=== PATIENT | female | born 1960 | race Caucasian/White ===

== ENCOUNTER 2017-02-14 01:04 | Inpatient (IN) ==
[2017-02-14] MEDS ORDERED: Acetaminophen 325 MG TABLET PO ONE (02:05)
[2017-02-14 02:18] LABS: Basophils # 0.1 K/mcL (0.0-0.2); Basophils % 0.4 %; Eosinophils # 0.3 K/mcL (0.0-0.6); Eosinophils % 1.7 %; Hematocrit 28.9 % (35.3-44.9); Hemoglobin 9.1 g/dL (11.5-15.4); Immature Granulocytes % 0.5 % (0-4); Lymphocytes # 1.4 K/mcL (0.6-4.6); Lymphocytes % 9.3 %; Mean Corpuscular HGB Conc 31.5 g/dL (31.6-35.5); Mean Corpuscular Hemoglobin 29.4 pg (28.0-33.3); Mean Corpuscular Volume 93.2 fL (83.0-100.0); Mean Platelet Volume 10.2 fL (9.4-12.4); Monocytes # 0.8 K/mcL (0.0-1.3); Monocytes % 5.4 %; Neutrophils # 12.7 K/mcL (1.6-8.9); Platelet Count 329 K/mcL (140-400); Segmented Neutrophils % 82.7 %
[2017-02-14 02:31] LABS: Calcium 8.5 mg/dL (8.6-10.8); Potassium 4.4 mEq/L (3.5-4.5)
[2017-02-14] MEDS ORDERED: Cefepime HCl 2,000 MG in D5% in Water (Mini-Bag+) 100 ML IVPB STA (02:46)
[2017-02-14] MEDS ORDERED: Vancomycin 1,250 MG in D5% in Water 250 ML IVPB ONE (02:46)
[2017-02-14] MEDS ORDERED: 0.9 % Sodium Chloride 500 ML IVC ONE (03:44)
[2017-02-14] MEDS ORDERED: 0.9 % Sodium Chloride 1,000 ML IVC ONE (03:45)
--- NOTE | 2017-02-14 03:48 | Emergency Department Note ---
Disposition Clinical Impression: Cellulitis Qualifiers: Site of cellulitis: extremity Site of cellulitis of extremity: lower extremity Laterality: right Qualified Code(s): L03.115 - Cellulitis of right lower limb Disposition: Admitted As Inpatient Condition: Good General Adult HPI - General Chief complaint: ED Wound/Laceration Stated complaint: ulcer Time Seen by Provider: 02/14/17 01:27 Source: patient Limitations: no limitations Nursing Notes Reviewed: Yes Vital Signs Reviewed: Yes - History of Present Illness HPI Narrative: Patient here for evaluation of left foot ulcer. Patient was recently diagnosed with ulcer and cellulitis to the right first metatarsal that had been discussed with podiatry and the patient been placed on outpatient antibiotics. The patient delayed her treatment of these for several days but has been taking them and is now having more pain and redness and swelling. Patient states she now has fevers and nausea. Pain Scale: 8 - Related Data Previous Rx's Medication Instructions Recorded Cyclobenzaprine [Flexeril] 10 mg PO TID #30 tablet 05/19/15 Ondansetron HCl [Zofran] 4 mg PO Q6HR PRN #10 tablet 06/29/15 Ibuprofen [Motrin] 800 mg PO Q8HR #9 tablet 02/09/16 Orphenadrine [Norflex] 100 mg PO HS #3 tablet.er 02/09/16 Azithromycin 250 mg PO DAILY #6 tablet 10/04/16 Benzonatate [Tessalon] 100 mg PO TID PRN 7 Days 10/04/16 predniSONE [Prednisone] 50 mg PO DAILY 5 Days 10/04/16 Ciprofloxacin [Cipro] 500 mg PO BID #28 tablet 02/07/17 Sulfamethoxazole/Trimeth DS 1 each PO BID #28 tablet 02/07/17 [Bactrim DS] Allergies Allergy/AdvReac Type Severity Reaction Status Date / Time armodafinil [From Nuvigil] Allergy Rash Verified 02/07/17 10:05 cephalexin [From Keflex] Allergy Rash Verified 02/07/17 10:05 Review of Systems: CONSTITUTIONAL: fever, chillsNo weight loss, , weakness or fatigue. HEENT: Eyes: No visual changes. Ears, Nose, Throat: No hearing loss, difficulty talking or unable to swallow. SKIN: Erythema, swelling, ulceration CARDIOVASCULAR: No chest pain, chest pressure or chest discomfort. No palpitations or edema. RESPIRATORY: No shortness of breath, cough or sputum. GASTROINTESTINAL: No anorexia, nausea, vomiting or diarrhea. No abdominal pain or blood. GENITOURINARY: No burning on urination or hematuria. NEUROLOGICAL: No headache, dizziness, syncope, paralysis, ataxia, numbness or tingling in the extremities. No change in bowel or bladder control. MUSCULOSKELETAL: No muscle pain, back pain, joint pain or stiffness. Past Medical History - Past Medical History Medical history: Reports: arthritis, asthma, COPD, diabetes, hyperlipidemia, hypertension, migraine, thyroid disease Surgical history: Reports: thyroidectomy Psychiatric history: Reports: depression SAFETY FIRE BOSS 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 SAFETY FIRE BOSS history - Social History Smoking Status: Current every day smoker Smokeless Tobacco Status: No Alcohol use: Reports: none Drug use: Reports: none Physical Exam General appearance: NAD, conversant Eyes: anicteric sclerae, moist conjunctivae; no lid-lag; PERRL HENT: Atraumatic; oropharynx clear with moist mucous membranes Neck: Normal appearance; Trachea midline Chest: Symmetrical chest rise; No respiratory distress Extremities: peripheral edema and extremity tenderness Skin: Diabetic ulcer to the first metatarsal with surrounding erythema and tenderness to the lower extremity throughout the calf. Psych: Appropriate mood and affect Neuro: Awake and alert - General Limitations: no limitations General appearance: alert, in no apparent distress Course - Reevaluation(s) Reevaluation #1: Patient with worsening white count, ESR, CRP. Failed outpatient therapy. - Consultations Consultation #1: Discussed with Dr. Geronimo. Patient accepted for admission. Vital Signs Temperature 99 F 02/14/17 01:04 Pulse Rate 94 02/14/17 01:04 Respiratory Rate 18 02/14/17 01:04 Blood Pressure 159/71 02/14/17 01:04 O2 Sat by Pulse Oximetry 97 02/14/17 01:04 Temperature 99.5 F 02/14/17 05:41 Pulse Rate 90 02/14/17 05:41 Respiratory Rate 17 02/14/17 05:41 Blood Pressure 99/57 02/14/17 05:41 O2 Sat by Pulse Oximetry 93 02/14/17 05:41 Oxygen Delivery Oxygen Delivery Room Air Medical Decision Making - Lab Data Result diagrams: 02/14/17 02:00 02/14/17 02:00 Lab Results 02/14/17 02/14/17 02/14/17 Range/Units 02:00 02:00 02:00 WBC 15.4 H D (4.3-11.1) K/mcL RBC 3.10 L (3.82-4.97) M/mcL Hgb 9.1 L (11.5-15.4) g/dL Hct 28.9 L (35.3-44.9) % MCV 93.2 (83.0-100.0) fL MCH 29.4 (28.0-33.3) pg MCHC 31.5 L (31.6-35.5) g/dL RDW 15.0 H (11.5-14.5) % Plt Count 329 (140-400) K/mcL MPV 10.2 (9.4-12.4) fL Immature Gran % 0.5 (0-4) % Seg Neutrophils % 82.7 % Lymphocytes % 9.3 % Monocytes % 5.4 % Eosinophils % 1.7 % Basophils % 0.4 % Neutrophils # 12.7 H (1.6-8.9) K/mcL Lymphocytes # 1.4 (0.6-4.6) K/mcL Monocytes # 0.8 (0.0-1.3) K/mcL Eosinophils # 0.3 (0.0-0.6) K/mcL Basophils # 0.1 (0.0-0.2) K/mcL ESR >= 130 H (0-15) mm/hr Sodium 133 L (136-145) mEq/L Potassium 4.4 (3.5-4.5) mEq/L Chloride 101 (98-109) mEq/L Carbon Dioxide 19 (19-29) mEq/L BUN 15 (7-20) mg/dL Creatinine 1.43 H (0.57-1.11) mg/dL Est GFR ( Amer) 46 L (> 60) Est GFR (Non-Af Amer) 38 L (> 60) BUN/Creatinine Ratio 10 (6-26) Glucose 124 H (70-99) mg/dL Calculated Osmolality 278 L (280-300) Lactic Acid (0.5-2.2) mmol/L Calcium 8.5 L (8.6-10.8) mg/dL Iron 14 L (50-170) mcg/dL % Saturation 5 L (15-50) % Transferrin 189 (180-382) mg/dL C-Reactive Protein 92 H (Less than 5) mg/L 02/14/17 Range/Units 02:00 WBC (4.3-11.1) K/mcL RBC (3.82-4.97) M/mcL Hgb (11.5-15.4) g/dL Hct (35.3-44.9) % MCV (83.0-100.0) fL MCH (28.0-33.3) pg MCHC (31.6-35.5) g/dL RDW (11.5-14.5) % Plt Count (140-400) K/mcL MPV (9.4-12.4) fL Immature Gran % (0-4) % Seg Neutrophils % % Lymphocytes % % Monocytes % % Eosinophils % % Basophils % % Neutrophils # (1.6-8.9) K/mcL Lymphocytes # (0.6-4.6) K/mcL Monocytes # (0.0-1.3) K/mcL Eosinophils # (0.0-0.6) K/mcL Basophils # (0.0-0.2) K/mcL ESR (0-15) mm/hr Sodium (136-145) mEq/L Potassium (3.5-4.5) mEq/L Chloride (98-109) mEq/L Carbon Dioxide (19-29) mEq/L BUN (7-20) mg/dL Creatinine (0.57-1.11) mg/dL Est GFR ( Amer) (> 60) Est GFR (Non-Af Amer) (> 60) BUN/Creatinine Ratio (6-26) Glucose (70-99) mg/dL Calculated Osmolality (280-300) Lactic Acid 1.8 (0.5-2.2) mmol/L Calcium (8.6-10.8) mg/dL Iron (50-170) mcg/dL % Saturation (15-50) % Transferrin (180-382) mg/dL C-Reactive Protein (Less than 5) mg/L Critical Care Time Critical Care Time: Yes Total Critical Care Time: 40 Attestation: Critical care performed: Time is exclusive of separately billable procedures. Time includes: direct patient care, patient reassessment, coordination of patient care, interpretation of data (laboratory data, radiology data, and respiratory data), review of patient's medical records, medical consultation and documentation of patient care. Procedures included in critical care time: Procedures excluded from critical care time: Attestation Statement - Attestation Attestation: I, Rome Ravi MD, personally evaluated this patient and discussed their management with the resident physician. I reviewed the resident's note and agree with the documented findings, medical decision making, and plan of care. 56-year-old female presents to the emergency department with a complaint of increased pain and swelling in her right foot. Patient is diabetic and has an ulcer to the medial aspect of the distal right foot and great toe. A has been present for more than a month over the past few days has gotten worse and now she has a second area on the plantar aspect of the ball of the foot. Increased pain and swelling and redness. Fever today. On exam and patient is a well-developed well-nourished female who appears much older than her actual age. She is alert and oriented 3. There is no cyanosis or diaphoresis. Are clear and equal bilaterally. Heart regular and tachycardic. Abdomen is soft and nontender with normal bowel sounds. There is edema and tenderness and erythema of the distal right foot. Labs reviewed. Hospitalist, Dr. Geronimo, was consulted and accepted admission of the patient.
[2017-02-14] MEDS ORDERED: Ondansetron 4 MG/2 ML VIAL IVP PRN (04:09)
[2017-02-14] MEDS ORDERED: Naloxone 0.4 MG/ML INJ IVP PRN (04:09)
[2017-02-14] MEDS ORDERED: Vancomycin 1,000 MG in D5% in Water 250 ML IVPB SCH (05:00)
--- NOTE | 2017-02-14 05:04 | Internal Med History&Physical ---
Date of Encounter: 02/14/17 Time of Encounter: 04:30 Assessment and Plan (1) Diabetic foot ulcer Current visit: Yes Status: Acute Patient has one-month history of right leg redness, pain and swelling. She denies any history of trauma or stepping on any foreign objects. Exam reveals erythema, ulcer on the medial aspect of the first metatarsophalangeal joint. Elevated white count, temperature and ESR. Probe test does not reveal bone. X-ray reveals ulceration, cellulitis and foreign body. Patient will be admitted to inpatient status. I expect the patient to be in the hospital at least 2 midnights. High risk due to risk of sepsis and possible need for surgical intervention. Expected discharge disposition is to home. Patient will be given broad spectrum intravenous antibiotic therapy. She will require podiatry consult for possible removal of the foreign body for adequate source control of her infection. If her symptoms do not improve with conservative management, may need an MRI to evaluate for osteoarthritis. The patient does have vertebral fusion hardware which may preclude the performing of MRI. In this case, she may require a bone scan performed. Qualifiers: Diabetic foot ulcer location: other Diabetes mellitus type: type 2 Laterality: right Non-pressure ulcer stage: limited to breakdown of skin Qualified Code(s): E11.621 - Type 2 diabetes mellitus with foot ulcer; L97.511 - Non-pressure chronic ulcer of other part of right foot limited to breakdown of skin (2) Sepsis Current visit: Yes Status: Acute Sepsis due to diabetic foot ulcer causing cellulitis. Patient has white count greater than 12,000 and fever of 103 degrees Fahrenheit. Lactic acid level is normal. Patient does have evidence of end organ damage with acute kidney injury. Patient will be given intravenous fluids and broad-spectrum antibiotics as mentioned above. Qualifiers: Sepsis type: sepsis due to unspecified organism Qualified Code(s): A41.9 - Sepsis, unspecified organism (3) Cellulitis Current visit: Yes Status: Acute As mentioned above, patient will be placed on broad-spectrum antiemetic therapy. Intravenous fluids. Qualifiers: Site of cellulitis: extremity Site of cellulitis of extremity: lower extremity Laterality: right Qualified Code(s): L03.115 - Cellulitis of right lower limb (4) Lung mass Current visit: Yes Status: Chronic Present on CAT scan in November 2016. Patient given the results. Given the patient's 95 pound weight loss over the past 2 years, concerning for neoplasm. Differential diagnoses also include infectious/inflammatory. Will obtain repeat CAT scan of the chest to evaluate these lesions. Depending on the results of the CT scan, may need pulmonology consult for bronchoscopy and tissue biopsy. (5) Tobacco abuse Current visit: Yes Status: Chronic Patient counseled at length regarding the need for smoking cessation. Patient willing to quit. Patient requesting nicotine patch. The same has been ordered. (6) COPD (chronic obstructive pulmonary disease) Current visit: Yes Status: Chronic Breathing treatments when necessary. Continue home inhalers. Patient seems to have mild exacerbation. We will hold off on steroids due to her acute infection in the right foot. Qualifiers: COPD type: emphysema Emphysema type: panlobular Qualified Code(s): J43.1 - Panlobular emphysema (7) HTN (hypertension) Current visit: Yes Status: Chronic Controlled blood pressure. Continue current home medications. Qualifiers: Hypertension type: essential hypertension Qualified Code(s): I10 - Essential (primary) hypertension (8) Diabetes mellitus Current visit: Yes Status: Chronic Her latest hemoglobin A1c is 5.4. Patient has had a 95 pound weight loss over the past 2 years. Diabetes mellitus is likely resolved. Will obtain before meals at bedtime blood glucose measurements. If they are normal, these can be discontinued. No indication for sliding scale insulin. Patient did suffer from competitions of diabetes and she has polyneuropathy bilateral lower expertise. Qualifiers: Diabetes mellitus type: type 2 Diabetes mellitus complication status: with neurologic complications Diabetes mellitus complication detail: with polyneuropathy Diabetes mellitus fdc insulin use: without fdc use Qualified Code(s): E11.42 - Type 2 diabetes mellitus with diabetic polyneuropathy (9) BARON (acute kidney injury) Current visit: Yes Status: Acute Patient is acute worsening of renal failure compared to 1 week ago. Likely due to medications and dehydration caused by sepsis. Intravenous fluids. If no resolution, will obtain renal ultrasound. Avoid nephrotoxic agents and hypotension. (10) Anemia Current visit: Yes Status: Chronic We will obtain iron panel, B12 and folic acid levels. Qualifiers: Anemia type: unspecified type Qualified Code(s): D64.9 - Anemia, unspecified Internal Medicine - H&P: HPI Chief complaint: Right foot pain and swelling Admitted From: Emergency Dept Plans for Post Hospital Care: Home History of present illness: Ms. Huerta is a 56 year old female who presented to the emergency department due to persistent pain in the right foot, redness and swelling. Patient states that all the symptoms started about one month ago as a blister on the inner aspect of her right foot. Soon, the blister ruptured and the redness spread onto her foot. It was associated with pain of 6/10 intensity that was throbbing in nature without any radiation. Pain worsens with walking and gets better with rest. It has been associated with fever and chills. The patient presented to the emergency department one week ago for the same. She was given intravenous antibiotics and discussion for antibiotics to take by mouth. She was instructed to follow up with the personnel technician. Her appointment with podiatry is scheduled for 4 days from now. As the patient has been taking by mouth antibiotics and not getting better with continued pain and redness in her right foot, she returned to the emergency department. X-ray has been performed in the emergency department which reveals persistent ulceration and a foreign body. She has been given intravenous antibiotics and is being admitted. She reports that her fever at home was as high as 104 degrees Fahrenheit. She also reports nausea but denies any vomiting. She denies abdominal pain, diarrhea or consultation. She denies chest pain, shortness of breath. She reports chronic cough due to her smoking and some sputum production. She reports that she continues to smoke 1 pack per day. She denies feeling lightheaded. She reports that she had a CT scan in November 2016 as she was having symptoms of worsening shortness of breath, cough, sputum and fevers. She states that she has not seen her primary care physician since March 2016. She states that she was not aware of the results of the CAT scan performed in November and that she has not followed up with a brand strategy manager or her primary care physician regarding the results. She does report a 95 pound weight loss over the past 2 years. She states that with the weight loss, her diabetes has resolved and hence, she has been taken off all her diabetic medications. Past Med Surg Social Fam HX - Past Medical History Attestation: Yes The following information was validated with the patient. Source: patient Medical history: arthritis, asthma, COPD, diabetes, hyperlipidemia, hypertension , migraine, thyroid disease, TIA Psychiatric history: depression - Past Surgical History Surgical History: thyroidectomy, other (Vertebral fusion) - Social History Smoking Status: Current every day smoker Packs per day: 1 Smokeless Tobacco Status: No Alcohol use: none Drug use: none Current living situation: Home, With Family Activity Level: Independent ambulation Recent Out of Country Travel Within the Last 8 Weeks: No Exposure or Possible Exposure to Illness During Travel: No - Additional Family History Additional family history: Reviewed; not pertinent Internal Medicine - H&P: Meds Cyclobenzaprine [Flexeril] 10 mg PO TID #30 tablet 05/19/15 [Rx] Ondansetron HCl [Zofran] 4 mg PO Q6HR PRN #10 tablet 06/29/15 [Rx] Ibuprofen [Motrin] 800 mg PO Q8HR #9 tablet 02/09/16 [Rx] Orphenadrine [Norflex] 100 mg PO HS #3 tablet.er 02/09/16 [Rx] Azithromycin 250 mg PO DAILY #6 tablet 10/04/16 [Rx] Benzonatate [Tessalon] 100 mg PO TID PRN 7 Days 10/04/16 [Rx] predniSONE [Prednisone] 50 mg PO DAILY 5 Days 10/04/16 [Rx] Ciprofloxacin [Cipro] 500 mg PO BID #28 tablet 02/07/17 [Rx] Sulfamethoxazole/Trimeth DS [Bactrim DS] 1 each PO BID #28 tablet 02/07/17 [Rx] Allergies armodafinil [From Nuvigil] Allergy (Verified 02/07/17 10:05) Rash cephalexin [From Keflex] Allergy (Verified 02/07/17 10:05) Rash All Systems PM: A 10-system review of systems was performed and is negative for pertinent findings except as documented above in the HPI. Review of systems: 10 systems have been reviewed and are negative except as mentioned in the history of present illness - Constitutional Vitals: Temp Pulse Resp BP Pulse Ox 0 F L 82 0 0/0 98 02/14/17 04:53 02/14/17 04:43 02/14/17 04:53 02/14/17 04:53 02/14/17 04:43 Exam: Gen.: Sitting in bed. Mild to moderate distress. Eyes: Pupils equal, round and reactive to light. Extraocular muscles intact. ENT: Dry mucous membranes. No oropharyngeal erythema or discharge. Chest: Diffuse bilateral wheezing present. Not using accessory muscles of respiration. CVS: First and second heart sounds present. No murmurs, rubs or gallops. Tachycardia present. Abdomen: Soft, nontender, nondistended. Bowel sounds present. No hepatosplenomegaly. Skin: No decubitus ulcers appreciated. Erythema on the right foot with ulceration on the medial aspect of the first metatarsal and on the dorsal aspect of the first metatarsal. TRAVELING FREIGHT AGENT: Cranial nerves II-12 grossly intact. Power 5/5 all over. Sensory loss over bilateral lower extremities up to the knees in a glove and stocking pattern. Psychiatric: Alert, awake and oriented to time, place and person. Lymphatic system: No lymphadenopathy appreciated Internal Med - H&P Results - Labs CBC & Chem 7: 02/14/17 02:00 02/14/17 02:00 - Diagnostic Studies Other Images Status: image reviewed by me (Extremities the right foot-ulceration on the medial aspect of the first metatarsophalangeal joint. No involvement of the bone can be seen. 0.5 cm metallic foreign body in the soft tissues.) CT scan - chest Additional comments: Performed in November 2016-reveals 3.9X3.4 centimeter cavitary mass in the right upper lobe with more satellite nodules. These are concerning for infectious/ inflammatory disease versus neoplastic process. Repeat follow-up CAT scan of the chest has been recommended.
[2017-02-14 06:17] LABS: Folate 9.4 ng/mL (7.0-31.4)
[2017-02-14] MEDS: Acetaminophen 325 MG TABLET PO PRN (06:26)
[2017-02-14] MEDS: 0.9 % Sodium Chloride 1,000 ML IVC SCH ×2 (06:42→21:46)
[2017-02-14] MEDS: *HR* Heparin 5,000 UNIT/ML VIAL SQ SCH ×3 (08:37→23:11)
[2017-02-14] MEDS: Nicotine 14 MG PATCH.TD24 TD SCH (08:37)
[2017-02-14] MEDS: Piperacillin/Tazobactam 3.375 GM in D5% in Water (Mini-Bag+) 100 ML IVPB SCH ×3 (08:38→23:11)
--- NOTE | 2017-02-14 12:18 | Internal Med Progress Note ---
Date of Encounter: 02/14/17 Time of Encounter: 09:00 - Assessment and plan (1) Diabetic foot ulcer Current Visit: Yes Status: Acute Assessment and plan: Patient has diabetes with Foot infection. She has diabetic neuropathy. - Educated the patient to check her foot regularly. - Keep vanco and Zosyn treatment. - Podiatry consult saw patient. - Wound Care. Patient is at high risk because she is on vancomycin, need close monitoring Qualifiers: Diabetic foot ulcer location: other Diabetes mellitus type: type 2 Laterality: right Non-pressure ulcer stage: limited to breakdown of skin Qualified Code(s): E11.621 - Type 2 diabetes mellitus with foot ulcer; L97.511 - Non-pressure chronic ulcer of other part of right foot limited to breakdown of skin (2) Pneumonia Current Visit: Yes Status: Acute Assessment and plan: Patient has a previous CT shows nodular with cavity. Repeated CT shows resolved previous cavitated nodular, however shows bilateral inflammation/ infiltration, consider pneumonia. - Patient is on Vanco and Zosyn right now. - She has wheezing, place her on bronchodilator. - Oxygen therapy. - Check quantiferon to r/o TB - Repeat imaging after treatment. Qualifiers: Pneumonia type: due to unspecified organism Laterality: bilateral Lung location: upper lobe of lung Qualified Code(s): J18.9 - Pneumonia, unspecified organism (3) Tobacco abuse Current Visit: Yes Status: Chronic Assessment and plan: Smoking cessation education. Nicotine patch. (4) COPD (chronic obstructive pulmonary disease) Current Visit: Yes Status: Chronic Assessment and plan: Patient had wheezing. Placed her on bronchodilator treatment. Possibly her baseline, no signs of exacerbation. Qualifiers: COPD type: emphysema Emphysema type: panlobular Qualified Code(s): J43.1 - Panlobular emphysema (5) HTN (hypertension) Current Visit: Yes Status: Chronic Assessment and plan: Continue home medication Qualifiers: Hypertension type: essential hypertension Qualified Code(s): I10 - Essential (primary) hypertension (6) Diabetes mellitus Current Visit: Yes Status: Chronic Assessment and plan: On diet control at home. Will continue diabetic diet and closely follow glucose level. 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 Etiology is undetermined. Patient is a tobacco smoker, need to rule out malignancy. - CT chest done, no significant mass identified. - Suggest granulomatous lymph node appearance, combined with previously Rt lung cavity, need to r/o TB. Check sputum AFB smear and Quantiferon test. - Check AFP, CEA, CA-125, and CA 19-9 - Time Spent With Patient Greater than 35 minutes - Subjective Interval history: Patient is a 56-year-old female admitted for diabetic foot ulcer. Her past medical history is significant for diabetes, hypertension, thyroid disease, COPD , TIA, migraines, asthma. Patient was seen and examined. Complained of bilateral leg pain. Patient has a diabetic neuropathy and on gabapentin and Percocet at home. We will place back on her home medication. She has no fever. Mild shortness of breath. Occasionally dry cough. Vital signs stable. We will continue antibiotic treatment. - Constitutional Vitals: Temp Pulse Resp BP Pulse Ox 98.7 F 85 18 104/61 92 02/14/17 07:09 02/14/17 07:09 02/14/17 07:09 02/14/17 07:09 02/14/17 07:09 General appearance: Present: A&O X 3, no acute distress, answers questions appropriately - Head Head exam: Present: atraumatic, normocephalic - Eye Eye exam: Present: PERRL, conjuntiva pink, sclera anicteric Pupils: Present: PERRL - Neck Neck exam general surgery: Present: supple, trachea midline. Absent: lymphadenopathy - Respiratory Respiratory exam: Present: CTAB, wheezes (Scattered wheezes bilaterally). Absent: accessory muscle use, rales, rhonchi - Cardiovascular Cardiovascular exam: Present: RRR, +S1, +S2. Absent: diastolic murmur, gallop, rubs, systolic murmur - GI/Abdominal GI/Abdominal exam: Present: normal bowel sounds, soft, no peritoneal signs. Absent: distended, tenderness - Extremities Exam Extremities exam: Present: warm, radial pulses palpable and symetrical. Absent : calf tenderness, cyanotic, pedal edema Additional comments: Rt foot ulcer about 2X2 cm - Neurological Exam Neurological exam: Present: CN II-XII intact, oriented X3, no focal deficits. Absent: pronater drift, facial droop, speech deficit - Skin Skin exam: Present: dry, intact Internal Medicine: Result - Labs CBC & Chem 7: 02/14/17 02:00 02/14/17 02:00 - Impressions Impressions Chest CT 02/14/17 05:00 IMPRESSION: 1. New central predominant peribronchovascular groundglass opacities in both lungs, most severe in the left upper lobe. Considerations include pneumonia or edema. 2. The previously seen nodular consolidative opacity with cavitation in the right upper lobe has almost completely resolved, and previously seen areas of nodular consolidative opacity in the right upper lobe are no longer present. The findings are consistent with a resolving infectious or inflammatory process. 3. Minimal bronchial wall thickening could be related to pulmonary vascular congestion or bronchitis. 4. Incidental findings as above. D/ / Kentrell Fierro MD / Kentrell Fierro MD Interpreting Provider: Kentrell Fierro MD Consult Discharge Plan - Plan Referrals: Washington Ni DO [Primary Care Provider] -
[2017-02-14] MEDS ORDERED: Ipratropium/Albuterol Neb 3 ML IH PRN (12:26)
[2017-02-14] MEDS: *HR* OxyCODONE/APAP 10/325 TABLET PO PRN ×2 (13:03→21:42)
[2017-02-14] MEDS ORDERED: Td (TENIVAC) Vaccine 0.5 ML VIAL IM ONE (13:29)
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
[2017-02-14] MEDS: Vancomycin 1,250 MG in D5% in Water 250 ML IVPB SCH (15:25)
[2017-02-14] MEDS: Gabapentin 400 MG CAPSULE PO SCH ×2 (15:26→21:42)
[2017-02-15] MEDS: Vancomycin 1,250 MG in D5% in Water 250 ML IVPB SCH (02:05)
[2017-02-15] MEDS: Acetaminophen 325 MG TABLET PO PRN ×2 (02:10→08:02)
[2017-02-15] MEDS: *HR* OxyCODONE/APAP 10/325 TABLET PO PRN ×3 (05:01→21:28)
[2017-02-15 07:46] LABS: Basophils % 0.5 %; Eosinophils # 0.5 K/mcL (0.0-0.6); Eosinophils % 5.3 %; Hematocrit 23.8 % (35.3-44.9); Hemoglobin 7.6 g/dL (11.5-15.4); Immature Granulocytes % 0.2 % (0-4); Lymphocytes % 11.8 %; Mean Corpuscular HGB Conc 31.9 g/dL (31.6-35.5); Mean Corpuscular Hemoglobin 29.8 pg (28.0-33.3); Mean Corpuscular Volume 93.3 fL (83.0-100.0); Monocytes # 0.4 K/mcL (0.0-1.3); Monocytes % 4.3 %; Neutrophils # 6.6 K/mcL (1.6-8.9); Platelet Count 232 K/mcL (140-400); Red Blood Count 2.55 M/mcL (3.82-4.97); Red Cell Distribution Width 14.8 % (11.5-14.5); Segmented Neutrophils % 77.9 %
[2017-02-15] MEDS: Gabapentin 400 MG CAPSULE PO SCH ×3 (07:46→21:30)
[2017-02-15] MEDS: *HR* Heparin 5,000 UNIT/ML VIAL SQ SCH ×2 (07:47→16:09)
[2017-02-15] MEDS: Piperacillin/Tazobactam 3.375 GM in D5% in Water (Mini-Bag+) 100 ML IVPB SCH ×2 (07:47→15:16)
[2017-02-15] MEDS: Nicotine 14 MG PATCH.TD24 TD SCH (07:48)
[2017-02-15 07:58] LABS: Albumin 2.4 g/dL (3.5-5.0); Albumin/Globulin Ratio 0.5 (1.1-2.2); Bilirubin,Total 0.4 mg/dL (0.2-1.2); Calcium 8.1 mg/dL (8.6-10.8); Globulin 4.4 g/dL (2.4-3.5); Potassium 3.8 mEq/L (3.5-4.5); Total Protein 6.8 g/dL (6.0-8.3)
[2017-02-15] MEDS: Silver Sulfadiazine 50 GM TUBE TP SCH (07:58)
[2017-02-15 08:18] LABS: Thyroid Stimulating Hormone 1.119 mcIU/mL (0.350-4.840)
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
[2017-02-15 10:25] LABS: Carcinoembryonic Antigen 5.7 ng/mL (0-5.0)
--- NOTE | 2017-02-15 13:43 | Internal Med Progress Note ---
Date of Encounter: 02/15/17 Time of Encounter: 10:00 - Assessment and plan (1) Diabetic foot ulcer Current Visit: Yes Status: Inactive Assessment and plan: Patient has diabetes with Foot infection. She has diabetic neuropathy. - Educated the patient to check her foot regularly. - Keep vanco and Zosyn treatment. - Podiatry consult saw patient. - Wound Care. Patient is at high risk because she is on vancomycin, need close monitoring Qualifiers: Diabetic foot ulcer location: other Diabetes mellitus type: type 2 Laterality: right Non-pressure ulcer stage: with fat layer exposed Qualified Code(s): E11.621 - Type 2 diabetes mellitus with foot ulcer; L97.512 - Non-pressure chronic ulcer of other part of right foot with fat layer exposed (2) Pneumonia Current Visit: Yes Status: Acute Assessment and plan: Patient has a previous CT shows nodular with cavity. Repeated CT shows resolved previous cavitated nodular, however shows bilateral inflammation/ infiltration, consider pneumonia. - Patient is on Vanco and Zosyn right now. - She has wheezing, place her on bronchodilator. - Oxygen therapy. - Check quantiferon to r/o TB - Repeat imaging after treatment. Qualifiers: Pneumonia type: due to unspecified organism Laterality: bilateral Lung location: upper lobe of lung Qualified Code(s): J18.9 - Pneumonia, unspecified organism (3) Tobacco abuse Current Visit: Yes Status: Chronic Assessment and plan: Smoking cessation education. Nicotine patch. (4) COPD (chronic obstructive pulmonary disease) Current Visit: Yes Status: Chronic Assessment and plan: Patient had wheezing. Placed her on bronchodilator treatment. Possibly her baseline, no signs of exacerbation. Qualifiers: COPD type: emphysema Emphysema type: panlobular Qualified Code(s): J43.1 - Panlobular emphysema (5) HTN (hypertension) Current Visit: Yes Status: Chronic Assessment and plan: Continue home medication Qualifiers: Hypertension type: essential hypertension Qualified Code(s): I10 - Essential (primary) hypertension (6) Diabetes mellitus Current Visit: Yes Status: Chronic Assessment and plan: On diet control at home. Will continue diabetic diet and closely follow glucose level. 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 Etiology is undetermined. Patient is a tobacco smoker, need to rule out malignancy. - CT chest done, no significant mass identified. - Suggest granulomatous lymph node appearance, combined with previously Rt lung cavity, need to r/o TB. Check sputum AFB smear and Quantiferon test. - Borderline elevated CEA, CA-125. Pending AFP, and CA 19-9 - Low hemoglobin notified. Will consult GI. Patient has iron deficiency, suggested possibly chronic blood loss. - Time Spent With Patient Greater than 35 minutes - Subjective Interval history: Patient is a 56-year-old female admitted for diabetic foot ulcer. Her past medical history is significant for diabetes, hypertension, thyroid disease, COPD , TIA, migraines, asthma. Patient was seen and examined. Complained of bilateral leg pain. Patient complain right calf pain, we will order Doppler to rule out DVT. Patient still have dry cough with exertional shortness of breath. Hemoglobin dropped to 7.6. No signs of active bleeding identified. Vitals are stable. Will check stool guaiac test. Will consult GI. Place patient on clear liquid diet for possible scopes. - Constitutional Vitals: Temp Pulse Resp BP Pulse Ox 97.6 F 98 16 149/67 95 02/15/17 11:47 02/15/17 11:47 02/15/17 11:47 02/15/17 11:47 02/15/17 11:47 General appearance: Present: A&O X 3, no acute distress, answers questions appropriately - Head Head exam: Present: atraumatic, normocephalic - Eye Eye exam: Present: PERRL, conjuntiva pink, sclera anicteric Pupils: Present: PERRL - Neck Neck exam general surgery: Present: supple, trachea midline. Absent: lymphadenopathy - Respiratory Respiratory exam: Present: CTAB, wheezes (Scattered wheezing on left side). Absent: accessory muscle use, rales, rhonchi - Cardiovascular Cardiovascular exam: Present: RRR, +S1, +S2. Absent: diastolic murmur, gallop, rubs, systolic murmur - GI/Abdominal GI/Abdominal exam: Present: normal bowel sounds, soft, no peritoneal signs. Absent: distended, tenderness - Extremities Exam Extremities exam: Present: warm, radial pulses palpable and symetrical. Absent : calf tenderness, cyanotic, pedal edema - Neurological Exam Neurological exam: Present: CN II-XII intact, oriented X3, no focal deficits. Absent: pronater drift, facial droop, speech deficit - Skin Skin exam: Present: dry, intact Internal Medicine: Result - Labs CBC & Chem 7: 02/15/17 07:33 02/15/17 07:33 Labs: Short CBC 02/15/17 Range/Units 07:33 WBC 8.5 (4.3-11.1) K/mcL Hgb 7.6 L D (11.5-15.4) g/dL Hct 23.8 L (35.3-44.9) % Plt Count 232 (140-400) K/mcL Neutrophils # 6.6 (1.6-8.9) K/mcL BMP 02/15/17 07:33 Sodium 137 Potassium 3.8 Chloride 106 Carbon Dioxide 21 BUN 14 Creatinine 1.17 H Glucose 126 H Calcium 8.1 L Liver Function 02/15/17 Range/Units 07:33 Total Bilirubin 0.4 (0.2-1.2) mg/dL AST 26 (5-34) Units/L ALT 6 (0-55) Units/L Alkaline Phosphatase 88 (38-126) Units/L Albumin 2.4 L (3.5-5.0) g/dL - Impressions Impressions Foot X-Ray 02/15/17 09:02 IMPRESSION: 1. Unchanged thin metallic foreign body in the dorsal soft tissues of the right forefoot in the 2nd interspace at level of the right 2nd and 3rd metatarsophalangeal joints. Of note, the foreign body appears to be within and/or just subjacent to the skin on the recent CT (refer to series 7 images 41-43). 2. Unchanged ulceration in the medial right forefoot near the right 1st metatarsophalangeal joint with no findings of underlying osteomyelitis or necrotizing fasciitis. D/ / Kentrell Fierro MD / Kentrell Fierro MD Interpreting Provider: Kentrell Fierro MD Consult Discharge Plan - Plan Referrals: Washington Ni DO [Primary Care Provider] -
[2017-02-15] MEDS: *HR* FentaNYL PATCH 50 MCG PATCH TD SCH (14:58)
[2017-02-15] MEDS: 0.9 % Sodium Chloride 1,000 ML IVC SCH (15:17)
[2017-02-15] MEDS: ALPRAZolam 0.5 MG TABLET PO PRN (15:25)
[2017-02-15] MEDS: Vancomycin 1,750 MG in D5% in Water 500 ML IVPB SCH (21:29)
[2017-02-16] MEDS: *HR* Heparin 5,000 UNIT/ML VIAL SQ SCH ×3 (00:37→16:05)
[2017-02-16] MEDS: Piperacillin/Tazobactam 3.375 GM in D5% in Water (Mini-Bag+) 100 ML IVPB SCH ×4 (00:37→23:33)
[2017-02-16 03:31] LABS: Basophils % 0.5 %; Eosinophils # 0.4 K/mcL (0.0-0.6); Eosinophils % 7.2 %; Hematocrit 23.2 % (35.3-44.9); Hemoglobin 7.1 g/dL (11.5-15.4); Immature Granulocytes % 0.5 % (0-4); Lymphocytes # 0.9 K/mcL (0.6-4.6); Lymphocytes % 15.8 %; Mean Corpuscular HGB Conc 30.6 g/dL (31.6-35.5); Mean Corpuscular Hemoglobin 28.5 pg (28.0-33.3); Mean Corpuscular Volume 93.2 fL (83.0-100.0); Mean Platelet Volume 9.8 fL (9.4-12.4); Monocytes # 0.3 K/mcL (0.0-1.3); Monocytes % 5.7 %; Neutrophils # 4.2 K/mcL (1.6-8.9); Platelet Count 224 K/mcL (140-400); Red Blood Count 2.49 M/mcL (3.82-4.97); Red Cell Distribution Width 14.7 % (11.5-14.5); Segmented Neutrophils % 70.3 %
[2017-02-16 03:46] LABS: BUN/Creatinine Ratio 13 (6-26); Blood Urea Nitrogen 11 mg/dL (7-20); Calcium 8.1 mg/dL (8.6-10.8); Carbon Dioxide 21 mEq/L (19-29); Chloride 106 mEq/L (98-109); Glucose 105 mg/dL (70-99); Osmolality,Calculated 280 (280-300); Potassium 3.2 mEq/L (3.5-4.5); Sodium 135 mEq/L (136-145); eGFR For African Americans > 60 (> 60); eGFR For Non-African Americans > 60 (> 60)
[2017-02-16] MEDS: 0.9 % Sodium Chloride 1,000 ML IVC SCH ×3 (05:24→20:00)
--- NOTE | 2017-02-16 07:10 | Venous Imaging Report ---
LE Venous Duplex Patient Name:Geraldine Huerta Order Number:[id number] Procedure Date:02/15/2017 Date:1960Age:56 yrs Gender:Female Location:[facility] Room #: 3A13 Border Guard:Azra Sherman MD:Gavino Reid MD public relations sales marketing:Washington Ni DO Reading MD:Santos Alfred MD Study Quality:Adequate Primary Indications:Swelling Secondary Indications: Pain Impressions: Normal right lower extremity deep and superficial venous exam. Normal contralateral common femoral vein. Recommendations: After imaging the patient returned to their room. Test completed on 02/15/2017 at 2:42:21 pm. Findings Prior Study: No prior study available for comparison. Lower Extremity Venous Duplex Side Vein Compress Spontaneous Flow Augment Diameter (cm) Depth (cm) Right Distal Iliac Normal Yes Phasic Yes Right Common Femoral Normal Yes Phasic Yes Right Superficial Femoral Normal Yes Phasic Yes Right Popliteal Normal Yes Phasic Yes Right Posterior Tibial Normal Yes Phasic Yes Right Peroneal Normal Yes Phasic Yes Right Great Saphenous Normal Yes Phasic Yes Right Lesser Saphenous Normal Yes Phasic Yes Left Common Femoral Normal Yes Phasic Yes Updated by Santos Alfred MD on 02/16/2017 7:06:49 AM electronically signed on 02/16/2017 7:07:12 AM with status of Final
[2017-02-16] MEDS ORDERED: 0.9 % Sodium Chloride 250 ML ONE (09:20)
[2017-02-16] MEDS: Gabapentin 400 MG CAPSULE PO SCH ×3 (09:31→21:20)
[2017-02-16] MEDS: Nicotine 14 MG PATCH.TD24 TD SCH (09:33)
[2017-02-16] MEDS: Silver Sulfadiazine 50 GM TUBE TP SCH (09:34)
[2017-02-16] MEDS: *HR* OxyCODONE/APAP 10/325 TABLET PO PRN ×2 (10:55→18:35)
--- NOTE | 2017-02-16 11:50 | Gastroenterology Consult Note ---
<VelaKentrell Ha - Last Filed: 02/16/17 11:48> Date of Encounter: 02/16/17 Time of Encounter: 10:55 - Assessment and plan (1) Anemia Current Visit: Yes Status: Chronic Assessment and plan: Hgb on admission 9.1 and 7.1 this AM. Iron 14 with ferritin 95. Plan for EGD and colonoscopy tomorrow. Clear liquid diet today, no red or purple. NPO at midnight. If unable tolerate NuLytely please use MiraLAX prep. If not clear by 6 AM, give 2 tap water enemas. Qualifiers: Anemia type: unspecified type Qualified Code(s): D64.9 - Anemia, unspecified (2) Unintentional weight loss Current Visit: Yes Status: Acute Assessment and plan: Pt states she lost 95 lbs 4 years ago. On 01/22/15 she weighed 164 lbs, 02/14/2016 162 lbs, 04/13/16 165 lbs, 06/02/16 164 lbs, 08/19/16 160 lbs, 10/21/16 155 lbs, 11/18 152 lbs, 02/09/17 153 lbs. Borderline elevated CEA at 5.7 and CA 125 at 38. AFP and CA 19-9 pending. (3) Pneumonia Current Visit: Yes Status: Acute Assessment and plan: Cavitary lesion noted on CT. Quantiferon and AFB smear pending. Qualifiers: Pneumonia type: due to unspecified organism Laterality: bilateral Lung location: upper lobe of lung Qualified Code(s): J18.9 - Pneumonia, unspecified organism - Time Spent With Patient Total time spent is greater than 50% in coordination of care (as documented) at patient's floor/unit and/or counseling patient: GI History of Present Illness - Data of Consult Patient: new to practice Consult date: 02/16/17 Requesting Physician: Jeanette Mancia MD - Consult Narrative Reason for consult: Anemia, weight loss History of present illness: Ms. Huerta is a 56 year old female with PMHx of arthritis, asthma, COPD, DM, HLD , HTN, TIA who presented to the ED for evaluation of left foot ulcer. Patient was recently diagnosed with ulcer and cellulitis to the right first metatarsal that had been discussed with podiatry and the patient was started on outpatient antibiotics. She reports that her fever at home was as high as 104. She also reports nausea but denies any vomiting. She denies chest pain, SOB, abdominal pain, diarrhea, constipation, melena, or hematochezia. She does report a 95 pound weight loss 4 years ago. We have been consulted for unintentional weight loss and anemia. Hgb on admission 9.1 and today Hgb 7.1. Iron was low at 14. Borderline elevated CEA at 5.7 and CA 125 at 38. AFP and CA 19-9 pending. Procedures: Colonoscopy 08/09/2012 Dr. Carrion: Normal EGD 11/09/2011 Dr. Carrion: Normal NSAIDs: Motrin Anticoagulation: None Past Med Surg Social Fam HX - Past Medical History Medical history: arthritis, asthma, COPD, diabetes, hyperlipidemia, hypertension , migraine, thyroid disease Psychiatric history: depression - Past Surgical History Surgical History: thyroidectomy - Social History Smoking Status: Current every day smoker Packs per day: 1 Smokeless Tobacco Status: No Alcohol use: none Drug use: none - Family History Father Living Status: Age at : 72 Hx Family Endocrine Disorder: Yes (diabetes) - Gastrointestinal Gastrointestinal: Present: as per HPI - Constitutional Constitutional: as per HPI - EENT Eyes: as per HPI Ears: Present: as per HPI Nose, mouth and throat: Present: as per HPI - Cardiovascular Cardiovascular ROS: Present: as per HPI - Respiratory Respiratory IM: Present: as per HPI - Genitourinary Genitourinary: Absent: change in color, Urinary frequency - Neurological ROS Neurological GI: Present: as per HPI - Hematologic/Lymphatic Hematologic/Lymphatic pediatric: Present: as per HPI - Musculoskeletal Musculoskeletal ROS GI: Present: as per HPI - Integumentary Integumentary GI: Present: as per HPI - Psychiatric ROS Psychiatric GI: Present: as per HPI - Endocrine Endocrine IM: Present: as per HPI - Constitutional Vitals: Temp Pulse Resp BP Pulse Ox 98.1 F 84 18 152/77 94 02/16/17 11:01 02/16/17 11:01 02/16/17 11:01 02/16/17 11:01 02/16/17 08:00 General appearance: Present: cooperative, A&O X 3, no acute distress, answers questions appropriately - Head Head exam: Present: atraumatic, normocephalic - Eye Eye exam: Present: normal appearance, sclera anicteric - ENT ENT exam: Present: mucous membranes dry - Neck Neck exam general surgery: Present: normal inspection, trachea midline - Respiratory Respiratory exam: Present: CTAB. Absent: rales, rhonchi - Cardiovascular Cardiovascular exam: Present: RRR, +S1, +S2 - GI/Abdominal GI/Abdominal exam: Present: soft, no peritoneal signs. Absent: distended, firm , guarding, tenderness - Rectal Rectal exam: Present: deferred - Extremities Exam Extremities exam: Present: warm - Neurological Exam Neurological exam: Present: no focal deficits - Psychiatric Psychiatric exam: Present: normal affect, normal mood - Skin Skin exam: Present: dry, intact, normal color, warm Results - Labs CBC & Chem 7: 02/16/17 03:20 02/16/17 03:20 Labs: Last Result ESR >= 130 mm/hr (0-15) H 02/14/17 02:00 Calcium 8.1 mg/dL (8.6-10.8) L 02/16/17 03:20 Iron 14 mcg/dL (50-170) L 02/14/17 02:00 % Saturation 5 % (15-50) L 02/14/17 02:00 Transferrin 189 mg/dL (180-382) 02/14/17 02:00 Ferritin 95 ng/ml (5-204) 02/14/17 02:00 C-Reactive Protein 92 mg/L (Less than 5) H 02/14/17 02:00 Vitamin B12 671 pg/mL (213-816) 02/14/17 03:00 Folate 9.4 ng/mL (7.0-31.4) 02/14/17 03:00 Entire Visit Hgb 7.1 g/dL (11.5-15.4) L 02/16/17 03:20 Hct 23.2 % (35.3-44.9) L 02/16/17 03:20 Ferritin 95 ng/ml (5-204) 02/14/17 02:00 Total Bilirubin 0.4 mg/dL (0.2-1.2) 02/15/17 07:33 AST 26 Units/L (5-34) 02/15/17 07:33 ALT 6 Units/L (0-55) 02/15/17 07:33 Carcinoembryonic Ag 5.7 ng/mL (0-5.0) H 02/15/17 07:33 CA 125 Ag Serial Mntr 38 U/mL (0-35) H 02/15/17 07:33 Folate 9.4 ng/mL (7.0-31.4) 02/14/17 03:00 Consult Discharge Plan - Plan Referrals: Washington Ni DO [Primary Care Provider] - <Aurelia Jones - Last Filed: 02/16/17 17:29> Date of Encounter: 02/16/17 Time of Encounter: 15:00 - Time Spent With Patient Total time spent is greater than 50% in coordination of care (as documented) at patient's floor/unit and/or counseling patient: GI History of Present Illness - Data of Consult Requesting Physician: Jeanette Mancia MD - Consult Narrative History of present illness: Ms. Huerta is a 56 year old female - Constitutional Vitals: Temp Pulse Resp BP Pulse Ox 98.9 F 78 16 118/71 94 02/16/17 14:20 02/16/17 14:20 02/16/17 14:20 02/16/17 14:20 02/16/17 08:00 Results - Labs CBC & Chem 7: 02/16/17 03:20 02/16/17 03:20 Labs: Last Result ESR >= 130 mm/hr (0-15) H 02/14/17 02:00 Calcium 8.1 mg/dL (8.6-10.8) L 02/16/17 03:20 Iron 14 mcg/dL (50-170) L 02/14/17 02:00 % Saturation 5 % (15-50) L 02/14/17 02:00 Transferrin 189 mg/dL (180-382) 02/14/17 02:00 Ferritin 95 ng/ml (5-204) 02/14/17 02:00 C-Reactive Protein 92 mg/L (Less than 5) H 02/14/17 02:00 Vitamin B12 671 pg/mL (213-816) 02/14/17 03:00 Folate 9.4 ng/mL (7.0-31.4) 02/14/17 03:00 Entire Visit Hgb 7.1 g/dL (11.5-15.4) L 02/16/17 03:20 Hct 23.2 % (35.3-44.9) L 02/16/17 03:20 Ferritin 95 ng/ml (5-204) 02/14/17 02:00 Total Bilirubin 0.4 mg/dL (0.2-1.2) 02/15/17 07:33 AST 26 Units/L (5-34) 02/15/17 07:33 ALT 6 Units/L (0-55) 02/15/17 07:33 Carcinoembryonic Ag 5.7 ng/mL (0-5.0) H 02/15/17 07:33 CA 125 Ag Serial Mntr 38 U/mL (0-35) H 02/15/17 07:33 Folate 9.4 ng/mL (7.0-31.4) 02/14/17 03:00 - Attending Attestation I examined this patient and my medical decision-making was reviewed with the COMMODITY MERCHANT/PA/Advanced Practice Nurse/Resident Physician. I agree with the documented findings, disposition and treatment plan as described except to the extent set forth below.
--- NOTE | 2017-02-16 14:26 | Internal Med Progress Note ---
Date of Encounter: 02/16/17 Time of Encounter: 10:00 - Assessment and plan (1) Diabetic foot ulcer Current Visit: Yes Status: Inactive Assessment and plan: Patient has diabetes with Foot infection. She has diabetic neuropathy. - Educated the patient to check her foot regularly. - Keep vanco and Zosyn treatment. Wound culture shows MRSA, sensitive to vanco. - WBC trend down to normal. - Podiatry consult saw patient. - Wound Care. Patient is at high risk because she is on vancomycin, need close monitoring Qualifiers: Diabetic foot ulcer location: other Diabetes mellitus type: type 2 Laterality: right Non-pressure ulcer stage: with fat layer exposed Qualified Code(s): E11.621 - Type 2 diabetes mellitus with foot ulcer; L97.512 - Non-pressure chronic ulcer of other part of right foot with fat layer exposed (2) Pneumonia Current Visit: Yes Status: Acute Assessment and plan: Patient has a previous CT shows nodular with cavity. Repeated CT shows resolved previous cavitated nodular, however shows bilateral inflammation/ infiltration, consider pneumonia. - Patient is on Vanco and Zosyn right now. - She has wheezing, place her on bronchodilator. - Oxygen therapy. - Check quantiferon and AFB smear to r/o TB - Repeat imaging after treatment. Qualifiers: Pneumonia type: due to unspecified organism Laterality: bilateral Lung location: upper lobe of lung Qualified Code(s): J18.9 - Pneumonia, unspecified organism (3) Tobacco abuse Current Visit: Yes Status: Chronic Assessment and plan: Smoking cessation education. Nicotine patch. (4) COPD (chronic obstructive pulmonary disease) Current Visit: Yes Status: Chronic Assessment and plan: Patient had wheezing. Placed her on bronchodilator treatment. Possibly her baseline, no signs of exacerbation. Qualifiers: COPD type: emphysema Emphysema type: panlobular Qualified Code(s): J43.1 - Panlobular emphysema (5) HTN (hypertension) Current Visit: Yes Status: Chronic Assessment and plan: Continue home medication Qualifiers: Hypertension type: essential hypertension Qualified Code(s): I10 - Essential (primary) hypertension (6) Diabetes mellitus Current Visit: Yes Status: Chronic Assessment and plan: On diet control at home. Will continue diabetic diet and closely follow glucose level. Qualifiers: Diabetes mellitus type: type 2 Diabetes mellitus complication status: with neurologic complications Diabetes mellitus complication detail: with polyneuropathy Diabetes mellitus snf insulin use: without care consultant use Qualified Code(s): E11.42 - Type 2 diabetes mellitus with diabetic polyneuropathy (7) Unintentional weight loss Current Visit: Yes Status: Acute Assessment and plan: Pt c/o 95lb BM loss over last several months. However, GI consult checked her old chart she was only about 10 LB loss since last year. Pt has low HgB, Etiology is undetermined. Plan for EGD and colonoscopy. - CT chest done, no significant mass identified. - Suggest granulomatous lymph node appearance, combined with previously Rt lung cavity, need to r/o TB. Check sputum AFB smear and Quantiferon test. - Borderline elevated CEA, CA-125. Pending AFP, and CA 19-9 - Low hemoglobin notified. Patient has iron deficiency, suggested possibly chronic blood loss. GI saw pt, plan for Scopes. - Time Spent With Patient Greater than 35 minutes - Subjective Interval history: Patient is a 56-year-old female admitted for diabetic foot ulcer. Her past medical history is significant for diabetes, hypertension, thyroid disease, COPD , TIA, migraines, asthma. Patient was seen and examined. Still dry cough and c/o b/l pain/tingling. Doppler shows negative to DVT. Wound culture shows sensitive to vanco. Will continue vanco and zosyn for both foot infection and HCAP. Hemoglobin 7.1, will transfuse pt for 1 unit of PRBC. GI consult appreciated, plan for scopes tomorrow. - Constitutional Vitals: Temp Pulse Resp BP Pulse Ox 98.1 F 84 18 152/77 94 02/16/17 11:01 02/16/17 11:01 02/16/17 11:02/16/17 11:02/16/17 08:00 General appearance: Present: A&O X 3, no acute distress, answers questions appropriately - Head Head exam: Present: atraumatic, normocephalic - Eye Eye exam: Present: PERRL, conjuntiva pink, sclera anicteric Pupils: Present: PERRL - Neck Neck exam general surgery: Present: supple, trachea midline. Absent: lymphadenopathy - Respiratory Respiratory exam: Present: CTAB. Absent: accessory muscle use, rales, rhonchi, wheezes - Cardiovascular Cardiovascular exam: Present: RRR, +S1, +S2. Absent: diastolic murmur, gallop, rubs, systolic murmur - GI/Abdominal GI/Abdominal exam: Present: normal bowel sounds, soft, no peritoneal signs. Absent: distended, tenderness - Extremities Exam Extremities exam: Present: warm, radial pulses palpable and symetrical. Absent : calf tenderness, cyanotic, pedal edema Additional comments: Right foot wound well dressed - Neurological Exam Neurological exam: Present: CN II-XII intact, oriented X3, no focal deficits. Absent: pronater drift, facial droop, speech deficit - Skin Skin exam: Present: dry, intact Internal Medicine: Result - Labs CBC & Chem 7: 02/16/17 03:20 02/16/17 03:20 Labs: Short CBC 02/16/17 Range/Units 03:20 WBC 5.9 (4.3-11.1) K/mcL Hgb 7.1 L (11.5-15.4) g/dL Hct 23.2 L (35.3-44.9) % Plt Count 224 (140-400) K/mcL Neutrophils # 4.2 (1.6-8.9) K/mcL BMP 02/16/17 03:20 Sodium 135 L Potassium 3.2 L Chloride 106 Carbon Dioxide 21 BUN 11 Creatinine 0.86 Glucose 105 H Calcium 8.1 L Consult Discharge Plan - Plan Referrals: Washington Ni DO [Primary Care Provider] -
[2017-02-16] MEDS ORDERED: SODIUM CHLORIDE/NAHCO3/KCL/PEG 4,000 ML SOLN.RECON PO ONE (17:00)
[2017-02-16] MEDS: Vancomycin 1,250 MG in D5% in Water 250 ML IVPB SCH (19:31)
[2017-02-16] MEDS: Vancomycin 1,750 MG in D5% in Water 500 ML IVPB SCH (21:20)
[2017-02-17] MEDS: *HR* OxyCODONE/APAP 10/325 TABLET PO PRN ×5 (02:33→22:24)
[2017-02-17 06:02] LABS: Basophils % 0.6 %; Eosinophils # 0.4 K/mcL (0.0-0.6); Hematocrit 23.6 % (35.3-44.9); Hemoglobin 7.3 g/dL (11.5-15.4); Immature Granulocytes % 0.4 % (0-4); Lymphocytes # 0.7 K/mcL (0.6-4.6); Lymphocytes % 13.3 %; Mean Corpuscular HGB Conc 30.9 g/dL (31.6-35.5); Mean Corpuscular Volume 93.7 fL (83.0-100.0); Mean Platelet Volume 9.7 fL (9.4-12.4); Monocytes # 0.3 K/mcL (0.0-1.3); Neutrophils # 3.9 K/mcL (1.6-8.9); Platelet Count 222 K/mcL (140-400); Red Blood Count 2.52 M/mcL (3.82-4.97); Red Cell Distribution Width 14.6 % (11.5-14.5); Segmented Neutrophils % 72.7 %
[2017-02-17 06:11] LABS: BUN/Creatinine Ratio 9 (6-26); Blood Urea Nitrogen 7 mg/dL (7-20); Calcium 7.9 mg/dL (8.6-10.8); Carbon Dioxide 19 mEq/L (19-29); Chloride 110 mEq/L (98-109); Glucose 92 mg/dL (70-99); Osmolality,Calculated 282 (280-300); Potassium 3.4 mEq/L (3.5-4.5); Sodium 137 mEq/L (136-145); eGFR For African Americans > 60 (> 60); eGFR For Non-African Americans > 60 (> 60)
[2017-02-17] MEDS ORDERED: 0.9 % Sodium Chloride 250 ML ONE (08:22)
[2017-02-17] MEDS: Gabapentin 400 MG CAPSULE PO SCH ×3 (08:27→21:28)
[2017-02-17] MEDS: Nicotine 14 MG PATCH.TD24 TD SCH (08:28)
[2017-02-17] MEDS: Piperacillin/Tazobactam 3.375 GM in D5% in Water (Mini-Bag+) 100 ML IVPB SCH (08:28)
[2017-02-17] MEDS: 0.9 % Sodium Chloride 1,000 ML IVC SCH (08:30)
[2017-02-17] MEDS ORDERED: *HR* Propofol 200 MG/20 ML VIAL IVP ONE (10:36)
[2017-02-17] MEDS ORDERED: Ipratropium/Albuterol Neb 3 ML IH PRN (11:54)
[2017-02-17] MEDS: Silver Sulfadiazine 50 GM TUBE TP SCH (12:00)
--- NOTE | 2017-02-17 13:11 | Anesthesia Evaluation PreOp ---
Date of Encounter: 02/17/17 Time of Encounter: 13:09 - Past History Planned Operation: EGD/Colonoscopy Cardiac History: HTN, Hyperlipidemia Pulmonary History: Smoker, Pack/yr (1ppd x 30+yrs), COPD, Other (pneumonia with cavitary lesion lung mass with 95lb weight loss over 2 yrs) GOLD CUTTER History: TIA, Other (diabetic neuropathy) Other Medical History: Diabetes Type II, Thyroid (hypo) Anesthesia History: No Prior Anesthetic Complications, Past Anesthesia (thyroid back fusion) Alcohol Use: none Drug use: none Medications and Allergies Ibuprofen [Motrin] 800 mg PO Q8HR #9 tablet 02/09/16 [Rx] Orphenadrine [Norflex] 100 mg PO HS #3 tablet.er 02/09/16 [Rx] Ciprofloxacin [Cipro] 500 mg PO BID #28 tablet 02/07/17 [Rx] ALPRAZolam [Xanax 0.5 MG Tablet] 0.5 mg PO DAILY PRN 02/14/17 [History] Amitriptyline [Elavil] 10 mg PO DAILY 02/14/17 [History] Gabapentin [Neurontin] 800 mg PO TID 02/14/17 [History] Hyoscyamine Sulfate [Hyoscyamine Sulfate ER] 0.375 mg PO BID 02/14/17 [History] Levothyroxine Sodium [Levoxyl] 200 mcg PO DAILY 02/14/17 [History] Nadolol [Nadolol] 20 mg PO DAILY 02/14/17 [History] Omeprazole [PriLOSEC] 40 mg PO DAILY 02/14/17 [History] OxyCODONE/APAP 10/325 [Percocet 10/325 MG] 1 tab PO Q4-6H PRN 02/14/17 [History] Sulfamethoxazole/Trimeth DS [Bactrim DS] 1 tab PO BID 02/14/17 [History] fentaNYL [Fentanyl] 50 mcg TP Q72H 02/14/17 [History] Allergies armodafinil [From Nuvigil] Allergy (Verified 02/07/17 10:05) Rash cephalexin [From Keflex] Allergy (Verified 02/07/17 10:05) Rash - Meds/Allergy Pre-op Review Medications Reviewed: Yes Allergies Reviewed: Yes Beta Blockers on Current Med List: Yes If Beta Blockers taken, Date/Time (Last Dose taken): 826 today Anesthesia Results - Labs 02/17/17 05:26 02/17/17 05:26 - Imaging Chest x-ray: report reviewed Anesthesia Exam Selected Entries 02/17/17 08:40 02/17/17 11:50 Temperature 98.0 F Pulse Rate 67 Respiratory Rate 18 Blood Pressure 145/60 Blood Pressure Mean 88 Oxygen Delivery Method Nasal Cannula Height: 1.7m Weight: 71kg NPO (# of Hours): 8 - HEENT Pupil (Motor): EOMI - GOLD CUTTER LOC: Oriented GOLD CUTTER Motor: Normal RUE, Normal LUE, Normal RLE, Normal LLE, Normal Face GOLD CUTTER Sensory: Normal: RUE, LUE, RLE, LLE, Face - Cardiac Rhythm: Regular Murmur: None - Pulmonary Breath Sounds: bilateral Rhonchi (wheezes)
[2017-02-17] MEDS: Ipratropium/Albuterol Neb 3 ML IH SCH ×4 (14:09→22:17)
--- NOTE | 2017-02-17 14:22 | Podiatry Progress Note ---
Date of Encounter: 02/17/17 Time of Encounter: 12:00 - Assessment and Plan (1) Foot ulcer Current Visit: Yes Status: Acute Continue with wound care orders and silvadene cream daily. Continue with antibiotics and recommend patient be discharges with oral antibiotics. Post op shoe to right foot with protective weight bearing. Will need to f/u in wound care with Dr. Knight with in one week of discharge from hospital. Qualifiers: Laterality: right Non-pressure ulcer stage: with fat layer exposed Qualified Code(s): L97.512 - Non-pressure chronic ulcer of other part of right foot with fat layer exposed (2) Foreign body (FB) in soft tissue Current Visit: Yes Status: Acute s/p bedside debridment by Dr. Allen on 02/14/17. Foreign body still present on repeat xray. No surgical intervention at this time. Continue with wound care and antibiotics as ordered. WBC: 5.3 Wound cultures isolated MRSA. F/u with Dr. Knight in wound care with in 1 week of discharge from hospital. Will continue to follow patient closely. Subjective Principal diagnosis: diabetic right foot ulceration secondary to burn, foreign body right foot Interval history: Patient is sitting up in bed with dressing dry and intact to right foot. Patient is s/p bedside debridement of foreign body right foot plantar aspect by Dr. Allen on 02/14/17. Silvadene cream is being applied daily to ulceration medial aspect of 1st metatarsal head. No c/o fever or chills. Patient is in contact isolation to r/o TB. Wound cultures from right foot isolated MRSA. Objective - Vital Signs Vital Signs: Vital Signs Temp Pulse Resp BP Pulse Ox 02/17/17 11:50 98.0 F 67 18 145/60 02/17/17 08:40 98.0 F 81 18 158/78 97 02/17/17 05:41 97.9 F 75 14 122/67 98 02/17/17 00:45 98.6 F 87 16 145/73 96 02/16/17 20:11 97.6 F 72 16 173/93 99 02/16/17 14:20 98.9 F 78 16 118/71 Intake and Output 02/16/17 02/17/17 02/17/17 23:59 07:59 15:59 Intake Total 555 / 555 1200 / 1200 530 / 530 Output Total 800 / 800 0 / 0 Balance -245 / -245 1200 / 1200 530 / 530 Intake: IV Fluids 555 / 555 1200 / 1200 235 / 235 0.9 % Sodium Chloride 1, 455 / 455 600 / 600 235 / 235 000 ML @ 80 mls/hr IVC . [id number] [facility] Rx#: [id number] Zosyn 3.375 GM In 100 / 100 100 / 100 Dextrose 5% (Minibag+) 100 ML 100 ML @ 25 mls/hr IVPB Q8HR [facility] Rx#: [id number] Vancocin 1,750 MG In 500 / 500 Dextrose 5% 500 ML @ 333. 34 mls/hr IVPB Q24H [facility] Rx#:[id number] Oral 0 / 0 0 / 0 0 / 0 Blood Product 295 / 295 Rbcs Leuko Poor As-1 295 / 295 Unit [id number] Output: Urine 0 / 0 Urine/Stool Mix 800 / 800 Other: Meal NPO Stool Size Moderate Large Stool Consistency liquid liquid Stool Color Brown Brown Yellow # Bowel Movement Diapers 1 Weight 70.9 kg Blood Glucose* 102 96 96 Patient Weight 02/17/17 23:59 Weight 70.9 kg - Exam Exam: General appearance: alert, awake, oriented X 3, calm and pleasant, no acute distress. . Vascular: Right foot: Pedal pulses + 1/4 DP/PT. No evidence of cyanosis, pallor or rubor. Edema graded at 1+/4. Skin Temperature warm to warm from toes to tibia. Homans Sign is neg. Capillary refill time is immediate to digits.. Musculoskeletal: Muscle strength 5/5 and equal bilaterally.. Integument: Dried scab to the medial aspect of the 1st metatarsal head distal to ucleration. Full thickness ulceration to the medial aspect of the 1st metatarsal head right foot measuring 0.8 cm in length x 0.5 cm in width x 0.2 cm in depth surrounding wound edges are connected. Joint capsule exposed, light periwound erythema, no streaking, no ascending cellulitis, no lymphangitis, no fluctuance, no tunneling, no sinus tracts, no purulent drainage. Rupttured bullous lesion to the planar aspect of the right foot, no periwound erythema, no pus, odor, no active drainage, no odor. . - Lab Result Diagrams: 02/17/17 05:26 02/17/17 05:26 Labs: Abnormal lab results RBC 2.52 M/mcL (3.82-4.97) L 02/17/17 05:26 Hgb 7.3 g/dL (11.5-15.4) L 02/17/17 05:26 Hct 23.6 % (35.3-44.9) L 02/17/17 05:26 MCHC 30.9 g/dL (31.6-35.5) L 02/17/17 05:26 RDW 14.6 % (11.5-14.5) H 02/17/17 05:26 ESR >= 130 mm/hr (0-15) H 02/14/17 02:00 Potassium 3.4 mEq/L (3.5-4.5) L 02/17/17 05:26 Chloride 110 mEq/L (98-109) H 02/17/17 05:26 POC Glucose 96 (58-89) H 02/17/17 12:21 Calcium 7.9 mg/dL (8.6-10.8) L 02/17/17 05:26 Iron 14 mcg/dL (50-170) L 02/14/17 02:00 % Saturation 5 % (15-50) L 02/14/17 02:00 C-Reactive Protein 92 mg/L (Less than 5) H 02/14/17 02:00 Albumin 2.4 g/dL (3.5-5.0) L 02/15/17 07:33 Globulin 4.4 g/dL (2.4-3.5) H 02/15/17 07:33 Albumin/Globulin Ratio 0.5 (1.1-2.2) L 02/15/17 07:33 Carcinoembryonic Ag 5.7 ng/mL (0-5.0) H 02/15/17 07:33 CA 125 Ag Serial Mntr 38 U/mL (0-35) H 02/15/17 07:33 Vancomycin Trough 22.8 mcg/mL (10-20) H* 02/15/17 15:02 Microbiology, Last 48 Hours 02/16/17 08:00 Acid Fast Stain - Final Sputum 02/14/17 13:15 Anaerobic Culture - Preliminary Right Foot At this time, no anaerobic growth is present. The culture will be finalized after 5 days of incubation. 02/14/17 13:15 Wound Culture - Final Right Foot Methicillin Resistant S.aureus - VTE Documentation of Mechanical Device: Intermittent pneumatic compression device Consult Discharge Plan - Plan Referrals: Washington Ni DO [Primary Care Provider] -
--- NOTE | 2017-02-17 15:21 | Internal Med Progress Note ---
Date of Encounter: 02/17/17 Time of Encounter: 10:00 - Assessment and plan (1) Diabetic foot ulcer Current Visit: Yes Status: Inactive Assessment and plan: Patient has diabetes with Foot infection. She has diabetic neuropathy. - Educated the patient to check her foot regularly. - Keep vanco treatment. Wound culture shows MRSA, sensitive to vanco. - WBC trend down to normal. - Podiatry consult saw patient. - Wound Care. Patient is at high risk because she is on vancomycin, need close monitoring Qualifiers: Diabetic foot ulcer location: other Diabetes mellitus type: type 2 Laterality: right Non-pressure ulcer stage: with fat layer exposed Qualified Code(s): E11.621 - Type 2 diabetes mellitus with foot ulcer; L97.512 - Non-pressure chronic ulcer of other part of right foot with fat layer exposed (2) Pneumonia Current Visit: Yes Status: Acute Assessment and plan: Patient has a previous CT shows nodular with cavity. Repeated CT shows resolved previous cavitated nodular, however shows bilateral inflammation/ infiltration, consider pneumonia. - Patient is on Vanco and levaquin right now. - No recent hospitalization or SNF stay. - She has wheezing, place her on bronchodilator. - Oxygen therapy. - Check quantiferon and AFB smear to r/o TB - Repeat imaging after treatment. Qualifiers: Pneumonia type: due to unspecified organism Laterality: bilateral Lung location: upper lobe of lung Qualified Code(s): J18.9 - Pneumonia, unspecified organism (3) Tobacco abuse Current Visit: Yes Status: Chronic Assessment and plan: Smoking cessation education. Nicotine patch. (4) COPD (chronic obstructive pulmonary disease) Current Visit: Yes Status: Chronic Assessment and plan: Patient had wheezing. Placed her on bronchodilator treatment. Possibly her baseline, no signs of exacerbation. Qualifiers: COPD type: emphysema Emphysema type: panlobular Qualified Code(s): J43.1 - Panlobular emphysema (5) HTN (hypertension) Current Visit: Yes Status: Chronic Assessment and plan: Continue home medication Qualifiers: Hypertension type: essential hypertension Qualified Code(s): I10 - Essential (primary) hypertension (6) Diabetes mellitus Current Visit: Yes Status: Chronic Assessment and plan: On diet control at home. Will continue diabetic diet and closely follow glucose level. Qualifiers: Diabetes mellitus type: type 2 Diabetes mellitus complication status: with neurologic complications Diabetes mellitus complication detail: with polyneuropathy Diabetes mellitus prison insulin use: without prison use Qualified Code(s): E11.42 - Type 2 diabetes mellitus with diabetic polyneuropathy (7) Unintentional weight loss Current Visit: Yes Status: Acute Assessment and plan: Pt c/o 95lb BM loss over last several months. However, GI consult checked her old chart she was only about 10 LB loss since last year. Pt has low HgB, Etiology is undetermined. Plan for EGD and colonoscopy. - CT chest done, no significant mass identified. - Suggest granulomatous lymph node appearance, combined with previously Rt lung cavity, need to r/o TB. Check sputum AFB smear and Quantiferon test. - Borderline elevated CEA, CA-125. Pending AFP, and CA 19-9 - Low hemoglobin notified. Patient has iron deficiency, suggested possibly chronic blood loss. GI saw pt, plan for Scopes. Iron pill added. (8) Foreign body (FB) in soft tissue Current Visit: Yes Status: Acute Assessment and plan: Podiatry tried bedside exploratory surgery but cannot find foreign body. Podiatry on case, no further intervention planed. - Time Spent With Patient Greater than 35 minutes - Subjective Interval history: Patient is a 56-year-old female admitted for diabetic foot ulcer. Her past medical history is significant for diabetes, hypertension, thyroid disease, COPD , TIA, migraines, asthma. Patient was seen and examined. Still dry cough and c/o b/l leg pain/tingling. Wound culture shows MRSA sensitive to vanco. Will continue vanco. Ask pt again, she has no recent hospitalization or SNF stay. Will D/C zosyn and change to levaquin for pneumonia. Hemoglobin still low, will give another unit of PRBC. GI will do EGD and colonoscope today. - Constitutional Vitals: Temp Pulse Resp BP Pulse Ox 98.0 F 67 18 145/60 97 02/17/17 11:50 02/17/17 11:50 02/17/17 11:50 02/17/17 11:50 02/17/17 08:40 General appearance: Present: A&O X 3, no acute distress, answers questions appropriately - Head Head exam: Present: atraumatic, normocephalic - Eye Eye exam: Present: PERRL, conjuntiva pink, sclera anicteric Pupils: Present: PERRL - Neck Neck exam general surgery: Present: supple, trachea midline. Absent: lymphadenopathy - Respiratory Respiratory exam: Present: CTAB, wheezes (Scattered wheezes on the right side). Absent: accessory muscle use, rales, rhonchi - Cardiovascular Cardiovascular exam: Present: RRR, +S1, +S2. Absent: diastolic murmur, gallop, rubs, systolic murmur - GI/Abdominal GI/Abdominal exam: Present: normal bowel sounds, soft, no peritoneal signs. Absent: distended, tenderness - Extremities Exam Extremities exam: Present: warm, radial pulses palpable and symetrical. Absent : calf tenderness, cyanotic, pedal edema Additional comments: Right foot ulcer, well dressed. - Neurological Exam Neurological exam: Present: CN II-XII intact, oriented X3, no focal deficits. Absent: pronater drift, facial droop, speech deficit - Skin Skin exam: Present: dry, intact Internal Medicine: Result - Labs CBC & Chem 7: 02/17/17 05:26 02/17/17 05:26 Labs: Short CBC 02/17/17 Range/Units 05:26 WBC 5.3 (4.3-11.1) K/mcL Hgb 7.3 L (11.5-15.4) g/dL Hct 23.6 L (35.3-44.9) % Plt Count 222 (140-400) K/mcL Neutrophils # 3.9 (1.6-8.9) K/mcL BMP 02/17/17 05:26 Sodium 137 Potassium 3.4 L Chloride 110 H Carbon Dioxide 19 BUN 7 Creatinine 0.77 Glucose 92 Calcium 7.9 L - VTE Documentation of Mechanical Device: Intermittent pneumatic compression device Consult Discharge Plan - Plan Referrals: Washington Ni DO [Primary Care Provider] -
--- NOTE | 2017-02-17 15:35 | Anesthesia Evaluation Post Op ---
Date of Encounter: 02/17/17 Time of Encounter: 15:35 - Vital Signs Vital Signs: Vital Signs/O2 Sat, Most Current Temp Pulse Resp BP Pulse Ox 98.0 F 67 18 145/60 97 02/17/17 11:50 02/17/17 11:50 02/17/17 11:50 02/17/17 11:50 02/17/17 08:40 135/66, 74, 16, 98% @ 1535 - Lungs Lungs: Wheezes - Airway Airway: Non-obstructed - Cardiovascular Baseline Rhythm - Mental Status Mental Status: Alert & Oriented, Answers Appropriately - Pain Pain Scale: 0 Pain Scale used: Numeric (1 - 10) - Nausea Vomiting Nausea Vomiting: Not Present - Hydration Hydration: NPO, Has not voided - Discharge PostOp Status: Transfer Patient to floor
[2017-02-17] MEDS: Levofloxacin 750 MG/150 ML 750 MG/150 ML BAG IVPB SCH (15:57)
[2017-02-17] MEDS: Vancomycin 1,750 MG in D5% in Water 500 ML IVPB SCH (21:20)
[2017-02-18] MEDS: *HR* OxyCODONE/APAP 10/325 TABLET PO PRN ×4 (03:20→18:55)
[2017-02-18] MEDS: Ipratropium/Albuterol Neb 3 ML IH SCH ×4 (03:59→21:59)
[2017-02-18 05:37] LABS: Basophils % 0.7 %; Eosinophils # 0.4 K/mcL (0.0-0.6); Eosinophils % 8.5 %; Hematocrit 26.5 % (35.3-44.9); Hemoglobin 8.3 g/dL (11.5-15.4); Immature Granulocytes % 0.4 % (0-4); Lymphocytes # 0.9 K/mcL (0.6-4.6); Lymphocytes % 20.6 %; Mean Corpuscular HGB Conc 31.3 g/dL (31.6-35.5); Mean Corpuscular Volume 92.7 fL (83.0-100.0); Mean Platelet Volume 9.5 fL (9.4-12.4); Monocytes # 0.4 K/mcL (0.0-1.3); Monocytes % 8.3 %; Neutrophils # 2.7 K/mcL (1.6-8.9); Platelet Count 217 K/mcL (140-400); Red Blood Count 2.86 M/mcL (3.82-4.97); Red Cell Distribution Width 14.6 % (11.5-14.5); Segmented Neutrophils % 61.5 %
[2017-02-18 05:51] LABS: BUN/Creatinine Ratio 7 (6-26); Blood Urea Nitrogen 6 mg/dL (7-20); Calcium 8.1 mg/dL (8.6-10.8); Carbon Dioxide 22 mEq/L (19-29); Chloride 109 mEq/L (98-109); Glucose 72 mg/dL (70-99); Osmolality,Calculated 282 (280-300); Potassium 3.8 mEq/L (3.5-4.5); Sodium 138 mEq/L (136-145); eGFR For African Americans > 60 (> 60); eGFR For Non-African Americans > 60 (> 60)
[2017-02-18] MEDS ORDERED: Aminoglycoside Consult 1 EACH MC ONE (07:12)
[2017-02-18] MEDS ORDERED: Vancomycin 1,000 MG in D5% in Water 250 ML IVPB ONE (08:00)
[2017-02-18] MEDS: Gabapentin 400 MG CAPSULE PO SCH ×3 (08:47→20:54)
[2017-02-18] MEDS: ALPRAZolam 0.5 MG TABLET PO PRN (08:48)
[2017-02-18] MEDS: Nicotine 14 MG PATCH.TD24 TD SCH (08:49)
[2017-02-18] MEDS: Levofloxacin 750 MG/150 ML 750 MG/150 ML BAG IVPB SCH (08:50)
[2017-02-18] MEDS: *HR* FentaNYL PATCH 50 MCG PATCH TD SCH (12:30)
--- NOTE | 2017-02-18 13:24 | Internal Med Progress Note ---
Date of Encounter: 02/18/17 Time of Encounter: 13:21 - Assessment and plan (1) COPD (chronic obstructive pulmonary disease) Current Visit: Yes Status: Chronic Assessment and plan: no wheezing at present. will conitnue the bronchodilator treatment. no signs of exacerbation. Qualifiers: COPD type: emphysema Emphysema type: panlobular Qualified Code(s): J43.1 - Panlobular emphysema (2) HTN (hypertension) Current Visit: Yes Status: Chronic Assessment and plan: Continue home medication Qualifiers: Hypertension type: essential hypertension Qualified Code(s): I10 - Essential (primary) hypertension (3) Diabetes mellitus Current Visit: Yes Status: Chronic Assessment and plan: On diet control at home. Will continue diabetic diet and closely follow glucose level. Qualifiers: Diabetes mellitus type: type 2 Diabetes mellitus complication status: with neurologic complications Diabetes mellitus complication detail: with polyneuropathy Diabetes mellitus halfway insulin use: without buttermaker use Qualified Code(s): E11.42 - Type 2 diabetes mellitus with diabetic polyneuropathy (4) Pneumonia Current Visit: Yes Status: Acute Assessment and plan: Patient has a previous CT shows nodular with cavity. Repeated CT shows resolved previous cavitated nodular opacity, however shows bilateral inflammation more on the left upper lobe,infiltration, consider pneumonia. she does mention some weight loss follow quantiferon and AFB smear to r/o TB given recurrent upper lobe involvement. may be infectious or inflammatory. has mild cough, otherwise not in any respiratory distress, no leucocytosis or fever. will continue levoflox for now and will complete course of 7 days, repeat imaging as OP and will f/u with pulmonary as OP. Qualifiers: Pneumonia type: due to unspecified organism Laterality: bilateral Lung location: upper lobe of lung Qualified Code(s): J18.9 - Pneumonia, unspecified organism (5) Foreign body (FB) in soft tissue Current Visit: Yes Status: Acute Assessment and plan: Podiatry tried bedside exploratory surgery but cannot find foreign body. Podiatry plans to f/u as OP. - Subjective Interval history: Patient is a 56-year-old female admitted for diabetic foot ulcer. Her past medical history is significant for diabetes, hypertension, thyroid disease, COPD , TIA, migraines, asthma. Patient was seen and examined. Has dry cough. Wound culture shows MRSA sensitive to vanco/bactrim. will conitue levaquin for pneumonia. EGD and colonoscopy negative for any acute bleed. - Constitutional Vitals: Temp Pulse Resp BP Pulse Ox 97.8 F 69 18 135/72 96 02/18/17 12:15 02/18/17 12:15 02/18/17 12:15 02/18/17 12:15 02/18/17 12:15 General appearance: Present: A&O X 3, no acute distress, answers questions appropriately Exam: - Head Head exam: Present: atraumatic, normocephalic - Eye Eye exam: Present: PERRL, conjuntiva pink, sclera anicteric Pupils: Present: PERRL - Neck Neck exam general surgery: Present: supple, trachea midline. Absent: lymphadenopathy - Respiratory Respiratory exam: Present: CTAB, wheezes (Scattered wheezes on the right side). Absent: accessory muscle use, rales, rhonchi - Cardiovascular Cardiovascular exam: Present: RRR, +S1, +S2. Absent: diastolic murmur, gallop, rubs, systolic murmur - GI/Abdominal GI/Abdominal exam: Present: normal bowel sounds, soft, no peritoneal signs. Absent: distended, tenderness - Extremities Exam Extremities exam: Present: warm, radial pulses palpable and symetrical. Absent : calf tenderness, cyanotic, pedal edema Additional comments: Right foot ulcer, well dressed. - Neurological Exam Neurological exam: Present: CN II-XII intact, oriented X3, no focal deficits. Absent: pronater drift, facial droop, speech deficit - Skin Skin exam: Present: dry, intact Internal Medicine: Result - Labs CBC & Chem 7: 02/18/17 05:01 02/18/17 05:01 Labs: Short CBC 02/18/17 Range/Units 05:01 WBC 4.5 (4.3-11.1) K/mcL Hgb 8.3 L (11.5-15.4) g/dL Hct 26.5 L (35.3-44.9) % Plt Count 217 (140-400) K/mcL Neutrophils # 2.7 (1.6-8.9) K/mcL BMP 02/18/17 05:01 Sodium 138 Potassium 3.8 Chloride 109 Carbon Dioxide 22 BUN 6 L Creatinine 0.84 Glucose 72 Calcium 8.1 L - VTE Documentation of Mechanical Device: Intermittent pneumatic compression device Consult Discharge Plan - Plan Referrals: Gabriela Garza MD [Partnered Physician] - 03/08/17 11:15 am
[2017-02-18] MEDS: Silver Sulfadiazine 50 GM TUBE TP SCH (14:32)
[2017-02-18] MEDS: Sulfamethoxazole/Trimeth DS 1 EACH TABLET PO SCH (20:54)
[2017-02-19] MEDS: *HR* OxyCODONE/APAP 10/325 TABLET PO PRN (04:14)
[2017-02-19] MEDS: Ipratropium/Albuterol Neb 3 ML IH SCH ×2 (05:00→11:05)
[2017-02-19 08:32] LABS: Basophils % 0.8 %; Eosinophils # 0.5 K/mcL (0.0-0.6); Eosinophils % 11.2 %; Hematocrit 27.8 % (35.3-44.9); Hemoglobin 8.8 g/dL (11.5-15.4); Immature Granulocytes % 0.6 % (0-4); Lymphocytes # 0.8 K/mcL (0.6-4.6); Lymphocytes % 15.9 %; Mean Corpuscular HGB Conc 31.7 g/dL (31.6-35.5); Mean Corpuscular Volume 91.7 fL (83.0-100.0); Mean Platelet Volume 9.4 fL (9.4-12.4); Monocytes # 0.4 K/mcL (0.0-1.3); Monocytes % 7.9 %; Neutrophils # 3.1 K/mcL (1.6-8.9); Platelet Count 223 K/mcL (140-400); Red Blood Count 3.03 M/mcL (3.82-4.97); Red Cell Distribution Width 14.7 % (11.5-14.5); Segmented Neutrophils % 63.6 %
[2017-02-19 08:44] LABS: BUN/Creatinine Ratio 6 (6-26); Blood Urea Nitrogen 7 mg/dL (7-20); Calcium 8.3 mg/dL (8.6-10.8); Carbon Dioxide 21 mEq/L (19-29); Chloride 110 mEq/L (98-109); Glucose 92 mg/dL (70-99); Osmolality,Calculated 286 (280-300); Potassium 3.4 mEq/L (3.5-4.5); Sodium 139 mEq/L (136-145); eGFR For African Americans > 60 (> 60); eGFR For Non-African Americans 51 (> 60)
[2017-02-19 08:45] LABS: QuantiFERON NIL 0.02 IU/mL; QuantiFERON-TB Gold In-Tube NEGATIVE (Negative)
[2017-02-19] MEDS ORDERED: levoFLOXacin 750 MG TABLET PO SCH (09:00)
[2017-02-19] MEDS: Nicotine 14 MG PATCH.TD24 TD SCH (10:24)
[2017-02-19] MEDS: Gabapentin 400 MG CAPSULE PO SCH (10:26)
[2017-02-19] MEDS: Sulfamethoxazole/Trimeth DS 1 EACH TABLET PO SCH (10:26)
[2017-02-19] MEDS: Silver Sulfadiazine 50 GM TUBE TP SCH (10:27)
[2017-02-19] MEDS ORDERED: Albuterol 2.5 MG/3 ML NEBULIZER IH PRN (11:34)
--- NOTE | 2017-02-19 13:58 | Discharge Summary ---
Date of Encounter: 02/19/17 Time of Encounter: 13:54 - Discharge Diagnosis (1) COPD (chronic obstructive pulmonary disease) Priority: Secondary Status: Chronic Qualifiers: COPD type: emphysema Emphysema type: panlobular Qualified Code(s): J43.1 - Panlobular emphysema (2) HTN (hypertension) Priority: Secondary Status: Chronic Qualifiers: Hypertension type: essential hypertension Qualified Code(s): I10 - Essential (primary) hypertension (3) Diabetes mellitus Priority: Secondary Status: Chronic Qualifiers: Diabetes mellitus type: type 2 Diabetes mellitus complication status: with neurologic complications Diabetes mellitus complication detail: with polyneuropathy Diabetes mellitus long term care social worker insulin use: without long term care social worker use Qualified Code(s): E11.42 - Type 2 diabetes mellitus with diabetic polyneuropathy (4) Pneumonia Priority: Primary Status: Acute Qualifiers: Pneumonia type: due to unspecified organism Laterality: bilateral Lung location: upper lobe of lung Qualified Code(s): J18.9 - Pneumonia, unspecified organism (5) Foreign body (FB) in soft tissue Priority: Primary Status: Acute - Discharge Medications Prescriptions: OxyCODONE/APAP 10/325 [Percocet 10/325 MG] 1 each PO Q4HR PRN #30 tablet PRN Reason: SEVERE PAIN levoFLOXacin [Levofloxacin] 750 mg PO DAILY 1 Days Silver Sulfadiazine [Silvadene] 1 appl TP DAILY #2 tube Sulfamethoxazole/Trimeth DS [Bactrim Ds] 2 each PO BID 5 Days Home Medications: Ibuprofen [Motrin] 800 mg PO Q8HR #9 tablet 02/09/16 [Rx] Orphenadrine [Norflex] 100 mg PO HS #3 tablet.er 02/09/16 [Rx] ALPRAZolam [Xanax 0.5 MG Tablet] 0.5 mg PO DAILY PRN 02/14/17 [History] Amitriptyline [Elavil] 10 mg PO DAILY 02/14/17 [History] Gabapentin [Neurontin] 800 mg PO TID 02/14/17 [History] Hyoscyamine Sulfate [Hyoscyamine Sulfate ER] 0.375 mg PO BID 02/14/17 [History] Levothyroxine Sodium [Levoxyl] 200 mcg PO DAILY 02/14/17 [History] Nadolol 20 mg PO DAILY 02/14/17 [History] Omeprazole [PriLOSEC] 40 mg PO DAILY 02/14/17 [History] OxyCODONE/APAP 10/325 [Percocet 10/325 MG] 1 tab PO Q4-6H PRN 02/14/17 [History] Sulfamethoxazole/Trimeth DS [Bactrim Ds] 1 tab PO BID 02/14/17 [History] fentaNYL [Fentanyl] 50 mcg TP Q72H 02/14/17 [History] OxyCODONE/APAP 10/325 [Percocet 10/325 MG] 1 each PO Q4HR PRN #30 tablet [Rx] Silver Sulfadiazine [Silvadene] 1 appl TP DAILY #2 tube 02/19/17 [Rx] Sulfamethoxazole/Trimeth DS [Bactrim Ds] 2 each PO BID 5 Days 02/19/17 [Rx] levoFLOXacin [Levofloxacin] 750 mg PO DAILY 1 Days 02/19/17 [Rx] Allergies/Adverse Reactions: Allergies armodafinil [From Nuvigil] Allergy (Verified 02/07/17 10:05) Rash cephalexin [From Keflex] Allergy (Verified 02/07/17 10:05) Rash Date of admission: 02/14/17 04:33 Primary care physician: Cade Oleary Consults: 02/14/17 06:13 Consult to Logging Operations Inspector [CONS] Routine Reason for SW Consult: Pt has significant financial concerns 02/14/17 09:59 Consult to Podiatry [CONS] Routine Consulting Provider: [facility] Reason for Consult: Foot ulcer, foreign body? Call Completed: Yes 02/15/17 12:40 Consult to Gastroenterology [CONS] Routine Consulting Provider: [facility] [place] Reason for Consult: BW loss, anemia. Call Completed: No Discharging clinician: Jodi Jerome Anticipated date of discharge: 02/19/17 - Patient Status Disposition: Home, Self-Care Condition: Good Functional capacity at discharge: independent ambulation Overall status at discharge: patient is progressing back to baseline - Discharge Instructions Instructions: Sulfamethoxazole/Trimethoprim (By mouth), Oxycodone/ Acetaminophen (By mouth), Levofloxacin (By mouth), Diabetic Foot Ulcers (DC) Follow Up With: Kenneth Knight [Other] - 02/24/17 9:15 am (Wound Care Center ) Gabriela Garza MD [Partnered Physician] - 03/08/17 11:15 am Washington Ni DO [Primary Care Provider] - 02/23/17 6:45 pm - Diet and Activity Activity: resume usual activities as tolerated Diet: advance to your usual diet Interval History: Ms. Huerta is a 56 year old female who presented to the emergency department due to persistent pain in the right foot, redness and swelling. X-ray in the emergency department reveals persistent ulceration and a foreign body. podiatry was consulted, wound cuture grew MRSA and was initially treated with vancomycin. wound care followed the patient while inhouse, post op shoe to right foot with protective weight bearing. Will need to f/u in wound care with Dr. Knight with in one week of discharge from hospital. will dc patiet with oral bactrim. she was noted to have drop in h/h, underwent EGD and colonoscopy that showed no bleeding, she received 2 units of Blood transfusion and her h/h remained stable after that. She also reports chronic cough due to her smoking and some sputum production. She reports that she continues to smoke 1 pack per day. She reports that she had a CT scan in November 2016 as she was having symptoms of worsening shortness of breath, cough, sputum and fevers. She states that she has not seen her primary care physician since March 2016. She states that she was not aware of the results of the CAT scan performed in November and that she has not followed up with a compliance administrator or her primary care physician regarding the results. She does report some weight loss over the past 2 years. Patient has a previous CT shows nodular with cavity. Repeated CT shows resolved previous cavitated nodular opacity , however shows predominant peribronchial bronchovascular groundglass opacities in both lungs most severe in the left upper lobe. Given recurrent pneumonia, concurrent weight loss, anemia and upper lobe involvement, sputum AFB was checked which was negative 3. Patient was continued treatment with IV antibiotics for pneumonia, no fever or worsening cough or chest pain or shortness of breath. Patient is saturating well on room air, being discharged today in stable condition. Patient will follow-up with Dr. Brown as outpatient with repeat scan for confirmation of resolution of the pneumonia. Hospital course: Ms. Huerta is a 56 year old female Time spent discussing smoking cessation with patient: more than 10 minutes - Time Spent with Patient Total time spent providing and/or coordinating discharge services: Greater than 30 minutes - Constitutional Vitals: Temp Pulse Resp BP Pulse Ox 98.3 F 75 18 165/81 96 02/19/17 12:10 02/19/17 12:10 02/19/17 12:10 02/19/17 12:10 02/19/17 12:10 General appearance: Present: A&O X 3, no acute distress, answers questions appropriately Exam: Head Head exam: Present: atraumatic, normocephalic - Eye Eye exam: Present: PERRL, conjuntiva pink, sclera anicteric Pupils: Present: PERRL - Neck Neck exam general surgery: Present: supple, trachea midline. Absent: lymphadenopathy - Respiratory Respiratory exam: Present: CTAB. Absent: accessory muscle use, rales, rhonchi - Cardiovascular Cardiovascular exam: Present: RRR, +S1, +S2. Absent: diastolic murmur, gallop, rubs, systolic murmur - GI/Abdominal GI/Abdominal exam: Present: normal bowel sounds, soft, no peritoneal signs. Absent: distended, tenderness - Extremities Exam Extremities exam: Present: warm, radial pulses palpable and symetrical. Absent : calf tenderness, cyanotic, pedal edema Additional comments: Right foot ulcer, well dressed. - Neurological Exam Neurological exam: Present: CN II-XII intact, oriented X3, no focal deficits. Absent: pronater drift, facial droop, speech deficit - Skin Skin exam: Present: dry, intact - VTE Documentation of Mechanical Device: Intermittent pneumatic compression device
[2017-02-19 14:50] VITALS: BP 186/78
== END 2017-02-19 15:40 | disposition home or self-care (01) | DRG 871 ==
LOC: EMEROO 01:04 → 3ANU 04:33
PROVIDERS: ADMIT Internal Medicine; ATTEND Internal Medicine

== ENCOUNTER 2018-03-25 13:46 | Inpatient (IN) ==
--- NOTE | 2018-03-25 14:04 | Emergency Department Note ---
Disposition Clinical Impression: Suicide attempt by multiple drug overdose Qualifiers: Encounter type: initial encounter Qualified Code(s): T50.902A - Poisoning by unspecified drugs, medicaments and biological substances, intentional self-harm , initial encounter Disposition: Admitted As Inpatient Condition: Critical General Adult HPI - General Chief complaint: ED Overdose Stated complaint: Overdose Time Seen by Provider: 03/25/18 13:51 Source: EMS Limitations: altered mental status - History of Present Illness Pain Scale: 0 - Related Data Home Medications Medication Instructions Recorded Confirmed ALPRAZolam [Xanax 0.5 MG Tablet] 0.5 mg PO DAILY PRN 02/14/17 03/25/18 Amitriptyline [Elavil] 10 mg PO DAILY 02/14/17 03/25/18 Gabapentin [Neurontin] 800 mg PO TID 02/14/17 03/25/18 Hyoscyamine Sulfate [Hyoscyamine 0.375 mg PO BID 02/14/17 03/25/18 Sulfate ER] Nadolol 20 mg PO DAILY 02/14/17 03/25/18 Omeprazole [PriLOSEC] 40 mg PO DAILY 02/14/17 03/25/18 OxyCODONE/APAP 10/325 [Percocet 1 tab PO Q4-6H PRN 02/14/17 03/25/18 10/325 MG] fentaNYL [Fentanyl] 50 mcg TP Q72H 02/14/17 03/25/18 Isomethept/Dichlphn/Acetaminop 1 cap PO Q4H PRN 03/25/18 03/25/18 [Wndpmllojv-Mxdfnwxmne-Ncpenkox] Levothyroxine Sodium [Levoxyl] 150 mcg PO DAILY 03/25/18 03/25/18 Lisinopril-HCTZ 10-12.5 [Prinzide 1 tab PO DAILY 03/25/18 03/25/18 10-12.5] Allergies Allergy/AdvReac Type Severity Reaction Status Date / Time armodafinil [From Nuvigil] Allergy Rash Verified 06/11/17 19:40 cephalexin [From Keflex] Allergy Rash Verified 06/11/17 19:40 Past Medical History - Past Medical History Medical history: Reports: arthritis, asthma, COPD, diabetes, hyperlipidemia, hypertension, migraine, thyroid disease, other Surgical history: Reports: orthopedic, other, thyroidectomy Psychiatric history: Reports: depression CLINIC ASSISTANT 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 CLINIC ASSISTANT history - Social History Smoking Status: Former smoker Smokeless Tobacco Status: No Alcohol use: Reports: none Drug use: Reports: none Physical Exam - General Limitations: altered mental status General appearance: obtunded Course Vital Signs Temperature 97.5 F L 03/25/18 13:47 Pulse Rate 80 03/25/18 13:47 Respiratory Rate 14 03/25/18 13:47 Blood Pressure 131/65 03/25/18 13:47 O2 Sat by Pulse Oximetry 100 03/25/18 13:47 Temperature 97.9 F 03/25/18 18:53 Pulse Rate 75 03/25/18 19:00 Respiratory Rate 15 03/25/18 19:00 Blood Pressure 116/72 03/25/18 19:00 O2 Sat by Pulse Oximetry 100 03/25/18 19:00 Oxygen Delivery Oxygen Delivery Room Air Medical Decision Making - Lab Data Result diagrams: 03/25/18 14:10 03/25/18 14:10 Lab Results 03/25/18 03/25/18 03/25/18 Range/Units 13:55 14:10 14:10 WBC 6.2 (4.3-11.1) K/mcL RBC 2.87 L (3.82-4.97) M/mcL Hgb 8.9 L (11.5-15.4) g/dL Hct 28.9 L (35.3-44.9) % MCV 100.7 H (83.0-100.0) fL MCH 31.0 (28.0-33.3) pg MCHC 30.8 L (31.6-35.5) g/dL RDW 16.3 H (11.5-14.5) % Plt Count 301 (140-400) K/mcL MPV 9.9 (9.4-12.4) fL Immature Gran % 0.3 (0-4) % Seg Neutrophils % 54.6 % Lymphocytes % 29.3 % Monocytes % 5.8 % Eosinophils % 9.2 % Basophils % 0.8 % Neutrophils # 3.4 (1.6-8.9) K/mcL Lymphocytes # 1.8 (0.6-4.6) K/mcL Monocytes # 0.4 (0.0-1.3) K/mcL Eosinophils # 0.6 (0.0-0.6) K/mcL Basophils # 0.1 (0.0-0.2) K/mcL Sodium 137 (136-145) mEq/L Potassium 4.4 (3.5-5.1) mEq/L Chloride 109 H (98-107) mEq/L Carbon Dioxide 21 L (23-29) mEq/L BUN 23 H (6-20) mg/dL Creatinine 1.64 H (0.60-1.20) mg/dL Est GFR ( Amer) 39 L (> 60) Est GFR (Non-Af Amer) 32 L (> 60) BUN/Creatinine Ratio 14 (6-26) Glucose 87 (70-105) mg/dL POC Glucose 123 H (70-99) mg/dL Calculated Osmolality 287 (280-300) Lactic Acid (0.5-2.2) mmol/L Calcium 8.0 L (8.6-10.3) mg/dL Total Bilirubin 0.3 (0.3-1.0) mg/dL Direct Bilirubin 0.1 (0.0-0.2) mg/dL Indirect Bilirubin 0.2 (0.0-1.2) mg/dL AST 21 (13-39) Units/L ALT 12 (7-52) Units/L Alkaline Phosphatase 128 H (34-104) Units/L Creatine Kinase 137 (30-223) Units/L Serum Total Protein 6.7 (6.4-8.9) g/dL Albumin 3.2 L (3.5-5.7) g/dL Globulin 3.5 (2.4-3.5) g/dL Albumin/Globulin Ratio 0.9 L (1.1-2.2) Urine Color (Yellow) Urine Clarity (Clear) Urine pH (5.0-8.0) pH Units Ur Specific [place] (1.010-1.025) Urine Protein (Neg-Trace) mg/dL Urine Glucose (UA) (Normal) mg/dL Urine Ketones (Negative) mg/dL Urine Blood (Negative) Urine Nitrite (Negative) Urine Bilirubin (Negative) Urine Urobilinogen (Normal) mg/dL Ur Leukocyte Esterase (Negative) Salicylates < 2.5 L (15.0-30.0) mg/dL Urine Opiates Screen (Salppf=193) ng/mL Acetaminophen 36 H (10-20) mcg/mL Ur Barbiturates Screen (Waelru=106) ng/mL Ur Phencyclidine Scrn (Cutoff=25) ng/mL Ur Amphetamines Screen (Mfahtz=8198) ng/mL U Benzodiazepines Scrn (Smyhbn=750) ng/mL Urine Cocaine Screen (Cutoff= 300) ng/mL U Marijuana (THC) Screen (Cutoff = 50) ng/mL Ur Drug Screen Interp Ethyl Alcohol < 10 (Less than 10) mg/dL 03/25/18 03/25/18 03/25/18 Range/Units 14:10 14:27 14:27 WBC (4.3-11.1) K/mcL RBC (3.82-4.97) M/mcL Hgb (11.5-15.4) g/dL Hct (35.3-44.9) % MCV (83.0-100.0) fL MCH (28.0-33.3) pg MCHC (31.6-35.5) g/dL RDW (11.5-14.5) % Plt Count (140-400) K/mcL MPV (9.4-12.4) fL Immature Gran % (0-4) % Seg Neutrophils % % Lymphocytes % % Monocytes % % Eosinophils % % Basophils % % Neutrophils # (1.6-8.9) K/mcL Lymphocytes # (0.6-4.6) K/mcL Monocytes # (0.0-1.3) K/mcL Eosinophils # (0.0-0.6) K/mcL Basophils # (0.0-0.2) K/mcL Sodium (136-145) mEq/L Potassium (3.5-5.1) mEq/L Chloride (98-107) mEq/L Carbon Dioxide (23-29) mEq/L BUN (6-20) mg/dL Creatinine (0.60-1.20) mg/dL Est GFR ( Amer) (> 60) Est GFR (Non-Af Amer) (> 60) BUN/Creatinine Ratio (6-26) Glucose (70-105) mg/dL POC Glucose (70-99) mg/dL Calculated Osmolality (280-300) Lactic Acid 1.6 (0.5-2.2) mmol/L Calcium (8.6-10.3) mg/dL Total Bilirubin (0.3-1.0) mg/dL Direct Bilirubin (0.0-0.2) mg/dL Indirect Bilirubin (0.0-1.2) mg/dL AST (13-39) Units/L ALT (7-52) Units/L Alkaline Phosphatase (34-104) Units/L Creatine Kinase (30-223) Units/L Serum Total Protein (6.4-8.9) g/dL Albumin (3.5-5.7) g/dL Globulin (2.4-3.5) g/dL Albumin/Globulin Ratio (1.1-2.2) Urine Color Yellow (Yellow) Urine Clarity Clear (Clear) Urine pH 5.0 (5.0-8.0) pH Units Ur Specific [place] 1.028 H (1.010-1.025) Urine Protein Negative (Neg-Trace) mg/dL Urine Glucose (UA) Normal (Normal) mg/dL Urine Ketones Negative (Negative) mg/dL Urine Blood Negative (Negative) Urine Nitrite Negative (Negative) Urine Bilirubin Small H (Negative) Urine Urobilinogen Normal (Normal) mg/dL Ur Leukocyte Esterase Negative (Negative) Salicylates (15.0-30.0) mg/dL Urine Opiates Screen Positive H (Rdazky=291) ng/mL Acetaminophen (10-20) mcg/mL Ur Barbiturates Screen Negative (Dsryxr=825) ng/mL Ur Phencyclidine Scrn Negative (Cutoff=25) ng/mL Ur Amphetamines Screen Negative (Junbuw=4749) ng/mL U Benzodiazepines Scrn Positive H (Ynpibn=341) ng/mL Urine Cocaine Screen Negative (Cutoff= 300) ng/mL U Marijuana (THC) Screen Negative (Cutoff = 50) ng/mL Ur Drug Screen Interp See Below Ethyl Alcohol (Less than 10) mg/dL Attestation Statement - Attestation Attestation: I examined this patient and my medical decision-making was reviewed with the TECHNICIAN TERMINAL AND REPEATER/PA/Advanced Practice Nurse/Resident Physician. I agree with the documented findings, disposition and treatment plan as described except to the extent set forth below. I did see the patient immediately upon arrival and also spoke with the paramedics and the story is that there was an injection of 20 Xanax as well as Neurontin and the patient is minimally responsive with sternal rub or with verbal stimuli. She did receive Narcan. We did remove 2 fentanyl patches. The patient did have a EKG showing normal sinus rhythm with a rate of 80 without acute ischemic change and the patient did have this ingestion as what sounds like a suicide attempt. Additional labs and studies are pending. Does not need intubation at this time. Right nasal trumpet in place her oxygen saturation per paramedics 95% on room air 1404 I did go back and check on the patient. She is squirming around on the bed, still does not answer questions verbally. Her color is pink. We will continue to observe and awaiting lab results. No intubation for now. [id number]
--- NOTE | 2018-03-25 14:09 | Emergency Department Note ---
Overdose - Lab Data Result diagrams: 03/25/18 14:10 03/25/18 14:10 Lab Results 03/25/18 03/25/18 03/25/18 Range/Units 13:55 14:10 14:10 WBC 6.2 (4.3-11.1) K/mcL RBC 2.87 L (3.82-4.97) M/mcL Hgb 8.9 L (11.5-15.4) g/dL Hct 28.9 L (35.3-44.9) % MCV 100.7 H (83.0-100.0) fL MCH 31.0 (28.0-33.3) pg MCHC 30.8 L (31.6-35.5) g/dL RDW 16.3 H (11.5-14.5) % Plt Count 301 (140-400) K/mcL MPV 9.9 (9.4-12.4) fL Immature Gran % 0.3 (0-4) % Seg Neutrophils % 54.6 % Lymphocytes % 29.3 % Monocytes % 5.8 % Eosinophils % 9.2 % Basophils % 0.8 % Neutrophils # 3.4 (1.6-8.9) K/mcL Lymphocytes # 1.8 (0.6-4.6) K/mcL Monocytes # 0.4 (0.0-1.3) K/mcL Eosinophils # 0.6 (0.0-0.6) K/mcL Basophils # 0.1 (0.0-0.2) K/mcL Sodium 137 (136-145) mEq/L Potassium 4.4 (3.5-5.1) mEq/L Chloride 109 H (98-107) mEq/L Carbon Dioxide 21 L (23-29) mEq/L BUN 23 H (6-20) mg/dL Creatinine 1.64 H (0.60-1.20) mg/dL Est GFR ( Amer) 39 L (> 60) Est GFR (Non-Af Amer) 32 L (> 60) BUN/Creatinine Ratio 14 (6-26) Glucose 87 (70-105) mg/dL POC Glucose 123 H (70-99) mg/dL Calculated Osmolality 287 (280-300) Lactic Acid (0.5-2.2) mmol/L Calcium 8.0 L (8.6-10.3) mg/dL Total Bilirubin 0.3 (0.3-1.0) mg/dL Direct Bilirubin 0.1 (0.0-0.2) mg/dL Indirect Bilirubin 0.2 (0.0-1.2) mg/dL AST 21 (13-39) Units/L ALT 12 (7-52) Units/L Alkaline Phosphatase 128 H (34-104) Units/L Creatine Kinase 137 (30-223) Units/L Serum Total Protein 6.7 (6.4-8.9) g/dL Albumin 3.2 L (3.5-5.7) g/dL Globulin 3.5 (2.4-3.5) g/dL Albumin/Globulin Ratio 0.9 L (1.1-2.2) Urine Color (Yellow) Urine Clarity (Clear) Urine pH (5.0-8.0) pH Units Ur Specific [place] (1.010-1.025) Urine Protein (Neg-Trace) mg/dL Urine Glucose (UA) (Normal) mg/dL Urine Ketones (Negative) mg/dL Urine Blood (Negative) Urine Nitrite (Negative) Urine Bilirubin (Negative) Urine Urobilinogen (Normal) mg/dL Ur Leukocyte Esterase (Negative) Salicylates < 2.5 L (15.0-30.0) mg/dL Urine Opiates Screen (Jklkqf=605) ng/mL Acetaminophen 36 H (10-20) mcg/mL Ur Barbiturates Screen (Dxgxse=944) ng/mL Ur Phencyclidine Scrn (Cutoff=25) ng/mL Ur Amphetamines Screen (Dodygo=3167) ng/mL U Benzodiazepines Scrn (Khfdqb=320) ng/mL Urine Cocaine Screen (Cutoff= 300) ng/mL U Marijuana (THC) Screen (Cutoff = 50) ng/mL Ur Drug Screen Interp Ethyl Alcohol < 10 (Less than 10) mg/dL 03/25/18 03/25/18 03/25/18 Range/Units 14:10 14:27 14:27 WBC (4.3-11.1) K/mcL RBC (3.82-4.97) M/mcL Hgb (11.5-15.4) g/dL Hct (35.3-44.9) % MCV (83.0-100.0) fL MCH (28.0-33.3) pg MCHC (31.6-35.5) g/dL RDW (11.5-14.5) % Plt Count (140-400) K/mcL MPV (9.4-12.4) fL Immature Gran % (0-4) % Seg Neutrophils % % Lymphocytes % % Monocytes % % Eosinophils % % Basophils % % Neutrophils # (1.6-8.9) K/mcL Lymphocytes # (0.6-4.6) K/mcL Monocytes # (0.0-1.3) K/mcL Eosinophils # (0.0-0.6) K/mcL Basophils # (0.0-0.2) K/mcL Sodium (136-145) mEq/L Potassium (3.5-5.1) mEq/L Chloride (98-107) mEq/L Carbon Dioxide (23-29) mEq/L BUN (6-20) mg/dL Creatinine (0.60-1.20) mg/dL Est GFR ( Amer) (> 60) Est GFR (Non-Af Amer) (> 60) BUN/Creatinine Ratio (6-26) Glucose (70-105) mg/dL POC Glucose (70-99) mg/dL Calculated Osmolality (280-300) Lactic Acid 1.6 (0.5-2.2) mmol/L Calcium (8.6-10.3) mg/dL Total Bilirubin (0.3-1.0) mg/dL Direct Bilirubin (0.0-0.2) mg/dL Indirect Bilirubin (0.0-1.2) mg/dL AST (13-39) Units/L ALT (7-52) Units/L Alkaline Phosphatase (34-104) Units/L Creatine Kinase (30-223) Units/L Serum Total Protein (6.4-8.9) g/dL Albumin (3.5-5.7) g/dL Globulin (2.4-3.5) g/dL Albumin/Globulin Ratio (1.1-2.2) Urine Color Yellow (Yellow) Urine Clarity Clear (Clear) Urine pH 5.0 (5.0-8.0) pH Units Ur Specific [place] 1.028 H (1.010-1.025) Urine Protein Negative (Neg-Trace) mg/dL Urine Glucose (UA) Normal (Normal) mg/dL Urine Ketones Negative (Negative) mg/dL Urine Blood Negative (Negative) Urine Nitrite Negative (Negative) Urine Bilirubin Small H (Negative) Urine Urobilinogen Normal (Normal) mg/dL Ur Leukocyte Esterase Negative (Negative) Salicylates (15.0-30.0) mg/dL Urine Opiates Screen Positive H ([place]vyak=339) ng/mL Acetaminophen (10-20) mcg/mL Ur Barbiturates Screen Negative (Ramroa=632) ng/mL Ur Phencyclidine Scrn Negative (Cutoff=25) ng/mL Ur Amphetamines Screen Negative ([place]jway=2458) ng/mL U Benzodiazepines Scrn Positive H (Zzycox=887) ng/mL Urine Cocaine Screen Negative (Cutoff= 300) ng/mL U Marijuana (THC) Screen Negative (Cutoff = 50) ng/mL Ur Drug Screen Interp See Below Ethyl Alcohol (Less than 10) mg/dL Overdose HPI - General Chief Complaint: ED Overdose Stated Complaint: Overdose Time Seen by Provider: 03/25/18 13:51 Source: EMS Limitations: altered mental status Nursing Notes Reviewed: Yes Vital Signs Reviewed: Yes - History of Present Illness HPI Narrative: 49-year-old female presents from home via EMS after reported overdose. Suicide note was found at her side. She was found sitting upright in a chair and nonresponsive. Breathing 6 times a minute at scene, pulse ox 92% which improved to 96-98% on nonrebreather. Bedside, patient had a bottle of Xanax which was filled yesterday-30 pill when full, quantity 7 remained in the bottle. Patient also had a bottle of gabapentin 800 mg that was filled 1 month ago. Family nor EMS could find the bottle of gabapentin was filled yesterday. Time of ingestion: Unknown exact time. Approximate just prior to arrival. Ingestion substances: Xanax, unknown milligram per tablet, 20-23 tablets. Gabapentin, and milligram per tablet, unknown quantity tablets. Review of systems unobtainable secondary to patient's clinical status. - Related Data Home Medications Medication Instructions Recorded Confirmed ALPRAZolam [Xanax 0.5 MG Tablet] 0.5 mg PO DAILY PRN 02/14/17 03/25/18 Amitriptyline [Elavil] 10 mg PO DAILY 02/14/17 03/25/18 Gabapentin [Neurontin] 800 mg PO TID 02/14/17 03/25/18 Hyoscyamine Sulfate [Hyoscyamine 0.375 mg PO BID 02/14/17 03/25/18 Sulfate ER] Nadolol 20 mg PO DAILY 02/14/17 03/25/18 Omeprazole [PriLOSEC] 40 mg PO DAILY 02/14/17 03/25/18 OxyCODONE/APAP 10/325 [Percocet 1 tab PO Q4-6H PRN 02/14/17 03/25/18 10/325 MG] fentaNYL [Fentanyl] 50 mcg TP Q72H 02/14/17 03/25/18 Isomethept/Dichlphn/Acetaminop 1 cap PO Q4H PRN 03/25/18 03/25/18 [Gkmjixwzyk-Ikgfkodvxy-Kiijnocc] Levothyroxine Sodium [Levoxyl] 150 mcg PO DAILY 03/25/18 03/25/18 Lisinopril-HCTZ 10-12.5 [Prinzide 1 tab PO DAILY 03/25/18 03/25/18 10-12.5] Allergies Allergy/AdvReac Type Severity Reaction Status Date / Time armodafinil [From Nuvigil] Allergy Rash Verified 06/11/17 19:40 cephalexin [From Keflex] Allergy Rash Verified 06/11/17 19:40 All systems ED: reviewed and negative except as stated. Review of Systems: As Per HPI Past Medical History - Past Medical History Medical history: Reports: arthritis, asthma, COPD, diabetes, hyperlipidemia, hypertension, migraine, thyroid disease, other Surgical history: Reports: orthopedic, other, thyroidectomy Psychiatric history: Reports: depression MEN'S DESIGNER 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 MEN'S DESIGNER history - Social History Smoking Status: Former smoker Smokeless Tobacco Status: No Alcohol use: Reports: none Drug use: Reports: none Physical Exam Vital Signs Reviewed General: Patient is not alert. Head: atraumatic, normocephalic Eye: normal appearance, pupils 5 mm, equally reactive to light and strict in down to 4 mm. no scleral icterus, no conjunctival injection ENT: mucous membranes moist, normal external ear exam Neck: normal inspection, trachea midline, full ROM Chest: normal inspection, symmetric chest rise Respiratory: Poor respiratory effort. Right lower lobe shows faint crackles on exam otherwise breath sounds have no wheeze, or rhonchi. Breath sounds are equal bilaterally. Cardiovascular: Regular rate and rhythm. No clicks, rubs, gallops, or murmors. Normal heart sounds. Abdomen: Bowel sounds present normoactive x-4 quadrants. Abdomen is soft, nondistended, and nontender. Skin: warm, dry, intact. Neuro: GCS 7 (E1, V1, M5). Patient is protecting her airway. Psych: Patient's affect is appropriate for situation. - General Limitations: altered mental status General appearance: obtunded Course Course Narrative: Patient with a known suicidal overdose. Unknown time of ingestion as it was unwitnessed. Unknown quantity of ingestions of Xanax or gabapentin. Reportedly, EMS attempted intubation in route. On arrival, patient is protecting her airway with a GCS of 7 as noted in physical exam. We will draw laboratory workup and image head and chest of the patient. We will continue to evaluate and monitor. Patient stopping here for approximately 2 hours. She is slowly beginning to wake up. She is moving spontaneously however, her eyes remain closed, she is not verbally responsive, her movements are purposeless, she does localize to pain. GCS is unchanged 7. I discussed the patient with the admitting hospitalist. They are concerned about the deterioration of the patient. I discussed the patient with the admitting house superintendent, Dr. Hernandez, who agrees to accept the patient to the ICU for continued evaluation and management. He does request ABG, CPK, and I called poison control to assess for interaction between gabapentin and benzo. He also requests beginning NAC protocol. I discussed the patient with poison control, Mable the pharmacist. The danger of gabapentin with benzo is added drowsiness. We discussed the patient' s acetaminophen; recommends repeat at the 4 hour duyen. Minimum observation of 8 hours. EKG dated 03/25/10 at 13:52 interpreted as sinus rhythm with rate of 80. HI 178, curious 88, QTc 429. Left axis. Nonspecific ST-T changes. Compared to previous EKG dated 06/12/2017 showing no acute ischemic changes. Vital Signs Temperature 97.5 F L 03/25/18 13:47 Pulse Rate 80 03/25/18 13:47 Respiratory Rate 14 03/25/18 13:47 Blood Pressure 131/65 03/25/18 13:47 O2 Sat by Pulse Oximetry 100 03/25/18 13:47 Temperature 97.9 F 03/25/18 18:53 Pulse Rate 80 03/25/18 17:48 Respiratory Rate 12 03/25/18 17:48 Blood Pressure 133/73 03/25/18 17:48 O2 Sat by Pulse Oximetry 98 03/25/18 17:48 Oxygen Delivery Oxygen Delivery Room Air Disposition Clinical Impression: Suicide attempt by multiple drug overdose Qualifiers: Encounter type: initial encounter Qualified Code(s): T50.902A - Poisoning by unspecified drugs, medicaments and biological substances, intentional self-harm , initial encounter Disposition: Admitted As Inpatient Condition: Critical Time of Disposition: 19:25
[2018-03-25 14:37] LABS: Basophils # 0.1 K/mcL (0.0-0.2); Basophils % 0.8 %; Eosinophils # 0.6 K/mcL (0.0-0.6); Eosinophils % 9.2 %; Hematocrit 28.9 % (35.3-44.9); Hemoglobin 8.9 g/dL (11.5-15.4); Immature Granulocytes % 0.3 % (0-4); Lymphocytes # 1.8 K/mcL (0.6-4.6); Lymphocytes % 29.3 %; Mean Corpuscular HGB Conc 30.8 g/dL (31.6-35.5); Mean Corpuscular Volume 100.7 fL (83.0-100.0); Mean Platelet Volume 9.9 fL (9.4-12.4); Monocytes # 0.4 K/mcL (0.0-1.3); Monocytes % 5.8 %; Neutrophils # 3.4 K/mcL (1.6-8.9); Platelet Count 301 K/mcL (140-400); Red Blood Count 2.87 M/mcL (3.82-4.97); Red Cell Distribution Width 16.3 % (11.5-14.5); Segmented Neutrophils % 54.6 %
[2018-03-25 14:38] LABS: Bilirubin,Urine Small (Negative); Blood,Urine Negative (Negative); Clarity,Urine Clear (Clear); Color,Urine Yellow (Yellow); Glucose,Urine (UA) Normal (Normal); Ketones,Urine Negative (Negative); Leukocyte Esterase,Urine Negative (Negative); Nitrite,Urine Negative (Negative); Protein,Urine Negative (Neg-Trace); Specific Gravity,Urine 1.028 (1.010-1.025); Urobilinogen,Urine Normal (Normal)
[2018-03-25] MEDS ORDERED: Permethrin Cream Rinse 60 ML LIQUID TP ONE ×2 (14:40→17:55)
[2018-03-25 14:54] LABS: Acetaminophen 36 mcg/mL (10-20); Alanine Aminotransferase 12 Units/L (7-52); Albumin 3.2 g/dL (3.5-5.7); Albumin/Globulin Ratio 0.9 (1.1-2.2); Alkaline Phosphatase 128 Units/L (34-104); Aspartate Amino Transferase 21 Units/L (13-39); BUN/Creatinine Ratio 14 (6-26); Bilirubin,Direct 0.1 mg/dL (0.0-0.2); Bilirubin,Indirect 0.2 mg/dL (0.0-1.2); Bilirubin,Total 0.3 mg/dL (0.3-1.0); Blood Urea Nitrogen 23 mg/dL (6-20); Carbon Dioxide 21 mEq/L (23-29); Chloride 109 mEq/L (98-107); Ethanol < 10 mg/dL (Less than 10); Globulin 3.5 g/dL (2.4-3.5); Glucose 87 mg/dL (70-105); Osmolality,Calculated 287 (280-300); Potassium 4.4 mEq/L (3.5-5.1); Salicylate < 2.5 mg/dL (15.0-30.0); Sodium 137 mEq/L (136-145); Total Protein 6.7 g/dL (6.4-8.9); eGFR For African Americans 39 (> 60); eGFR For Non-African Americans 32 (> 60)
[2018-03-25 14:56] LABS: Amphetamine Screen,Urine Negative ng/mL (Cutoff=1000); Barbiturate Screen,Urine Negative ng/mL (Cutoff=200); Benzodiazepines Screen,Urine Positive ng/mL (Cutoff=200); Cannabinoid Screen,Urine Negative ng/mL (Cutoff = 50); Cocaine Screen,Urine Negative ng/mL (Cutoff= 300); Opiate Screen,Urine Positive ng/mL (Cutoff=300); Phencyclidine Screen,Urine Negative ng/mL (Cutoff=25)
[2018-03-25] MEDS ORDERED: 0.9 % Sodium Chloride 1,000 ML IVC ONE (15:59)
[2018-03-25] MEDS ORDERED: ACETYLCYSTEINE IVC ONE (16:01)
[2018-03-25] MEDS ORDERED: WATER IVC ONE (16:01)
[2018-03-25] MEDS ORDERED: D5 IVC ONE (16:01)
[2018-03-25] MEDS ORDERED: Naloxone 0.4 MG/ML INJ IVP PRN (16:03)
[2018-03-25 16:18] LABS: Creatine Kinase 137 Units/L (30-223)
--- NOTE | 2018-03-25 16:22 | Pulmonology History & Physical ---
<Kam Pavon W - Last Filed: 03/25/18 18:03> Date of Encounter: 03/25/18 History of Present Illness HPI: Ms. Huerta is a 57 year old female Medications and Allergies ALPRAZolam [Xanax 0.5 MG Tablet] 0.5 mg PO DAILY PRN 02/14/17 [History] Amitriptyline [Elavil] 10 mg PO DAILY 02/14/17 [History] Gabapentin [Neurontin] 800 mg PO TID 02/14/17 [History] Hyoscyamine Sulfate [Hyoscyamine Sulfate ER] 0.375 mg PO BID 02/14/17 [History] Nadolol 20 mg PO DAILY 02/14/17 [History] Omeprazole [PriLOSEC] 40 mg PO DAILY 02/14/17 [History] OxyCODONE/APAP 10/325 [Percocet 10/325 MG] 1 tab PO Q4-6H PRN 02/14/17 [History] fentaNYL [Fentanyl] 50 mcg TP Q72H 02/14/17 [History] Isomethept/Dichlphn/Acetaminop [Ltleiezbwp-Uvoaddxzmh-Qvshuvps] 1 cap PO Q4H PRN 03/25/18 [History] Levothyroxine Sodium [Levoxyl] 150 mcg PO DAILY 03/25/18 [History] Lisinopril-HCTZ 10-12.5 [Prinzide 10-12.5] 1 tab PO DAILY 03/25/18 [History] 3 Allergy/AdvReac Type Severity Reaction Status Date / Time armodafinil [From Nuvigil] Allergy Rash Verified 06/11/17 19:40 cephalexin [From Keflex] Allergy Rash Verified 06/11/17 19:40 All Systems: The remainder of the systems were reviewed and are negative Physical Examination Vital Signs: Vital Signs, Last 4 Hours Temp Pulse Resp BP Pulse Ox 03/25/18 17:48 97.8 F 75 12 133/73 98 03/25/18 16:26 83 14 123/85 98 Results - Laboratory Findings CBC and BMP: 03/25/18 14:10 03/25/18 14:10 ABG ABG pH 7.36 pH Units (7.32-7.45) 03/25/18 16:20 ABG pCO2 38 mmHg (35-45) 03/25/18 16:20 ABG pO2 62 mmHg (85-104) L 03/25/18 16:20 ABG O2 Saturation 90 % (95-98) L 03/25/18 16:20 Abnormal lab findings: Abnormal lab results RBC 2.87 M/mcL (3.82-4.97) L 03/25/18 14:10 Hgb 8.9 g/dL (11.5-15.4) L 03/25/18 14:10 Hct 28.9 % (35.3-44.9) L 03/25/18 14:10 MCV 100.7 fL (83.0-100.0) H 03/25/18 14:10 MCHC 30.8 g/dL (31.6-35.5) L 03/25/18 14:10 RDW 16.3 % (11.5-14.5) H 03/25/18 14:10 ABG pO2 62 mmHg (85-104) L 03/25/18 16:20 ABG O2 Saturation 90 % (95-98) L 03/25/18 16:20 ABG Base Excess -4 mEq/L (-2 to 3) L 03/25/18 16:20 Chloride 109 mEq/L (98-107) H 03/25/18 14:10 Carbon Dioxide 21 mEq/L (23-29) L 03/25/18 14:10 BUN 23 mg/dL (6-20) H 03/25/18 14:10 Creatinine 1.64 mg/dL (0.60-1.20) H 03/25/18 14:10 Est GFR ( Amer) 39 (> 60) L 03/25/18 14:10 Est GFR (Non-Af Amer) 32 (> 60) L 03/25/18 14:10 POC Glucose 103 mg/dL (70-99) H 03/25/18 17:44 Calcium 8.0 mg/dL (8.6-10.3) L 03/25/18 14:10 Alkaline Phosphatase 128 Units/L (34-104) H 03/25/18 14:10 Albumin 3.2 g/dL (3.5-5.7) L 03/25/18 14:10 Albumin/Globulin Ratio 0.9 (1.1-2.2) L 03/25/18 14:10 Ur Specific [place] 1.028 (1.010-1.025) H 03/25/18 14:27 Urine Bilirubin Small (Negative) H 03/25/18 14:27 Salicylates < 2.5 mg/dL (15.0-30.0) L 03/25/18 14:10 Urine Opiates Screen Positive ng/mL (Zzijhv=440) H 03/25/18 14:27 Acetaminophen 36 mcg/mL (10-20) H 03/25/18 14:10 U Benzodiazepines Scrn Positive ng/mL (Ksxrdf=816) H 03/25/18 14:27 - Attending Attestation I examined this patient and my medical decision-making was reviewed with the Resident Physician. I agree with the documented findings, disposition and treatment plan as described except to the extent set forth below. We independently had [id number] contact with the patient Patient seen and examined at bedside Labs, radiology, chart personally reviewed. Management was reviewed during multidisciplinary critical care rounds. 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 Poison control notified. Appears that the patient was taking benzodiazepine and gabapentin. Although polypharmacy is suspected in addition to the bottles collected beside the patient. She remains encephalopathic but able to intermittently follow commands and appears to be protecting her airway head CT without acute process. Patient will be under 24-hour monitoring under suicide precautions. Psychiatry consultation when the patient is more awake Pulm: Acceptable oxygenation reassuring blood gas patient protecting her airway but high risk for further decline possibly needing endotracheal intubation Cards: Blood pressure stable. QTc intervals and ECG are within normal limits. Troponin pending evidence of ischemia on ECG GI: Acetaminophen level is high I will to the timing of this is unclear we will start acetylcysteine protocol and monitor level. Given and clear timing of ingestion activated charcoal was not administered and patient could not take by mouth. Nutrition: Nothing by mouth for now Renal: Mild BARON SECONDARY TO HYPOVOLEMIA SHE HAS BEEN GIVEN CRYSTALLOID INFUSION UOP Monitored, Cont to Trend sCr and monitor Electrolytes. ID: No active issue high risk for aspiration but no clear evidence of infection no need to start an empiric antimicrobials. She does have evidence of lice infestation and has been administered Permethrin Heme/Onc: DVT prophylaxis given Endo: Glucose Monitored Integ/MSK: Skin Care per routine ICU Nursing Protocol to prevent ulcers. Lines: All lines examined without evidence of infection : Dispo: ICU for close monitoring CODE: Full <Rafael Bowles - Last Filed: 03/25/18 18:37> Date of Encounter: 03/25/18 Time of Encounter: 16:09 Assessment and Plan (1) Overdose Current visit: Yes Status: Acute Patient is noted to have taken gabapentin as well as benzodiazepines. It is unknown if she took anything else. She also had 2 fentanyl patches on her when they found her. Patient did receive 1 dose of Narcan. This did not change anything with her. She did have a nasal trumpet placed per paramedics and that kept her oxygen saturations at 95%. During her entire emergency department stay she did stay above 95%. Patient was able to protect her airway they did not need to intubate the patient done in the emergency department. They did speak with poison control who stated Is also shown that patient had acetaminophen, opioids, benzodiazepines based on urine drug screen. NAC protocol was started in the emergency department. Patient's Tylenol level was 36. Social history negative. Patient had a normal urinalysis. Patient was mildly anemic at 8.9 looking at past this is a chronic anemia for her. CT head was ordered but not done due to patient's mental status. Patient does have an elevated creatinine at 1.64. This is a little elevated compared to her normal. This probably and acute kidney injury was likely secondary to taking the medications. We will continue to monitor. Patient did receive 1 L IV fluids in the emergency department. ABG was done the emergency department which did not show an any signs of acidosis. ABG read as 7.36/38/62/22/23/90. If patients mental status venous a decrease in urine about patient protecting her airway consider intubation and placement on ventilator. Continue to watch the patient in the ICU to allow the effects of other medications to wear off. After the medications wear off we will get a psych evaluation as this was suicidal attempt and patient may need inpatient treatment for the suicide. Qualifiers: Encounter type: initial encounter Injury intent: intentional self-harm Qualified Code(s): T50.902A - Poisoning by unspecified drugs, medicaments and biological substances, intentional self-harm, initial encounter (2) Benzodiazepine overdose Current visit: Yes Status: Acute Patient was known to take at least 2 23 pills of an unknown dosage of Xanax. This was based off it and pill bottle next to bed and had 7 pills in it that was a 30 day supply filled yesterday. Patient will not need flumazenil as she is improving. Next line we will continue to monitor and wait for benzodiazepines to wear off the patient's mental status to normalize. This can cause drowsiness as well as patient protect airway continue to monitor. Qualifiers: Encounter type: initial encounter Injury intent: intentional self-harm Qualified Code(s): T42.4X2A - Poisoning by benzodiazepines, intentional self- harm, initial encounter (3) Gabapentin overdose Current visit: Yes Status: Acute Patient took an unknown amount of gabapentin this is 80 mg dosing but the prescription was filled approximately 30 days ago and the bottle was empty. EMS was unable to find a new the prescribed bottle anywhere in the house. There is unknown how much gabapentin that patient. For gabapentin overdose the effects will cause drowsiness we will continue to monitor. Be sure patient protects her airway. There is no antidote for gabapentin overdose. Qualifiers: Encounter type: initial encounter Injury intent: intentional self-harm Qualified Code(s): T42.6X2A - Poisoning by other antiepileptic and sedative- hypnotic drugs, intentional self-harm, initial encounter (4) Suicide attempt by drug ingestion Current visit: Yes Status: Acute This was a suicide attempt as patient does suicide note next toHer bed when patient was found. We will get psych evaluation once patient becomes more responsive and alert. Qualifiers: Encounter type: initial encounter Qualified Code(s): T50.902A - Poisoning by unspecified drugs, medicaments and biological substances, intentional self- harm, initial encounter (5) Head lice Current visit: Yes Status: Acute Patient does have visible head lice on her. They did treat her with permethrin cream rinse. This occurred in the emergency department. Keep patient in contact precautions and keep her covered continue with permethrin cream (6) COPD (chronic obstructive pulmonary disease) Current visit: No Status: Chronic Patient does have history of COPD DuoNeb's when necessary for wheezing. When patient is more alert patient may need BiPAP ordered when necessary. Qualifiers: COPD type: emphysema Emphysema type: panlobular Qualified Code(s): J43.1 - Panlobular emphysema (7) HTN (hypertension) Current visit: No Status: Chronic Patient does have history of hypertension. We will hold off on giving patient's hypertensive medications at this time she has been normotensive and due to patient's mental status do not want to make patient come to hypotensive. Most recent blood pressure is 123/85 Qualifiers: Hypertension type: essential hypertension Qualified Code(s): I10 - Essential (primary) hypertension (8) Diabetes mellitus Current visit: No Status: Chronic Patient does of history of diabetes mellitus. Unknown whether she takes insulin. We will order low-dose sliding scale. Most recent glucose is 123 Qualifiers: Diabetes mellitus type: type 2 Diabetes mellitus usp insulin use: without personal lines insurance agent use Diabetes mellitus complication status: with neurologic complications Diabetes mellitus complication detail: with polyneuropathy Qualified Code(s): E11.42 - Type 2 diabetes mellitus with diabetic polyneuropathy (9) BARON (acute kidney injury) Current visit: No Status: Acute Mild AK I most likely due to patient overdosing. Patient did get 1 L IV fluids in him or to department we will continue to monitor creatinine (10) DVT prophylaxis Current visit: Yes Status: Acute Heparin subcutaneous History of Present Illness Chief complaint: Overdose HPI: Ms. Huerta is a 57 year old female with past medical history of arthritis, asthma, COPD, diabetes, hyperlipidemia, hypertension, migraine, thyroid disease presented to the ER via EMS for reported overdose. There was a suicide note found at bedside. She is found sitting upright in a chair and nonresponsive. When EMS arrived pulse ox was 92% but improved to 9690% while getting of nonrebreather. Respirations were proximally 6/m at seen. Next the bed they did find a bottle of Xanax of unknown dosage that was filled yesterday with approximately 30 pills where there was 7 remaining in the bottle when they showed up. So discussed that she took 22-23 pills. Patient also had gabapentin 800 mg those filled one month ago next to her bed as well this was empty. Patient also was said to have 2 fentanyl patches on. Is unknown when the patient did ingest the medication. During transport EMS was worried patient could not protect her airway so he did have one attempted intubation but was failed suicide to come emergency department after being evaluated by the ER physician they felt that patient was improving they are not can intubate the patient that time. Patient was having a GCS of 7 at that time this has since improved to GCS of 9. Patient does have known head lice. They did treat her with permethrin cream. Patient has improved since being in the emergency department but is still very confused and not oriented. Patient is alert. Patient is able to protect her own airway she does have a nasopharyngeal airway placed right now. Emergency department did contact poison control. Past Med Surg Social Fam HX - Past Medical History Medical history: arthritis, asthma, COPD, diabetes, hyperlipidemia, hypertension , migraine, thyroid disease, other Additional medical history: neuropathy. hypothyroidism Psychiatric history: depression - Past Surgical History Surgical History: orthopedic, other, thyroidectomy Additional surgical history: spinal fusion. thyroidectomy. CT release b/l - Social History Smoking Status: Former smoker Smokeless Tobacco Status: No Alcohol use: none Drug use: none - Family History Father Living Status: Hx Family Endocrine Disorder: Yes (diabetes) ROS unobtainable: due to mental status All Systems: The remainder of the systems were reviewed and are negative Physical Examination General appearance: no acute distress, alert, lethargic Eyes: nonicteric ENT: oropharynx moist Neck: supple Effort: normal Inspection: normal Auscultation: bilateral: wheezes Cardiovascular: regular rate and rhythm Gastrointestinal: normoactive bowel sounds, soft, non-tender, non-distended Integumentary: normal Extremities: no cyanosis, no edema, no clubbing, pulses normal Musculoskeletal: no deformities, ROM normal non-focal exam, pupils equal and round, motor strength normal and symmetric Results - Laboratory Findings CBC and BMP: 03/25/18 14:10 03/25/18 14:10 Abnormal lab findings: Abnormal lab results RBC 2.87 M/mcL (3.82-4.97) L 03/25/18 14:10 Hgb 8.9 g/dL (11.5-15.4) L 03/25/18 14:10 Hct 28.9 % (35.3-44.9) L 03/25/18 14:10 MCV 100.7 fL (83.0-100.0) H 03/25/18 14:10 MCHC 30.8 g/dL (31.6-35.5) L 03/25/18 14:10 RDW 16.3 % (11.5-14.5) H 03/25/18 14:10 Chloride 109 mEq/L (98-107) H 03/25/18 14:10 Carbon Dioxide 21 mEq/L (23-29) L 03/25/18 14:10 BUN 23 mg/dL (6-20) H 03/25/18 14:10 Creatinine 1.64 mg/dL (0.60-1.20) H 03/25/18 14:10 Est GFR ( Amer) 39 (> 60) L 03/25/18 14:10 Est GFR (Non-Af Amer) 32 (> 60) L 03/25/18 14:10 POC Glucose 123 mg/dL (70-99) H 03/25/18 13:55 Calcium 8.0 mg/dL (8.6-10.3) L 03/25/18 14:10 Alkaline Phosphatase 128 Units/L (34-104) H 03/25/18 14:10 Albumin 3.2 g/dL (3.5-5.7) L 03/25/18 14:10 Albumin/Globulin Ratio 0.9 (1.1-2.2) L 03/25/18 14:10 Ur Specific [place] 1.028 (1.010-1.025) H 03/25/18 14:27 Urine Bilirubin Small (Negative) H 03/25/18 14:27 Salicylates < 2.5 mg/dL (15.0-30.0) L 03/25/18 14:10 Urine Opiates Screen Positive ng/mL (Vhnmsy=693) H 03/25/18 14:27 Acetaminophen 36 mcg/mL (10-20) H 03/25/18 14:10 U Benzodiazepines Scrn Positive ng/mL (Qwaoho=835) H 03/25/18 14:27 - Diagnostic Findings Chest x-ray: report reviewed, image reviewed
[2018-03-25 16:23] LABS: ABG Base Excess -4 mEq/L (-2 to 3); ABG HCO3 22 mEq/L (21-27); ABG Oxygen Saturation 90 % (95-98); ABG PCO2 38 mmHg (35-45); ABG PH 7.36 pH Units (7.32-7.45); ABG PO2 62 mmHg (85-104); ABG TCO2 23 mEq/L (20-26)
[2018-03-25] MEDS ORDERED: D5% in Water 1,000 ML IVC PRN (17:59)
[2018-03-25] MEDS ORDERED: Dextrose Gel 15 GM/37.5 ML TUBE PO PRN ×2 (17:59)
[2018-03-25] MEDS ORDERED: *HR* Dextrose 50 % in Water (Syg) 50 ML SYRINGE IVP PRN (17:59)
[2018-03-25] MEDS: Ipratropium/Albuterol Neb 3 ML IH SCH (20:22)
[2018-03-25] MEDS ORDERED: Acetylcysteine 3,200 MG in D5% in Water 500 ML IVC ONE (20:50)
[2018-03-25] MEDS ORDERED: Insulin LISPRO 300 UNITS/3 ML VIAL SQ SCH (21:00)
[2018-03-25 22:24] LABS: Calcium 7.7 mg/dL (8.6-10.3); Potassium 3.8 mEq/L (3.5-5.1)
[2018-03-26] MEDS: Ipratropium/Albuterol Neb 3 ML IH SCH ×3 (00:45→07:40)
[2018-03-26] MEDS ORDERED: D5 IVC ONE (01:00)
[2018-03-26] MEDS ORDERED: ACETYLCYSTEINE IVC ONE (01:00)
[2018-03-26] MEDS ORDERED: WATER IVC ONE (01:00)
--- NOTE | 2018-03-26 06:39 | Pulmonology Progress Note ---
<Rafael Bowles - Last Filed: 03/26/18 09:46> Date of Encounter: 03/26/18 Time of Encounter: 06:39 Assessment and Plan (1) Overdose Current Visit: Yes Status: Acute Patient is noted to have taken gabapentin as well as benzodiazepines. It is unknown if she took anything else. She also had 2 fentanyl patches on her when they found her. Patient did receive 1 dose of Narcan. This did not change anything with her. She did have a nasal trumpet placed per paramedics and that kept her oxygen saturations at 95%. During her entire emergency department stay she did stay above 95%. Patient was able to protect her airway they did not need to intubate the patient done in the emergency department. They did speak with poison control who stated Is also shown that patient had acetaminophen, opioids, benzodiazepines based on urine drug screen. NAC protocol was started in the emergency department. Patient's Tylenol level was 36. Social history negative. Patient had a normal urinalysis. Patient was mildly anemic at 8.9 looking at past this is a chronic anemia for her. CT head came back with no acute changes there stable foci of possible remote infarct. There is no signs of any had bleeding Patient does have an elevated creatinine at 1.64. This is a little elevated compared to her normal. This probably and acute kidney injury was likely secondary to taking the medications. We will continue to monitor. Patient did receive 1 L IV fluids in the emergency department. Creatinine has normalized today to where it is 0.97. ABG was done the emergency department which did not show an any signs of acidosis. ABG read as 7.36/38/62///. Patient's Tylenol level has also decreased to 11. We will continue with a 24- hour NAC protocol until it is completed. Patient is now stable enough and more alert and oriented that we can transfer her out of the ICU and onto a floor bed. I have placed a psych consultation and for them to see patient due to her suicidal ideations. Qualifiers: Encounter type: initial encounter Injury intent: intentional self-harm Qualified Code(s): T50.902A - Poisoning by unspecified drugs, medicaments and biological substances, intentional self-harm, initial encounter (2) Benzodiazepine overdose Current Visit: Yes Status: Acute Patient was known to take at least 23 pills of an unknown dosage of Xanax. This was based off it and pill bottle next to bed and had 7 pills in it that was a 30 day supply filled yesterday. Patient will not need flumazenil as she is improving. we will continue to monitor and wait for benzodiazepines to wear off the patient 's mental status to normalize. Patient's mental status is normalizing now she was she is not back to baseline This can cause drowsiness as well as patient protect airway continue to monitor. Qualifiers: Encounter type: initial encounter Injury intent: intentional self-harm Qualified Code(s): T42.4X2A - Poisoning by benzodiazepines, intentional self- harm, initial encounter (3) Gabapentin overdose Current Visit: Yes Status: Acute Patient took an unknown amount of gabapentin this is 80 mg dosing but the prescription was filled approximately 30 days ago and the bottle was empty. EMS was unable to find a new the prescribed bottle anywhere in the house. There is unknown how much gabapentin that patient. For gabapentin overdose the effects will cause drowsiness we will continue to monitor. Be sure patient protects her airway. There is no antidote for gabapentin overdose. Qualifiers: Encounter type: initial encounter Injury intent: intentional self-harm Qualified Code(s): T42.6X2A - Poisoning by other antiepileptic and sedative- hypnotic drugs, intentional self-harm, initial encounter (4) Suicide attempt by drug ingestion Current Visit: Yes Status: Acute This was a suicide attempt as patient does suicide note next toHer bed when patient was found. We will get psych evaluation once patient becomes more responsive and alert. I have called [facility] and notified them of the patient. They asked the nursing staff notify them when patient is more oriented and cancer questions about the suicide attempt. This was relayed to the hospitalist team Qualifiers: Encounter type: initial encounter Qualified Code(s): T50.902A - Poisoning by unspecified drugs, medicaments and biological substances, intentional self- harm, initial encounter (5) Head lice Current Visit: Yes Status: Acute Patient does have visible head lice on her. They did treat her with permethrin cream rinse. This occurred in the emergency department. Keep patient in contact precautions and keep her covered continue with permethrin cream (6) COPD (chronic obstructive pulmonary disease) Current Visit: No Status: Chronic Patient does have history of COPD DuoNeb's when necessary for wheezing. When patient is more alert patient may need BiPAP ordered when necessary. Qualifiers: COPD type: emphysema Emphysema type: panlobular Qualified Code(s): J43.1 - Panlobular emphysema (7) HTN (hypertension) Current Visit: No Status: Chronic Patient does have history of hypertension. We will hold off on giving patient's hypertensive medications at this time she has been normotensive and due to patient's mental status do not want to make patient come to hypotensive. Most recent blood pressure is 123/85. Patient did feel episodes of being hypertensive she has hydralazine ordered when necessary. Qualifiers: Hypertension type: essential hypertension Qualified Code(s): I10 - Essential (primary) hypertension (8) Diabetes mellitus Current Visit: No Status: Chronic Patient does of history of diabetes mellitus. Unknown whether she takes insulin. We will order low-dose sliding scale. 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 Patient did get 1 L IV fluids in him or to department we will continue to monitor creatinine. Creatinine has normalized to 0.97. Again this most likely is secondary to patient's overdose (10) DVT prophylaxis Current Visit: Yes Status: Acute Heparin subcutaneous Subjective Principal diagnosis: Overdose Interval history: There were no acute overnight events. Patient's chart, imaging, labs were reviewed. Patient is still drowsy but she is much more alert and oriented today. Patient has been observed in the ICU overnight and did well. Patient be transferred out of the ICU to telemetry for Objective PUL Vital signs: Last Vital Signs Temp 97.9 F 03/25/18 18:53 Pulse 84 03/26/18 06:00 Resp 19 03/26/18 06:00 BP 183/98 03/26/18 06:00 Pulse Ox 100 03/26/18 06:00 General appearance: no acute distress, alert Eyes: nonicteric ENT: oropharynx moist Neck: supple Effort: normal Cardiovascular: regular rate and rhythm Gastrointestinal: normoactive bowel sounds, soft, non-tender, non-distended Integumentary: normal Extremities: no cyanosis, no edema, no clubbing Musculoskeletal: no deformities, ROM normal non-focal exam, pupils equal and round, motor strength normal and symmetric Results - Laboratory Findings CBC and BMP: 03/26/18 06:28 03/26/18 06:28 ABG ABG pH 7.36 pH Units (7.32-7.45) 03/25/18 16:20 ABG pCO2 38 mmHg (35-45) 03/25/18 16:20 ABG pO2 62 mmHg (85-104) L 03/25/18 16:20 ABG O2 Saturation 90 % (95-98) L 03/25/18 16:20 Abnormal lab findings: Abnormal lab results RBC 2.87 M/mcL (3.82-4.97) L 03/25/18 14:10 Hgb 8.9 g/dL (11.5-15.4) L 03/25/18 14:10 Hct 28.9 % (35.3-44.9) L 03/25/18 14:10 MCV 100.7 fL (83.0-100.0) H 03/25/18 14:10 MCHC 30.8 g/dL (31.6-35.5) L 03/25/18 14:10 RDW 16.3 % (11.5-14.5) H 03/25/18 14:10 ABG pO2 62 mmHg (85-104) L 03/25/18 16:20 ABG O2 Saturation 90 % (95-98) L 03/25/18 16:20 ABG Base Excess -4 mEq/L (-2 to 3) L 03/25/18 16:20 Chloride 110 mEq/L (98-107) H 03/25/18 21:34 Carbon Dioxide 21 mEq/L (23-29) L 03/25/18 21:34 Creatinine 1.31 mg/dL (0.60-1.20) H 03/25/18 21:34 Est GFR ( Amer) 51 (> 60) L 03/25/18 21:34 Est GFR (Non-Af Amer) 42 (> 60) L 03/25/18 21:34 POC Glucose 103 mg/dL (70-99) H 03/25/18 17:44 Calcium 7.7 mg/dL (8.6-10.3) L 03/25/18 21:34 Alkaline Phosphatase 128 Units/L (34-104) H 03/25/18 14:10 Albumin 3.2 g/dL (3.5-5.7) L 03/25/18 14:10 Albumin/Globulin Ratio 0.9 (1.1-2.2) L 03/25/18 14:10 Ur Specific [place] 1.028 (1.010-1.025) H 03/25/18 14:27 Urine Bilirubin Small (Negative) H 03/25/18 14:27 Salicylates < 2.5 mg/dL (15.0-30.0) L 03/25/18 14:10 Urine Opiates Screen Positive ng/mL (Gfoywt=461) H 03/25/18 14:27 U Benzodiazepines Scrn Positive ng/mL (Zilntg=042) H 03/25/18 14:27 - Clinical Findings Intake & Output: Intake & Output 03/25/18 03/25/18 03/26/18 15:59 23:59 07:59 Intake Total 1297.5 / 1297.5 516 / 516 Output Total 2850 / 2850 750 / 750 Balance -1552.5 / -1552.5 -234 / -234 Consult Discharge Plan - Plan Referrals: Washington Ni DO [Primary Care Provider] - <Kam Pavon - Last Filed: 03/26/18 09:56> Date of Encounter: 03/26/18 Objective PUL Vital signs: Last Vital Signs Temp 97.6 F 03/26/18 08:12 Pulse 80 03/26/18 08:07 Resp 28 03/26/18 08:07 BP 155/68 03/26/18 08:07 Pulse Ox 100 03/26/18 08:07 Results - Laboratory Findings CBC and BMP: 03/26/18 06:28 03/26/18 06:28 ABG ABG pH 7.36 pH Units (7.32-7.45) 03/25/18 16:20 ABG pCO2 38 mmHg (35-45) 03/25/18 16:20 ABG pO2 62 mmHg (85-104) L 03/25/18 16:20 ABG O2 Saturation 90 % (95-98) L 03/25/18 16:20 Abnormal lab findings: Abnormal lab results RBC 3.79 M/mcL (3.82-4.97) L 03/26/18 06:28 RDW 16.1 % (11.5-14.5) H 03/26/18 06:28 Eosinophils # 0.7 K/mcL (0.0-0.6) H 03/26/18 06:28 ABG pO2 62 mmHg (85-104) L 03/25/18 16:20 ABG O2 Saturation 90 % (95-98) L 03/25/18 16:20 ABG Base Excess -4 mEq/L (-2 to 3) L 03/25/18 16:20 Chloride 110 mEq/L (98-107) H 03/26/18 06:28 Carbon Dioxide 21 mEq/L (23-29) L 03/26/18 06:28 Est GFR (Non-Af Amer) 59 (> 60) L 03/26/18 06:28 POC Glucose 103 mg/dL (70-99) H 03/25/18 17:44 Calcium 8.5 mg/dL (8.6-10.3) L 03/26/18 06:28 Alkaline Phosphatase 128 Units/L (34-104) H 03/25/18 14:10 Albumin 3.2 g/dL (3.5-5.7) L 03/25/18 14:10 Albumin/Globulin Ratio 0.9 (1.1-2.2) L 03/25/18 14:10 Ur Specific [place] 1.028 (1.010-1.025) H 03/25/18 14:27 Urine Bilirubin Small (Negative) H 03/25/18 14:27 Salicylates < 2.5 mg/dL (15.0-30.0) L 03/25/18 14:10 Urine Opiates Screen Positive ng/mL (Dsnazx=764) H 03/25/18 14:27 U Benzodiazepines Scrn Positive ng/mL (Btydtv=535) H 03/25/18 14:27 - Clinical Findings Intake & Output: Intake & Output 03/25/18 03/26/18 03/26/18 23:59 07:59 15:59 Intake Total 1297.5 / 1297.5 516 / 516 Output Total 2850 / 2850 1275 / 1275 400 / 400 Balance -1552.5 / -1552.5 -759 / -759 -400 / -400 - Attending Attestation I examined this patient and my medical decision-making was reviewed with the Resident Physician. I agree with the documented findings, disposition and treatment plan as described except to the extent set forth below. We independently had [id number] contact with the patient Patient seen and examined at bedside Labs, radiology, chart personally reviewed. Management was reviewed during multidisciplinary critical care rounds. 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 She had an intentional overdose with suicide attempt psychiatric tree has been consulted continue sitter and suicide precautions. Pulm: Acceptable oxygenation on room air Cards: Blood pressure monitored and she slightly hypertensive which we will start antihypertensive medication GI: Acetaminophen level has normalized and N-acetylcysteine 24 hour protocol given. No evidence of liver failure Nutrition: Nothing by mouth for now once more awake and do bedside speech and swallow evaluation Renal: Acute kidney injury has resolved UOP Monitored, Cont to Trend sCr and monitor Electrolytes. ID: No active issues Heme/Onc: DVT prophylaxis given Endo: Glucose Monitored Integ/MSK: Skin Care per routine ICU Nursing Protocol to prevent ulcers. Dispo: Stable for transfer to [facility] telemetry for ongoing care CODE: Full
[2018-03-26 06:40] LABS: Basophils # 0.1 K/mcL (0.0-0.2); Basophils % 0.8 %; Eosinophils # 0.7 K/mcL (0.0-0.6); Eosinophils % 11.2 %; Hematocrit 36.8 % (35.3-44.9); Immature Granulocytes % 0.3 % (0-4); Lymphocytes # 1.4 K/mcL (0.6-4.6); Lymphocytes % 22.5 %; Mean Corpuscular HGB Conc 31.8 g/dL (31.6-35.5); Mean Corpuscular Hemoglobin 30.9 pg (28.0-33.3); Mean Corpuscular Volume 97.1 fL (83.0-100.0); Mean Platelet Volume 9.5 fL (9.4-12.4); Monocytes # 0.4 K/mcL (0.0-1.3); Monocytes % 6.8 %; Neutrophils # 3.7 K/mcL (1.6-8.9); Platelet Count 302 K/mcL (140-400); Red Blood Count 3.79 M/mcL (3.82-4.97); Red Cell Distribution Width 16.1 % (11.5-14.5); Segmented Neutrophils % 58.4 %
[2018-03-26 06:41] LABS: Hemoglobin 11.7 g/dL (11.5-15.4)
[2018-03-26 07:01] LABS: BUN/Creatinine Ratio 15 (6-26); Blood Urea Nitrogen 15 mg/dL (6-20); Calcium 8.5 mg/dL (8.6-10.3); Carbon Dioxide 21 mEq/L (23-29); Chloride 110 mEq/L (98-107); Glucose 83 mg/dL (70-105); Osmolality,Calculated 288 (280-300); Potassium 3.7 mEq/L (3.5-5.1); Sodium 139 mEq/L (136-145); eGFR For African Americans > 60 (> 60); eGFR For Non-African Americans 59 (> 60)
[2018-03-26] MEDS ORDERED: *HR* Dextrose 50 % in Water (Syg) 50 ML SYRINGE IVP PRN (10:34)
[2018-03-26] MEDS ORDERED: Naloxone 0.4 MG/ML INJ IVP PRN (10:34)
[2018-03-26] MEDS ORDERED: Dextrose Gel 15 GM/37.5 ML TUBE PO PRN ×2 (10:34)
[2018-03-26] MEDS ORDERED: D5% in Water 1,000 ML IVC PRN (10:34)
[2018-03-26] MEDS ORDERED: OXYCODONE Oral CONC 10 MG/0.5 ML ORAL.SYG SL PRN (11:01)
[2018-03-26] MEDS ORDERED: Ipratropium/Albuterol Neb 3 ML IH PRN (11:04)
[2018-03-26] MEDS: *HR* OxyCODONE Immed Rel 5 MG TABLET PO PRN ×2 (11:16→15:21)
[2018-03-26] MEDS ORDERED: Ipratropium/Albuterol Neb 3 ML IH SCH (12:00)
[2018-03-26 15:08] LABS: Acetaminophen < 10 mcg/mL (10-20); Alanine Aminotransferase 16 Units/L (7-52); Albumin 3.5 g/dL (3.5-5.7); Alkaline Phosphatase 139 Units/L (34-104); Aspartate Amino Transferase 31 Units/L (13-39); Bilirubin,Direct 0.1 mg/dL (0.0-0.2); Bilirubin,Indirect 0.3 mg/dL (0.0-1.2); Bilirubin,Total 0.4 mg/dL (0.3-1.0); Globulin 3.5 g/dL (2.4-3.5)
[2018-03-26] MEDS: Insulin LISPRO 300 UNITS/3 ML VIAL SQ SCH (21:06)
[2018-03-26] MEDS ORDERED: *HR* LORazepam 2 MG/ML VIAL IVP ONE (21:44)
[2018-03-26] MEDS: Ondansetron 4 MG/2 ML VIAL IVP PRN (22:20)
[2018-03-26] MEDS: Nicotine 21 MG PATCH.TD24 TD SCH (22:20)
[2018-03-27] MEDS ORDERED: Haloperidol Lactate 5 MG/ML VIAL IVP ONE (00:08)
--- NOTE | 2018-03-27 00:14 | Event Note ---
Date of Encounter: 03/27/18 Time of Encounter: 23:50 Alerted by pts. nurse Rodney RN that pt. was anxious and agitated. Pt. admitted w/ overdose and suspected suicide attempt. According to ED notes, pt. overdose consisted of Xanax and Gabapentin. Pt. states she is uncomfortable and continues to go back and forth to the bathroom to urinate, but unsuccessfully. Bladder scans ordered PRN. Scan showed 617 in bladder. I told pt. I was ordering a Samuel catheter for urinary retention for which she agreed she needed. 1 mg IVP Haldol ordered for anxiety and agitation ONCE. Falls precautions and up with assist only ordered as well. Pts. nurse instructed to monitor pt. and VS closely overnight. Pt. discussed w/Dr. Jaimes who agrees w/ Haldol administration.
[2018-03-27 07:33] LABS: Basophils % 0.6 %; Eosinophils # 0.2 K/mcL (0.0-0.6); Eosinophils % 4.2 %; Hematocrit 30.9 % (35.3-44.9); Hemoglobin 10.2 g/dL (11.5-15.4); Immature Granulocytes % 0.4 % (0-4); Lymphocytes # 1.1 K/mcL (0.6-4.6); Lymphocytes % 20.1 %; Mean Corpuscular Hemoglobin 30.7 pg (28.0-33.3); Mean Corpuscular Volume 93.1 fL (83.0-100.0); Mean Platelet Volume 9.5 fL (9.4-12.4); Monocytes # 0.3 K/mcL (0.0-1.3); Monocytes % 5.6 %; Neutrophils # 3.6 K/mcL (1.6-8.9); Platelet Count 319 K/mcL (140-400); Red Blood Count 3.32 M/mcL (3.82-4.97); Red Cell Distribution Width 15.8 % (11.5-14.5); Segmented Neutrophils % 69.1 %
[2018-03-27 07:52] LABS: BUN/Creatinine Ratio 12 (6-26); Blood Urea Nitrogen 9 mg/dL (6-20); Calcium 9.3 mg/dL (8.6-10.3); Carbon Dioxide 25 mEq/L (23-29); Chloride 107 mEq/L (98-107); Glucose 158 mg/dL (70-105); Osmolality,Calculated 286 (280-300); Potassium 3.8 mEq/L (3.5-5.1); Sodium 137 mEq/L (136-145); eGFR For African Americans > 60 (> 60); eGFR For Non-African Americans > 60 (> 60)
[2018-03-27] MEDS: Nicotine 21 MG PATCH.TD24 TD SCH (10:08)
[2018-03-27] MEDS: Ondansetron 4 MG/2 ML VIAL IVP PRN ×2 (10:08→17:46)
[2018-03-27] MEDS ORDERED: *HR* Dextrose 50 % in Water (Syg) 50 ML SYRINGE IVP PRN (10:37)
[2018-03-27] MEDS ORDERED: Dextrose Gel 15 GM/37.5 ML TUBE PO PRN ×2 (10:37)
[2018-03-27] MEDS ORDERED: D5% in Water 1,000 ML IVC PRN (10:37)
[2018-03-27] MEDS ORDERED: Prochlorperazine 10 MG/2 ML VIAL IM PRN (12:16)
[2018-03-27] MEDS ORDERED: *HR* Morphine 2 MG/ML SYRINGE IVP ONE (12:17)
[2018-03-27] MEDS: Insulin LISPRO 300 UNITS/3 ML VIAL SQ SCH ×3 (12:31→21:10)
--- NOTE | 2018-03-27 13:50 | Consult Note ---
Date of Encounter: 03/27/18 Time of Encounter: 13:44 Assessment & Recommendation (1) Major depress dis, severe Current visit: Yes Status: Acute Assessment & Recommendation: Requires inpatient psych admission once medically stable. Client is now downplaying and denying her attempt. Do not think she is safe to return home. Would not change meds at this time but she can be assessed for changes in her medication regimen once she is transferred to an inpatient psych unit. History of Present Illness Requesting Physician: Isamar Cruz Reason for consult: overdose History of present illness: Ms. Huerta is a 57 year old female who was admitted following an overdose attempt. Suicide note reportedly found at side. Today she is greatly minimizing the attempt. Claims she only took Neurontin and she overtook it due to pain from neuropathy. However, she had opiates and benzos in her system. Had recently filled her Xanax bottle and it was empty. Attempt seems legitimate. Client denies a past history of attempts or mental health admissions. Denies prior treatment for mental health except for taking an antidepressant from her PCP. Thought her antidepressant was an acid reflux medication, Prilosec. Looking at her meds her only antidepressant is Elavil. Tricyclics can be very dangerous in overdose so will need to monitor for the potential that she overtook it as well. Client lives with her brother and he is the one who found her unresponsive. Today client is reporting she just wants to go home and is downplaying everything. CC: Isamar Cruz Past Med Surg Social Fam HX - Past Medical History Medical history: arthritis, asthma, COPD, diabetes, hyperlipidemia, hypertension , migraine, thyroid disease, other - Past Psychiatric History Psychiatric history: Reports: depression Family psychiatric history: Unknown Family History of Suicide: Unknown - Past Surgical History Surgical History: orthopedic, other, thyroidectomy - Social History Smoking Status: Former smoker Smokeless Tobacco Status: No Alcohol use: none Drug use: none - Family History Father Living Status: Hx Family Endocrine Disorder: Yes (diabetes) Medications & Allergies ALPRAZolam [Xanax 0.5 MG Tablet] 0.5 mg PO DAILY PRN 02/14/17 [History] Amitriptyline [Elavil] 10 mg PO DAILY 02/14/17 [History] Gabapentin [Neurontin] 800 mg PO TID 02/14/17 [History] Hyoscyamine Sulfate [Hyoscyamine Sulfate ER] 0.375 mg PO BID 02/14/17 [History] Nadolol 20 mg PO DAILY 02/14/17 [History] Omeprazole [PriLOSEC] 40 mg PO DAILY 02/14/17 [History] OxyCODONE/APAP 10/325 [Percocet 10/325 MG] 1 tab PO Q4-6H PRN 02/14/17 [History] fentaNYL [Fentanyl] 50 mcg TP Q72H 02/14/17 [History] Isomethept/Dichlphn/Acetaminop [Sarlfyulub-Bnpqorwtue-Poopnpzk] 1 cap PO Q4H PRN 03/25/18 [History] Levothyroxine Sodium [Levoxyl] 150 mcg PO DAILY 03/25/18 [History] Lisinopril-HCTZ 10-12.5 [Prinzide 10-12.5] 1 tab PO DAILY 03/25/18 [History] 3 Allergy/AdvReac Type Severity Reaction Status Date / Time armodafinil [From Nuvigil] Allergy Rash Verified 06/11/17 19:40 cephalexin [From Keflex] Allergy Rash Verified 06/11/17 19:40 Review of Systems Constitutional: Reports: weakness Eyes: Denies: eye pain, vision change Ears, Nose, Throat: Denies: ear pain, throat pain, dental pain, hearing loss, congestion Cardiovascular: Denies: chest pain, palpitations, dyspnea on exertion Respiratory: Denies: cough, dyspnea, wheezes Gastrointestinal: Reports: nausea Genitourinary female: Reports: other Musculoskeletal: Reports: myalgia Integumentary: Denies: rash, lesions, pruritus Neurological: Reports: weakness, numbness Endocrine: Denies: fatigue, heat or cold intolerance Hematologic/Lymphatic: Denies: easy bruising, lymphadenopathy Allergic/Immunologic: Denies: urticaria, itchy eyes Psychiatry Exam - Constitutional Vitals: Temp Pulse Resp BP Pulse Ox 98.8 F 102 17 165/90 99 03/27/18 11:26 03/27/18 11:26 03/27/18 11:26 03/27/18 13:17 03/27/18 11:26 General appearance: unkempt - Musculoskeletal Gait: unsteady Station: stooped Strength & Tone: normal for patient - Psychiatric Patient Orientation: Yes Person, Yes Time, Yes Place Level of alertness: Alert Behavior: calm Psychomotor activity: Slowed Eye Contact: Maintains Eye Contact Mood Description: Depressed Affect description: congruent with mood Speech Volume: Normal Speech pattern: normal rate, normal rhythm, normal tone, fluent, spontaneous Language & Vocabulary: consistent with education Thought Process: Linear Thought Content: No Suicidal ideation, No Homicidal ideation, No Overt delusions Perceptual Disturbances: No Auditory hallucinations, No Visual hallucinations Attention Span Ability: Capable of Focused Attention Memory Description: Recent Impaired Patient Reliability: Not Reliable Historian Fund of knowledge: Yes abstraction ability, Yes aware of current events Intelligence Estimate: Average Judgment: Poor Insight: Minimal Results - Drug Levels and Toxicology Drug Levels and Toxicology: Drug Levels and Toxicity 03/26/18 14:15 Acetaminophen < 10 L - Labs Labs: Laboratory Last Values WBC 5.2 K/mcL (4.3-11.1) 03/27/18 07:06 RBC 3.32 M/mcL (3.82-4.97) L 03/27/18 07:06 Hgb 10.2 g/dL (11.5-15.4) L D 03/27/18 07:06 Hct 30.9 % (35.3-44.9) L 03/27/18 07:06 MCV 93.1 fL (83.0-100.0) 03/27/18 07:06 MCH 30.7 pg (28.0-33.3) 03/27/18 07:06 MCHC 33.0 g/dL (31.6-35.5) 03/27/18 07:06 RDW 15.8 % (11.5-14.5) H 03/27/18 07:06 Plt Count 319 K/mcL (140-400) 03/27/18 07:06 MPV 9.5 fL (9.4-12.4) 03/27/18 07:06 Immature Gran % 0.4 % (0-4) 03/27/18 07:06 Seg Neutrophils % 69.1 % 03/27/18 07:06 Lymphocytes % 20.1 % 03/27/18 07:06 Monocytes % 5.6 % 03/27/18 07:06 Eosinophils % 4.2 % 03/27/18 07:06 Basophils % 0.6 % 03/27/18 07:06 Neutrophils # 3.6 K/mcL (1.6-8.9) 03/27/18 07:06 Lymphocytes # 1.1 K/mcL (0.6-4.6) 03/27/18 07:06 Monocytes # 0.3 K/mcL (0.0-1.3) 03/27/18 07:06 Eosinophils # 0.2 K/mcL (0.0-0.6) 03/27/18 07:06 Basophils # 0.0 K/mcL (0.0-0.2) 03/27/18 07:06 ABG pH 7.36 pH Units (7.32-7.45) 03/25/18 16:20 ABG pCO2 38 mmHg (35-45) 03/25/18 16:20 ABG pO2 62 mmHg (85-104) L 03/25/18 16:20 ABG HCO3 22 mEq/L (21-27) 03/25/18 16:20 ABG Total CO2 23 mEq/L (20-26) 03/25/18 16:20 ABG O2 Saturation 90 % (95-98) L 03/25/18 16:20 ABG Base Excess -4 mEq/L (-2 to 3) L 03/25/18 16:20 Sodium 137 mEq/L (136-145) 03/27/18 07:06 Potassium 3.8 mEq/L (3.5-5.1) 03/27/18 07:06 Chloride 107 mEq/L (98-107) 03/27/18 07:06 Carbon Dioxide 25 mEq/L (23-29) 03/27/18 07:06 BUN 9 mg/dL (6-20) 03/27/18 07:06 Creatinine 0.76 mg/dL (0.60-1.20) 03/27/18 07:06 Est GFR ( Amer) > 60 (> 60) 03/27/18 07:06 Est GFR (Non-Af Amer) > 60 (> 60) 03/27/18 07:06 BUN/Creatinine Ratio 12 (6-26) 03/27/18 07:06 Glucose 158 mg/dL (70-105) H 03/27/18 07:06 POC Glucose 153 mg/dL (70-99) H 03/26/18 21:00 Calculated Osmolality 286 (280-300) 03/27/18 07:06 Lactic Acid 1.6 mmol/L (0.5-2.2) 03/25/18 14:10 Calcium 9.3 mg/dL (8.6-10.3) 03/27/18 07:06 Total Bilirubin 0.4 mg/dL (0.3-1.0) 03/26/18 14:15 Direct Bilirubin 0.1 mg/dL (0.0-0.2) 03/26/18 14:15 Indirect Bilirubin 0.3 mg/dL (0.0-1.2) 03/26/18 14:15 AST 31 Units/L (13-39) 03/26/18 14:15 ALT 16 Units/L (7-52) 03/26/18 14:15 Alkaline Phosphatase 139 Units/L (34-104) H 03/26/18 14:15 Creatine Kinase 137 Units/L (30-223) 03/25/18 14:10 Troponin I < 0.03 ng/mL (< 0.04) 03/26/18 06:28 Serum Total Protein 7.0 g/dL (6.4-8.9) 03/26/18 14:15 Albumin 3.5 g/dL (3.5-5.7) 03/26/18 14:15 Globulin 3.5 g/dL (2.4-3.5) 03/26/18 14:15 Albumin/Globulin Ratio 1.0 (1.1-2.2) L 03/26/18 14:15 Urine Color Yellow (Yellow) 03/25/18 14:27 Urine Clarity Clear (Clear) 03/25/18 14:27 Urine pH 5.0 pH Units (5.0-8.0) 03/25/18 14:27 Ur Specific [place] 1.028 (1.010-1.025) H 03/25/18 14:27 Urine Protein Negative mg/dL (Neg-Trace) 03/25/18 14:27 Urine Glucose (UA) Normal mg/dL (Normal) 03/25/18 14:27 Urine Ketones Negative mg/dL (Negative) 03/25/18 14:27 Urine Blood Negative (Negative) 03/25/18 14:27 Urine Nitrite Negative (Negative) 03/25/18 14:27 Urine Bilirubin Small (Negative) H 03/25/18 14:27 Urine Urobilinogen Normal mg/dL (Normal) 03/25/18 14:27 Ur Leukocyte Esterase Negative (Negative) 03/25/18 14:27 Salicylates < 2.5 mg/dL (15.0-30.0) L 03/25/18 14:10 Urine Opiates Screen Positive ng/mL (Cvseso=545) H 03/25/18 14:27 Acetaminophen < 10 mcg/mL (10-20) L 03/26/18 14:15 Ur Barbiturates Screen Negative ng/mL (Gzwniu=677) 03/25/18 14:27 Ur Phencyclidine Scrn Negative ng/mL (Cutoff=25) 03/25/18 14:27 Ur Amphetamines Screen Negative ng/mL (Twncfk=9634) 03/25/18 14:27 U Benzodiazepines Scrn Positive ng/mL (Qzuiqg=387) H 03/25/18 14:27 Urine Cocaine Screen Negative ng/mL (Cutoff= 300) 03/25/18 14:27 U Marijuana (THC) Screen Negative ng/mL (Cutoff = 50) 03/25/18 14:27 Ur Drug Screen Interp See Below 03/25/18 14:27 Ethyl Alcohol < 10 mg/dL (Less than 10) 03/25/18 14:10 Consult Discharge Plan - Plan Referrals: Washington Ni DO [Primary Care Provider] -
[2018-03-27] MEDS ORDERED: Gabapentin 400 MG CAPSULE PO SCH (15:00)
--- NOTE | 2018-03-27 15:02 | Internal Med Progress Note ---
Date of Encounter: 03/27/18 Time of Encounter: 15:00 - Assessment and plan (1) Drug overdose Current Visit: Yes Status: Acute Assessment and plan: Patient is noted to have taken gabapentin as well as benzodiazepines. It is unknown if she took anything else. She also had 2 fentanyl patches on her when they found her. Patient did receive 1 dose of Narcan. This did not change anything with her. She did have a nasal trumpet placed per paramedics and that kept her oxygen saturations at 95%. During her entire emergency department stay she did stay above 95%. Patient was able to protect her airway they did not need to intubate the patient done in the emergency department. Poison control was called. ABG was done the emergency department which did not show an any signs of acidosis. ABG read as 7.36/38/62///. Qualifiers: Qualified Code(s): T50.901A - Poisoning by unspecified drugs, medicaments and biological substances, accidental (unintentional), initial encounter (2) COPD (chronic obstructive pulmonary disease) Current Visit: No Status: Chronic Assessment and plan: Resume home regimen. Currently not in exacerbation. Qualifiers: COPD type: emphysema Emphysema type: panlobular Qualified Code(s): J43.1 - Panlobular emphysema (3) HTN (hypertension) Current Visit: No Status: Chronic Assessment and plan: Resuming pt' home nadolol, lisinopirl and HCTZ. Qualifiers: Hypertension type: essential hypertension Qualified Code(s): I10 - Essential (primary) hypertension (4) Diabetes mellitus Current Visit: No Status: Chronic Assessment and plan: Patient does of history of diabetes mellitus. On low dose SSI. Qualifiers: Diabetes mellitus type: type 2 Diabetes mellitus terminal clerk insulin use: without fdc use Diabetes mellitus complication status: with neurologic complications Diabetes mellitus complication detail: with polyneuropathy Qualified Code(s): E11.42 - Type 2 diabetes mellitus with diabetic polyneuropathy (5) BARON (acute kidney injury) Current Visit: No Status: Resolved Assessment and plan: Mild AK I most likely due to patient overdosing. Patient did get 1 L IV fluids in him or to department we will continue to monitor creatinine. Creatinine has normalized to 0.97. Again this most likely is secondary to patient's overdose (6) Benzodiazepine overdose Current Visit: Yes Status: Acute Assessment and plan: Patient was known to take at least 23 pills of an unknown dosage of Xanax. This was based off it and pill bottle next to bed and had 7 pills in it that was a 30 day supply filled yesterday. Patient will not need flumazenil as she is improving. we will continue to monitor and wait for benzodiazepines to wear off the patient 's mental status to normalize. Patient's mental status is normalizing now she was she is not back to baseline This can cause drowsiness as well as patient protect airway continue to monitor. Qualifiers: Encounter type: initial encounter Injury intent: intentional self-harm Qualified Code(s): T42.4X2A - Poisoning by benzodiazepines, intentional self- harm, initial encounter (7) Gabapentin overdose Current Visit: Yes Status: Acute Assessment and plan: Patient took an unknown amount of gabapentin this is 800 mg TID dosing but the prescription was filled approximately 30 days ago and the bottle was empty. EMS was unable to find a new the prescribed bottle anywhere in the house. It is unknown how much gabapentin the patient took. Qualifiers: Encounter type: initial encounter Injury intent: intentional self-harm Qualified Code(s): T42.6X2A - Poisoning by other antiepileptic and sedative- hypnotic drugs, intentional self-harm, initial encounter (8) Head lice Current Visit: Yes Status: Acute Assessment and plan: Patient does have visible head lice on her. They did treat her with permethrin cream rinse. This occurred in the emergency department. Keep patient in contact precautions and keep her covered continue with permethrin cream (9) Suicide attempt by drug ingestion Current Visit: Yes Status: Acute Assessment and plan: Pt seen by psych and recommending in patient psych upon discharge. Qualifiers: Encounter type: initial encounter Qualified Code(s): T50.902A - Poisoning by unspecified drugs, medicaments and biological substances, intentional self- harm, initial encounter - Time Spent With Patient Total time spent is greater than 50% in coordination of care (as documented) at patient's floor/unit and/or counseling patient: less than 15 minutes - Subjective Interval history: Pt states she has pain B/L from neuropathy. She states neuropathy pain was unbearable, hence why she attempted suicide. She denies fever/chills/N/V, constipation or diarrhea. She denies CP or SOB. She does appear restless and stands up from time to time which she states helps her control neuropathy pain. - Constitutional Vitals: Temp Pulse Resp BP Pulse Ox 98.8 F 102 17 165/90 99 03/27/18 11:26 03/27/18 11:26 03/27/18 11:26 03/27/18 13:17 03/27/18 11:26 General appearance: Present: A&O X 3, no acute distress - Head Head exam: Present: atraumatic, normocephalic - Eye Eye exam: Present: PERRL, conjuntiva pink, sclera anicteric Pupils: Present: PERRL - Neck Neck exam general surgery: Present: supple, trachea midline. Absent: lymphadenopathy - Respiratory Respiratory exam: Present: CTAB. Absent: accessory muscle use, rales, rhonchi, wheezes - Cardiovascular Cardiovascular exam: Present: RRR, +S1, +S2. Absent: diastolic murmur, gallop, rubs, systolic murmur - GI/Abdominal GI/Abdominal exam: Present: normal bowel sounds, soft, no peritoneal signs. Absent: distended, tenderness - Extremities Exam Extremities exam: Present: warm, radial pulses palpable and symmetrical. Absent : calf tenderness, cyanotic, pedal edema - Neurological Exam Neurological exam: Present: CN II-XII intact, oriented X3, no focal deficits. Absent: pronater drift, facial droop, speech deficit - Skin Skin exam: Present: dry, intact Internal Medicine: Result - Labs CBC & Chem 7: 03/27/18 07:06 03/27/18 07:06 Labs: Short CBC 03/27/18 Range/Units 07:06 WBC 5.2 (4.3-11.1) K/mcL Hgb 10.2 L D (11.5-15.4) g/dL Hct 30.9 L (35.3-44.9) % Plt Count 319 (140-400) K/mcL Neutrophils # 3.6 (1.6-8.9) K/mcL BMP 03/27/18 07:06 Sodium 137 Potassium 3.8 Chloride 107 Carbon Dioxide 25 BUN 9 Creatinine 0.76 Glucose 158 H Calcium 9.3 Liver Function 03/26/18 Range/Units 14:15 Total Bilirubin 0.4 (0.3-1.0) mg/dL Direct Bilirubin 0.1 (0.0-0.2) mg/dL AST 31 (13-39) Units/L ALT 16 (7-52) Units/L Alkaline Phosphatase 139 H (34-104) Units/L Albumin 3.5 (3.5-5.7) g/dL - ABG Interpretation ABG results: ABG ABG pH 7.36 pH Units (7.32-7.45) 03/25/18 16:20 ABG pCO2 38 mmHg (35-45) 03/25/18 16:20 ABG pO2 62 mmHg (85-104) L 03/25/18 16:20 ABG O2 Saturation 90 % (95-98) L 03/25/18 16:20 Consult Discharge Plan - Plan Referrals: Washington Ni DO [Primary Care Provider] -
[2018-03-27] MEDS: Gabapentin 400 MG CAPSULE PO SCH ×2 (15:05→21:09)
[2018-03-27] MEDS: Hyoscyamine SL 0.125 MG TAB.SUBL SL SCH (21:10)
[2018-03-28 05:47] LABS: Basophils % 0.9 %; Eosinophils # 0.3 K/mcL (0.0-0.6); Eosinophils % 7.3 %; Hemoglobin 9.3 g/dL (11.5-15.4); Immature Granulocytes % 0.5 % (0-4); Lymphocytes # 1.4 K/mcL (0.6-4.6); Lymphocytes % 31.9 %; Mean Corpuscular HGB Conc 32.1 g/dL (31.6-35.5); Mean Corpuscular Hemoglobin 30.2 pg (28.0-33.3); Mean Corpuscular Volume 94.2 fL (83.0-100.0); Mean Platelet Volume 9.2 fL (9.4-12.4); Monocytes # 0.3 K/mcL (0.0-1.3); Monocytes % 7.6 %; Neutrophils # 2.3 K/mcL (1.6-8.9); Platelet Count 287 K/mcL (140-400); Red Blood Count 3.08 M/mcL (3.82-4.97); Red Cell Distribution Width 16.2 % (11.5-14.5); Segmented Neutrophils % 51.8 %
[2018-03-28 06:05] LABS: Calcium 8.8 mg/dL (8.6-10.3); Potassium 3.7 mEq/L (3.5-5.1)
[2018-03-28] MEDS: *HR* Enoxaparin 40 MG/0.4 ML SYRINGE SQ SCH (06:17)
[2018-03-28] MEDS: Insulin LISPRO 300 UNITS/3 ML VIAL SQ SCH ×4 (07:30→20:12)
[2018-03-28] MEDS: Nicotine 21 MG PATCH.TD24 TD SCH (10:54)
[2018-03-28] MEDS: Gabapentin 400 MG CAPSULE PO SCH ×3 (10:54→20:10)
[2018-03-28] MEDS: Hyoscyamine SL 0.125 MG TAB.SUBL SL SCH ×2 (10:55→20:10)
--- NOTE | 2018-03-28 13:03 | Electrocardiograph Report ---
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
--- NOTE | 2018-03-28 15:37 | Electrocardiograph Report ---
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
[2018-03-28] MEDS: 0.9 % Sodium Chloride 1,000 ML IVC SCH (17:22)
--- NOTE | 2018-03-28 18:33 | Consult Note ---
Date of Encounter: 03/28/18 Time of Encounter: 15:00 Assessment & Recommendation (1) Benzodiazepine overdose Current visit: Yes Status: Acute Qualifiers: Encounter type: subsequent encounter Injury intent: intentional self-harm Qualified Code(s): T42.4X2D - Poisoning by benzodiazepines, intentional self- harm, subsequent encounter (2) Major depress dis, severe Current visit: Yes Status: Acute History of Present Illness Patient: known to practice within the last 3 years Requesting Physician: Isamar Cruz Reason for consult: f/u of overdose History of present illness: Ms. Huerta is a 57 year old female Chief complaint: I really have to go downstairs to 1 A History of present illness. The patient has been seen and treated for an overdose. As noted previously this was potentially lethal overdose. The patient has had some time discussing reflect upon this. She recognizes that this was not a good thing to do. The patient was interviewed with some family members present. She agreed to go voluntarily to 1 AA however she remains on a pink slip for her safety. The patient agrees to stay on the unit until medically cleared. The patient denies attempts or thoughts to herself on the unit. She denies attempts or thoughts of self-harm. Nonetheless the patient recognizes that she is under an involuntary hold in that hospitalization will be necessary. She has been cooperating with the Center CC: Isamar Cruz Past Med Surg Social Fam HX - Past Medical History Medical history: arthritis, asthma, COPD, diabetes, hyperlipidemia, hypertension , migraine, thyroid disease, other - Past Psychiatric History Psychiatric history: Reports: panic disorder Family psychiatric history: Unknown Family History of Suicide: Unknown - Past Surgical History Surgical History: orthopedic, other, thyroidectomy - Social History Smoking Status: Former smoker Smokeless Tobacco Status: No Alcohol use: none Drug use: none Activity Level: Bed bound Recent Out of Country Travel Within the Last 8 Weeks: No Exposure or Possible Exposure to Illness During Travel: No - Family History Father Living Status: Hx Family Endocrine Disorder: Yes (diabetes) Medications & Allergies ALPRAZolam [Xanax 0.5 MG Tablet] 0.5 mg PO DAILY PRN 02/14/17 [History] Amitriptyline [Elavil] 10 mg PO DAILY 02/14/17 [History] Gabapentin [Neurontin] 800 mg PO TID 02/14/17 [History] Hyoscyamine Sulfate [Hyoscyamine Sulfate ER] 0.375 mg PO BID 02/14/17 [History] Nadolol 20 mg PO DAILY 02/14/17 [History] Omeprazole [PriLOSEC] 40 mg PO DAILY 02/14/17 [History] OxyCODONE/APAP 10/325 [Percocet 10/325 MG] 1 tab PO Q4-6H PRN 02/14/17 [History] fentaNYL [Fentanyl] 50 mcg TP Q72H 02/14/17 [History] Isomethept/Dichlphn/Acetaminop [Iobxsxvmyh-Mkrcmqxajf-Qeutvbcg] 1 cap PO Q4H PRN 03/25/18 [History] Levothyroxine Sodium [Levoxyl] 150 mcg PO DAILY 03/25/18 [History] Lisinopril-HCTZ 10-12.5 [Prinzide 10-12.5] 1 tab PO DAILY 03/25/18 [History] 3 Allergy/AdvReac Type Severity Reaction Status Date / Time armodafinil [From Nuvigil] Allergy Rash Verified 06/11/17 19:40 cephalexin [From Keflex] Allergy Rash Verified 06/11/17 19:40 Review of Systems Psychiatric: Reports: depression, suicidal ideation Psychiatry Exam - Constitutional Vitals: Temp Pulse Resp BP Pulse Ox 98.3 F 75 17 119/71 100 03/28/18 15:35 03/28/18 15:35 03/28/18 04:04 03/28/18 15:35 03/28/18 15:35 General appearance: age & developmentally appropriate, well-groomed, disheveled - Musculoskeletal Gait: slow Station: stooped Strength & Tone: normal for patient - Psychiatric Patient Orientation: Yes Person, Yes Time, Yes Place Level of alertness: Alert Behavior: cooperative Psychomotor activity: Normal Eye Contact: Maintains Eye Contact Mood Description: Depressed Affect description: congruent with mood Speech Volume: Normal Speech pattern: normal rate Language & Vocabulary: consistent with education Thought Process: Logical, Linear Thought Content: Yes Suicidal ideation Attention Span Ability: Unable to Sustain Attention Memory Description: Immediate Intact, Recent Intact Patient Reliability: Questionable Historian Fund of knowledge: Yes average Intelligence Estimate: Average Judgment: Limited Insight: Minimal Results - Labs Labs: Laboratory Last Values WBC 4.4 K/mcL (4.3-11.1) 03/28/18 05:27 RBC 3.08 M/mcL (3.82-4.97) L 03/28/18 05:27 Hgb 9.3 g/dL (11.5-15.4) L 03/28/18 05:27 Hct 29.0 % (35.3-44.9) L 03/28/18 05:27 MCV 94.2 fL (83.0-100.0) 03/28/18 05:27 MCH 30.2 pg (28.0-33.3) 03/28/18 05:27 MCHC 32.1 g/dL (31.6-35.5) 03/28/18 05:27 RDW 16.2 % (11.5-14.5) H 03/28/18 05:27 Plt Count 287 K/mcL (140-400) 03/28/18 05:27 MPV 9.2 fL (9.4-12.4) L 03/28/18 05:27 Immature Gran % 0.5 % (0-4) 03/28/18 05:27 Seg Neutrophils % 51.8 % 03/28/18 05:27 Lymphocytes % 31.9 % 03/28/18 05:27 Monocytes % 7.6 % 03/28/18 05:27 Eosinophils % 7.3 % 03/28/18 05:27 Basophils % 0.9 % 03/28/18 05:27 Neutrophils # 2.3 K/mcL (1.6-8.9) 03/28/18 05:27 Lymphocytes # 1.4 K/mcL (0.6-4.6) 03/28/18 05:27 Monocytes # 0.3 K/mcL (0.0-1.3) 03/28/18 05:27 Eosinophils # 0.3 K/mcL (0.0-0.6) 03/28/18 05:27 Basophils # 0.0 K/mcL (0.0-0.2) 03/28/18 05:27 ABG pH 7.36 pH Units (7.32-7.45) 03/25/18 16:20 ABG pCO2 38 mmHg (35-45) 03/25/18 16:20 ABG pO2 62 mmHg (85-104) L 03/25/18 16:20 ABG HCO3 22 mEq/L (21-27) 03/25/18 16:20 ABG Total CO2 23 mEq/L (20-26) 03/25/18 16:20 ABG O2 Saturation 90 % (95-98) L 03/25/18 16:20 ABG Base Excess -4 mEq/L (-2 to 3) L 03/25/18 16:20 Sodium 141 mEq/L (136-145) 03/28/18 05:27 Potassium 3.7 mEq/L (3.5-5.1) 03/28/18 05:27 Chloride 108 mEq/L (98-107) H 03/28/18 05:27 Carbon Dioxide 25 mEq/L (23-29) 03/28/18 05:27 BUN 14 mg/dL (6-20) 03/28/18 05:27 Creatinine 1.13 mg/dL (0.60-1.20) 03/28/18 05:27 Est GFR ( Amer) 60 (> 60) 03/28/18 05:27 Est GFR (Non-Af Amer) 49 (> 60) L 03/28/18 05:27 BUN/Creatinine Ratio 12 (6-26) 03/28/18 05:27 Glucose 106 mg/dL (70-105) H 03/28/18 05:27 POC Glucose 128 mg/dL (70-99) H 03/28/18 11:45 Calculated Osmolality 293 (280-300) 03/28/18 05:27 Lactic Acid 1.6 mmol/L (0.5-2.2) 03/25/18 14:10 Calcium 8.8 mg/dL (8.6-10.3) 03/28/18 05:27 Total Bilirubin 0.4 mg/dL (0.3-1.0) 03/26/18 14:15 Direct Bilirubin 0.1 mg/dL (0.0-0.2) 03/26/18 14:15 Indirect Bilirubin 0.3 mg/dL (0.0-1.2) 03/26/18 14:15 AST 31 Units/L (13-39) 03/26/18 14:15 ALT 16 Units/L (7-52) 03/26/18 14:15 Alkaline Phosphatase 139 Units/L (34-104) H 03/26/18 14:15 Creatine Kinase 137 Units/L (30-223) 03/25/18 14:10 Troponin I < 0.03 ng/mL (< 0.04) 03/26/18 06:28 Serum Total Protein 7.0 g/dL (6.4-8.9) 03/26/18 14:15 Albumin 3.5 g/dL (3.5-5.7) 03/26/18 14:15 Globulin 3.5 g/dL (2.4-3.5) 03/26/18 14:15 Albumin/Globulin Ratio 1.0 (1.1-2.2) L 03/26/18 14:15 Urine Color Yellow (Yellow) 03/25/18 14:27 Urine Clarity Clear (Clear) 03/25/18 14:27 Urine pH 5.0 pH Units (5.0-8.0) 03/25/18 14:27 Ur Specific [place] 1.028 (1.010-1.025) H 03/25/18 14:27 Urine Protein Negative mg/dL (Neg-Trace) 03/25/18 14:27 Urine Glucose (UA) Normal mg/dL (Normal) 03/25/18 14:27 Urine Ketones Negative mg/dL (Negative) 03/25/18 14:27 Urine Blood Negative (Negative) 03/25/18 14:27 Urine Nitrite Negative (Negative) 03/25/18 14:27 Urine Bilirubin Small (Negative) H 03/25/18 14:27 Urine Urobilinogen Normal mg/dL (Normal) 03/25/18 14:27 Ur Leukocyte Esterase Negative (Negative) 03/25/18 14:27 Salicylates < 2.5 mg/dL (15.0-30.0) L 03/25/18 14:10 Urine Opiates Screen Positive ng/mL (Eebufa=359) H 03/25/18 14:27 Acetaminophen < 10 mcg/mL (10-20) L 03/26/18 14:15 Ur Barbiturates Screen Negative ng/mL (Revceh=316) 03/25/18 14:27 Ur Phencyclidine Scrn Negative ng/mL (Cutoff=25) 03/25/18 14:27 Ur Amphetamines Screen Negative ng/mL (Godqop=3187) 03/25/18 14:27 U Benzodiazepines Scrn Positive ng/mL (Pvjliy=229) H 03/25/18 14:27 Urine Cocaine Screen Negative ng/mL (Cutoff= 300) 03/25/18 14:27 U Marijuana (THC) Screen Negative ng/mL (Cutoff = 50) 03/25/18 14:27 Ur Drug Screen Interp See Below 03/25/18 14:27 Ethyl Alcohol < 10 mg/dL (Less than 10) 03/25/18 14:10 Consult Discharge Plan - Plan Referrals: Washington Ni DO [Primary Care Provider] -
--- NOTE | 2018-03-28 19:13 | Internal Med Progress Note ---
Date of Encounter: 03/28/18 Time of Encounter: 19:11 - Assessment and plan (1) Drug overdose Current Visit: Yes Status: Acute Assessment and plan: Patient is noted to have taken gabapentin as well as benzodiazepines. It is unknown if she took anything else. She also had 2 fentanyl patches on her when they found her. Patient did receive 1 dose of Narcan. This did not change anything with her. She did have a nasal trumpet placed per paramedics and that kept her oxygen saturations at 95%. During her entire emergency department stay she did stay above 95%. Patient was able to protect her airway they did not need to intubate the patient done in the emergency department. Poison control was called. ABG was done the emergency department which did not show an any signs of acidosis. ABG read as 7.36/38/62///. Pt is back at her baseline mentation. Qualifiers: Qualified Code(s): T50.901A - Poisoning by unspecified drugs, medicaments and biological substances, accidental (unintentional), initial encounter (2) COPD (chronic obstructive pulmonary disease) Current Visit: No Status: Chronic Assessment and plan: Resume home regimen. Currently not in exacerbation. Qualifiers: COPD type: emphysema Emphysema type: panlobular Qualified Code(s): J43.1 - Panlobular emphysema (3) HTN (hypertension) Current Visit: No Status: Chronic Assessment and plan: Resumed pt' home nadolol, lisinopirl and HCTZ. Qualifiers: Hypertension type: essential hypertension Qualified Code(s): I10 - Essential (primary) hypertension (4) Diabetes mellitus Current Visit: No Status: Chronic Assessment and plan: Patient does of history of diabetes mellitus. On low dose SSI. Qualifiers: Diabetes mellitus type: type 2 Diabetes mellitus shelter insulin use: without shelter use Diabetes mellitus complication status: with neurologic complications Diabetes mellitus complication detail: with polyneuropathy Qualified Code(s): E11.42 - Type 2 diabetes mellitus with diabetic polyneuropathy (5) Benzodiazepine overdose Current Visit: Yes Status: Acute Assessment and plan: Patient was known to take at least 23 pills of an unknown dosage of Xanax. This was based off it and pill bottle next to bed and had 7 pills in it that was a 30 day supply filled yesterday. Patient will not need flumazenil as she is improving. we will continue to monitor and wait for benzodiazepines to wear off the patient 's mental status to normalize. Patient's mental status is normalizing now she was she is not back to baseline This can cause drowsiness as well as patient protect airway continue to monitor. Qualifiers: Encounter type: subsequent encounter Injury intent: intentional self-harm Qualified Code(s): T42.4X2D - Poisoning by benzodiazepines, intentional self- harm, subsequent encounter (6) Gabapentin overdose Current Visit: Yes Status: Acute Assessment and plan: Patient took an unknown amount of gabapentin this is 800 mg TID dosing but the prescription was filled approximately 30 days ago and the bottle was empty. EMS was unable to find a new the prescribed bottle anywhere in the house. It is unknown how much gabapentin the patient took. Pt back at baseline mental status. Gabapentin dose resume due to uncontrolled neuropathic pain. Qualifiers: Encounter type: initial encounter Injury intent: intentional self-harm Qualified Code(s): T42.6X2A - Poisoning by other antiepileptic and sedative- hypnotic drugs, intentional self-harm, initial encounter (7) Head lice Current Visit: Yes Status: Acute Assessment and plan: Patient does have visible head lice on her. They did treat her with permethrin cream rinse. This occurred in the emergency department. Keep patient in contact precautions and keep her covered continue with permethrin cream. (8) Suicide attempt by drug ingestion Current Visit: Yes Status: Acute Assessment and plan: Pt seen by psych and recommending in patient psych upon discharge. Bed assigned Qualifiers: Encounter type: initial encounter Qualified Code(s): T50.902A - Poisoning by unspecified drugs, medicaments and biological substances, intentional self- harm, initial encounter (9) BARON (acute kidney injury) Current Visit: No Status: Resolved Assessment and plan: Pt has bed assigned, however, due to abnormal looking urine will check UA, give IVF and repeat BMP in am. Cr up from 0.76 03/27 to 1.13 03/28. - Time Spent With Patient Total time spent is greater than 50% in coordination of care (as documented) at patient's floor/unit and/or counseling patient: - Subjective Interval history: Pt states she has pain B/L from neuropathy but better today, 03/28/2018. She states neuropathy pain was unbearable, hence why she attempted suicide. She denies fever/chills/N/V, constipation or diarrhea. She denies CP or SOB. Urine in [place] dark today but denies dysuria, frequency or urgency. - Constitutional Vitals: Temp Pulse Resp BP Pulse Ox 98.4 F 73 19 131/66 100 03/28/18 19:07 03/28/18 19:07 03/28/18 19:07 03/28/18 19:07 03/28/18 19:07 General appearance: Present: A&O X 3, no acute distress - Head Head exam: Present: atraumatic, normocephalic - Eye Eye exam: Present: PERRL, conjuntiva pink, sclera anicteric Pupils: Present: PERRL - Neck Neck exam general surgery: Present: supple, trachea midline. Absent: lymphadenopathy - Respiratory Respiratory exam: Present: CTAB. Absent: accessory muscle use, rales, rhonchi, wheezes - Cardiovascular Cardiovascular exam: Present: RRR, +S1, +S2. Absent: diastolic murmur, gallop, rubs, systolic murmur - GI/Abdominal GI/Abdominal exam: Present: normal bowel sounds, soft, no peritoneal signs. Absent: distended, tenderness - Extremities Exam Extremities exam: Present: warm, radial pulses palpable and symmetrical. Absent : calf tenderness, cyanotic, pedal edema - Neurological Exam Neurological exam: Present: CN II-XII intact, oriented X3, no focal deficits. Absent: pronater drift, facial droop, speech deficit - Skin Skin exam: Present: dry, intact Internal Medicine: Result - Labs CBC & Chem 7: 03/28/18 05:27 03/28/18 05:27 Labs: Short CBC 03/28/18 Range/Units 05:27 WBC 4.4 (4.3-11.1) K/mcL Hgb 9.3 L (11.5-15.4) g/dL Hct 29.0 L (35.3-44.9) % Plt Count 287 (140-400) K/mcL Neutrophils # 2.3 (1.6-8.9) K/mcL BMP 03/28/18 05:27 Sodium 141 Potassium 3.7 Chloride 108 H Carbon Dioxide 25 BUN 14 Creatinine 1.13 Glucose 106 H Calcium 8.8 - ABG Interpretation ABG results: ABG ABG pH 7.36 pH Units (7.32-7.45) 03/25/18 16:20 ABG pCO2 38 mmHg (35-45) 03/25/18 16:20 ABG pO2 62 mmHg (85-104) L 03/25/18 16:20 ABG O2 Saturation 90 % (95-98) L 03/25/18 16:20 Consult Discharge Plan - Plan Referrals: Washington Ni DO [Primary Care Provider] -
[2018-03-28 21:41] LABS: Bilirubin,Urine Moderate (Negative); Blood,Urine Large (Negative); Clarity,Urine Turbid (Clear); Color,Urine Red (Yellow); Glucose,Urine (UA) Normal (Normal); Ketones,Urine Trace mg/dL (Negative); Leukocyte Esterase,Urine Moderate (Negative); Nitrite,Urine Negative (Negative); PH,Urine 5.5 pH Units (5.0-8.0); Protein,Urine >=300 mg/dL (Neg-Trace); Specific Gravity,Urine 1.025 (1.010-1.025); Urobilinogen,Urine Normal (Normal)
[2018-03-28 21:43] LABS: Bacteria,Urine None Seen per hpf (None-Few); RBC,Urine TNTC per hpf (0-3); Squamous Epithelial Cell,Urine Many per lpf (None-Few); WBC,Urine TNTC per hpf (0-3)
[2018-03-29] MEDS ORDERED: Acetaminophen 325 MG TABLET PO PRN (00:25)
[2018-03-29 05:19] LABS: Basophils % 0.6 %; Eosinophils # 0.3 K/mcL (0.0-0.6); Eosinophils % 6.4 %; Hematocrit 26.8 % (35.3-44.9); Hemoglobin 8.7 g/dL (11.5-15.4); Immature Granulocytes % 0.2 % (0-4); Lymphocytes # 1.7 K/mcL (0.6-4.6); Lymphocytes % 32.5 %; Mean Corpuscular HGB Conc 32.5 g/dL (31.6-35.5); Mean Corpuscular Hemoglobin 30.7 pg (28.0-33.3); Mean Corpuscular Volume 94.7 fL (83.0-100.0); Mean Platelet Volume 9.3 fL (9.4-12.4); Monocytes # 0.4 K/mcL (0.0-1.3); Monocytes % 6.8 %; Neutrophils # 2.9 K/mcL (1.6-8.9); Platelet Count 244 K/mcL (140-400); Red Blood Count 2.83 M/mcL (3.82-4.97); Red Cell Distribution Width 15.6 % (11.5-14.5); Segmented Neutrophils % 53.5 %
[2018-03-29 05:42] LABS: BUN/Creatinine Ratio 18 (6-26); Blood Urea Nitrogen 20 mg/dL (6-20); Calcium 8.2 mg/dL (8.6-10.3); Carbon Dioxide 22 mEq/L (23-29); Chloride 109 mEq/L (98-107); Glucose 112 mg/dL (70-105); Osmolality,Calculated 291 (280-300); Potassium 3.5 mEq/L (3.5-5.1); Sodium 139 mEq/L (136-145); eGFR For African Americans > 60 (> 60); eGFR For Non-African Americans 50 (> 60)
[2018-03-29] MEDS: 0.9 % Sodium Chloride 1,000 ML IVC SCH (06:30)
[2018-03-29] MEDS: *HR* Enoxaparin 40 MG/0.4 ML SYRINGE SQ SCH (06:31)
[2018-03-29] MEDS: Insulin LISPRO 300 UNITS/3 ML VIAL SQ SCH (07:48)
[2018-03-29] MEDS: Nicotine 21 MG PATCH.TD24 TD SCH (09:20)
[2018-03-29] MEDS: Hyoscyamine SL 0.125 MG TAB.SUBL SL SCH (09:21)
[2018-03-29] MEDS: Gabapentin 400 MG CAPSULE PO SCH (09:21)
--- NOTE | 2018-03-29 10:28 | Discharge Summary ---
- NOTES TO OUTPATIENT PROVIDER Notes to Outpatient Provider: Patient hospitalized for drug overdose. Evaluated by psychiatric. Will be admitted to inpatient psychiatric unit for further management. Date of Encounter: 03/29/18 Time of Encounter: 10:23 - Discharge Diagnosis (1) Drug overdose Priority: Primary Status: Acute Qualifiers: Encounter type: initial encounter Injury intent: intentional self-harm Qualified Code(s): T50.902A - Poisoning by unspecified drugs, medicaments and biological substances, intentional self-harm, initial encounter (2) BARON (acute kidney injury) Priority: Secondary Status: Resolved (3) Anemia Priority: Secondary Status: Chronic Qualifiers: Anemia type: unspecified type Qualified Code(s): D64.9 - Anemia, unspecified (4) Benzodiazepine overdose Priority: Secondary Status: Acute Qualifiers: Encounter type: subsequent encounter Injury intent: intentional self-harm Qualified Code(s): T42.4X2D - Poisoning by benzodiazepines, intentional self- harm, subsequent encounter (5) Gabapentin overdose Priority: Secondary Status: Acute Qualifiers: Encounter type: initial encounter Injury intent: intentional self-harm Qualified Code(s): T42.6X2A - Poisoning by other antiepileptic and sedative- hypnotic drugs, intentional self-harm, initial encounter (6) Head lice Priority: Secondary Status: Acute (7) Suicide attempt by drug ingestion Priority: Secondary Status: Acute Qualifiers: Encounter type: initial encounter Qualified Code(s): T50.902A - Poisoning by unspecified drugs, medicaments and biological substances, intentional self- harm, initial encounter Hospital course: Ms. Huerta is a 57 year old female patient who was hospitalized here with drug overdose after she apparently took multiple pills of benzodiazepines, the gabapentin with suicidal intention. She was monitored in the ICU initially and then transferred to the floor. She was evaluated by psychiatry and recommended hospitalization to the inpatient psychiatric unit once medically clear. Patient does have chronic anemia and also developed mild acute kidney injury which has now resolved. She is stable to be discharged from a medical standpoint. She will be transferred to psychiatric unit for further management. Discharge discussed with: patient, nurse - Time Spent with Patient Total time spent providing and/or coordinating discharge services: Less than 30 minutes (25 min) - Discharge Medications Prescriptions: OxyCODONE Immed Rel [Roxicodone 5 MG] 5 mg PO Q4HR PRN 4 Days #10 tablet PRN Reason: Pain Home Medications: Amitriptyline [Elavil] 10 mg PO DAILY 02/14/17 [History] Gabapentin [Neurontin] 800 mg PO TID 02/14/17 [History] Hyoscyamine Sulfate [Hyoscyamine Sulfate ER] 0.375 mg PO BID 02/14/17 [History] Nadolol 20 mg PO DAILY 02/14/17 [History] Omeprazole [PriLOSEC] 40 mg PO DAILY 02/14/17 [History] Isomethept/Dichlphn/Acetaminop [Tzwypdquut-Bmomuozsrf-Pfobzbrv] 1 cap PO Q4H PRN 03/25/18 [History] Levothyroxine Sodium [Levoxyl] 150 mcg PO DAILY 03/25/18 [History] Lisinopril-HCTZ 10-12.5 [Prinzide 10-12.5] 1 tab PO DAILY 03/25/18 [History] OxyCODONE Immed Rel [Roxicodone 5 MG] 5 mg PO Q4HR PRN 4 Days #10 tablet [Rx] Allergies/Adverse Reactions: 3 Allergy/AdvReac Type Severity Reaction Status Date / Time armodafinil [From Nuvigil] Allergy Rash Verified 06/11/17 19:40 cephalexin [From Keflex] Allergy Rash Verified 06/11/17 19:40 Date of admission: 03/25/18 15:53 Primary care physician: Cade Oleary Consults: 03/26/18 06:19 Consult to Raw Products Director [CONS] Routine Reason for SW Consult: Cousin is POA, needs to find paperwork Worry about lice infestation at home d/t severity of head lice Concerns about care given at home 03/26/18 08:19 Consult to Psychiatry [CONS] Routine Consulting Provider: Psychiatry Inessa Reason consult: Other Other reason and/or additional details: Suicide attempt Time Notified: 08:20 Call Completed: Yes Discharging clinician: Fozia Meza Anticipated date of discharge: 03/29/18 - Constitutional Vitals: Temp Pulse Resp BP Pulse Ox 98.5 F 71 16 139/65 100 03/29/18 07:38 03/29/18 07:38 03/29/18 07:38 03/29/18 07:38 03/29/18 07:38 General appearance: Present: A&O X 3, no acute distress - Neck Neck exam general surgery: Present: supple, trachea midline. Absent: lymphadenopathy - Respiratory Respiratory exam: Present: CTAB. Absent: accessory muscle use, rales, rhonchi, wheezes - Cardiovascular Cardiovascular exam: Present: RRR, +S1, +S2. Absent: diastolic murmur, gallop, rubs, systolic murmur - GI/Abdominal GI/Abdominal exam: Present: normal bowel sounds, soft, no peritoneal signs. Absent: distended, tenderness - Extremities Exam Extremities exam: Present: warm, radial pulses palpable and symmetrical. Absent : calf tenderness, cyanotic, pedal edema - Patient Status Disposition: Transfer Psychiatric Hosp Condition: Good Functional capacity at discharge: independent ambulation Overall status at discharge: patient is progressing back to baseline - Discharge Instructions Follow Up With: Washington Ni DO [Primary Care Provider] - (in 1- 2 weeks) - Diet and Activity Diet: diabetic diet, low fat, low cholesterol, low salt diet
[2018-03-29 11:44] VITALS: BP 151/75
== END 2018-03-29 11:56 | DRG 917 ==
LOC: EMEROO 13:46 → ICNU 15:53 → SUATTDRO 15:53 → ICNU 17:14 → 2ANU 03-26 19:11
PROVIDERS: ADMIT Internal Medicine Hospice and Palliative Medicine; ATTEND Internal Medicine

== ENCOUNTER 2018-03-29 11:42 | Inpatient (IN) ==
[2018-03-29] MEDS ORDERED: *HR* LORazepam 2 MG/ML VIAL IM PRN (11:56)
[2018-03-29] MEDS ORDERED: Haloperidol Lactate 5 MG/ML VIAL IM PRN (11:56)
[2018-03-29] MEDS ORDERED: MOM Conc 10 ML UD.LIQ PO PRN (11:56)
[2018-03-29] MEDS ORDERED: Ibuprofen 400 MG TABLET PO PRN (11:56)
[2018-03-29] MEDS ORDERED: hydrOXYzine pamoate 25 MG CAPSULE PO PRN (11:56)
[2018-03-29] MEDS ORDERED: *HR* LORazepam 1 MG TABLET PO PRN (11:56)
[2018-03-29] MEDS ORDERED: Mag Hydrox/Al Hydrox/Simeth 30 ML UDC PO PRN (11:56)
[2018-03-29] MEDS ORDERED: ISOMETHEPT PO PRN (12:18)
[2018-03-29] MEDS ORDERED: ACETAMINOP PO PRN (12:18)
[2018-03-29] MEDS ORDERED: DICHLPHN PO PRN (12:18)
--- NOTE | 2018-03-29 14:46 | Psychiatry History & Physical ---
Date of Encounter: 03/29/18 Time of Encounter: 14:30 History of Present Illness Patient Stated Chief Complaint: I didn't thinks I was going to take OD Medicare Admission Attestation: For traditional Medicare patients the provided hospital inpatient services are reasonable and necessary and in the case of services not specified as inpatient -only under 42 CFR 419.22 (n), that they are appropriately provided as inpatient services in accordance 42 CFR 412.3. For Critical Access Hospital the patient may reasonably be expected to be discharged or transferred to a hospital within 96 hours after admission to the Critical Access Hospital. Admitted From: Intrahospital Transfer Plans for Post Hospital Care: Home History of Present Illness: Ms. Huerta is a 57 year old female Past Med Surg Social Fam HX - Past Medical History Source: patient Medical history: arthritis, asthma, COPD, diabetes, hyperlipidemia, hypertension , migraine, thyroid disease, other - Past Psychiatric History Psychiatric history: Reports: depression Family psychiatric history: Yes Family History of Suicide: Completed - Past Surgical History Surgical History: orthopedic, other, thyroidectomy - Social History Smoking Status: Current every day smoker Smokeless Tobacco Status: No Alcohol use: none Drug use: none Occupational status: disabled Current living situation: Home - Independent, With Family Activity Level: Independent ambulation Recent Out of Country Travel Within the Last 8 Weeks: Yes Exposure or Possible Exposure to Illness During Travel: Yes - Family History Father Living Status: Hx Family Endocrine Disorder: Yes (diabetes) Medications & Allergies Amitriptyline [Elavil] 10 mg PO DAILY 02/14/17 [History] Gabapentin [Neurontin] 800 mg PO TID 02/14/17 [History] Hyoscyamine Sulfate [Hyoscyamine Sulfate ER] 0.375 mg PO BID 02/14/17 [History] Nadolol 20 mg PO DAILY 02/14/17 [History] Omeprazole [PriLOSEC] 40 mg PO DAILY 02/14/17 [History] Isomethept/Dichlphn/Acetaminop [Ocxlalwymf-Einkkbjrzp-Vcldtcjp] 1 cap PO Q4H PRN 03/25/18 [History] Levothyroxine Sodium [Levoxyl] 150 mcg PO DAILY 03/25/18 [History] Lisinopril-HCTZ 10-12.5 [Prinzide 10-12.5] 1 tab PO DAILY 03/25/18 [History] OxyCODONE Immed Rel [Roxicodone 5 MG] 5 mg PO Q4HR PRN 4 Days #10 tablet [Rx] 3 Allergy/AdvReac Type Severity Reaction Status Date / Time armodafinil [From Nuvigil] Allergy Rash Verified 06/11/17 19:40 cephalexin [From Keflex] Allergy Rash Verified 06/11/17 19:40 Review of Systems Constitutional: Denies: fever, chills, weakness, weight change Eyes: Reports: vision change Cardiovascular: Reports: dyspnea on exertion Respiratory: Reports: dyspnea, wheezes Gastrointestinal: Denies: abdominal pain, nausea, vomiting, diarrhea, constipation Psychiatric: Reports: depression, suicidal ideation Exam - HEENT Head exam IM: Present: atraumatic, normal inspection, normocephalic Eye exam IM: Present: EOMI ENT exam IM: Present: mucous membranes dry - Neurological Neurological exam: Present: CN II-XII intact - Skin Skin exam IM: Present: warm - Constitutional General appearance: unkempt - Musculoskeletal Gait: slow Station: stooped Strength & Tone: normal for patient - Psychiatric Patient Orientation: Yes Person, Yes Time, Yes Place Level of alertness: Alert Behavior: calm, cooperative Psychomotor activity: Normal Eye Contact: Maintains Eye Contact Mood Description: Depressed Affect description: tearful Speech Volume: Normal Speech pattern: normal rate Language & Vocabulary: consistent with education Thought Process: Intact Thought Content: Yes Suicidal ideation Perceptual Disturbances: No Auditory hallucinations, No Visual hallucinations Attention Span Ability: Capable of Focused Attention Memory Description: Grossly Intact Patient Reliability: Reliable Historian Fund of knowledge: Yes abstraction ability, Yes average, Yes aware of current events Intelligence Estimate: Average Judgment: Fair Insight: Partial Assessment and Plan (1) Suicide attempt by multiple drug overdose Current visit: No Status: Acute Plan: Admit inpatient for safety and stabilization, Close observation, Suicide Precautions per unit protocol, Encourage participation in unit milieu, Group Therapy Risks, benefits, side effects, alternatives discussed w/pt: Yes Patient agreeable to treatment: Yes Plans for Post Hospital Care: Home Estimated Length of Stay (Days): 3 Qualifiers: Encounter type: subsequent encounter Qualified Code(s): T50.902D - Poisoning by unspecified drugs, medicaments and biological substances, intentional self-harm, subsequent encounter (2) Major depress dis, severe Current visit: No Status: Acute Plan: Admit inpatient for safety and stabilization, Close observation, Suicide Precautions per unit protocol, Group Therapy, Monitor sleep, Monitor appetite, Secure weapons Risks, benefits, side effects, alternatives discussed w/pt: Yes Patient agreeable to treatment: Yes Plans for Post Hospital Care: Home
[2018-03-29] MEDS: Gabapentin 400 MG CAPSULE PO SCH ×2 (15:30→20:49)
[2018-03-29] MEDS: HYOSCYAMINE SULFATE 0.375 MG PO SCH (20:51)
[2018-03-29] MEDS: traZODone 50 MG TABLET PO PRN (23:44)
[2018-03-30] MEDS: FLUoxetine 20 MG CAPSULE PO SCH (08:22)
[2018-03-30] MEDS: Gabapentin 400 MG CAPSULE PO SCH ×3 (08:23→21:33)
[2018-03-30] MEDS: HYOSCYAMINE SULFATE 0.375 MG PO SCH ×2 (08:23→21:33)
[2018-03-30] MEDS: Nicotine 21 MG PATCH.TD24 TD SCH (09:10)
--- NOTE | 2018-03-30 14:27 | Psychiatry Progress Note ---
Date of Encounter: 03/30/18 Time of Encounter: 14:15 Subjective Interval history: ID the patient is 57-year-old white female. Chief complaint I have to take care of problem. History of present illness. The patient was treated with Prozac and Elavil for many years. She reports over that period time she did not have side effects including dry mouth and blurry vision constipation and dizziness. The patient also had falls and Elavil was helpful for sleep initially but the patient remained on for a long time along with Prozac. The patient is back on gabapentin 800 mg 3 times a day and this helps with her neuropathy. 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 The patient had to go out on disability at age 43 has been living on disability check. However she feels that she is contributed to the health and well-being of an extended family she notes that her nephew is on SSDI but does not go out and seek additional work or food stamps and that she has had to put food on the table. The patient has limited resources from her pension. She has spoken to her cousin about this cousin has been named as the executor state the event the patient's untimely and also beneficiary of a life insurance policy. The patient tells me that her cousin had strong words with her about the current financial situation patient seems to be determined to make some changes she has limited funds and multiple bills. The patient was raised in a methodist and later the family moved into the methodist but did not attend rastafari services. Nonetheless she feels that suicide is a mortal sin The patient did not sleep well last night and this may be due to being off Elavil which she has been on for years. Patient is willing to try hydroxyzine to help with sleep. Trazodone was not helpful for her. The patient and I discussed her follow-up plans after discharge. She noted no suicidal ideation at this time but some depression and anxiety of her current situation. Nonetheless she does not espouse a philosophy that supports suicide Review of Systems Psychiatric: Reports: depression, suicidal ideation Results - Vital Signs Vital Signs: Temp Pulse Resp BP 98.2 F 84 16 120/74 03/30/18 09:00 03/30/18 09:00 03/30/18 09:00 03/30/18 09:00 Assessment and Plan (1) Suicide attempt by multiple drug overdose Current visit: No Status: Acute Plan: Continue hospitalization, Close observation, Group Therapy, Monitor sleep , Secure weapons, Family/Supportive other meeting Risks, benefits, side effects, alternatives discussed w/pt: Yes Patient agreeable to treatment: Yes Qualifiers: Encounter type: subsequent encounter Qualified Code(s): T50.902D - Poisoning by unspecified drugs, medicaments and biological substances, intentional self-harm, subsequent encounter (2) Major depress dis, severe Current visit: No Status: Acute Plan: Continue hospitalization, Close observation, Suicide Precautions per unit protocol, Encourage participation in unit milieu, Monitor sleep, Monitor appetite, Family/Supportive other meeting Risks, benefits, side effects, alternatives discussed w/pt: Yes Patient agreeable to treatment: Yes Consult Discharge Plan - Plan Referrals: [facility] [Outside] - 04/05/18 1:30 pm (The above appointment is with Toney Le for mental health counseling. Please bring photo ID and insurance card.) [facility] [Outside] - 04/14/18 11:00 am (The above appointment is with Dr. Desai,a psychiatric provider. Please bring insurance card and photo ID.) Psychiatry Exam - Constitutional Vitals: Temp Pulse Resp BP 98.2 F 84 16 120/74 03/30/18 09:00 03/30/18 09:00 03/30/18 09:00 03/30/18 09:00 General appearance: age & developmentally appropriate, well-groomed, well- nourished - Musculoskeletal Gait: slow Station: relaxed, slouched Strength & Tone: mild weakness - Psychiatric Patient Orientation: Yes Person, Yes Time, Yes Place Level of alertness: Alert Behavior: calm, cooperative Psychomotor activity: Normal Eye Contact: Maintains Eye Contact Mood Description: Depressed Affect description: congruent with mood, full range Speech Volume: Normal Speech pattern: normal rate, normal rhythm, normal tone, fluent, spontaneous Language & Vocabulary: consistent with education Thought Process: Linear, Goal Oriented Thought Content: No Suicidal ideation, No Homicidal ideation, No Overt delusions Perceptual Disturbances: No Auditory hallucinations, No Visual hallucinations Attention Span Ability: Capable of Sustained Attention Memory Description: Grossly Intact Patient Reliability: Reliable Historian Fund of knowledge: Yes abstraction ability, Yes aware of current events Intelligence Estimate: Average Judgment: Fair Insight: Partial
[2018-03-30] MEDS: hydrOXYzine pamoate 25 MG CAPSULE PO SCH (21:33)
[2018-03-30] MEDS: traZODone 50 MG TABLET PO PRN (21:33)
[2018-03-31] MEDS: *HR* OxyCODONE Immed Rel 5 MG TABLET PO PRN ×3 (01:17→20:32)
[2018-03-31] MEDS: Gabapentin 400 MG CAPSULE PO SCH ×3 (09:12→20:32)
[2018-03-31] MEDS: FLUoxetine 20 MG CAPSULE PO SCH (09:12)
[2018-03-31] MEDS: Nicotine 21 MG PATCH.TD24 TD SCH (09:12)
[2018-03-31] MEDS: HYOSCYAMINE SULFATE 0.375 MG PO SCH ×2 (09:15→20:33)
--- NOTE | 2018-03-31 11:43 | Psychiatry Progress Note ---
Date of Encounter: 03/31/18 Time of Encounter: 11:30 Subjective Interval history: ID: The patient is a 57-year-old white female. Chief complaint I did not sleep last night, one my legs are aching pace history of present illness the patient would like to go home tomorrow but she hardly slept at all last night I had changed Vistaril for Elavil in the past the patient had been on Xanax at bedtime. She is agreeable to a trial of Ambien 5 mg daily at bedtime. The patient may have either withdrawal insomnia or a chronic insomnia that was being treated both with Xanax and Elavil. Nonetheless the patient reports that her legs aching often keeps her up at night at home. She has never taken Ambien before but we talked side effects. She would like me to write a letter to Dr. Washington Burrell [place] was treated her for many years Review of Systems Psychiatric: Reports: depression, abnormal sleep pattern Results - Vital Signs Vital Signs: Temp Pulse Resp BP 98.1 F 87 16 164/86 03/31/18 09:00 03/31/18 09:00 03/31/18 09:00 03/31/18 09:00 Assessment and Plan (1) Suicide attempt by multiple drug overdose Current visit: No Status: Acute Plan: Continue hospitalization, Close observation, Secure weapons Risks, benefits, side effects, alternatives discussed w/pt: Yes Patient agreeable to treatment: Yes Qualifiers: Encounter type: subsequent encounter Qualified Code(s): T50.902D - Poisoning by unspecified drugs, medicaments and biological substances, intentional self-harm, subsequent encounter (2) Major depress dis, severe Current visit: No Status: Acute Plan: Continue hospitalization, Encourage participation in unit milieu, Monitor sleep, Secure weapons Risks, benefits, side effects, alternatives discussed w/ pt: Yes Patient agreeable to treatment: Yes Consult Discharge Plan - Plan Referrals: [facility] [Outside] - 04/05/18 1:30 pm (The above appointment is with Toney Le for mental health counseling. Please bring photo ID and insurance card.) [facility] [Outside] - 04/14/18 11:00 am (The above appointment is with Dr. Desai,a psychiatric provider. Please bring insurance card and photo ID.) Psychiatry Exam - Constitutional Vitals: Temp Pulse Resp BP 98.1 F 87 16 164/86 03/31/18 09:00 03/31/18 09:00 03/31/18 09:00 03/31/18 09:00 General appearance: age & developmentally appropriate, well-groomed, well- nourished, thin - Musculoskeletal Gait: normal Station: stooped Strength & Tone: normal for patient - Psychiatric Patient Orientation: Yes Person, Yes Time, Yes Place Level of alertness: Alert Behavior: calm, cooperative Psychomotor activity: Normal Eye Contact: Maintains Eye Contact Affect description: congruent with mood, full range Speech Volume: Normal Speech pattern: normal rate, normal rhythm, normal tone, fluent, spontaneous Language & Vocabulary: consistent with education Thought Process: Linear, Goal Oriented Thought Content: No Suicidal ideation, No Homicidal ideation, No Overt delusions Perceptual Disturbances: No Auditory hallucinations, No Visual hallucinations Attention Span Ability: Capable of Focused Attention Memory Description: Grossly Intact Patient Reliability: Reliable Historian Fund of knowledge: Yes abstraction ability, Yes aware of current events Intelligence Estimate: Average Judgment: Fair Insight: Partial
[2018-03-31] MEDS: hydrOXYzine pamoate 25 MG CAPSULE PO SCH (20:32)
[2018-03-31] MEDS: traZODone 50 MG TABLET PO PRN (23:28)
[2018-04-01] MEDS: *HR* OxyCODONE Immed Rel 5 MG TABLET PO PRN (02:18)
[2018-04-01 08:09] VITALS: BP 132/74
[2018-04-01] MEDS: Nicotine 21 MG PATCH.TD24 TD SCH (09:23)
[2018-04-01] MEDS: Gabapentin 400 MG CAPSULE PO SCH (09:24)
[2018-04-01] MEDS: HYOSCYAMINE SULFATE 0.375 MG PO SCH (09:25)
[2018-04-01] MEDS: FLUoxetine 20 MG CAPSULE PO SCH (09:25)
--- NOTE | 2018-04-01 10:38 | Discharge Summary ---
Date of Encounter: 04/01/18 Time of Encounter: 10:30 Diagnosis - Discharge Diagnosis (1) Suicide attempt by multiple drug overdose Priority: Secondary Status: Acute Qualifiers: Encounter type: subsequent encounter Qualified Code(s): T50.902D - Poisoning by unspecified drugs, medicaments and biological substances, intentional self-harm, subsequent encounter (2) Major depress dis, severe Priority: Primary Status: Acute (3) Insomnia disorder Status: Acute Qualifiers: Insomnia type: due to other mental disorder Qualified Code(s): F51.05 - Insomnia due to other mental disorder; F99 - Mental disorder, not otherwise specified Medications - Discharge Medications Prescriptions: FLUoxetine HCl [Prozac] 20 mg PO DAILY 14 Days #14 capsule Gabapentin [Neurontin] 800 mg PO TID 60 Days #14 tablet Gabapentin [Neurontin] 800 mg PO HS 60 Days #14 capsule hydrOXYzine pamoate [HydrOXYzine Pamoate] 25 mg PO HS 14 Days #14 capsule Zolpidem [Ambien] 5 mg PO HS 14 Days #14 tablet Hyoscyamine Sulfate [Hyoscyamine Sulfate ER] 0.375 mg PO BID 02/14/17 [History] Nadolol 20 mg PO DAILY 02/14/17 [History] Omeprazole [PriLOSEC] 40 mg PO DAILY 02/14/17 [History] Isomethept/Dichlphn/Acetaminop [Vgowkxllhg-Yvvjngxllm-Oqljeqzy] 1 cap PO Q4H PRN 03/25/18 [History] Levothyroxine Sodium [Levoxyl] 150 mcg PO DAILY 03/25/18 [History] Lisinopril-HCTZ 10-12.5 [Prinzide 10-12.5] 1 tab PO DAILY 03/25/18 [History] OxyCODONE Immed Rel [Roxicodone 5 MG] 5 mg PO Q4HR PRN 4 Days #10 tablet [Rx] FLUoxetine HCl [Prozac] 20 mg PO DAILY 14 Days #14 capsule 04/01/18 [Rx] Gabapentin [Neurontin] 800 mg PO HS 60 Days #14 capsule 04/01/18 [Rx] Gabapentin [Neurontin] 800 mg PO TID 60 Days #14 tablet 04/01/18 [Rx] Zolpidem [Ambien] 5 mg PO HS 14 Days #14 tablet 04/01/18 [Rx] hydrOXYzine pamoate [HydrOXYzine Pamoate] 25 mg PO HS 14 Days #14 capsule [Rx] 3 Allergy/AdvReac Type Severity Reaction Status Date / Time armodafinil [From Nuvigil] Allergy Rash Verified 06/11/17 19:40 cephalexin [From Keflex] Allergy Rash Verified 06/11/17 19:40 Provider Date of admission: 03/29/18 11:42 Primary care physician: PCP NONE Discharging clinician: Harpal Wodoy Psychiatry Exam - Constitutional Vitals: Temp Pulse Resp BP 98.5 F 81 18 132/74 04/01/18 08:08 04/01/18 08:08 04/01/18 08:08 04/01/18 08:08 General appearance: age & developmentally appropriate, well-groomed, well- nourished - Musculoskeletal Gait: slow Station: stooped, slouched Strength & Tone: mild weakness - Psychiatric Patient Orientation: Yes Person, Yes Time, Yes Place Level of alertness: Alert Behavior: calm, cooperative Psychomotor activity: Normal Eye Contact: Maintains Eye Contact Mood Description: Anxious Affect description: congruent with mood, full range Speech Volume: Normal Speech pattern: normal rate, normal rhythm, normal tone, fluent, spontaneous Language & Vocabulary: consistent with education Thought Process: Linear, Goal Oriented Thought Content: No Suicidal ideation, No Homicidal ideation, No Overt delusions Perceptual Disturbances: No Auditory hallucinations, No Visual hallucinations Attention Span Ability: Capable of Focused Attention Memory Description: Grossly Intact Patient Reliability: Reliable Historian Fund of knowledge: Yes abstraction ability, Yes aware of current events Intelligence Estimate: Average Judgment: Fair Insight: Partial Hospital Course Hospital course: Ms. Huerta is a 57 year old female The patient was admitted after a overdose attempt. History of present illness. The patient was in her usual state of health and mood. She became despondent about her situation bills. She had been hanging for a variety of people in her home in spite of limited disability benefits. When she found that she did not have enough money she became despondent and took an overdose. The patient was seen on the consultation service and it still took several days for her to medically improve and stabilize after ingesting gabapentin and benzodiazepine Xanax. The patient may have also ingested other prescribed medicines including the antidepressant Elavil. Nonetheless patient improved significantly admitted on 1A. She is been treated for depression Prozac for many years. Prozac was restarted at 20 mg per day she tolerated this. She had also been treated with Elavil and Xanax at bedtime. This may be addressing a insomnia or chronic insomnia related to pre-existing depression or other medical conditions. I diagnosis of F47.00 was added for this insomnia. Efforts to treat the insomnia with trazodone and Vistaril and others were unsuccessful. The patient agreed to a trial of Ambien 5 mg daily at bedtime. The state pharmacy report was checked and the patient is on several opiate pain medicines. However the patient has chronic pain and it was felt that the risk of Xanax and the risk of Elavil with the drug interaction with Prozac was such that Ambien would be a reasonable choice. Patient increased her sleep and slept a few hours on the night before discharge. The patient engaged in therapy talked about problem solving strategies did not seem to improve in mood. Patient had some support in the community and was scheduled for follow-up with local mental health. A letter was sent to the patient's primary care physician Dr. Washington Burrell. - Time Spent with Patient Total time spent providing and/or coordinating discharge services: Less than 30 minutes Assessment and Plan - Patient/Caregiver Discharge Instructions Activity: resume usual activities as tolerated Diet: regular diet - Follow up Plan Follow up with: [facility] [Outside] - 04/05/18 1:30 pm (The above appointment is with Toney Le for mental health counseling. Please bring photo ID and insurance card.) [facility] [Outside] - 04/14/18 11:00 am (The above appointment is with Dr. Desai,a psychiatric provider. Please bring insurance card and photo ID.) Functional capacity at discharge: independent ambulation Overall status at discharge: Stable Disposition: Home, Self-Care Quality - Multiple Antipsychotics Patient discharged on 2 or more antipsychotic medications: No Procedures - Procedures Procedures: Medication Management, Crisis Stabilization, Supportive Therapy, Group Therapy, Psychoeducational Therapy
== END 2018-04-01 14:00 | disposition home or self-care (01) | DRG 885 ==
LOC: 1ANU 11:42
PROVIDERS: ADMIT Psychiatry & Neurology Forensic Psychiatry; ATTEND Psychiatry & Neurology Forensic Psychiatry

== ENCOUNTER 2018-04-06 00:26 | Observation (INO) ==
[2018-04-06] MEDS ORDERED: Ipratropium/Albuterol Neb 3 ML IH ONE (00:50)
[2018-04-06] MEDS ORDERED: MethylPREDNISolone 40 MG/ML VIAL ONE (01:05)
[2018-04-06] MEDS ORDERED: methylPREDNISolone 125 MG/2 ML VIAL ONE (01:06)
[2018-04-06] MEDS: methylPREDNISolone 125 MG/2 ML VIAL IVP ONE ×2 (01:08→01:10)
[2018-04-06 01:10] LABS: Basophils # 0.1 K/mcL (0.0-0.2); Basophils % 0.6 %; Eosinophils # 0.5 K/mcL (0.0-0.6); Eosinophils % 5.9 %; Hematocrit 26.2 % (35.3-44.9); Hemoglobin 8.5 g/dL (11.5-15.4); Immature Granulocytes % 0.3 % (0-4); Lymphocytes # 1.3 K/mcL (0.6-4.6); Lymphocytes % 14.4 %; Mean Corpuscular HGB Conc 32.4 g/dL (31.6-35.5); Mean Corpuscular Hemoglobin 31.3 pg (28.0-33.3); Mean Corpuscular Volume 96.3 fL (83.0-100.0); Mean Platelet Volume 9.9 fL (9.4-12.4); Monocytes # 0.6 K/mcL (0.0-1.3); Monocytes % 6.4 %; Neutrophils # 6.4 K/mcL (1.6-8.9); Platelet Count 323 K/mcL (140-400); Red Blood Count 2.72 M/mcL (3.82-4.97); Segmented Neutrophils % 72.4 %
[2018-04-06 01:30] LABS: BUN/Creatinine Ratio 21 (6-26); Blood Urea Nitrogen 22 mg/dL (6-20); Calcium 8.5 mg/dL (8.6-10.3); Carbon Dioxide 23 mEq/L (23-29); Chloride 100 mEq/L (98-107); Glucose 137 mg/dL (70-105); Osmolality,Calculated 279 (280-300); Potassium 4.4 mEq/L (3.5-5.1); Sodium 132 mEq/L (136-145); Troponin I < 0.03 ng/mL (< 0.04); eGFR For African Americans > 60 (> 60); eGFR For Non-African Americans 54 (> 60)
--- NOTE | 2018-04-06 01:34 | Emergency Department Note ---
Disposition Clinical Impression: Acute exacerbation of chronic obstructive airways disease Community acquired pneumonia Qualifiers: Laterality: unspecified laterality Qualified Code(s): J18.9 - Pneumonia, unspecified organism Disposition: Admitted As Inpatient Condition: Fair Referrals: NONE,PCP [Primary Care Provider] - Forms: ED Satisfaction Letter Time of Disposition: 03:08 SOB HPI - General Chief Complaint: ED Shortness of Breath/Dyspnea Stated Complaint: NARESH Time Seen by Provider: 04/06/18 00:34 Source: EMS Limitations: age Nursing Notes Reviewed: Yes Vital Signs Reviewed: Yes - History of Present Illness 57-year-old female presents from home via EMS for evaluation of dyspnea. Onset last night. Progressively worsened throughout the day. She now has dyspnea with light exertion. Patient was recently discharged from this facility after mental health evaluation. Since then, she is had a change in cough which is now productive with yellow sputum. She does have a history of COPD and continues to smoke 1.5 packs per day. She does have albuterol inhaler at home however, no nebulizer in no home oxygen. Additionally, patient notes some chest tightness with her dyspnea. PMH: COPD, diabetes, hypertension, hyperlipidemia ROS: Positive: As above Negative: Fever, palpitations, nausea, vomiting, diaphoresis, abdominal pain, changes in bowel or bladder habits, lightheadedness - Related Data Home Medications Medication Instructions Recorded Confirmed Hyoscyamine Sulfate [Hyoscyamine 0.375 mg PO BID 02/14/17 03/25/18 Sulfate ER] Nadolol 20 mg PO DAILY 02/14/17 03/25/18 Omeprazole [PriLOSEC] 40 mg PO DAILY 02/14/17 03/25/18 Isomethept/Dichlphn/Acetaminop 1 cap PO Q4H PRN 03/25/18 03/25/18 [Bjhfpiyubl-Xnranrahgj-Gcokpttq] Levothyroxine Sodium [Levoxyl] 150 mcg PO DAILY 03/25/18 03/25/18 Lisinopril-HCTZ 10-12.5 [Prinzide 1 tab PO DAILY 03/25/18 03/25/18 10-12.5] Previous Rx's Medication Instructions Recorded OxyCODONE Immed Rel [Roxicodone 5 5 mg PO Q4HR PRN 4 Days #10 tablet 03/29/18 MG] FLUoxetine HCl [Prozac] 20 mg PO DAILY 14 Days #14 capsule 04/01/18 Gabapentin [Neurontin] 800 mg PO HS 60 Days #14 capsule 04/01/18 Gabapentin [Neurontin] 800 mg PO TID 60 Days #14 tablet 04/01/18 Zolpidem [Ambien] 5 mg PO HS 14 Days #14 tablet 04/01/18 hydrOXYzine pamoate [HydrOXYzine 25 mg PO HS 14 Days #14 capsule 04/01/18 Pamoate] Allergies Allergy/AdvReac Type Severity Reaction Status Date / Time armodafinil [From Nuvigil] Allergy Rash Verified 06/11/17 19:40 cephalexin [From Keflex] Allergy Rash Verified 06/11/17 19:40 All systems ED: reviewed and negative except as stated. Review of Systems: As Per HPI Past Medical History - Past Medical History Medical history: Reports: arthritis, asthma, COPD, diabetes, hyperlipidemia, hypertension, migraine, thyroid disease, other Surgical history: Reports: orthopedic, other, thyroidectomy Psychiatric history: Reports: depression PREFITTER DOORS 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 PREFITTER DOORS history - Social History Smoking Status: Current every day smoker Smokeless Tobacco Status: No Alcohol use: Reports: none Drug use: Reports: none Physical Exam Vital Signs Reviewed General: Patient is alert, oriented, and in mild respiratory distress-3 were conversational dyspnea on room air. Patient appears older than stated age. Head: atraumatic, normocephalic Eye: normal appearance, no scleral icterus, no conjunctival injection ENT: mucous membranes moist, normal external ear exam Neck: normal inspection, trachea midline, full ROM Chest: normal inspection, symmetric chest rise Respiratory: Poor respiratory effort. Prolonged expiratory phase. Bilateral breath sounds have diffuse coarse wheeze with bibasilar crackles. Cardiovascular: Regular rate and rhythm. No clicks, rubs, gallops, or murmors. Normal heart sounds. Abdomen: Bowel sounds present normoactive. Abdomen is soft, nondistended, and nontender. No guarding or rebound. Musculoskeletal: Spontaneously moving all extremities. Skin: warm, dry, intact. Neuro: Alert and oriented x4. Sensation light touch intact. Psych: Patient's affect is appropriate for situation. - General Limitations: age General appearance: alert, anxious Course Course Narrative: Patient has no home O2 however is requiring 3L NC to sustain pulse Ox in the mid 90's after nebulizer treatments. CXR concerning for bibasilar pneumonia. Patient given solumedrol 125 and azithromycin. I discussed my concern with her for her acute exacerbation of COPD as well as her pneumonia and the need for her to have supplemental oxygen to maintain her oxygen saturation. She agrees for admission. I discussed the patient with the admitting hospitalist, Dr. Mancia, who agrees to accept the patient for continued evaluation management EKG dated 04/06/18 at 00:59 interpreted as sinus rhythm with a rate of 87. NE 174, QRS 84, QTC 407. Left axis. Nonspecific ST-T changes. Polymorphic P waves consistent with pulmonary disease. Q waves present in lead 3. Compared to previous EKG dated 03/25/2018 showing no acute ischemic changes or comparison. Vital Signs Temperature 97.9 F 04/06/18 00:31 Pulse Rate 86 04/06/18 00:31 Respiratory Rate 24 04/06/18 00:31 Blood Pressure 113/66 04/06/18 00:31 O2 Sat by Pulse Oximetry 97 04/06/18 00:31 Temperature 97.9 F 04/06/18 00:31 Pulse Rate 99 04/06/18 01:51 Respiratory Rate 22 04/06/18 01:51 Blood Pressure 127/68 04/06/18 01:51 O2 Sat by Pulse Oximetry 95 04/06/18 01:51 Oxygen Delivery Oxygen Delivery Nasal Cannula Shortness of Breath/Dyspnea - Lab Data Result diagrams: 04/06/18 00:57 04/06/18 00:57 Lab Results 04/06/18 04/06/18 Range/Units 00:57 00:57 WBC 8.8 (4.3-11.1) K/mcL RBC 2.72 L (3.82-4.97) M/mcL Hgb 8.5 L (11.5-15.4) g/dL Hct 26.2 L (35.3-44.9) % MCV 96.3 (83.0-100.0) fL MCH 31.3 (28.0-33.3) pg MCHC 32.4 (31.6-35.5) g/dL RDW 15.0 H (11.5-14.5) % Plt Count 323 (140-400) K/mcL MPV 9.9 (9.4-12.4) fL Immature Gran % 0.3 (0-4) % Seg Neutrophils % 72.4 % Lymphocytes % 14.4 % Monocytes % 6.4 % Eosinophils % 5.9 % Basophils % 0.6 % Neutrophils # 6.4 (1.6-8.9) K/mcL Lymphocytes # 1.3 (0.6-4.6) K/mcL Monocytes # 0.6 (0.0-1.3) K/mcL Eosinophils # 0.5 (0.0-0.6) K/mcL Basophils # 0.1 (0.0-0.2) K/mcL Sodium 132 L (136-145) mEq/L Potassium 4.4 (3.5-5.1) mEq/L Chloride 100 (98-107) mEq/L Carbon Dioxide 23 (23-29) mEq/L BUN 22 H (6-20) mg/dL Creatinine 1.05 (0.60-1.20) mg/dL Est GFR ( Amer) > 60 (> 60) Est GFR (Non-Af Amer) 54 L (> 60) BUN/Creatinine Ratio 21 (6-26) Glucose 137 H (70-105) mg/dL Calculated Osmolality 279 L (280-300) Calcium 8.5 L (8.6-10.3) mg/dL Troponin I < 0.03 (< 0.04) ng/mL
[2018-04-06] MEDS ORDERED: Gabapentin 400 MG CAPSULE PO STA (02:07)
[2018-04-06] MEDS ORDERED: Azithromycin 500 MG in D5% in Water 250 ML IVPB ONE (02:10)
--- NOTE | 2018-04-06 03:17 | Emergency Department Note ---
Disposition Clinical Impression: Acute exacerbation of chronic obstructive airways disease Community acquired pneumonia Qualifiers: Laterality: unspecified laterality Qualified Code(s): J18.9 - Pneumonia, unspecified organism Disposition: Admitted As Inpatient Condition: Fair Referrals: NONE,PCP [Primary Care Provider] - Forms: ED Satisfaction Letter General Adult HPI - General Chief complaint: ED Shortness of Breath/Dyspnea Stated complaint: NARESH Time Seen by Provider: 04/06/18 00:34 Source: EMS Limitations: age Nursing Notes Reviewed: Yes Vital Signs Reviewed: Yes - History of Present Illness Pain Scale: 0 - Related Data Home Medications Medication Instructions Recorded Confirmed Hyoscyamine Sulfate [Hyoscyamine 0.375 mg PO BID 02/14/17 03/25/18 Sulfate ER] Nadolol 20 mg PO DAILY 02/14/17 03/25/18 Omeprazole [PriLOSEC] 40 mg PO DAILY 02/14/17 03/25/18 Isomethept/Dichlphn/Acetaminop 1 cap PO Q4H PRN 03/25/18 03/25/18 [Dhppqdggqf-Vpshegdawy-Wjviwcaq] Levothyroxine Sodium [Levoxyl] 150 mcg PO DAILY 03/25/18 03/25/18 Lisinopril-HCTZ 10-12.5 [Prinzide 1 tab PO DAILY 03/25/18 03/25/18 10-12.5] Previous Rx's Medication Instructions Recorded OxyCODONE Immed Rel [Roxicodone 5 5 mg PO Q4HR PRN 4 Days #10 tablet 03/29/18 MG] FLUoxetine HCl [Prozac] 20 mg PO DAILY 14 Days #14 capsule 04/01/18 Gabapentin [Neurontin] 800 mg PO HS 60 Days #14 capsule 04/01/18 Gabapentin [Neurontin] 800 mg PO TID 60 Days #14 tablet 04/01/18 Zolpidem [Ambien] 5 mg PO HS 14 Days #14 tablet 04/01/18 hydrOXYzine pamoate [HydrOXYzine 25 mg PO HS 14 Days #14 capsule 04/01/18 Pamoate] Allergies Allergy/AdvReac Type Severity Reaction Status Date / Time armodafinil [From Nuvigil] Allergy Rash Verified 06/11/17 19:40 cephalexin [From Keflex] Allergy Rash Verified 06/11/17 19:40 Past Medical History - Past Medical History Medical history: Reports: arthritis, asthma, COPD, diabetes, hyperlipidemia, hypertension, migraine, thyroid disease, other Surgical history: Reports: orthopedic, other, thyroidectomy Psychiatric history: Reports: depression GROCERY DEPARTMENT MANAGER 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 GROCERY DEPARTMENT 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 history - Social History Smoking Status: Current every day smoker Smokeless Tobacco Status: No Alcohol use: Reports: none Drug use: Reports: none Physical Exam - General Limitations: age General appearance: alert, anxious Course Vital Signs Temperature 97.9 F 04/06/18 00:31 Pulse Rate 86 04/06/18 00:31 Respiratory Rate 24 04/06/18 00:31 Blood Pressure 113/66 04/06/18 00:31 O2 Sat by Pulse Oximetry 97 04/06/18 00:31 Temperature 97.9 F 04/06/18 00:31 Pulse Rate 99 04/06/18 01:51 Respiratory Rate 22 04/06/18 01:51 Blood Pressure 127/68 04/06/18 01:51 O2 Sat by Pulse Oximetry 95 04/06/18 01:51 Oxygen Delivery Oxygen Delivery Nasal Cannula Medical Decision Making - Lab Data Result diagrams: 04/06/18 00:57 04/06/18 00:57 Lab Results 04/06/18 04/06/18 Range/Units 00:57 00:57 WBC 8.8 (4.3-11.1) K/mcL RBC 2.72 L (3.82-4.97) M/mcL Hgb 8.5 L (11.5-15.4) g/dL Hct 26.2 L (35.3-44.9) % MCV 96.3 (83.0-100.0) fL MCH 31.3 (28.0-33.3) pg MCHC 32.4 (31.6-35.5) g/dL RDW 15.0 H (11.5-14.5) % Plt Count 323 (140-400) K/mcL MPV 9.9 (9.4-12.4) fL Immature Gran % 0.3 (0-4) % Seg Neutrophils % 72.4 % Lymphocytes % 14.4 % Monocytes % 6.4 % Eosinophils % 5.9 % Basophils % 0.6 % Neutrophils # 6.4 (1.6-8.9) K/mcL Lymphocytes # 1.3 (0.6-4.6) K/mcL Monocytes # 0.6 (0.0-1.3) K/mcL Eosinophils # 0.5 (0.0-0.6) K/mcL Basophils # 0.1 (0.0-0.2) K/mcL Sodium 132 L (136-145) mEq/L Potassium 4.4 (3.5-5.1) mEq/L Chloride 100 (98-107) mEq/L Carbon Dioxide 23 (23-29) mEq/L BUN 22 H (6-20) mg/dL Creatinine 1.05 (0.60-1.20) mg/dL Est GFR ( Amer) > 60 (> 60) Est GFR (Non-Af Amer) 54 L (> 60) BUN/Creatinine Ratio 21 (6-26) Glucose 137 H (70-105) mg/dL Calculated Osmolality 279 L (280-300) Calcium 8.5 L (8.6-10.3) mg/dL Troponin I < 0.03 (< 0.04) ng/mL Critical Care Time Critical Care Time: No Attestation Statement - Attestation Attestation: I, Rome Ravi MD, personally evaluated this patient and discussed their management with the resident physician. I reviewed the resident's note and agree with the documented findings, medical decision making, and plan of care. 57-year-old female presents to the emergency department by ambulance with a complaint of increasing shortness of breath for 1 day prior to arrival. There has been increased cough with yellow sputum. Patient also has felt like she had a subjective low-grade fever. No chest pain. She does have a history of COPD but does not use home oxygen or nebulizers. She continues to smoke about 1.5 packs per day. On examination patient is a well-developed well-nourished female in no acute distress. She is alert and oriented 3. There is no cyanosis or diaphoresis. Breath sounds are decreased bilaterally with coarse bilateral crackles and scattered bilateral expiratory wheezes. Heart regular rate and rhythm. Abdomen soft and nontender with normal bowel sounds. No pedal edema. Labs reviewed. EKG shows a sinus rhythm with ventricular rate of 87. No acute ST segment elevation or depression. No arrhythmia or ectopy. Chest x-ray showed stable extensive chronic pulmonary opacities with new patchy bibasilar opacities which may represent bronchopneumonia. The hospitalist, Dr. aMncia, was consulted and accepted admission of the patient.
[2018-04-06] MEDS ORDERED: Permethrin Cream Rinse 60 ML LIQUID TP ONE (04:48)
[2018-04-06] MEDS ORDERED: Nicotine 14 MG PATCH.TD24 TD PRN (11:04)
[2018-04-06] MEDS ORDERED: Ondansetron 4 MG/2 ML VIAL IVP PRN (11:11)
--- NOTE | 2018-04-06 11:52 | Internal Med History&Physical ---
Date of Encounter: 04/06/18 Time of Encounter: 11:43 Internal Medicine - H&P: HPI History of present illness: Ms. Huerta is a 57 year old female with history of COPD, DM, HTN presents for SOB. She is current smoker, and has history of HTN, DM. Patient has also sharp chest pain that increases with inspiration. She denies fevers/chills, n/v , diaphoresis, palpitations. Chest x-ray in ED shows likely pneumonia and she was given azithromycin and Solu Medrol. She did not meet sepsis criteria. She is now requiring supplemental O2 which she does not require at home. Past Med Surg Social Fam HX - Past Medical History Medical history: arthritis, asthma, COPD, diabetes, hyperlipidemia, hypertension , migraine, thyroid disease, other Additional medical history: neuropathy. hypothyroidism Psychiatric history: depression - Past Surgical History Surgical History: orthopedic, other, thyroidectomy Additional surgical history: spinal fusion. thyroidectomy. CT release b/l - Social History Smoking Status: Current every day smoker Packs per day: 1 Smokeless Tobacco Status: No Alcohol use: none Drug use: none - Family History Father Living Status: Hx Family Endocrine Disorder: Yes (diabetes) Internal Medicine - H&P: Meds Hyoscyamine Sulfate [Hyoscyamine Sulfate ER] 0.375 mg PO BID 02/14/17 [History] Nadolol 20 mg PO DAILY 02/14/17 [History] Omeprazole [PriLOSEC] 40 mg PO DAILY 02/14/17 [History] Isomethept/Dichlphn/Acetaminop [Krmiwkjxdb-Bryiakxsfj-Hmduznpf] 1 cap PO Q4H PRN 03/25/18 [History] Levothyroxine Sodium [Levoxyl] 150 mcg PO DAILY 03/25/18 [History] Lisinopril-HCTZ 10-12.5 [Prinzide 10-12.5] 1 tab PO DAILY 03/25/18 [History] Gabapentin [Neurontin] 800 mg PO TID 60 Days #14 tablet 04/01/18 [Rx] Zolpidem [Ambien] 5 mg PO HS 14 Days #14 tablet 04/01/18 [Rx] hydrOXYzine pamoate [HydrOXYzine Pamoate] 25 mg PO HS 14 Days #14 capsule [Rx] ALPRAZolam [Xanax 0.5 MG Tablet] 0.5 mg PO DAILY PRN 04/06/18 [History] Amitriptyline [Elavil] 10 mg PO HS 04/06/18 [History] FLUoxetine HCl [Fluoxetine HCl] 40 mg PO BID 04/06/18 [History] OxyCODONE/APAP 10/325 [Percocet 10/325 MG] 1 tab PO Q6H PRN 04/06/18 [History] fentaNYL [Fentanyl] 1 patch TD Q72H 04/06/18 [History] 3 Allergy/AdvReac Type Severity Reaction Status Date / Time armodafinil [From Nuvigil] Allergy Rash Verified 04/06/18 11:04 cephalexin [From Keflex] Allergy Rash Verified 04/06/18 11:04 All Systems PM: A 10-system review of systems was performed and is negative for pertinent findings except as documented above in the HPI. - Constitutional Constitutional: no fever(s) - EENT Eyes: no change in vision, no discharge, no pain, no photophobia - Cardiovascular Cardiovascular ROS IM: chest pain (sharp, increases with inspiration), no diaphoresis, no dyspnea, no lightheadedness, no palpitations, no syncope - Respiratory Respiratory: cough, dyspnea, wheezing, pain on inspiration, excessive phlegm production, pain with cough, no hemoptysis - Gastrointestinal Gastrointestinal: no abdominal pain, no diarrhea, no hematemesis, no hematochezia, no melena, no nausea, no vomiting - Musculoskeletal Musculoskeletal ROS IM: no numbness, no tingling - Integumentary Integumentary IM: no rash, no unusual bruising - Neurological Neurological ROS: no confusion, no convulsions, no focal weakness, no numbness, no tingling, no tremor(s) - Constitutional Vitals: Temp Pulse Resp BP Pulse Ox 97.9 F 69 18 112/41 100 04/06/18 07:00 04/06/18 07:00 04/06/18 07:00 04/06/18 07:00 04/06/18 09:43 - Head Head exam: Present: atraumatic, normocephalic - Eye Eye exam: Present: PERRL, conjuntiva pink, sclera anicteric Pupils: Present: PERRL - Neck Neck exam general surgery: Present: supple, trachea midline. Absent: lymphadenopathy - Respiratory Respiratory exam: Present: decreased breath sounds, prolonged expiratory phase, wheezes. Absent: accessory muscle use, rales, rhonchi - Cardiovascular Cardiovascular exam: Present: RRR, +S1, +S2. Absent: diastolic murmur, gallop, rubs, systolic murmur - GI/Abdominal GI/Abdominal exam: Present: normal bowel sounds, soft, no peritoneal signs. Absent: distended, tenderness - Extremities Exam Extremities exam: Present: warm, radial pulses palpable and symmetrical. Absent : calf tenderness, cyanotic, pedal edema - Neurological Exam Neurological exam: Present: CN II-XII intact, oriented X3, no focal deficits. Absent: pronater drift, facial droop, speech deficit - Skin Skin exam: Present: dry, intact Internal Med - H&P Results - Labs CBC & Chem 7: 04/06/18 00:57 04/06/18 00:57 - Assessment and plan (1) Acute exacerbation of chronic obstructive airways disease Current Visit: Yes Status: Acute Assessment and plan: Secondary to community acquired pneumonia. Currently requiring O2 which she does not need at home. - Duo Nebs scheduled and prn. - Solu medrol 60 mg Q8H - Procalcitonin, urine antigens - Doxycycline - Wean O2 as tolerated. (2) Community acquired pneumonia Current Visit: Yes Status: Acute Qualifiers: Laterality: unspecified laterality Qualified Code(s): J18.9 - Pneumonia, unspecified organism (3) Head lice Current Visit: No Status: Acute Assessment and plan: She was treated with Nix in the ED. (4) Major depress dis, severe Current Visit: No Status: Acute Assessment and plan: Resume home medications. (5) Anemia Current Visit: No Status: Chronic Assessment and plan: Chronic, at baseline. Qualifiers: Anemia type: unspecified type Qualified Code(s): D64.9 - Anemia, unspecified (6) Diabetes mellitus Current Visit: No Status: Chronic Assessment and plan: ISS, diabetic diet. Qualifiers: Diabetes mellitus type: type 2 Diabetes mellitus skilled nursing insulin use: without skilled nursing use Diabetes mellitus complication status: with neurologic complications Diabetes mellitus complication detail: with polyneuropathy Qualified Code(s): E11.42 - Type 2 diabetes mellitus with diabetic polyneuropathy (7) HTN (hypertension) Current Visit: No Status: Chronic Assessment and plan: Resume home medications. Qualifiers: Hypertension type: essential hypertension Qualified Code(s): I10 - Essential (primary) hypertension (8) Tobacco abuse Current Visit: No Status: Chronic Assessment and plan: Nicotine patch prn (9) DVT prophylaxis Current Visit: No Status: Acute Assessment and plan: Heparin SQ - Time Spent With Patient Total time spent is greater than 50% in coordination of care (as documented) at patient's floor/unit and/or counseling patient:
[2018-04-06] MEDS ORDERED: Ipratropium/Albuterol Neb 3 ML IH PRN (12:01)
[2018-04-06] MEDS ORDERED: ALPRAZolam 0.5 MG TABLET PO PRN (12:13)
[2018-04-06] MEDS ORDERED: ACETAMINOP PO PRN (12:13)
[2018-04-06] MEDS ORDERED: DICHLPHN PO PRN (12:13)
[2018-04-06] MEDS ORDERED: ISOMETHEPT PO PRN (12:13)
[2018-04-06] MEDS: Gabapentin 400 MG CAPSULE PO SCH ×2 (13:37→21:14)
[2018-04-06] MEDS: methylPREDNISolone 125 MG/2 ML VIAL IVP SCH ×2 (13:38→16:12)
[2018-04-06] MEDS: Insulin LISPRO 300 UNITS/3 ML VIAL SQ SCH ×3 (13:38→23:08)
[2018-04-06] MEDS: Ipratropium/Albuterol Neb 3 ML IH SCH ×2 (15:58→22:30)
[2018-04-06] MEDS: *HR* Heparin 5,000 UNIT/ML VIAL SQ SCH (16:13)
--- NOTE | 2018-04-06 16:32 | Electrocardiograph Report ---
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
[2018-04-06] MEDS: Hyoscyamine SL 0.125 MG TAB.SUBL PO SCH (21:14)
[2018-04-06] MEDS: hydrOXYzine pamoate 25 MG CAPSULE PO SCH (21:14)
[2018-04-06] MEDS: Doxycycline 100 MG CAPSULE PO SCH (21:14)
[2018-04-06] MEDS: FLUoxetine 20 MG CAPSULE PO SCH (21:14)
[2018-04-06] MEDS: Budesonide/Formoterol 160/4.5 MDI IH SCH (22:30)
[2018-04-07] MEDS: methylPREDNISolone 125 MG/2 ML VIAL IVP SCH ×5 (00:23→23:53)
[2018-04-07] MEDS: Ipratropium/Albuterol Neb 3 ML IH SCH ×4 (04:15→21:58)
[2018-04-07 04:45] LABS: Hematocrit 26.1 % (35.3-44.9); Hemoglobin 8.2 g/dL (11.5-15.4); Immature Granulocytes % 0.6 % (0-4); Lymphocytes # 0.6 K/mcL (0.6-4.6); Lymphocytes % 7.9 %; Mean Corpuscular HGB Conc 31.4 g/dL (31.6-35.5); Mean Corpuscular Hemoglobin 29.7 pg (28.0-33.3); Mean Corpuscular Volume 94.6 fL (83.0-100.0); Mean Platelet Volume 10.2 fL (9.4-12.4); Monocytes # 0.2 K/mcL (0.0-1.3); Monocytes % 2.1 %; Neutrophils # 7.3 K/mcL (1.6-8.9); Platelet Count 392 K/mcL (140-400); Red Blood Count 2.76 M/mcL (3.82-4.97); Red Cell Distribution Width 14.8 % (11.5-14.5); Segmented Neutrophils % 89.4 %
[2018-04-07 05:06] LABS: BUN/Creatinine Ratio 31 (6-26); Blood Urea Nitrogen 33 mg/dL (6-20); Calcium 8.9 mg/dL (8.6-10.3); Carbon Dioxide 23 mEq/L (23-29); Chloride 101 mEq/L (98-107); Glucose 249 mg/dL (70-105); Osmolality,Calculated 290 (280-300); Sodium 132 mEq/L (136-145); eGFR For African Americans > 60 (> 60); eGFR For Non-African Americans 52 (> 60)
[2018-04-07] MEDS: *HR* OxyCODONE/APAP 10/325 TABLET PO PRN ×3 (05:28→23:55)
[2018-04-07] MEDS: *HR* Heparin 5,000 UNIT/ML VIAL SQ SCH ×2 (05:30→17:48)
[2018-04-07] MEDS: Insulin LISPRO 300 UNITS/3 ML VIAL SQ SCH ×5 (10:21→21:48)
[2018-04-07] MEDS: Hyoscyamine SL 0.125 MG TAB.SUBL PO SCH ×2 (10:25→22:16)
[2018-04-07] MEDS: Doxycycline 100 MG CAPSULE PO SCH (10:25)
[2018-04-07] MEDS: Budesonide/Formoterol 160/4.5 MDI IH SCH ×2 (10:52→21:58)
[2018-04-07] MEDS: Gabapentin 400 MG CAPSULE PO SCH ×3 (12:21→22:16)
[2018-04-07] MEDS: FLUoxetine 20 MG CAPSULE PO SCH ×2 (13:25→22:16)
[2018-04-07] MEDS: Levofloxacin 750 MG/150 ML 750 MG/150 ML BAG IVPB SCH (14:07)
--- NOTE | 2018-04-07 14:26 | Internal Med Progress Note ---
Date of Encounter: 04/07/18 Time of Encounter: 14:24 - Assessment and plan (1) Tobacco abuse Current Visit: No Status: Chronic Assessment and plan: Nicotine patch prn (2) HTN (hypertension) Current Visit: No Status: Chronic Assessment and plan: Resume home medications. BP currently controlled. Qualifiers: Hypertension type: essential hypertension Qualified Code(s): I10 - Essential (primary) hypertension (3) Diabetes mellitus Current Visit: No Status: Chronic Assessment and plan: ISS, diabetic diet. 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 Qualifiers: Anemia type: unspecified type Qualified Code(s): D64.9 - Anemia, unspecified (5) Head lice Current Visit: No Status: Acute Assessment and plan: She was treated with Nix in the ED. (6) DVT prophylaxis Current Visit: No Status: Acute Assessment and plan: Heparin SQ (7) Major depress dis, severe Current Visit: No Status: Acute (8) Acute exacerbation of chronic obstructive airways disease Current Visit: Yes Status: Acute Assessment and plan: Secondary to community acquired pneumonia. Currently requiring O2 which she does not need at home. - Duo Nebs scheduled and prn. - Solu medrol 60 mg Q8H - Procalcitonin, urine antigens pending. - Change antibiotics to Levaquin. - Wean O2 as tolerated. (9) Community acquired pneumonia Current Visit: Yes Status: Acute Assessment and plan: Pending Legionella, pneumococcal, sputum culture. Antibiotics changed from doxycycline to Levaquin. Qualifiers: Laterality: unspecified laterality Qualified Code(s): J18.9 - Pneumonia, unspecified organism - Time Spent With Patient Total time spent is greater than 50% in coordination of care (as documented) at patient's floor/unit and/or counseling patient: Greater than 35 minutes - Subjective Interval history: pt reported improved sob and cough. She has no fever, chills, or night sweats. She denies chest pain, palpitation, or hemoptysis. - Constitutional Vitals: Temp Pulse Resp BP Pulse Ox 98.1 F 69 16 107/55 99 04/07/18 07:49 04/07/18 12:26 04/07/18 10:52 04/07/18 07:49 04/07/18 12:26 General appearance: Present: A&O X 3 Exam: PHYSICAL EXAMINATION: GENERAL APPEARANCE: The patient is alert, oriented and in no acute distress. HEENT: Head is normocephalic. The sinuses are nontender. Pupils are equal and reactive. The nares are patent. Oropharynx clear without lesions. NECK: Supple without lymphadenopathy. HEART: Regular rate and rhythm. LUNGS: No crackles or wheezes are heard. ABDOMEN: Soft, nontender, nondistended with good bowel sounds heard. Inguinal area is normal. EXTREMITIES: Without cyanosis, clubbing or edema. NEUROLOGICAL: Gross nonfocal. SKIN: Warm and dry without any rash. Internal Medicine: Result - Labs CBC & Chem 7: 04/07/18 03:47 04/07/18 03:47 Labs: Short CBC 04/07/18 Range/Units 03:47 WBC 8.1 (4.3-11.1) K/mcL Hgb 8.2 L (11.5-15.4) g/dL Hct 26.1 L (35.3-44.9) % Plt Count 392 (140-400) K/mcL Neutrophils # 7.3 (1.6-8.9) K/mcL BMP 04/07/18 03:47 Sodium 132 L Potassium 5.0 Chloride 101 Carbon Dioxide 23 BUN 33 H Creatinine 1.08 Glucose 249 H Calcium 8.9 Consult Discharge Plan - Plan Referrals: NONE,PCP [Primary Care Provider] -
[2018-04-07] MEDS: hydrOXYzine pamoate 25 MG CAPSULE PO SCH (22:16)
[2018-04-08 09:28] LABS: % Iron Saturation 18 % (15-50); BUN/Creatinine Ratio 41 (6-26); Blood Urea Nitrogen 45 mg/dL (6-20); Calcium 8.8 mg/dL (8.6-10.3); Carbon Dioxide 21 mEq/L (23-29); Chloride 98 mEq/L (98-107); Glucose 387 mg/dL (70-105); Iron 48 mcg/dL (50-170); Osmolality,Calculated 296 (280-300); Sodium 129 mEq/L (136-145); Transferrin 188 mg/dL (203-362); eGFR For African Americans > 60 (> 60); eGFR For Non-African Americans 52 (> 60)
[2018-04-08 10:08] LABS: Hematocrit 25.5 % (35.3-44.9); Hemoglobin 8.2 g/dL (11.5-15.4); Immature Granulocytes % 0.4 % (0-4); Immature Platelets 2.6 % (1.1-6.1); Immature Reticulocyte % 29.9 % (11.0-38.0); Lymphocytes # 0.6 K/mcL (0.6-4.6); Lymphocytes % 7.7 %; Mean Corpuscular HGB Conc 32.2 g/dL (31.6-35.5); Mean Corpuscular Hemoglobin 30.4 pg (28.0-33.3); Mean Corpuscular Volume 94.4 fL (83.0-100.0); Mean Platelet Volume 10.4 fL (9.4-12.4); Monocytes # 0.2 K/mcL (0.0-1.3); Monocytes % 1.9 %; Neutrophils # 7.2 K/mcL (1.6-8.9); Platelet Count 404 K/mcL (140-400); Red Cell Distribution Width 14.6 % (11.5-14.5); Retculocyte # 0.04 M/mcL (0.05-0.10); Reticulocyte % 1.4 % (1.6-2.8)
[2018-04-08] MEDS: methylPREDNISolone 125 MG/2 ML VIAL IVP SCH ×2 (10:30→12:22)
[2018-04-08] MEDS: Hyoscyamine SL 0.125 MG TAB.SUBL PO SCH ×2 (10:30→21:46)
[2018-04-08] MEDS: Gabapentin 400 MG CAPSULE PO SCH ×3 (10:30→21:46)
[2018-04-08] MEDS: FLUoxetine 20 MG CAPSULE PO SCH ×2 (10:30→21:46)
[2018-04-08] MEDS: Insulin LISPRO 300 UNITS/3 ML VIAL SQ SCH ×7 (10:30→21:40)
[2018-04-08] MEDS: *HR* OxyCODONE/APAP 10/325 TABLET PO PRN ×3 (10:30→23:40)
[2018-04-08] MEDS: *HR* Heparin 5,000 UNIT/ML VIAL SQ SCH ×2 (12:22→17:27)
[2018-04-08 14:08] LABS: Folate 3.8 ng/mL (3.0-16.0)
[2018-04-08] MEDS: Ipratropium/Albuterol Neb 3 ML IH SCH ×4 (14:34→23:08)
[2018-04-08] MEDS: Budesonide/Formoterol 160/4.5 MDI IH SCH ×2 (14:36→23:08)
[2018-04-08] MEDS: Levofloxacin 750 MG/150 ML 750 MG/150 ML BAG IVPB SCH (15:40)
--- NOTE | 2018-04-08 16:09 | Internal Med Progress Note ---
Date of Encounter: 04/08/18 Time of Encounter: 16:07 - Assessment and plan (1) Tobacco abuse Current Visit: No Status: Chronic Assessment and plan: Nicotine patch prn (2) HTN (hypertension) Current Visit: No Status: Chronic Assessment and plan: Resume home medications. BP currently controlled. Qualifiers: Hypertension type: essential hypertension Qualified Code(s): I10 - Essential (primary) hypertension (3) Diabetes mellitus Current Visit: No Status: Chronic Assessment and plan: ISS, diabetic diet. 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 will consult Hem/Onc. Qualifiers: Anemia type: unspecified type Qualified Code(s): D64.9 - Anemia, unspecified (5) Head lice Current Visit: No Status: Acute Assessment and plan: She was treated with Nix in the ED. (6) DVT prophylaxis Current Visit: No Status: Acute Assessment and plan: Heparin SQ (7) Major depress dis, severe Current Visit: No Status: Acute (8) Acute exacerbation of chronic obstructive airways disease Current Visit: Yes Status: Acute Assessment and plan: Secondary to community acquired pneumonia. off O2 today. IV steroid changed to oral. plan to dc tomorrow. (9) Community acquired pneumonia Current Visit: Yes Status: Acute Assessment and plan: Pending Legionella, pneumococcal, sputum culture. plan to change abx from IV to oral tomorrow and dc home. Qualifiers: Laterality: unspecified laterality Qualified Code(s): J18.9 - Pneumonia, unspecified organism - Time Spent With Patient Total time spent is greater than 50% in coordination of care (as documented) at patient's floor/unit and/or counseling patient: - Subjective Interval history: pt reported improved sob and cough. She has no fever, chills, or night sweats. She denies chest pain, palpitation, or hemoptysis. - Constitutional Vitals: Temp Pulse Resp BP Pulse Ox 98.1 F 69 17 118/53 96 07/20/18 15:16 04/08/18 15:16 04/08/18 15:16 04/08/18 15:16 04/08/18 15:16 General appearance: Present: A&O X 3 Exam: PHYSICAL EXAMINATION: GENERAL APPEARANCE: The patient is alert, oriented and in no acute distress. HEENT: Head is normocephalic. The sinuses are nontender. Pupils are equal and reactive. The nares are patent. Oropharynx clear without lesions. NECK: Supple without lymphadenopathy. HEART: Regular rate and rhythm. LUNGS: No crackles or wheezes are heard. ABDOMEN: Soft, nontender, nondistended with good bowel sounds heard. Inguinal area is normal. EXTREMITIES: Without cyanosis, clubbing or edema. NEUROLOGICAL: Gross nonfocal. SKIN: Warm and dry without any rash. Internal Medicine: Result - Labs CBC & Chem 7: 04/08/18 05:22 04/08/18 05:22 Labs: Short CBC 04/08/18 Range/Units 05:22 WBC 8.0 (4.3-11.1) K/mcL Hgb 8.2 L (11.5-15.4) g/dL Hct 25.5 L (35.3-44.9) % Plt Count 404 H (140-400) K/mcL Neutrophils # 7.2 (1.6-8.9) K/mcL BMP 04/08/18 05:22 Sodium 129 L Potassium 5.0 Chloride 98 Carbon Dioxide 21 L BUN 45 H Creatinine 1.09 Glucose 387 H Calcium 8.8 - VTE Documentation of Mechanical Device: Graduated compression elastic hosiery Consult Discharge Plan - Plan Referrals: NONE,PCP [Non-Partnered Physician] -
[2018-04-08] MEDS: hydrOXYzine pamoate 25 MG CAPSULE PO SCH (21:46)
[2018-04-09] MEDS: Ipratropium/Albuterol Neb 3 ML IH SCH ×2 (05:48→10:51)
[2018-04-09] MEDS: *HR* Heparin 5,000 UNIT/ML VIAL SQ SCH (06:05)
[2018-04-09] MEDS: *HR* OxyCODONE/APAP 10/325 TABLET PO PRN (06:09)
[2018-04-09 06:50] LABS: Eosinophils % 0.1 %; Hematocrit 24.6 % (35.3-44.9); Immature Granulocytes % 0.7 % (0-4); Lymphocytes # 2.3 K/mcL (0.6-4.6); Lymphocytes % 23.5 %; Mean Corpuscular HGB Conc 32.5 g/dL (31.6-35.5); Mean Corpuscular Hemoglobin 30.3 pg (28.0-33.3); Mean Corpuscular Volume 93.2 fL (83.0-100.0); Monocytes # 0.7 K/mcL (0.0-1.3); Monocytes % 6.8 %; Neutrophils # 6.8 K/mcL (1.6-8.9); Platelet Count 362 K/mcL (140-400); Red Blood Count 2.64 M/mcL (3.82-4.97); Red Cell Distribution Width 14.6 % (11.5-14.5); Segmented Neutrophils % 68.9 %
[2018-04-09 07:10] LABS: Calcium 8.8 mg/dL (8.6-10.3); Potassium 4.5 mEq/L (3.5-5.1)
[2018-04-09] MEDS: Insulin LISPRO 300 UNITS/3 ML VIAL SQ SCH ×4 (08:23→12:03)
[2018-04-09] MEDS: Gabapentin 400 MG CAPSULE PO SCH ×2 (08:48→14:21)
[2018-04-09] MEDS: FLUoxetine 20 MG CAPSULE PO SCH (08:48)
[2018-04-09] MEDS ORDERED: predniSONE 20 MG TABLET PO SCH (09:00)
[2018-04-09] MEDS: Hyoscyamine SL 0.125 MG TAB.SUBL PO SCH (09:50)
[2018-04-09] MEDS: Budesonide/Formoterol 160/4.5 MDI IH SCH (10:51)
[2018-04-09 11:35] VITALS: BP 105/61
[2018-04-09] MEDS: Levofloxacin 750 MG/150 ML 750 MG/150 ML BAG IVPB SCH (12:03)
--- NOTE | 2018-04-09 12:56 | Discharge Summary ---
- NOTES TO OUTPATIENT PROVIDER Notes to Outpatient Provider: f/u with PCP within 1 weeks. Orders not resulted at time of discharge: Pending orders 04/06/18 12:41 Mycoplasma pneumoniae IgG IgM Routine Date of Encounter: 04/09/18 Time of Encounter: 12:53 - Discharge Diagnosis (1) Acute exacerbation of chronic obstructive airways disease Priority: Primary Status: Acute Assessment and Plan: Secondary to community acquired pneumonia. off O2 today. IV steroid changed to oral. (2) Community acquired pneumonia Priority: Primary Status: Acute Assessment and Plan: Cough and shortness of breath much improved, afebrile, WBC normal, IV antibiotics changed to oral. Qualifiers: Laterality: unspecified laterality Qualified Code(s): J18.9 - Pneumonia, unspecified organism (3) Tobacco abuse Priority: Secondary Status: Chronic Assessment and Plan: Smoking cessation discussed with the patient. (4) HTN (hypertension) Priority: Secondary Status: Chronic Assessment and Plan: BP currently controlled. Qualifiers: Hypertension type: essential hypertension Qualified Code(s): I10 - Essential (primary) hypertension (5) Diabetes mellitus Priority: Secondary Status: Chronic Assessment and Plan: Blood sugar was elevated while in the hospital, likely caused by IV steroids. Qualifiers: Diabetes mellitus type: type 2 Diabetes mellitus correction insulin use: without correction use Diabetes mellitus complication status: with neurologic complications Diabetes mellitus complication detail: with polyneuropathy Qualified Code(s): E11.42 - Type 2 diabetes mellitus with diabetic polyneuropathy (6) Anemia Priority: Secondary Status: Chronic Assessment and Plan: Chronic, multifactorial, anemia workup showed decreased reticulocyte count, suggestive for bone marrow insufficiency, iron panel suggests anemia caused by chronic disease, normal vitamin 12/folate, Follow-up with Hem/Onc. Qualifiers: Anemia type: unspecified type Qualified Code(s): D64.9 - Anemia, unspecified (7) Head lice Priority: Primary Status: Acute Assessment and Plan: She was treated with Nix in the ED. Hospital course: Ms. Huerta is a 57 year old female with history of COPD, DM, HTN presents for SOB. She is current smoker, and has history of HTN, DM. Patient has also sharp chest pain that increases with inspiration. She denies fevers/chills, n/v , diaphoresis, palpitations. Chest x-ray in ED shows likely pneumonia and she was given azithromycin and Solu Medrol. She is now requiring supplemental O2 which she does not require at home. He was admitted as inpatient. IV antibiotics with Levaquin was started. Bronchodilator with DuoNeb was started. Patient home medication Symbicort was continued. Patient's symptoms have improved with the treatment. IV steroid and antibiotics were changed to oral. She has been off oxygen for 2 days. She ambulate without shortness of breath or cough. She will be discharged home today. Her creatinine and BUN were both slightly elevated on the discharge today, which most likely was caused by IV steroids. Patient was instructed to drink plenty of water. She was instructed to continue oral antibiotics and steroid as prescribed. She was instructed to follow up with primary care doctor within 1 week for repeat BMP. Discharge discussed with: patient Time spent discussing smoking cessation with patient: more than 10 minutes - Time Spent with Patient Total time spent providing and/or coordinating discharge services: Greater than 30 minutes - Discharge Medications Prescriptions: Ipratropium/Albuterol Neb [Duoneb] 3 ml IH [id number] PRN #20 inhsol PRN Reason: Dyspnea levoFLOXacin [Levaquin] 750 mg PO DAILY #10 tablet predniSONE [PredniSONE] 10 mg PO DAILY #26 tablet Home Medications: Hyoscyamine Sulfate [Hyoscyamine Sulfate ER] 0.375 mg PO BID 02/14/17 [History] Nadolol 20 mg PO DAILY 02/14/17 [History] Omeprazole [PriLOSEC] 40 mg PO DAILY 02/14/17 [History] Isomethept/Dichlphn/Acetaminop [Nydlkkzrcg-Lbapxgywmr-Kxcqhsyp] 1 cap PO Q4H PRN 03/25/18 [History] Levothyroxine Sodium [Levoxyl] 150 mcg PO DAILY 03/25/18 [History] Lisinopril-HCTZ 10-12.5 [Prinzide 10-12.5] 1 tab PO DAILY 03/25/18 [History] Gabapentin [Neurontin] 800 mg PO TID 60 Days #14 tablet 04/01/18 [Rx] Zolpidem [Ambien] 5 mg PO HS 14 Days #14 tablet 04/01/18 [Rx] hydrOXYzine pamoate [HydrOXYzine Pamoate] 25 mg PO HS 14 Days #14 capsule [Rx] ALPRAZolam [Xanax 0.5 MG Tablet] 0.5 mg PO DAILY PRN 04/06/18 [History] Amitriptyline [Elavil] 10 mg PO HS 04/06/18 [History] FLUoxetine HCl [Fluoxetine HCl] 40 mg PO BID 04/06/18 [History] OxyCODONE/APAP 10/325 [Percocet 10/325 MG] 1 tab PO Q6H PRN 04/06/18 [History] fentaNYL [Fentanyl] 1 patch TD Q72H 04/06/18 [History] Budesonide/Formoterol 160/4.5 [Symbicort 160/4.5] 2 puff IH BIDR inhaler [Rx] Ipratropium/Albuterol Neb [Duoneb] 3 ml IH [id number] PRN #20 inhsol 04/09/18 [Rx] levoFLOXacin [Levaquin] 750 mg PO DAILY #10 tablet 04/09/18 [Rx] predniSONE [PredniSONE] 10 mg PO DAILY #26 tablet 04/09/18 [Rx] Allergies/Adverse Reactions: 3 Allergy/AdvReac Type Severity Reaction Status Date / Time armodafinil [From Nuvigil] Allergy Rash Verified 04/06/18 11:04 cephalexin [From Keflex] Allergy Rash Verified 04/06/18 11:04 Date of admission: 04/06/18 03:29 Primary care physician: [place] Ni DO Consults: 04/06/18 11:04 Consult to Nurse Navigator [CONS] Routine Comment: Anticipated date of discharge: 04/09/18 - Constitutional Vitals: Temp Pulse Resp BP Pulse Ox 98.9 F 65 16 105/61 97 04/09/18 11:34 04/09/18 11:34 04/09/18 11:34 04/09/18 11:34 04/09/18 11:34 General appearance: Present: A&O X 3 Exam: PHYSICAL EXAMINATION: GENERAL APPEARANCE: The patient is alert, oriented and in no acute distress. HEENT: Head is normocephalic. The sinuses are nontender. Pupils are equal and reactive. The nares are patent. Oropharynx clear without lesions. NECK: Supple without lymphadenopathy. HEART: Regular rate and rhythm. LUNGS: No crackles or wheezes are heard. ABDOMEN: Soft, nontender, nondistended with good bowel sounds heard. Inguinal area is normal. EXTREMITIES: Without cyanosis, clubbing or edema. NEUROLOGICAL: Gross nonfocal. SKIN: Warm and dry without any rash. - Patient Status Disposition: Home, Self-Care Condition: Fair Functional capacity at discharge: independent ambulation Overall status at discharge: patient is back to baseline - Discharge Instructions Follow Up With: NONE,PCP [Non-Partnered Physician] - - Diet and Activity Activity: increase activity as tolerated Diet: diabetic diet - VTE Documentation of Mechanical Device: Graduated compression elastic hosiery
[2018-04-09] MEDS ORDERED: Acetaminophen 325 MG TABLET PO ONE (14:17)
[2018-04-10 08:29] LABS: Mycoplasma pneumoniae IgG 1.22 U/L (<=0.09)
[2018-04-11] MEDS ORDERED: levoFLOXacin 750 MG TABLET PO SCH (09:00)
== END 2018-04-09 15:28 | disposition home or self-care (01) ==
LOC: EMEROO 00:26 → 2SOUTHHOLD 00:26 → SUATTDRO 03:29 → 2SOUTHHOLD 03:44 → 3BNU 04-08 11:38 → UNDODISOB 04-09 14:33
PROVIDERS: ADMIT Internal Medicine; ATTEND Internal Medicine

== ENCOUNTER 2019-01-23 11:36 | Inpatient (IN) ==
[2019-01-23] MEDS ORDERED: Ipratropium/Albuterol Neb 3 ML IH ONE (12:16)
[2019-01-23] MEDS ORDERED: methylPREDNISolone 125 MG/2 ML VIAL IVP ONE (12:17)
[2019-01-23 12:36] LABS: Basophils # 0.1 K/mcL (0.0-0.2); Basophils % 0.9 %; Eosinophils # 0.6 K/mcL (0.0-0.6); Eosinophils % 5.6 %; Hematocrit 31.2 % (35.3-44.9); Hemoglobin 9.5 g/dL (11.5-15.4); Immature Granulocytes % 0.5 % (0-4); Lymphocytes # 1.2 K/mcL (0.6-4.6); Lymphocytes % 11.8 %; Mean Corpuscular HGB Conc 30.4 g/dL (31.6-35.5); Mean Corpuscular Hemoglobin 28.3 pg (28.0-33.3); Mean Corpuscular Volume 92.9 fL (83.0-100.0); Mean Platelet Volume 9.6 fL (9.4-12.4); Monocytes # 0.5 K/mcL (0.0-1.3); Monocytes % 4.9 %; Neutrophils # 7.8 K/mcL (1.6-8.9); Platelet Count 441 K/mcL (140-400); Red Blood Count 3.36 M/mcL (3.82-4.97); Red Cell Distribution Width 14.8 % (11.5-14.5); Segmented Neutrophils % 76.3 %
[2019-01-23 12:55] LABS: BUN/Creatinine Ratio 24 (6-26); Blood Urea Nitrogen 21 mg/dL (6-20); Calcium 8.7 mg/dL (8.6-10.3); Carbon Dioxide 25 mEq/L (23-29); Chloride 101 mEq/L (98-107); Glucose 128 mg/dL (70-105); Osmolality,Calculated 287 (280-300); Potassium 4.2 mEq/L (3.5-5.1); Sodium 136 mEq/L (136-145); Troponin I < 0.03 ng/mL (< 0.04); eGFR For Non-African Americans > 60 (> 60)
[2019-01-23 13:12] LABS: Bilirubin,Urine Negative (Negative); Blood,Urine Negative (Negative); Clarity,Urine Clear (Clear); Color,Urine Yellow (Yellow); Glucose,Urine (UA) Normal (Normal); Ketones,Urine Negative (Negative); Leukocyte Esterase,Urine Negative (Negative); Nitrite,Urine Negative (Negative); Protein,Urine Trace mg/dL (Neg-Trace); Specific Gravity,Urine 1.013 (1.010-1.025); Urobilinogen,Urine Normal (Normal)
[2019-01-23] MEDS ORDERED: *HR* OxyCODONE/APAP 10/325 TABLET PO ONE (13:50)
--- NOTE | 2019-01-23 14:20 | Emergency Department Note ---
Disposition Clinical Impression: COPD exacerbation Disposition: Admitted As Inpatient Condition: Good Referrals: Washington Ni DO [Primary Care Provider] - Forms: ED Satisfaction Letter Time of Disposition: 14:37 SOB HPI - General Chief Complaint: ED Shortness of Breath/Dyspnea Stated Complaint: NARESH Time Seen by Provider: 01/23/19 11:39 Source: patient, EMS Limitations: no limitations - History of Present Illness Patient is a 58-year-old female presents to emergency department with chief complaint of shortness of breath. Patient states that last several days she has been having a productive cough and also has noticed that she has been wheezing more. The patient states she uses inhalers and states that she has been having increasing shortness of breath. Patient reports that she is not having worsening chest pain with this. Patient reports that she has history of COPD and that this is typical for her normal exacerbation. The patient is not on home oxygen - Related Data Home Medications Medication Instructions Recorded Confirmed Hyoscyamine Sulfate [Hyoscyamine 0.375 mg PO BID 02/14/17 04/06/18 Sulfate ER] Nadolol 20 mg PO DAILY 02/14/17 04/06/18 Omeprazole [PriLOSEC] 40 mg PO DAILY 02/14/17 04/06/18 Isomethept/Dichlphn/Acetaminop 1 cap PO Q4H PRN 03/25/18 04/06/18 [Pgayrjtjnu-Eziyntsppn-Oxthcppn] Levothyroxine Sodium [Levoxyl] 150 mcg PO DAILY 03/25/18 04/06/18 Lisinopril-HCTZ 10-12.5 [Prinzide 1 tab PO DAILY 03/25/18 04/06/18 10-12.5] ALPRAZolam [Xanax 0.5 MG Tablet] 0.5 mg PO DAILY PRN 04/06/18 04/06/18 Amitriptyline [Elavil] 10 mg PO HS 04/06/18 04/06/18 FLUoxetine HCl [Fluoxetine HCl] 40 mg PO BID 04/06/18 04/06/18 OxyCODONE/APAP 10/325 [Percocet 1 tab PO Q6H PRN 04/06/18 04/06/18 10/325 MG] fentaNYL [Fentanyl] 1 patch TD Q72H 04/06/18 04/06/18 Previous Rx's Medication Instructions Recorded Gabapentin [Neurontin] 800 mg PO TID 60 Days #14 tablet 04/01/18 Zolpidem [Ambien] 5 mg PO HS 14 Days #14 tablet 04/01/18 hydrOXYzine pamoate [HydrOXYzine 25 mg PO HS 14 Days #14 capsule 04/01/18 Pamoate] Budesonide/Formoterol 160/4.5 2 puff IH BIDR inhaler 04/09/18 [Symbicort 160/4.5] Ipratropium/Albuterol Neb [Duoneb] 3 ml IH [id number] PRN #20 inhsol 04/09/18 levoFLOXacin [Levaquin] 750 mg PO DAILY #10 tablet 04/09/18 predniSONE [PredniSONE] 10 mg PO DAILY #26 tablet 04/09/18 Doxycycline 100 mg PO BID #14 capsule 09/10/18 Allergies Allergy/AdvReac Type Severity Reaction Status Date / Time armodafinil [From Nuvigil] Allergy Rash Verified 04/06/18 11:04 cephalexin [From Keflex] Allergy Rash Verified 04/06/18 11:04 All systems ED: reviewed and negative except as stated. Past Medical History - Past Medical History Attestation: Yes The following information was validated with the patient. Medical history: Reports: arthritis, asthma, COPD, diabetes, hyperlipidemia, hypertension, migraine, thyroid disease, other Surgical history: Reports: orthopedic, other, thyroidectomy Psychiatric history: Reports: depression FISHER PURSE SEINE 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 FISHER PURSE SEINE history - Social History Smoking Status: Current every day smoker Smokeless Tobacco Status: No Alcohol use: Reports: none Drug use: Reports: none Physical Exam General: Conversant and pleasant interactive and nontoxic. Head: Normocephalic/atraumatic Eyes:PERRLA, EOMI, no conjunctivitis Nares: Without d/c. Ears: No erythema or d/c noted. 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 Cardovascular: regular rate and rhythm without murmur, brisk capillary refill, no peripheral edema. Lungs: Scattered wheezes present bilaterally increased respiratory rate Abd: Soft nontender, Non Distended, no guarding, no rebound. : Defered Extremities: moves all extremities equally Neuro: AOx3, no obvious gross neuro deficit Psych: Normal Affect Derm: No rash noted - General Limitations: no limitations General appearance: alert Course Course Narrative: Patient is feeling better after this IV steroids and nebulizer treatments. Patient still having a respiratory rate in the low 20s at this time. The patient reports this feels similar whenever she has had to be admitted in the past for COPD exacerbations Vital Signs Temperature 97.9 F 01/23/19 11:39 Pulse Rate 71 01/23/19 11:39 Respiratory Rate 24 01/23/19 11:39 Blood Pressure 158/77 01/23/19 11:39 O2 Sat by Pulse Oximetry 99 01/23/19 11:39 Temperature 97.9 F 01/23/19 11:39 Pulse Rate 80 01/23/19 14:15 Respiratory Rate 18 01/23/19 14:15 Blood Pressure 145/74 01/23/19 14:15 O2 Sat by Pulse Oximetry 100 01/23/19 14:15 Oxygen Delivery Oxygen Delivery Nasal Cannula Shortness of Breath/Dyspnea - MDM Narrative Medical decision making narrative: Case has been discussed with the hospitalist who will accept the patient to the hospitalist service - Lab Data Result diagrams: 01/23/19 11:45 01/23/19 11:45 Lab Results 01/23/19 01/23/19 01/23/19 Range/Units 11:45 11:45 11:45 WBC 10.2 (4.3-11.1) K/mcL RBC 3.36 L (3.82-4.97) M/mcL Hgb 9.5 L (11.5-15.4) g/dL Hct 31.2 L (35.3-44.9) % MCV 92.9 (83.0-100.0) fL MCH 28.3 (28.0-33.3) pg MCHC 30.4 L (31.6-35.5) g/dL RDW 14.8 H (11.5-14.5) % Plt Count 441 H (140-400) K/mcL MPV 9.6 (9.4-12.4) fL Immature Gran % 0.5 (0-4) % Seg Neutrophils % 76.3 % Lymphocytes % 11.8 % Monocytes % 4.9 % Eosinophils % 5.6 % Basophils % 0.9 % Neutrophils # 7.8 (1.6-8.9) K/mcL Lymphocytes # 1.2 (0.6-4.6) K/mcL Monocytes # 0.5 (0.0-1.3) K/mcL Eosinophils # 0.6 (0.0-0.6) K/mcL Basophils # 0.1 (0.0-0.2) K/mcL Sodium 136 (136-145) mEq/L Potassium 4.2 (3.5-5.1) mEq/L Chloride 101 (98-107) mEq/L Carbon Dioxide 25 (23-29) mEq/L BUN 21 H (6-20) mg/dL Creatinine 0.88 (0.60-1.20) mg/dL Est GFR ( Amer) > 60 (> 60) Est GFR (Non-Af Amer) > 60 (> 60) BUN/Creatinine Ratio 24 (6-26) Glucose 128 H (70-105) mg/dL Calculated Osmolality 287 (280-300) Lactic Acid 0.8 (0.5-2.2) mmol/L Calcium 8.7 (8.6-10.3) mg/dL Troponin I < 0.03 (< 0.04) ng/mL B-Natriuretic Peptide (Less than 100) pg/mL Urine Color (Yellow) Urine Clarity (Clear) Urine pH (5.0-8.0) pH Units Ur Specific [place] (1.010-1.025) Urine Protein (Neg-Trace) mg/dL Urine Glucose (UA) (Normal) mg/dL Urine Ketones (Negative) mg/dL Urine Blood (Negative) Urine Nitrite (Negative) Urine Bilirubin (Negative) Urine Urobilinogen (Normal) mg/dL Ur Leukocyte Esterase (Negative) Ur Culture Indicated? (NO) 01/23/19 01/23/19 Range/Units 11:45 12:58 WBC (4.3-11.1) K/mcL RBC (3.82-4.97) M/mcL Hgb (11.5-15.4) g/dL Hct (35.3-44.9) % MCV (83.0-100.0) fL MCH (28.0-33.3) pg MCHC (31.6-35.5) g/dL RDW (11.5-14.5) % Plt Count (140-400) K/mcL MPV (9.4-12.4) fL Immature Gran % (0-4) % Seg Neutrophils % % Lymphocytes % % Monocytes % % Eosinophils % % Basophils % % Neutrophils # (1.6-8.9) K/mcL Lymphocytes # (0.6-4.6) K/mcL Monocytes # (0.0-1.3) K/mcL Eosinophils # (0.0-0.6) K/mcL Basophils # (0.0-0.2) K/mcL Sodium (136-145) mEq/L Potassium (3.5-5.1) mEq/L Chloride (98-107) mEq/L Carbon Dioxide (23-29) mEq/L BUN (6-20) mg/dL Creatinine (0.60-1.20) mg/dL Est GFR ( Amer) (> 60) Est GFR (Non-Af Amer) (> 60) BUN/Creatinine Ratio (6-26) Glucose (70-105) mg/dL Calculated Osmolality (280-300) Lactic Acid (0.5-2.2) mmol/L Calcium (8.6-10.3) mg/dL Troponin I (< 0.04) ng/mL B-Natriuretic Peptide 128 H (Less than 100) pg/mL Urine Color Yellow (Yellow) Urine Clarity Clear (Clear) Urine pH 6.0 (5.0-8.0) pH Units Ur Specific [place] 1.013 (1.010-1.025) Urine Protein Trace (Neg-Trace) mg/dL Urine Glucose (UA) Normal (Normal) mg/dL Urine Ketones Negative (Negative) mg/dL Urine Blood Negative (Negative) Urine Nitrite Negative (Negative) Urine Bilirubin Negative (Negative) Urine Urobilinogen Normal (Normal) mg/dL Ur Leukocyte Esterase Negative (Negative) Ur Culture Indicated? NO (NO)
[2019-01-23] MEDS ORDERED: MOM Conc 10 ML UD.LIQ PO PRN (15:21)
[2019-01-23] MEDS ORDERED: *HR* Promethazine 25 MG/ML VIAL IVP PRN (15:21)
[2019-01-23] MEDS ORDERED: Ondansetron 4 MG/2 ML VIAL IVP PRN (15:21)
[2019-01-23] MEDS ORDERED: Naloxone 0.4 MG/ML INJ IVP PRN (15:21)
[2019-01-23] MEDS ORDERED: Mag Hydrox/Al Hydrox/Simeth 30 ML UDC PO PRN (15:21)
[2019-01-23] MEDS ORDERED: Ipratropium/Albuterol Neb 3 ML IH PRN (15:24)
--- NOTE | 2019-01-23 15:29 | Internal Med History&Physical ---
Date of Encounter: 01/23/19 Time of Encounter: 15:27 Internal Medicine - H&P: HPI Admitted From: Home Plans for Post Hospital Care: Home History of present illness: Ms. Huerta is a 58 year old female presents to emergency department with chief complaint of shortness of breath. Patient states that last several days she has been having a productive cough and also has noticed that she has been wheezing more. The patient states she uses inhalers and states that she has been having increasing shortness of breath. Patient reports that she is not having worsening chest pain with this. Patient reports that she has history of COPD and that this is typical for her normal exacerbation. The patient is not on home oxygen. While in the ED, patient is alert and oriented 3, she has mild respiratory distress, labs revealed mild anemia, mildly elevated BNP. Chest x-ray was unremarkable. Patient is admitted for further evaluation and management. CODE STATUS discussed with patient, she wishes to full code. Past Med Surg Social Fam HX - Past Medical History Medical history: arthritis, asthma, COPD, diabetes, hyperlipidemia, hypertension, migraine, thyroid disease, other Additional medical history: emphysema Psychiatric history: depression - Past Surgical History Surgical History: orthopedic, other, thyroidectomy Additional surgical history: spinal fusion. thyroidectomy. CT release b/l - Social History Smoking Status: Current every day smoker Smokeless Tobacco Status: No Alcohol use: none Drug use: none - Family History Father Living Status: Hx Family Endocrine Disorder: Yes (diabetes) Internal Medicine - H&P: Meds Hyoscyamine Sulfate [Hyoscyamine Sulfate ER] 0.375 mg PO BID 02/14/17 [History] Nadolol 20 mg PO DAILY 02/14/17 [History] Omeprazole [PriLOSEC] 40 mg PO DAILY 02/14/17 [History] Isomethept/Dichlphn/Acetaminop [Vmirmlnobi-Zkatgiyscq-Wozfeqlb] 1 cap PO Q4H PRN 03/25/18 [History] Levothyroxine Sodium [Levoxyl] 150 mcg PO DAILY 03/25/18 [History] Lisinopril-HCTZ 10-12.5 [Prinzide 10-12.5] 1 tab PO DAILY 03/25/18 [History] Gabapentin [Neurontin] 800 mg PO TID 60 Days #14 tablet 04/01/18 [Rx] Zolpidem [Ambien] 5 mg PO HS 14 Days #14 tablet 04/01/18 [Rx] hydrOXYzine pamoate [HydrOXYzine Pamoate] 25 mg PO HS 14 Days #14 capsule 04/01/18 [Rx] ALPRAZolam [Xanax 0.5 MG Tablet] 0.5 mg PO DAILY PRN 04/06/18 [History] Amitriptyline [Elavil] 10 mg PO HS 04/06/18 [History] FLUoxetine HCl [Fluoxetine HCl] 40 mg PO BID 04/06/18 [History] OxyCODONE/APAP 10/325 [Percocet 10/325 MG] 1 tab PO Q6H PRN 04/06/18 [History] fentaNYL [Fentanyl] 1 patch TD Q72H 04/06/18 [History] Budesonide/Formoterol 160/4.5 [Symbicort 160/4.5] 2 puff IH BIDR inhaler 04/09/18 [Rx] Ipratropium/Albuterol Neb [Duoneb] 3 ml IH [id number] PRN #20 inhsol 04/09/18 [Rx] levoFLOXacin [Levaquin] 750 mg PO DAILY #10 tablet 04/09/18 [Rx] predniSONE [PredniSONE] 10 mg PO DAILY #26 tablet 04/09/18 [Rx] Doxycycline 100 mg PO BID #14 capsule 09/10/18 [Rx] Allergy/AdvReac Type Severity Reaction Status Date / Time armodafinil [From Nuvigil] Allergy Rash Verified 04/06/18 11:04 cephalexin [From Keflex] Allergy Rash Verified 04/06/18 11:04 All Systems PM: A 10-system review of systems was performed and is negative for pertinent findings except as documented above in the HPI. Review of systems: REVIEW OF SYSTEMS: CONSTITUTIONAL: No weight loss, fever, chills, weakness or fatigue. HEENT: Eyes: No visual loss, blurred vision, double vision or yellow sclerae. Ears, Nose, Throat: No hearing loss, sneezing, congestion, runny nose or sore throat. SKIN: No rash or itching. CARDIOVASCULAR: No chest pain, chest pressure or chest discomfort. No palpitations or edema. RESPIRATORY: see HPI. GASTROINTESTINAL: No anorexia, nausea, vomiting or diarrhea. No abdominal pain or blood. GENITOURINARY: No dysuria, urgency, or frequency. NEUROLOGICAL: No headache, dizziness, syncope, paralysis, ataxia, numbness or tingling in the extremities. No change in bowel or bladder control. MUSCULOSKELETAL: No muscle, back pain, joint pain or stiffness. HEMATOLOGIC: No anemia, bleeding or bruising. LYMPHATICS: No enlarged nodes. No history of splenectomy. PSYCHIATRIC: No history of depression or anxiety. ENDOCRINOLOGIC: No reports of sweating, cold or heat intolerance. No polyuria or polydipsia. - Constitutional Vitals: Temp Pulse Resp BP Pulse Ox 97.9 F 88 18 145/76 96 01/23/19 11:39 01/23/19 15:13 01/23/19 15:13 01/23/19 15:13 01/23/19 15:13 General appearance: Present: A&O X 3 Exam: PHYSICAL EXAMINATION: GENERAL APPEARANCE: The patient is alert, oriented and in no acute distress. HEENT: Head is normocephalic. The sinuses are nontender. Pupils are equal and reactive. The nares are patent. Oropharynx clear without lesions. NECK: Supple without lymphadenopathy. HEART: Regular rate and rhythm. LUNGS: scattered bilateral crackles/ wheezes are heard. ABDOMEN: Soft, nontender, nondistended with good bowel sounds heard. Inguinal area is normal. EXTREMITIES: Without cyanosis, clubbing or edema. NEUROLOGICAL: Gross nonfocal. SKIN: Warm and dry without any rash. Internal Med - H&P Results - Labs CBC & Chem 7: 01/23/19 11:45 01/23/19 11:45 Labs: Short CBC 01/23/19 Range/Units 11:45 WBC 10.2 (4.3-11.1) K/mcL Hgb 9.5 L (11.5-15.4) g/dL Hct 31.2 L (35.3-44.9) % Plt Count 441 H (140-400) K/mcL Neutrophils # 7.8 (1.6-8.9) K/mcL BMP 01/23/19 11:45 Sodium 136 Potassium 4.2 Chloride 101 Carbon Dioxide 25 BUN 21 H Creatinine 0.88 Glucose 128 H Calcium 8.7 Cardiac Enzymes 01/23/19 Range/Units 11:45 Troponin I < 0.03 (< 0.04) ng/mL Urine 01/23/19 Range/Units 12:58 Urine Color Yellow (Yellow) Urine Clarity Clear (Clear) Urine pH 6.0 (5.0-8.0) pH Units Ur Specific [place] 1.013 (1.010-1.025) Urine Protein Trace (Neg-Trace) mg/dL Urine Glucose (UA) Normal (Normal) mg/dL - Impressions ITS Impressions Chest X-Ray 01/23/19 12:18 IMPRESSION: No acute process. Stable exam. D/ / Gian Diaz MD / Gian Diaz MD Interpreting Provider: Gian Diaz MD - Assessment and Plan (1) Acute exacerbation of chronic obstructive airways disease Current Visit: Yes Status: Acute Assessment and plan: 58-year-old female with history of COPD presented with one-week history of increased work of breathing and cough. She tried her home inhaler with un- optimal relief of symptoms. Chest x-ray no acute pulmonary abnormalities. Unclear the trigger of exacerbation, Clinically, there is no signs/symptoms of bacterial infection. Patient received bronchodilator and IV steroid at the ED, we will continue the treatment. Oxygen as needed. (2) HTN (hypertension) Current Visit: No Status: Chronic Assessment and plan: BP controlled currently, continue home medication. Qualifiers: Hypertension type: essential hypertension Qualified Code(s): I10 - Essen tial (primary) hypertension (3) Anemia Current Visit: No Status: Chronic Assessment and plan: Chronic anemia, stable H/H. Qualifiers: Anemia type: unspecified type Qualified Code(s): D64.9 - Anemia, unspecified (4) Peripheral neuropathic pain Current Visit: No Status: Chronic Assessment and plan: Continue home pain medicine. (5) Major depress dis, severe Current Visit: No Status: Chronic Assessment and plan: Mood stable, denies suicidal ideation, continue home medication. (6) Insomnia disorder Current Visit: No Status: Chronic Assessment and plan: Continue home medication. Qualifiers: Insomnia type: due to other mental disorder Qualified Code(s): F51.05 - Insomnia due to other mental disorder; F99 - Mental disorder, not otherwise specified (7) DVT prophylaxis Current Visit: Yes Status: Acute Assessment and plan: Heparin subcutaneous. - Time Spent With Patient Total time spent is greater than 50% in coordination of care (as documented) at patient's floor/unit and/or counseling patient: Greater than 35 minutes
[2019-01-23] MEDS: methylPREDNISolone 125 MG/2 ML VIAL IVP SCH (15:57)
[2019-01-23] MEDS: Ipratropium/Albuterol Neb 3 ML IH SCH ×3 (16:14→23:56)
[2019-01-23] MEDS: *HR* OxyCODONE/APAP 10/325 TABLET PO PRN (19:59)
[2019-01-23] MEDS: Nicotine 7 MG PATCH.TD24 TD SCH (19:59)
[2019-01-23] MEDS: Gabapentin 400 MG CAPSULE PO SCH (21:58)
[2019-01-23] MEDS: FLUoxetine 20 MG CAPSULE PO SCH (21:58)
[2019-01-24] MEDS: methylPREDNISolone 125 MG/2 ML VIAL IVP SCH ×4 (00:38→23:55)
[2019-01-24] MEDS: Ipratropium/Albuterol Neb 3 ML IH SCH ×6 (04:30→23:49)
[2019-01-24 06:21] LABS: Hematocrit 28.4 % (35.3-44.9); Immature Granulocytes % 0.7 % (0-4); Lymphocytes # 0.9 K/mcL (0.6-4.6); Lymphocytes % 10.8 %; Mean Corpuscular HGB Conc 31.7 g/dL (31.6-35.5); Mean Corpuscular Volume 88.5 fL (83.0-100.0); Mean Platelet Volume 9.5 fL (9.4-12.4); Monocytes # 0.1 K/mcL (0.0-1.3); Monocytes % 1.7 %; Platelet Count 408 K/mcL (140-400); Red Blood Count 3.21 M/mcL (3.82-4.97); Red Cell Distribution Width 14.5 % (11.5-14.5); Segmented Neutrophils % 86.8 %
[2019-01-24 06:42] LABS: Alanine Aminotransferase 9 Units/L (7-52); Albumin 3.4 g/dL (3.5-5.7); Alkaline Phosphatase 111 Units/L (34-104); Aspartate Amino Transferase 11 Units/L (13-39); BUN/Creatinine Ratio 33 (6-26); Bilirubin,Total 0.3 mg/dL (0.3-1.0); Blood Urea Nitrogen 26 mg/dL (6-20); Calcium 8.5 mg/dL (8.6-10.3); Carbon Dioxide 24 mEq/L (23-29); Chloride 98 mEq/L (98-107); Globulin 3.4 g/dL (2.4-3.5); Glucose 212 mg/dL (70-105); Osmolality,Calculated 287 (280-300); Potassium 4.2 mEq/L (3.5-5.1); Sodium 133 mEq/L (136-145); Total Protein 6.8 g/dL (6.4-8.9); eGFR For Non-African Americans > 60 (> 60)
[2019-01-24] MEDS: Gabapentin 400 MG CAPSULE PO SCH ×3 (09:14→21:25)
[2019-01-24] MEDS: FLUoxetine 20 MG CAPSULE PO SCH ×2 (09:14→21:25)
[2019-01-24] MEDS: *HR* OxyCODONE/APAP 10/325 TABLET PO PRN ×2 (09:21→17:22)
[2019-01-24] MEDS: Nicotine 7 MG PATCH.TD24 TD SCH (09:22)
--- NOTE | 2019-01-24 10:35 | Internal Med Progress Note ---
Hospitalist Progress Note - Encounter Date of Encounter: 01/24/19 Time of Encounter: 10:33 - Subjective Interval History: Patient seen and examined in the room. Dyspnea on exertion and a dry cough are improving. No fever, chills, or night sweats overnight. Bilateral leg neuropathic pain has improved with treatment. - Exam Vitals: Temp Pulse Resp BP Pulse Ox 98.1 F 85 16 164/78 97 01/24/19 06:35 01/24/19 06:35 01/24/19 08:02 01/24/19 06:35 01/24/19 08:02 Exam: PHYSICAL EXAMINATION: GENERAL APPEARANCE: The patient is alert, oriented and in no acute distress. HEENT: Head is normocephalic. The sinuses are nontender. Pupils are equal and reactive. The nares are patent. Oropharynx clear without lesions. NECK: Supple without lymphadenopathy. HEART: Regular rate and rhythm. LUNGS: scattered bilateral crackles/ wheezes are heard. ABDOMEN: Soft, nontender, nondistended with good bowel sounds heard. Inguinal area is normal. EXTREMITIES: Without cyanosis, clubbing or edema. NEUROLOGICAL: Gross nonfocal. SKIN: Warm and dry without any rash. - Assessment and Plan (1) Acute exacerbation of chronic obstructive airways disease Current Visit: Yes Status: Acute Assessment and Plan: 01/23 58-year-old female with history of COPD presented with one-week history of increased work of breathing and cough. She tried her home inhaler with un- optimal relief of symptoms. Chest x-ray no acute pulmonary abnormalities. Unclear the trigger of exacerbation, Clinically, there is no signs/symptoms of bacterial infection. Patient received bronchodilator and IV steroid at the ED, we will continue the treatment. Oxygen as needed. 01/24 Symptoms are improving. But still requiring IV steroids and frequent aerosols. Continue monitoring. (2) HTN (hypertension) Current Visit: No Status: Chronic Assessment and Plan: BP controlled currently, continue home medication. (3) Anemia Current Visit: No Status: Chronic Assessment and Plan: Chronic anemia, stable H/H. (4) Peripheral neuropathic pain Current Visit: No Status: Chronic Assessment and Plan: Continue home pain medicine. Pain controlled. (5) Major depress dis, severe Current Visit: No Status: Chronic Assessment and Plan: Mood stable, denies suicidal ideation, continue home medication. (6) Insomnia disorder Current Visit: No Status: Chronic Assessment and Plan: Continue home medication. (7) DVT prophylaxis Current Visit: Yes Status: Acute Assessment and Plan: Heparin subcutaneous. - Time Spent with Patient Total time spent is greater than 50% in coordination of care (as documented) at patient's floor/unit and/or counseling patient: Greater than 35 minutes Plan of Care Discussed with: patient Internal Medicine: Result - Labs CBC & Chem 7: 01/24/19 06:04 01/24/19 06:04 Labs: Short CBC 01/23/19 01/24/19 Range/Units 11:45 06:04 WBC 10.2 8.0 (4.3-11.1) K/mcL Hgb 9.5 L 9.0 L (11.5-15.4) g/dL Hct 31.2 L 28.4 L (35.3-44.9) % Plt Count 441 H 408 H (140-400) K/mcL Neutrophils # 7.8 7.0 (1.6-8.9) K/mcL BMP 01/23/19 01/24/19 11:45 06:04 Sodium 136 133 L Potassium 4.2 4.2 Chloride 101 98 Carbon Dioxide 25 24 BUN 21 H 26 H Creatinine 0.88 0.80 Glucose 128 H 212 H Calcium 8.7 8.5 L Cardiac Enzymes 01/23/19 Range/Units 11:45 Troponin I < 0.03 (< 0.04) ng/mL Liver Function 01/24/19 Range/Units 06:04 Total Bilirubin 0.3 (0.3-1.0) mg/dL AST 11 L (13-39) Units/L ALT 9 (7-52) Units/L Alkaline Phosphatase 111 H (34-104) Units/L Albumin 3.4 L (3.5-5.7) g/dL Urine 01/23/19 Range/Units 12:58 Urine Color Yellow (Yellow) Urine Clarity Clear (Clear) Urine pH 6.0 (5.0-8.0) pH Units Ur Specific [place] 1.013 (1.010-1.025) Urine Protein Trace (Neg-Trace) mg/dL Urine Glucose (UA) Normal (Normal) mg/dL - Impressions Impressions Chest X-Ray 01/23/19 12:18 IMPRESSION: No acute process. Stable exam. D/ / Gian Diaz MD / Gian Diaz MD Interpreting Provider: Gian Diaz MD Consult Discharge Plan - Plan Referrals: Washington Ni DO [Primary Care Provider] - 01/31/19 1:45 pm () (2) HTN (hypertension) Qualifiers: Hypertension type: essential hypertension Qualified Code(s): I10 - Essential (primary) hypertension (3) Anemia Qualifiers: Anemia type: unspecified type Qualified Code(s): D64.9 - Anemia, unspecified (6) Insomnia disorder Qualifiers: Insomnia type: due to other mental disorder Qualified Code(s): F51.05 - Insomnia due to other mental disorder; F99 - Mental disorder, not otherwise specified
--- NOTE | 2019-01-24 15:11 | Electrocardiograph Report ---
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
[2019-01-24] MEDS ORDERED: *HR* Dextrose 50 % in Water (Syg) 50 ML SYRINGE IVP PRN (16:27)
[2019-01-24] MEDS ORDERED: Dextrose Gel 15 GM/37.5 ML TUBE PO PRN ×2 (16:27)
[2019-01-24] MEDS ORDERED: D5% in Water 1,000 ML IVC PRN (16:27)
[2019-01-24] MEDS ORDERED: Insulin LISPRO 300 UNITS/3 ML VIAL SQ ONE (16:54)
[2019-01-24] MEDS: Insulin LISPRO 300 UNITS/3 ML VIAL SQ SCH (17:23)
[2019-01-24] MEDS ORDERED: Insulin LISPRO 300 UNITS/3 ML VIAL SQ SCH (21:00)
[2019-01-25] MEDS: *HR* OxyCODONE/APAP 10/325 TABLET PO PRN ×3 (01:58→20:35)
[2019-01-25 01:59] LABS: Hematocrit 27.6 % (35.3-44.9); Hemoglobin 8.6 g/dL (11.5-15.4); Mean Corpuscular HGB Conc 31.2 g/dL (31.6-35.5); Mean Corpuscular Volume 89.9 fL (83.0-100.0); Mean Platelet Volume 9.8 fL (9.4-12.4); Platelet Count 457 K/mcL (140-400); Red Blood Count 3.07 M/mcL (3.82-4.97); Red Cell Distribution Width 14.7 % (11.5-14.5)
[2019-01-25 02:19] LABS: Calcium 8.4 mg/dL (8.6-10.3); Potassium 4.3 mEq/L (3.5-5.1)
[2019-01-25] MEDS: Ipratropium/Albuterol Neb 3 ML IH SCH ×6 (03:41→23:49)
[2019-01-25] MEDS: Nicotine 7 MG PATCH.TD24 TD SCH (09:56)
[2019-01-25] MEDS: FLUoxetine 20 MG CAPSULE PO SCH ×2 (09:56→20:36)
[2019-01-25] MEDS: Gabapentin 400 MG CAPSULE PO SCH ×3 (09:56→20:36)
[2019-01-25] MEDS: Insulin LISPRO 300 UNITS/3 ML VIAL SQ SCH ×3 (09:57→17:07)
[2019-01-25] MEDS ORDERED: Budesonide/Formoterol 160/4.5 1 PUFF INH IH PRN (10:08)
[2019-01-25] MEDS ORDERED: *HR* FentaNYL PATCH 50 MCG PATCH TD SCH (10:15)
--- NOTE | 2019-01-25 14:46 | Internal Med Progress Note ---
Hospitalist Progress Note - Encounter Date of Encounter: 01/25/19 Time of Encounter: 14:34 - Subjective Interval History: Patient was seen and examined at bedside. States she feel much better -however does have some SOB on exertion- nursing reports tachycardia during ambulation- will keep patient overnight for cont monitoring- wll decrease steroids and monitor . She will be switched to inpatient status dt cont SOB and tachycardia and requiring IV steroids - Exam Vitals: Temp Pulse Resp BP Pulse Ox 98.5 F 86 18 134/78 96 01/25/19 11:09 01/25/19 11:09 01/25/19 11:12 01/25/19 11:01/25/19 11:12 Exam: PHYSICAL EXAMINATION: GENERAL APPEARANCE: The patient is alert, oriented and in no acute distress. HEENT: Head is normocephalic. The sinuses are nontender. Pupils are equal and reactive. The nares are patent. Oropharynx clear without lesions. NECK: Supple without lymphadenopathy. HEART: Regular rate and rhythm. LUNGS: Faint wheezes are heard. ABDOMEN: Soft, nontender, nondistended with good bowel sounds heard. Inguinal area is normal. EXTREMITIES: Without cyanosis, clubbing or edema. NEUROLOGICAL: Gross nonfocal. SKIN: Warm and dry without any rash. - Assessment and Plan (1) HTN (hypertension) Current Visit: No Status: Chronic Assessment and Plan: BP controlled currently, continue home medication. (2) Anemia Current Visit: No Status: Chronic Assessment and Plan: Chronic anemia, stable H/H. (3) DVT prophylaxis Current Visit: Yes Status: Acute Assessment and Plan: Heparin subcutaneous. (4) Major depress dis, severe Current Visit: No Status: Chronic Assessment and Plan: Mood stable, denies suicidal ideation, continue home medication. (5) Insomnia disorder Current Visit: No Status: Chronic Assessment and Plan: Continue home medication. (6) Acute exacerbation of chronic obstructive airways disease Current Visit: Yes Status: Acute Assessment and Plan: 01/23 58-year-old female with history of COPD presented with one-week history of increased work of breathing and cough. She tried her home inhaler with un- optimal relief of symptoms. Chest x-ray no acute pulmonary abnormalities. Unclear the trigger of exacerbation, Clinically, there is no signs/symptoms of bacterial infection. Patient received bronchodilator and IV steroid at the ED, we will continue the treatment. Oxygen as needed. 01/24 Symptoms are improving. But still requiring IV steroids and frequent aerosols. Continue monitoring. 01/25 cont SOB on exertion still requiring IV steroids and frequent aerosols. Continue monitoring. (7) Peripheral neuropathic pain Current Visit: No Status: Chronic Assessment and Plan: Continue home pain medicine. Pain controlled. - Time Spent with Patient Total time spent is greater than 50% in coordination of care (as documented) at patient's floor/unit and/or counseling patient: Internal Medicine: Result - Labs CBC & Chem 7: 01/25/19 01:12 01/25/19 01:12 Labs: Short CBC 01/25/19 Range/Units 01:12 WBC 11.2 H (4.3-11.1) K/mcL Hgb 8.6 L (11.5-15.4) g/dL Hct 27.6 L (35.3-44.9) % Plt Count 457 H (140-400) K/mcL BMP 01/25/19 01:12 Sodium 131 L Potassium 4.3 Chloride 97 L Carbon Dioxide 22 L BUN 40 H Creatinine 1.18 Glucose 278 H Calcium 8.4 L Consult Discharge Plan - Plan Referrals: Washington Ni DO [Primary Care Provider] - 01/31/19 1:45 pm () (1) HTN (hypertension) Qualifiers: Hypertension type: essential hypertension Qualified Code(s): I10 - Essential (primary) hypertension (2) Anemia Qualifiers: Anemia type: unspecified type Qualified Code(s): D64.9 - Anemia, unspecified (5) Insomnia disorder Qualifiers: Insomnia type: due to other mental disorder Qualified Code(s): F51.05 - Insomnia due to other mental disorder; F99 - Mental disorder, not otherwise specified
[2019-01-25] MEDS ORDERED: MethylPREDNISolone 40 MG/ML VIAL IVP SCH (16:00)
[2019-01-25] MEDS: MethylPREDNISolone 40 MG/ML VIAL IVP SCH (17:07)
[2019-01-25] MEDS ORDERED: Insulin DETEMIR 100 UNIT/ML X5UNITS SQ ONE (20:20)
[2019-01-25] MEDS ORDERED: Insulin LISPRO 300 UNITS/3 ML VIAL SQ SCH (21:00)
[2019-01-26] MEDS: Ipratropium/Albuterol Neb 3 ML IH SCH ×3 (03:41→11:44)
[2019-01-26] MEDS: MethylPREDNISolone 40 MG/ML VIAL IVP SCH (05:39)
[2019-01-26] MEDS: *HR* OxyCODONE/APAP 10/325 TABLET PO PRN ×2 (05:45→13:32)
[2019-01-26 06:26] LABS: Basophils % 0.1 %; Eosinophils % 0.1 %; Hematocrit 27.1 % (35.3-44.9); Hemoglobin 8.4 g/dL (11.5-15.4); Immature Granulocytes % 0.8 % (0-4); Lymphocytes % 14.7 %; Mean Corpuscular Hemoglobin 28.4 pg (28.0-33.3); Mean Corpuscular Volume 91.6 fL (83.0-100.0); Mean Platelet Volume 9.8 fL (9.4-12.4); Monocytes # 0.6 K/mcL (0.0-1.3); Monocytes % 4.4 %; Neutrophils # 10.6 K/mcL (1.6-8.9); Platelet Count 408 K/mcL (140-400); Red Blood Count 2.96 M/mcL (3.82-4.97); Red Cell Distribution Width 14.9 % (11.5-14.5); Segmented Neutrophils % 79.9 %
[2019-01-26 06:43] LABS: Calcium 8.5 mg/dL (8.6-10.3); Potassium 4.1 mEq/L (3.5-5.1)
[2019-01-26] MEDS ORDERED: predniSONE 20 MG TABLET PO SCH (09:00)
[2019-01-26] MEDS: FLUoxetine 20 MG CAPSULE PO SCH (09:46)
[2019-01-26] MEDS: Gabapentin 400 MG CAPSULE PO SCH (09:46)
[2019-01-26] MEDS: Nicotine 7 MG PATCH.TD24 TD SCH (09:46)
[2019-01-26] MEDS: Insulin LISPRO 300 UNITS/3 ML VIAL SQ SCH ×2 (09:47→12:32)
[2019-01-26 11:49] VITALS: BP 159/79
--- NOTE | 2019-01-26 12:19 | Discharge Summary ---
- NOTES TO OUTPATIENT PROVIDER Notes to Outpatient Provider: COPD excerbation steroid taper - short course azithromycin. Follow-up Pulmonology Date of Encounter: 01/26/19 Time of Encounter: 12:11 - Discharge Diagnosis (1) HTN (hypertension) Priority: Secondary Status: Chronic Qualifiers: Hypertension type: essential hypertension Qualified Code(s): I10 - Essential (primary) hypertension (2) Anemia Priority: Secondary Status: Chronic Qualifiers: Anemia type: unspecified type Qualified Code(s): D64.9 - Anemia, unspecified (3) Major depress dis, severe Priority: Secondary Status: Chronic (4) Insomnia disorder Priority: Secondary Status: Chronic Qualifiers: Insomnia type: due to other mental disorder Qualified Code(s): F51.05 - Insomnia due to other mental disorder; F99 - Mental disorder, not otherwise specified (5) Acute exacerbation of chronic obstructive airways disease Priority: Primary Status: Acute (6) Peripheral neuropathic pain Priority: Secondary Status: Chronic Hospital course: Ms. Huerta is a 58 year old female past medical history of COPD diabetes hyperlipidemia hypertension and thyroid disease presented with complaints of shortness of breath past several days with productive cough as well as wheezing. She was admitted for COPD exacerbation and given IV steroids as well as bronchodilators per respiratory state did not improve and she was transitioned to oral steroids. Patient has been advised to follow-up with primary care provider as well as pulmonology. Plan will be set up prior to her discharge. She will be placed on a long steroid taper as well as a 3 day course of azithromycin. Currently she is hemodynamically stable ready for discharge. - Time Spent with Patient Total time spent providing and/or coordinating discharge services: - Discharge Medications Prescriptions: New Azithromycin 250 mg PO DAILY 3 Days #3 tablet predniSONE [PredniSONE] 10 mg PO DAILY #30 tablet Continued Omeprazole [PriLOSEC] 40 mg PO BID Nadolol 20 mg PO DAILY Hyoscyamine Sulfate [Hyoscyamine Sulfate ER] 0.375 mg PO BID Levothyroxine Sodium [Levoxyl] 150 mcg PO DAILY Lisinopril-HCTZ 10-12.5 [Prinzide 10-12.5] 1 tab PO DAILY Gabapentin [Neurontin] 800 mg PO TID 60 Days #14 tablet OxyCODONE/APAP 10/325 [Percocet 10/325 MG] 1 tab PO Q6H PRN PRN Reason: Pain fentaNYL [Fentanyl] 1 patch TD Q72H FLUoxetine HCl [Fluoxetine HCl] 40 mg PO BID Amitriptyline [Elavil] 10 mg PO HS Rizatriptan Benzoate [Maxalt] 10 mg PO DAILY PRN PRN Reason: Migraine Headache Budesonide/Formoterol 160/4.5 [Symbicort 160/4.5] 2 puff IH BIDR PRN PRN Reason: Shortness Of Breath Home Medications: Hyoscyamine Sulfate [Hyoscyamine Sulfate ER] 0.375 mg PO BID 02/14/17 [History] Nadolol 20 mg PO DAILY 02/14/17 [History] Omeprazole [PriLOSEC] 40 mg PO BID 02/14/17 [History] Levothyroxine Sodium [Levoxyl] 150 mcg PO DAILY 03/25/18 [History] Lisinopril-HCTZ 10-12.5 [Prinzide 10-12.5] 1 tab PO DAILY 03/25/18 [History] Gabapentin [Neurontin] 800 mg PO TID 60 Days #14 tablet 04/01/18 [Rx] Amitriptyline [Elavil] 10 mg PO HS 04/06/18 [History] FLUoxetine HCl [Fluoxetine HCl] 40 mg PO BID 04/06/18 [History] OxyCODONE/APAP 10/325 [Percocet 10/325 MG] 1 tab PO Q6H PRN 04/06/18 [History] fentaNYL [Fentanyl] 1 patch TD Q72H 04/06/18 [History] Budesonide/Formoterol 160/4.5 [Symbicort 160/4.5] 2 puff IH BIDR PRN 01/24/19 [History] Rizatriptan Benzoate [Maxalt] 10 mg PO DAILY PRN 01/24/19 [History] Azithromycin 250 mg PO DAILY 3 Days #3 tablet 01/26/19 [Rx] predniSONE [PredniSONE] 10 mg PO DAILY #30 tablet 01/26/19 [Rx] Allergies/Adverse Reactions: Allergy/AdvReac Type Severity Reaction Status Date / Time armodafinil [From Nuvigil] Allergy Rash Verified 04/06/18 11:04 cephalexin [From Keflex] Allergy Rash Verified 04/06/18 11:04 Date of admission: 01/25/19 14:31 Primary care physician: Washington Ni DO Consults: 01/24/19 08:23 Consult to Nurse Navigator [CONS] Routine Comment: COPD Discharging clinician: Radha Mittal Anticipated date of discharge: 01/26/19 - Constitutional Vitals: Temp Pulse Resp BP Pulse Ox 98.6 F 85 16 159/79 94 01/26/19 11:41 01/26/19 11:41 01/26/19 11:44 01/26/19 11:41 01/26/19 11:44 General appearance: Present: A&O X 3 Exam: Skin: Free of rash and discoloration. Eyes: Sclera is white. There is no discharge from eyes. ENMT: Oral/pharyngeal mucosa is normal in appearance. There is no discharge from nose or ears. Respiratory: CV: Heart is regular with no gallop or murmur GI: Abdomen is flat and soft with no palpable mass or visceromegaly. : There is no tenderness in patient's flanks bilaterally. Neuro exam: He has good strength in upper and lower extremities. He has normal eye movements. Psychiatric: He has normal affect. His thought process is appropriate to the situation. - Patient Status Disposition: Home, Self-Care Condition: Good Functional capacity at discharge: independent ambulation Overall status at discharge: patient is back to baseline - Discharge Instructions Instructions: Chronic Obstructive Pulmonary Disease (DC) Follow Up With: Washington Ni DO [Primary Care Provider] - 01/31/19 1:45 pm () - Diet and Activity Activity: increase activity as tolerated Diet: advance to your usual diet
== END 2019-01-26 14:50 | disposition home or self-care (01) | DRG 192 ==
LOC: 3BNU 11:36 → EMEROOARM 11:36 → 3BNU 15:44
PROVIDERS: ADMIT Internal Medicine; ATTEND Internal Medicine

== ENCOUNTER 2019-07-11 14:17 | Inpatient (IN) ==
[2019-07-11] MEDS ORDERED: *HR* LORazepam 2 MG/ML VIAL IM STA (14:42)
[2019-07-11] MEDS ORDERED: Haloperidol Lactate 5 MG/ML VIAL IM ONE (15:17)
[2019-07-11 15:19] LABS: Bilirubin,Urine Negative (Negative); Blood,Urine Trace (Negative); Clarity,Urine Clear (Clear); Color,Urine Yellow (Yellow); Glucose,Urine (UA) Normal (Normal); Ketones,Urine Negative (Negative); Leukocyte Esterase,Urine Negative (Negative); Nitrite,Urine Negative (Negative); Protein,Urine Negative (Neg-Trace); Specific Gravity,Urine 1.008 (1.010-1.025); Urobilinogen,Urine Normal (Normal)
[2019-07-11 15:21] LABS: Bacteria,Urine None Seen per hpf (None-Few); Hyaline Casts,Urine None Seen per lpf (None-Few); RBC,Urine 0-3 per hpf (0-3); Squamous Epithelial Cell,Urine Many per lpf (None-Few); WBC,Urine 0-3 per hpf (0-3)
[2019-07-11 15:23] LABS: Basophils # 0.1 K/mcL (0.0-0.2); Basophils % 0.9 %; Eosinophils # 0.1 K/mcL (0.0-0.6); Eosinophils % 1.8 %; Hematocrit 31.4 % (35.3-44.9); Hemoglobin 10.8 g/dL (11.5-15.4); Immature Granulocytes % 0.3 % (0-4); Lymphocytes # 1.3 K/mcL (0.6-4.6); Lymphocytes % 17.4 %; Mean Corpuscular HGB Conc 34.4 g/dL (31.6-35.5); Mean Corpuscular Hemoglobin 31.2 pg (28.0-33.3); Mean Platelet Volume 10.9 fL (9.4-12.4); Monocytes # 0.8 K/mcL (0.0-1.3); Monocytes % 10.3 %; Neutrophils # 5.3 K/mcL (1.6-8.9); Platelet Count 318 K/mcL (140-400); Red Blood Count 3.46 M/mcL (3.82-4.97); Red Cell Distribution Width 15.7 % (11.5-14.5); Segmented Neutrophils % 69.3 %; White Blood Count 7.7 K/mcL (4.3-11.1)
[2019-07-11 15:24] LABS: Mean Corpuscular Volume 90.8 fL (83.0-100.0)
[2019-07-11 15:29] LABS: Amphetamine Screen,Urine Negative ng/mL (Cutoff=1000); Barbiturate Screen,Urine Negative ng/mL (Cutoff=200); Benzodiazepines Screen,Urine Negative ng/mL (Cutoff=200); Cannabinoid Screen,Urine Negative ng/mL (Cutoff = 50); Cocaine Screen,Urine Negative ng/mL (Cutoff= 300); Opiate Screen,Urine Negative ng/mL (Cutoff=300); Phencyclidine Screen,Urine Negative ng/mL (Cutoff=25)
[2019-07-11 15:37] LABS: Acetaminophen < 10 mcg/mL (10-20); BUN/Creatinine Ratio 17 (6-26); Blood Urea Nitrogen 16 mg/dL (6-20); Calcium 9.2 mg/dL (8.6-10.3); Carbon Dioxide 20 mEq/L (23-29); Chloride 104 mEq/L (98-107); Creatine Kinase 236 Units/L (30-223); Ethanol < 10 mg/dL (Less than 10); Glucose 107 mg/dL (70-105); Osmolality,Calculated 282 (280-300); Potassium 4.5 mEq/L (3.5-5.1); Salicylate < 2.5 mg/dL (15.0-30.0); Sodium 135 mEq/L (136-145); eGFR For African Americans > 60 (> 60); eGFR For Non-African Americans > 60 (> 60)
[2019-07-11] MEDS ORDERED: CloNIDine Patch 0.1 MG PATCH (WEEKLY) TD ONE (17:06)
[2019-07-11] MEDS ORDERED: *HR* LORazepam 2 MG/ML VIAL IM ONE (18:20)
[2019-07-11] MEDS ORDERED: Ziprasidone 10 MG in Water for inj. (sterile) 0.5 ML IM ONE (20:45)
[2019-07-11] MEDS ORDERED: Haloperidol Lactate 5 MG/ML VIAL IM PRN (22:14)
[2019-07-11] MEDS ORDERED: hydrOXYzine pamoate 25 MG CAPSULE PO PRN (22:14)
[2019-07-11] MEDS ORDERED: Acetaminophen 325 MG TABLET PO PRN (22:14)
[2019-07-11] MEDS ORDERED: MOM Conc 10 ML UD.LIQ PO PRN (22:14)
[2019-07-11] MEDS ORDERED: Mag Hydrox/Al Hydrox/Simeth 30 ML UDC PO PRN (22:14)
[2019-07-11] MEDS ORDERED: *HR* OxyCODONE/APAP 10/325 TABLET PO PRN (23:08)
[2019-07-12] MEDS ORDERED: *HR* FentaNYL PATCH 50 MCG PATCH TD SCH (00:15)
[2019-07-12] MEDS ORDERED: Haloperidol Lactate 5 MG/ML VIAL IM ONE (02:54)
[2019-07-12] MEDS ORDERED: *HR* Promethazine 25 MG/ML VIAL IM ONE (02:55)
[2019-07-12] MEDS ORDERED: FLUoxetine 20 MG CAPSULE PO SCH (09:00)
[2019-07-12] MEDS: Gabapentin 400 MG CAPSULE PO SCH ×3 (10:20→21:47)
[2019-07-12] MEDS: HYOSCYAMINE 0.375 MG SL SCH ×2 (10:26→21:48)
[2019-07-12] MEDS ORDERED: Acetaminophen 325 MG TABLET PO PRN (10:59)
[2019-07-12] MEDS: *HR* Metformin 500 MG TABLET PO SCH (17:18)
[2019-07-13] MEDS ORDERED: FLUoxetine 20 MG CAPSULE PO SCH ×2 (09:00)
[2019-07-13] MEDS: Gabapentin 400 MG CAPSULE PO SCH ×3 (09:12→21:49)
[2019-07-13] MEDS: HYOSCYAMINE 0.375 MG SL SCH ×2 (09:13→21:47)
[2019-07-13] MEDS: *HR* Metformin 500 MG TABLET PO SCH (16:32)
[2019-07-14 00:22] VITALS: BP 87/54
[2019-07-14 03:46] LABS: Basophils # 0.1 K/mcL (0.0-0.2); Eosinophils # 0.3 K/mcL (0.0-0.6); Eosinophils % 3.7 %; Hematocrit 31.1 % (35.3-44.9); Hemoglobin 9.9 g/dL (11.5-15.4); Immature Granulocytes % 0.3 % (0-4); Lymphocytes # 2.7 K/mcL (0.6-4.6); Lymphocytes % 34.7 %; Mean Corpuscular HGB Conc 31.8 g/dL (31.6-35.5); Mean Corpuscular Hemoglobin 31.1 pg (28.0-33.3); Mean Platelet Volume 11.3 fL (9.4-12.4); Monocytes # 0.8 K/mcL (0.0-1.3); Monocytes % 9.6 %; Neutrophils # 3.9 K/mcL (1.6-8.9); Platelet Count 255 K/mcL (140-400); Red Blood Count 3.18 M/mcL (3.82-4.97); Red Cell Distribution Width 15.9 % (11.5-14.5); Segmented Neutrophils % 50.7 %; White Blood Count 7.8 K/mcL (4.3-11.1)
[2019-07-14 03:49] LABS: Mean Corpuscular Volume 97.8 fL (83.0-100.0)
[2019-07-14 04:03] LABS: Albumin 3.7 g/dL (3.5-5.7); Albumin/Globulin Ratio 1.4 (1.1-2.2); Bilirubin,Total 0.2 mg/dL (0.3-1.0); Calcium 8.6 mg/dL (8.6-10.3); Globulin 2.7 g/dL (2.4-3.5); Potassium 3.9 mEq/L (3.5-5.1); Total Protein 6.4 g/dL (6.4-8.9)
[2019-07-14] MEDS ORDERED: Naloxone 0.4 MG/ML INJ IVP PRN (05:20)
[2019-07-14] MEDS ORDERED: 0.9 % Sodium Chloride 1,000 ML IVC ONE (05:22)
[2019-07-14 05:52] LABS: Magnesium 1.9 mg/dL (1.6-2.6); Phosphorous 4.2 mg/dL (2.7-4.5)
[2019-07-14 06:03] LABS: Thyroid Stimulating Hormone 2.369 mcIU/mL (0.340-5.600)
== END 2019-07-14 06:15 | disposition other institution (70) | DRG 885 ==
LOC: EMEROOARM 14:17 → 1ANU 21:28 → SUATTDRO 22:12
PROVIDERS: ADMIT Psychiatry & Neurology Psychiatry; ATTEND Psychiatry & Neurology Psychiatry

== ENCOUNTER 2019-07-14 05:11 | Inpatient (IN) ==
[~2019-07-14 05:11] MED LIST: *HR* OxyCODONE/APAP 10/325 TABLET PO ONE
[2019-07-14] MEDS ORDERED: Naloxone 0.4 MG/ML INJ IVP PRN (06:42)
[2019-07-14] MEDS ORDERED: 0.9 % Sodium Chloride 1,000 ML IVC ONE (06:50)
[2019-07-14] MEDS ORDERED: *HR* Dextrose 50 % in Water (Syg) 50 ML SYRINGE IVP PRN (06:51)
[2019-07-14] MEDS ORDERED: D5% in Water 1,000 ML IVC PRN (06:51)
[2019-07-14] MEDS ORDERED: Dextrose Gel 15 GM/37.5 ML TUBE PO PRN ×2 (06:51)
[2019-07-14] MEDS ORDERED: 0.9 % Sodium Chloride 1,000 ML ONE (06:52)
[2019-07-14 07:54] LABS: Bilirubin,Urine Small (Negative); Blood,Urine Negative (Negative); Clarity,Urine Clear (Clear); Color,Urine Dark Yellow (Yellow); Glucose,Urine (UA) Normal (Normal); Ketones,Urine Negative (Negative); Leukocyte Esterase,Urine Small (Negative); Nitrite,Urine Negative (Negative); PH,Urine 5.5 pH Units (5.0-8.0); Protein,Urine 30 mg/dL (Neg-Trace); Specific Gravity,Urine 1.019 (1.010-1.025); Urobilinogen,Urine Normal (Normal)
[2019-07-14 07:59] LABS: Bacteria,Urine None Seen per hpf (None-Few); RBC,Urine 0-3 per hpf (0-3)
[2019-07-14] MEDS: Insulin LISPRO 300 UNITS/3 ML VIAL SQ SCH ×3 (08:15→17:05)
[2019-07-14 08:16] LABS: Hyaline Casts,Urine Many per lpf (None-Few); Squamous Epithelial Cell,Urine Few per lpf (None-Few)
[2019-07-14] MEDS ORDERED: Ringers Solution, Lactated 1,000 ML IVC SCH (10:15)
[2019-07-14] MEDS ORDERED: *HR* Heparin 5,000 UNIT/ML VIAL IVP ONE (12:12)
[2019-07-14] MEDS ORDERED: *HR* Heparin 5,000 UNIT/ML VIAL IVP PRN ×2 (12:12)
[2019-07-14] MEDS ORDERED: Heparin 25,000 UNIT/250 ML D5W 25,000 UNIT/250 ML IV.SOLN IVC SCH (12:15)
[2019-07-14 13:07] LABS: INR 0.9; Prothrombin Time 10.7 Seconds (9.4-12.1)
[2019-07-14 13:21] LABS: Hematocrit 29.3 % (35.3-44.9); Hemoglobin 9.3 g/dL (11.5-15.4); Mean Corpuscular HGB Conc 31.7 g/dL (31.6-35.5); Mean Corpuscular Hemoglobin 30.8 pg (28.0-33.3); Platelet Count 216 K/mcL (140-400); Red Blood Count 3.02 M/mcL (3.82-4.97); Red Cell Distribution Width 15.9 % (11.5-14.5); White Blood Count 5.2 K/mcL (4.3-11.1)
[2019-07-14] MEDS: 0.9 % Sodium Chloride 1,000 ML IVC SCH ×2 (14:21→22:26)
[2019-07-14] MEDS: Metoprolol XL (24 HR) Succ 25 MG TAB.ER.24H PO SCH (17:14)
[2019-07-14 17:55] LABS: Calcium 8.2 mg/dL (8.6-10.3); Magnesium 1.8 mg/dL (1.6-2.6); Phosphorous 3.6 mg/dL (2.7-4.5); Potassium 4.6 mEq/L (3.5-5.1)
[2019-07-14] MEDS: *HR* Heparin 5,000 UNIT/ML VIAL SQ SCH (18:38)
[2019-07-15] MEDS: 0.9 % Sodium Chloride 1,000 ML IVC SCH (05:52)
[2019-07-15] MEDS: *HR* Heparin 5,000 UNIT/ML VIAL SQ SCH ×2 (05:53→19:19)
[2019-07-15] MEDS ORDERED: Gabapentin 400 MG CAPSULE ONE ×2 (10:28→17:28)
[2019-07-15] MEDS: Heparin 25,000 UNIT/250 ML D5W 25,000 UNIT/250 ML IV.SOLN IVC SCH (15:00)
[2019-07-15] MEDS ORDERED: *HR* Heparin 5,000 UNIT/ML VIAL IVP PRN ×2 (20:19)
[2019-07-15] MEDS ORDERED: *HR* Heparin 5,000 UNIT/ML VIAL IVP ONE (20:19)
[2019-07-15 21:04] LABS: Heparin anti-factor XA UFH 0.33 IU/mL (0.30-0.70)
[2019-07-15 21:05] LABS: Prothrombin Time 10.8 Seconds (9.4-12.1)
[2019-07-15] MEDS: Gabapentin 400 MG CAPSULE PO SCH (21:07)
[2019-07-16] MEDS: Insulin LISPRO 300 UNITS/3 ML VIAL SQ SCH ×4 (00:28→16:19)
[2019-07-16] MEDS: Aspirin 81 MG TAB.CHEW PO SCH ×2 (00:29→08:11)
[2019-07-16] MEDS: Metoprolol XL (24 HR) Succ 25 MG TAB.ER.24H PO SCH ×2 (00:29→08:11)
[2019-07-16] MEDS: 0.9 % Sodium Chloride 1,000 ML IVC SCH ×4 (01:03→08:15)
[2019-07-16 05:10] LABS: Eosinophils # 0.3 K/mcL (0.0-0.6); Eosinophils % 6.8 %; Hematocrit 24.5 % (35.3-44.9); Immature Granulocytes % 0.2 % (0-4); Lymphocytes # 1.8 K/mcL (0.6-4.6); Lymphocytes % 44.4 %; Mean Corpuscular HGB Conc 30.6 g/dL (31.6-35.5); Mean Corpuscular Hemoglobin 30.6 pg (28.0-33.3); Mean Platelet Volume 11.3 fL (9.4-12.4); Monocytes # 0.3 K/mcL (0.0-1.3); Monocytes % 7.6 %; Neutrophils # 1.6 K/mcL (1.6-8.9); Platelet Count 166 K/mcL (140-400); Red Blood Count 2.45 M/mcL (3.82-4.97); Red Cell Distribution Width 15.6 % (11.5-14.5); White Blood Count 4.1 K/mcL (4.3-11.1)
[2019-07-16 05:17] LABS: Hemoglobin 7.5 g/dL (11.5-15.4)
[2019-07-16 05:28] LABS: BUN/Creatinine Ratio 28 (6-26); Blood Urea Nitrogen 29 mg/dL (6-20); Calcium 7.7 mg/dL (8.6-10.3); Carbon Dioxide 20 mEq/L (23-29); Chloride 112 mEq/L (98-107); Glucose 119 mg/dL (70-105); Osmolality,Calculated 291 (280-300); Potassium 3.9 mEq/L (3.5-5.1); Sodium 137 mEq/L (136-145); eGFR For African Americans > 60 (> 60); eGFR For Non-African Americans 54 (> 60)
[2019-07-16] MEDS: Gabapentin 400 MG CAPSULE PO SCH ×4 (08:11→20:46)
[2019-07-16] MEDS: *HR* OxyCODONE/APAP 10/325 TABLET PO PRN ×2 (08:16→16:19)
[2019-07-16] MEDS ORDERED: NON-FORMULARY MEDICATION 1 EACH EACH (Rizatriptan Benzoate [Maxalt] 10 MG) PO PRN (08:18)
[2019-07-16] MEDS ORDERED: *HR* OxyCODONE/APAP 10/325 TABLET PO PRN (08:18)
[2019-07-16] MEDS ORDERED: HYOSCYAMINE SULFATE PO SCH (08:30)
[2019-07-16] MEDS ORDERED: NADOLOL 20 MG PO SCH (09:00)
[2019-07-16] MEDS: FLUoxetine 20 MG CAPSULE PO SCH ×2 (10:14→20:46)
[2019-07-16 13:14] LABS: Hematocrit 24.5 % (35.3-44.9); Hemoglobin 7.6 g/dL (11.5-15.4)
[2019-07-16 13:35] LABS: % Iron Saturation 41 % (15-50); Iron 113 mcg/dL (50-170); Transferrin 196 mg/dL (203-362)
[2019-07-16 13:54] LABS: Ferritin 40 ng/mL (10-120)
[2019-07-16 13:59] LABS: Folate 9.4 ng/mL (3.0-16.0)
[2019-07-16 14:56] LABS: Hematocrit 25.9 % (35.3-44.9); Hemoglobin 8.2 g/dL (11.5-15.4)
[2019-07-16] MEDS: Nicotine 14 MG PATCH.TD24 TD SCH (18:01)
[2019-07-16 19:59] LABS: Hematocrit 26.1 % (35.3-44.9); Hemoglobin 8.4 g/dL (11.5-15.4)
[2019-07-16] MEDS: Heparin 25,000 UNIT/250 ML D5W 25,000 UNIT/250 ML IV.SOLN IVC SCH (20:42)
[2019-07-17] MEDS: *HR* OxyCODONE/APAP 10/325 TABLET PO PRN ×3 (00:56→21:25)
[2019-07-17 04:16] LABS: Basophils % 0.7 %; Eosinophils # 0.3 K/mcL (0.0-0.6); Eosinophils % 4.6 %; Hematocrit 25.6 % (35.3-44.9); Hemoglobin 7.9 g/dL (11.5-15.4); Immature Granulocytes % 0.2 % (0-4); Lymphocytes # 1.3 K/mcL (0.6-4.6); Lymphocytes % 22.7 %; Mean Corpuscular HGB Conc 30.9 g/dL (31.6-35.5); Mean Corpuscular Hemoglobin 30.9 pg (28.0-33.3); Mean Platelet Volume 11.2 fL (9.4-12.4); Monocytes # 0.3 K/mcL (0.0-1.3); Monocytes % 5.4 %; Neutrophils # 3.8 K/mcL (1.6-8.9); Platelet Count 173 K/mcL (140-400); Red Blood Count 2.56 M/mcL (3.82-4.97); Red Cell Distribution Width 15.6 % (11.5-14.5); Segmented Neutrophils % 66.4 %; White Blood Count 5.7 K/mcL (4.3-11.1)
[2019-07-17 04:29] LABS: BUN/Creatinine Ratio 26 (6-26); Blood Urea Nitrogen 24 mg/dL (6-20); Carbon Dioxide 23 mEq/L (23-29); Chloride 110 mEq/L (98-107); Glucose 144 mg/dL (70-105); Magnesium 1.5 mg/dL (1.6-2.6); Osmolality,Calculated 291 (280-300); Sodium 137 mEq/L (136-145); eGFR For African Americans > 60 (> 60); eGFR For Non-African Americans > 60 (> 60)
[2019-07-17] MEDS: Insulin LISPRO 300 UNITS/3 ML VIAL SQ SCH ×3 (09:46→17:47)
[2019-07-17] MEDS: Nicotine 14 MG PATCH.TD24 TD SCH (09:58)
[2019-07-17] MEDS: Metoprolol XL (24 HR) Succ 25 MG TAB.ER.24H PO SCH (09:59)
[2019-07-17] MEDS: Aspirin 81 MG TAB.CHEW PO SCH (09:59)
[2019-07-17] MEDS: Gabapentin 400 MG CAPSULE PO SCH ×4 (09:59→21:25)
[2019-07-17] MEDS: FLUoxetine 20 MG CAPSULE PO SCH (10:00)
[2019-07-17] MEDS: Iron Sucrose Complex 200 MG in 0.9 % Sodium Chloride 100 ML IVPB SCH (17:46)
[2019-07-17] MEDS: Heparin 25,000 UNIT/250 ML D5W 25,000 UNIT/250 ML IV.SOLN IVC SCH (22:36)
[2019-07-18] MEDS: *HR* OxyCODONE/APAP 10/325 TABLET PO PRN ×3 (02:54→14:42)
[2019-07-18] MEDS: Iron Sucrose Complex 200 MG in 0.9 % Sodium Chloride 100 ML IVPB SCH (08:19)
[2019-07-18] MEDS: Nicotine 14 MG PATCH.TD24 TD SCH (08:19)
[2019-07-18] MEDS: Gabapentin 400 MG CAPSULE PO SCH ×3 (08:19→17:18)
[2019-07-18] MEDS: Aspirin 81 MG TAB.CHEW PO SCH (08:20)
[2019-07-18] MEDS: Metoprolol XL (24 HR) Succ 25 MG TAB.ER.24H PO SCH (08:20)
[2019-07-18] MEDS: Insulin LISPRO 300 UNITS/3 ML VIAL SQ SCH ×3 (08:21→17:18)
[2019-07-18] MEDS ORDERED: FLUoxetine 20 MG CAPSULE PO SCH (09:00)
[2019-07-18 09:48] LABS: BUN/Creatinine Ratio 19 (6-26); Blood Urea Nitrogen 15 mg/dL (6-20); Calcium 9.1 mg/dL (8.6-10.3); Carbon Dioxide 25 mEq/L (23-29); Chloride 100 mEq/L (98-107); Glucose 162 mg/dL (70-105); Magnesium 1.5 mg/dL (1.6-2.6); Osmolality,Calculated 284 (280-300); Potassium 3.5 mEq/L (3.5-5.1); Sodium 135 mEq/L (136-145); eGFR For African Americans > 60 (> 60); eGFR For Non-African Americans > 60 (> 60)
[2019-07-18 10:50] VITALS: BP 132/69
[2019-07-18 10:50] LABS: Basophils # 0.1 K/mcL (0.0-0.2); Basophils % 0.6 %; Eosinophils % 2.1 %; Hematocrit 31.1 % (35.3-44.9); Hemoglobin 10.6 g/dL (11.5-15.4); Immature Granulocytes % 0.5 % (0-4); Lymphocytes # 1.1 K/mcL (0.6-4.6); Lymphocytes % 9.1 %; Mean Corpuscular HGB Conc 34.1 g/dL (31.6-35.5); Mean Corpuscular Hemoglobin 31.1 pg (28.0-33.3); Mean Corpuscular Volume 91.2 fL (83.0-100.0); Mean Platelet Volume 11.6 fL (9.4-12.4); Monocytes # 0.6 K/mcL (0.0-1.3); Monocytes % 4.9 %; Neutrophils # 9.7 K/mcL (1.6-8.9); Platelet Count 277 K/mcL (140-400); Red Blood Count 3.41 M/mcL (3.82-4.97); Red Cell Distribution Width 15.4 % (11.5-14.5); Segmented Neutrophils % 82.8 %; White Blood Count 11.7 K/mcL (4.3-11.1)
[2019-07-18 10:55] LABS: Eosinophils # 0.3 K/mcL (0.0-0.6)
[2019-07-18 13:15] LABS: INR 1.2; Prothrombin Time 13.3 Seconds (9.4-12.1)
[2019-07-18] MEDS ORDERED: *HR* Rivaroxaban 15 MG TABLET PO SCH (15:00)
[2019-07-18] MEDS ORDERED: Warfarin perPT PO PRN (18:00)
[2019-07-18] MEDS ORDERED: *HR* Warfarin 5 MG TABLET PO ONE (18:00)
[2019-07-18] MEDS ORDERED: Famotidine 20 MG TABLET PO SCH (21:00)
== END 2019-07-18 19:25 | disposition home or self-care (01) | DRG 682 ==
LOC: 3ANU → SUATTDRO 06:31
PROVIDERS: ADMIT Internal Medicine; ATTEND Pharmacist

== ENCOUNTER 2020-03-17 13:55 | Inpatient (IN) ==
[2020-03-17] MEDS ORDERED: Ondansetron 4 MG/2 ML VIAL IVP ONE (14:09)
[2020-03-17] MEDS ORDERED: 0.9 % Sodium Chloride 1,000 ML IVC ONE ×2 (14:09→15:29)
[2020-03-17] MEDS ORDERED: Isovue-370 500 ML BOTTLE IVP ONE (14:10)
[2020-03-17 14:35] LABS: Basophils # 0.1 K/mcL (0.0-0.2); Basophils % 0.8 %; Eosinophils # 0.4 K/mcL (0.0-0.6); Eosinophils % 2.1 %; Hematocrit 32.1 % (35.3-44.9); Immature Granulocytes % 0.9 % (0-4); Lymphocytes # 1.7 K/mcL (0.6-4.6); Lymphocytes % 10.3 %; Mean Corpuscular HGB Conc 31.2 g/dL (31.6-35.5); Mean Corpuscular Hemoglobin 30.3 pg (28.0-33.3); Mean Corpuscular Volume 97.3 fL (83.0-100.0); Mean Platelet Volume 9.8 fL (9.4-12.4); Monocytes # 0.5 K/mcL (0.0-1.3); Monocytes % 3.2 %; Platelet Count 600 K/mcL (140-400); Red Cell Distribution Width 14.8 % (11.5-14.5); Segmented Neutrophils % 82.7 %; White Blood Count 16.9 K/mcL (4.3-11.1)
[2020-03-17 14:48] LABS: Albumin 3.7 g/dL (3.5-5.7); Albumin/Globulin Ratio 1.1 (1.1-2.2); Bilirubin,Direct 0.1 mg/dL (0.0-0.2); Bilirubin,Indirect 0.2 mg/dL (0.0-1.0); Bilirubin,Total 0.3 mg/dL (0.3-1.0); Calcium 8.9 mg/dL (8.6-10.3); Globulin 3.4 g/dL (2.4-3.5); Potassium 5.6 mEq/L (3.5-5.1); Total Protein 7.1 g/dL (6.4-8.9)
[2020-03-17 14:49] LABS: Bacteria,Urine Few per hpf (None-Few); Bilirubin,Urine Negative (Negative); Blood,Urine Trace (Negative); Clarity,Urine Turbid (Clear); Color,Urine Yellow (Yellow); Glucose,Urine (UA) Normal (Normal); Ketones,Urine Negative (Negative); Leukocyte Esterase,Urine Large (Negative); Mucus,Urine Few per lpf (None-Few); Nitrite,Urine Negative (Negative); PH,Urine 7.5 pH Units (5.0-8.0); Protein,Urine 30 mg/dL (Neg-Trace); Specific Gravity,Urine 1.023 (1.010-1.025); Urobilinogen,Urine Normal (Normal); WBC,Urine TNTC per hpf (0-3)
[2020-03-17] MEDS ORDERED: Piperacillin/Tazobactam 3.375 GM in Water for inj. (sterile) 20 ML IVP ONE (15:29)
[2020-03-17] MEDS ORDERED: Azithromycin 500 MG in 0.9 % Sodium Chloride 250 ML IVPB ONE (15:29)
[2020-03-17 16:01] LABS: Prothrombin Time 11.4 Seconds (9.4-12.1)
[2020-03-17 16:03] LABS: Activated Partial Thrombo Time 30.6 Seconds (26.0-36.0)
[2020-03-17] MEDS ORDERED: Naloxone 0.4 MG/ML INJ IVP PRN (17:39)
[2020-03-17] MEDS: *HR* FentaNYL PATCH 50 MCG PATCH TD SCH (18:09)
[2020-03-17] MEDS: Famotidine 20 MG TABLET PO SCH (20:24)
[2020-03-17] MEDS: 0.9 % Sodium Chloride 1,000 ML IVC SCH (20:26)
[2020-03-17] MEDS: Gabapentin 400 MG CAPSULE PO SCH (20:26)
[2020-03-17] MEDS: Hyoscyamine SL 0.125 MG TAB.SUBL PO SCH (20:26)
[2020-03-17] MEDS: *HR* OxyCODONE/APAP 10/325 TABLET PO PRN (20:35)
[2020-03-17] MEDS ORDERED: *HR* LORazepam 2 MG/ML VIAL IVP ONE (23:34)
[2020-03-18] MEDS: Piperacillin/Tazobactam 3.375 GM in 0.9 % Sodium Chloride Mini Bag 100 ML IVPB SCH ×3 (00:02→20:42)
[2020-03-18] MEDS: Hyoscyamine SL 0.125 MG TAB.SUBL PO SCH ×2 (05:53→19:14)
[2020-03-18 06:54] LABS: Basophils # 0.1 K/mcL (0.0-0.2); Basophils % 0.5 %; Eosinophils # 0.4 K/mcL (0.0-0.6); Eosinophils % 3.2 %; Hematocrit 25.2 % (35.3-44.9); Hemoglobin 7.8 g/dL (11.5-15.4); Immature Granulocytes % 0.9 % (0-4); Lymphocytes # 2.3 K/mcL (0.6-4.6); Mean Corpuscular Hemoglobin 31.3 pg (28.0-33.3); Mean Corpuscular Volume 101.2 fL (83.0-100.0); Mean Platelet Volume 9.8 fL (9.4-12.4); Monocytes # 0.7 K/mcL (0.0-1.3); Monocytes % 5.5 %; Neutrophils # 8.5 K/mcL (1.6-8.9); Platelet Count 427 K/mcL (140-400); Red Blood Count 2.49 M/mcL (3.82-4.97); Red Cell Distribution Width 14.9 % (11.5-14.5); Segmented Neutrophils % 70.9 %
[2020-03-18 06:55] LABS: Calcium 7.7 mg/dL (8.6-10.3); Potassium 4.3 mEq/L (3.5-5.1)
[2020-03-18 07:16] LABS: Folate 12.8 ng/mL (3.0-16.0)
[2020-03-18] MEDS: Metoprolol XL (24 HR) Succ 25 MG TAB.ER.24H PO SCH (09:35)
[2020-03-18] MEDS: Gabapentin 400 MG CAPSULE PO SCH ×4 (09:35→20:43)
[2020-03-18] MEDS: polyethylene glycoL 3350 17 GM POWD.PACK PO SCH (09:35)
[2020-03-18] MEDS: Famotidine 20 MG TABLET PO SCH ×2 (09:36→20:43)
[2020-03-18] MEDS: *HR* OxyCODONE/APAP 10/325 TABLET PO PRN ×2 (09:39→19:26)
[2020-03-18] MEDS: 0.9 % Sodium Chloride 1,000 ML IVC SCH ×2 (09:40→23:50)
[2020-03-18 10:44] LABS: Hematocrit 29.3 % (35.3-44.9); Hemoglobin 9.1 g/dL (11.5-15.4)
[2020-03-18 15:54] LABS: Adenovirus F 40/41 PCR Not detected (Not detect); Astrovirus PCR Not detected (Not detect); C.difficile Toxin A/B Gene PCR Not detected (Not detect); Campylobacter by PCR Not detected (Not detect); Cryptosporidium by PCR Not detected (Not detect); Cyclospora cayetanensis PCR Not detected (Not detect); E. coli O157 by PCR Not detected (Not detect); Entamoeba histolytica PCR Not detected (Not detect); Enteroaggregative E.coli(EAEC) Not detected (Not detect); Enteropathogenic E.coli(EPEC) Not detected (Not detect); Enterotoxigenic E.coli (ETEC) Not detected (Not detect); Giardia lamblia PCR Not detected (Not detect); Norovirus GI/GII PCR Not detected (Not detect); Plesiomonas shigelloides PCR Not detected (Not detect); Rotavirus A PCR Not detected (Not detect); Salmonella PCR Not detected (Not detect); Sapovirus PCR Not detected (Not detect); Shig/EnteroinvasiveE coli EIEC Not detected (Not detect); Shigalike tox-prod E coli STEC Not detected (Not detect); Vibrio PCR Not detected (Not detect); Vibrio cholerae PCR Not detected (Not detect); Yersinia enterocolitica PCR Not detected (Not detect)
[2020-03-18] MEDS ORDERED: Azithromycin 500 MG in 0.9 % Sodium Chloride 250 ML IVPB SCH (17:00)
[2020-03-19] MEDS: *HR* OxyCODONE/APAP 10/325 TABLET PO PRN ×3 (01:52→20:24)
[2020-03-19] MEDS: Piperacillin/Tazobactam 3.375 GM in 0.9 % Sodium Chloride Mini Bag 100 ML IVPB SCH ×3 (05:25→20:18)
[2020-03-19] MEDS: Hyoscyamine SL 0.125 MG TAB.SUBL PO SCH ×2 (05:25→17:12)
[2020-03-19 06:26] LABS: Basophils # 0.1 K/mcL (0.0-0.2); Basophils % 0.6 %; Eosinophils # 0.4 K/mcL (0.0-0.6); Eosinophils % 4.4 %; Hematocrit 23.7 % (35.3-44.9); Immature Granulocytes % 0.8 % (0-4); Lymphocytes # 2.3 K/mcL (0.6-4.6); Lymphocytes % 27.8 %; Mean Corpuscular HGB Conc 30.4 g/dL (31.6-35.5); Mean Corpuscular Hemoglobin 30.8 pg (28.0-33.3); Mean Corpuscular Volume 101.3 fL (83.0-100.0); Mean Platelet Volume 9.3 fL (9.4-12.4); Monocytes # 0.5 K/mcL (0.0-1.3); Monocytes % 6.5 %; Neutrophils # 4.9 K/mcL (1.6-8.9); Platelet Count 347 K/mcL (140-400); Red Blood Count 2.34 M/mcL (3.82-4.97); Red Cell Distribution Width 15.6 % (11.5-14.5); Segmented Neutrophils % 59.9 %; White Blood Count 8.3 K/mcL (4.3-11.1)
[2020-03-19 06:27] LABS: Hemoglobin 7.2 g/dL (11.5-15.4)
[2020-03-19 06:44] LABS: BUN/Creatinine Ratio 35 (6-26); Blood Urea Nitrogen 38 mg/dL (8-23); Calcium 7.5 mg/dL (8.6-10.3); Carbon Dioxide 14 mEq/L (23-29); Chloride 117 mEq/L (98-107); Glucose 48 mg/dL (70-105); Osmolality,Calculated 292 (280-300); Potassium 4.3 mEq/L (3.5-5.1); Sodium 138 mEq/L (136-145); eGFR For African Americans > 60 (> 60); eGFR For Non-African Americans 52 (> 60)
[2020-03-19] MEDS: polyethylene glycoL 3350 17 GM POWD.PACK PO SCH (08:26)
[2020-03-19] MEDS: Famotidine 20 MG TABLET PO SCH (08:26)
[2020-03-19] MEDS: Gabapentin 400 MG CAPSULE PO SCH ×3 (08:26→20:19)
[2020-03-19] MEDS: Metoprolol XL (24 HR) Succ 25 MG TAB.ER.24H PO SCH (08:26)
[2020-03-19 08:50] LABS: Hematocrit 26.9 % (35.3-44.9); Hemoglobin 8.1 g/dL (11.5-15.4)
[2020-03-19] MEDS: 0.9 % Sodium Chloride 1,000 ML IVC SCH (12:40)
[2020-03-19 14:40] LABS: Hematocrit 27.3 % (35.3-44.9); Hemoglobin 8.2 g/dL (11.5-15.4)
[2020-03-19] MEDS: Azithromycin 250 MG TABLET PO SCH (17:12)
[2020-03-19] MEDS ORDERED: Dextrose Gel 15 GM/37.5 ML TUBE PO PRN ×2 (18:12)
[2020-03-19] MEDS ORDERED: *HR* Dextrose 50 % in Water (Vial) 50 ML VIAL IVP PRN (18:12)
[2020-03-19] MEDS ORDERED: D5% in Water 1,000 ML IVC PRN (18:12)
[2020-03-19] MEDS: FLUoxetine 20 MG CAPSULE PO SCH (20:19)
[2020-03-20] MEDS: 0.9 % Sodium Chloride 1,000 ML IVC SCH ×2 (00:52→12:19)
[2020-03-20] MEDS: *HR* OxyCODONE/APAP 10/325 TABLET PO PRN ×3 (03:06→17:32)
[2020-03-20] MEDS: Piperacillin/Tazobactam 3.375 GM in 0.9 % Sodium Chloride Mini Bag 100 ML IVPB SCH ×2 (03:07→12:20)
[2020-03-20] MEDS: Hyoscyamine SL 0.125 MG TAB.SUBL PO SCH ×2 (05:51→17:29)
[2020-03-20 06:41] LABS: Basophils # 0.1 K/mcL (0.0-0.2); Basophils % 0.6 %; Eosinophils # 0.4 K/mcL (0.0-0.6); Eosinophils % 4.4 %; Hematocrit 26.5 % (35.3-44.9); Immature Granulocytes % 0.5 % (0-4); Lymphocytes # 2.3 K/mcL (0.6-4.6); Lymphocytes % 26.4 %; Mean Corpuscular HGB Conc 30.2 g/dL (31.6-35.5); Mean Corpuscular Volume 102.7 fL (83.0-100.0); Mean Platelet Volume 9.2 fL (9.4-12.4); Monocytes # 0.5 K/mcL (0.0-1.3); Monocytes % 5.7 %; Neutrophils # 5.5 K/mcL (1.6-8.9); Platelet Count 376 K/mcL (140-400); Red Blood Count 2.58 M/mcL (3.82-4.97); Red Cell Distribution Width 15.7 % (11.5-14.5); Segmented Neutrophils % 62.4 %; White Blood Count 8.8 K/mcL (4.3-11.1)
[2020-03-20 07:00] LABS: BUN/Creatinine Ratio 25 (6-26); Blood Urea Nitrogen 23 mg/dL (8-23); Calcium 7.8 mg/dL (8.6-10.3); Carbon Dioxide 14 mEq/L (23-29); Chloride 115 mEq/L (98-107); Glucose 64 mg/dL (70-105); Magnesium 1.4 mg/dL (1.6-2.6); Osmolality,Calculated 286 (280-300); Potassium 4.3 mEq/L (3.5-5.1); Sodium 137 mEq/L (136-145); eGFR For African Americans > 60 (> 60); eGFR For Non-African Americans > 60 (> 60)
[2020-03-20] MEDS: Insulin LISPRO 300 UNITS/3 ML VIAL SQ SCH ×3 (07:31→17:33)
[2020-03-20] MEDS: Gabapentin 400 MG CAPSULE PO SCH ×2 (07:48→14:26)
[2020-03-20] MEDS: FLUoxetine 20 MG CAPSULE PO SCH (07:49)
[2020-03-20] MEDS ORDERED: Famotidine 20 MG TABLET PO SCH (09:00)
[2020-03-20] MEDS: polyethylene glycoL 3350 17 GM POWD.PACK PO SCH (10:39)
[2020-03-20 11:22] VITALS: BP 121/62
[2020-03-20] MEDS: *HR* FentaNYL PATCH 50 MCG PATCH TD SCH (17:27)
[2020-03-20] MEDS: Azithromycin 250 MG TABLET PO SCH (17:29)
== END 2020-03-20 18:36 | disposition home or self-care (01) | DRG 871 ==
LOC: 3ANU 13:55 → EMEROOARM 13:55 → SUATTDRO 17:52 → 3ANU 18:35 → SUATTDRO 03-19 16:25
PROVIDERS: ADMIT Internal Medicine; ATTEND Pharmacist

== ENCOUNTER 2020-04-27 20:19 | Inpatient (IN) ==
[2020-04-27] MEDS ORDERED: Ipratropium/Albuterol Neb 3 ML IH ONE (20:29)
[2020-04-27] MEDS ORDERED: 0.9 % Sodium Chloride 1,000 ML IVC ONE (20:29)
[2020-04-27 20:59] LABS: Basophils # 0.1 K/mcL (0.0-0.2); Basophils % 0.3 %; Eosinophils # 0.1 K/mcL (0.0-0.6); Eosinophils % 0.6 %; Hematocrit 28.1 % (35.3-44.9); Hemoglobin 8.5 g/dL (11.5-15.4); Immature Granulocytes % 1.3 % (0-4); Lymphocytes # 0.4 K/mcL (0.6-4.6); Lymphocytes % 2.3 %; Mean Corpuscular HGB Conc 30.2 g/dL (31.6-35.5); Mean Corpuscular Hemoglobin 30.6 pg (28.0-33.3); Mean Corpuscular Volume 101.1 fL (83.0-100.0); Mean Platelet Volume 11.2 fL (9.4-12.4); Monocytes # 0.6 K/mcL (0.0-1.3); Monocytes % 3.5 %; Neutrophils # 16.2 K/mcL (1.6-8.9); Platelet Count 260 K/mcL (140-400); Red Blood Count 2.78 M/mcL (3.82-4.97); Red Cell Distribution Width 17.1 % (11.5-14.5); White Blood Count 17.6 K/mcL (4.3-11.1)
[2020-04-27 21:16] LABS: Bacteria,Urine Few per hpf (None-Few); Bilirubin,Urine Negative (Negative); Blood,Urine Small (Negative); Budding Yeast,Urine Many per hpf (None Seen); Clarity,Urine Turbid (Clear); Color,Urine Light-Yellow (Yellow); Glucose,Urine (UA) Normal (Normal); Ketones,Urine Negative (Negative); Leukocyte Esterase,Urine Large (Negative); Nitrite,Urine Negative (Negative); Protein,Urine 50 mg/dL (Neg-Trace); Specific Gravity,Urine 1.015 (1.010-1.025); Squamous Epithelial Cell,Urine Few per hpf (None-Few); Urobilinogen,Urine Normal (Normal); WBC,Urine TNTC per hpf (0-3)
[2020-04-27] MEDS ORDERED: Azithromycin 500 MG in D5% in Water 250 ML IVPB ONE (21:23)
[2020-04-27] MEDS ORDERED: Piperacillin/Tazobactam 3.375 GM in 0.9 % Sodium Chloride Mini Bag 100 ML IVPB ONE (21:23)
[2020-04-27 21:30] LABS: BUN/Creatinine Ratio 36 (6-26); Blood Urea Nitrogen 82 mg/dL (8-23); Calcium 6.6 mg/dL (8.6-10.3); Carbon Dioxide 7 mEq/L (23-29); Chloride 108 mEq/L (98-107); Glucose 324 mg/dL (70-105); Osmolality,Calculated 317 (280-300); Potassium 4.8 mEq/L (3.5-5.1); Sodium 135 mEq/L (136-145); Troponin I < 0.03 ng/mL (< 0.04); eGFR For African Americans 26 (> 60); eGFR For Non-African Americans 22 (> 60)
[2020-04-27 22:43] LABS: Adenovirus Not Detected (Not Detect); Bordetella Pertussis Not Detected (Not Detect); Chlamydophila pneumoniae Not Detected (Not Detect); Coronavirus 229E Not Detected (Not Detect); Coronavirus HKU1 Not Detected (Not Detect); Coronavirus NL63 Not Detected (Not Detect); Coronavirus OC43 Not Detected (Not Detect); Human Metapneumovirus Not Detected (Not Detect); Human Rhinovirus/Enterovirus Not Detected (Not Detect); Influenza A Subtype 2009 H1 Not Detected (Not Detect); Influenza B Not Detected (Not Detect); Mycoplasma pneumoniae Not Detected (Not Detect); Parainfluenza Virus 1 Not Detected (Not Detect); Parainfluenza Virus 2 Not Detected (Not Detect); Parainfluenza Virus 3 Not Detected (Not Detect); Parainfluenza Virus 4 Not Detected (Not Detect); Respiratory Syncytial Virus Not Detected (Not Detect)
[2020-04-27] MEDS ORDERED: methylPREDNISolone 125 MG/2 ML VIAL IVP ONE (23:03)
[2020-04-27] MEDS ORDERED: Insulin Human Regular 10 UNIT in 0.9 % Sodium Chloride 10 ML IV ONE (23:06)
[2020-04-27] MEDS ORDERED: 0.9 % Sodium Chloride 1,000 ML IVC STA (23:07)
[2020-04-27 23:30] LABS: VBG HCO3 7 mEq/L (21-27); VBG PCO2 28 mmHg (41-51); VBG PH 7.04 pH Units (7.32-7.42); VBG PO2 214 mmHg (25-50)
[2020-04-27] MEDS ORDERED: *HR* Dextrose 50 % in Water (Vial) 50 ML VIAL IVP PRN (23:42)
[2020-04-27] MEDS ORDERED: *HR* FentaNYL (PF) 100 MCG/2 ML VIAL IVP ONE (23:53)
[2020-04-28] MEDS ORDERED: D5% in 0.45% NACL 1,000 ML IVC PRN ×2 (00:43→01:28)
[2020-04-28] MEDS ORDERED: Ondansetron 4 MG/2 ML VIAL IVP PRN (00:43)
[2020-04-28] MEDS ORDERED: D5% in 0.45% NACL w KCl 20 MEQ/1,000 ML MLS IVC PRN ×2 (00:43→01:28)
[2020-04-28] MEDS ORDERED: Naloxone 0.4 MG/ML INJ IVP PRN (00:43)
[2020-04-28] MEDS ORDERED: 0.45 % Sodium Chloride w/KCl 20 MEQ/1,000 ML MLS IVC PRN ×2 (00:45→01:28)
[2020-04-28 02:02] LABS: VBG HCO3 8 mEq/L (21-27); VBG PCO2 37 mmHg (41-51); VBG PH 6.96 pH Units (7.32-7.42); VBG PO2 98 mmHg (25-50)
[2020-04-28] MEDS: Insulin Human Regular 100 UNIT in 0.9 % Sodium Chloride 100 ML IVC SCH (02:14)
[2020-04-28 02:20] LABS: Albumin 3.6 g/dL (3.5-5.7); Albumin/Globulin Ratio 1.1 (1.1-2.2); Bilirubin,Direct 0.1 mg/dL (0.0-0.2); Bilirubin,Indirect 0.1 mg/dL (0.0-1.0); Bilirubin,Total 0.2 mg/dL (0.3-1.0); Globulin 3.3 g/dL (2.4-3.5); Total Protein 6.9 g/dL (6.4-8.9)
[2020-04-28 02:21] LABS: Magnesium 2.6 mg/dL (1.6-2.6); Phosphorous 4.7 mg/dL (2.7-4.5)
[2020-04-28 02:29] LABS: Calcium 6.3 mg/dL (8.6-10.3); Potassium 4.5 mEq/L (3.5-5.1)
[2020-04-28] MEDS: *HR* OxyCODONE/APAP 10/325 TABLET PO PRN (02:49)
[2020-04-28] MEDS: Nicotine 21 MG PATCH.TD24 TD SCH (02:49)
[2020-04-28] MEDS: Calcium Gluconate 1gm/50mL 1 GM/50 ML BAG IVPB SCH ×2 (02:50→03:36)
[2020-04-28] MEDS: Ipratropium/Albuterol Neb 3 ML IH SCH ×6 (03:57→20:16)
[2020-04-28 05:29] LABS: Hematocrit 28.4 % (35.3-44.9); Hemoglobin 8.5 g/dL (11.5-15.4); Mean Corpuscular HGB Conc 29.9 g/dL (31.6-35.5); Mean Corpuscular Hemoglobin 30.8 pg (28.0-33.3); Mean Corpuscular Volume 102.9 fL (83.0-100.0); Mean Platelet Volume 11.2 fL (9.4-12.4); Platelet Count 256 K/mcL (140-400); Red Blood Count 2.76 M/mcL (3.82-4.97); Red Cell Distribution Width 17.2 % (11.5-14.5); White Blood Count 22.7 K/mcL (4.3-11.1)
[2020-04-28 05:31] LABS: VBG HCO3 8 mEq/L (21-27); VBG PCO2 36 mmHg (41-51); VBG PH 6.95 pH Units (7.32-7.42); VBG PO2 155 mmHg (25-50)
[2020-04-28 05:34] LABS: Prothrombin Time 10.9 Seconds (9.4-12.1)
[2020-04-28] MEDS ORDERED: 0.9 % Sodium Chloride 1,000 ML IVC SCH (05:45)
[2020-04-28 05:46] LABS: Magnesium 2.4 mg/dL (1.6-2.6)
[2020-04-28 05:50] LABS: Calcium 6.9 mg/dL (8.6-10.3); Potassium 4.7 mEq/L (3.5-5.1)
[2020-04-28 05:51] LABS: Activated Partial Thrombo Time 20.8 Seconds (26.0-36.0)
[2020-04-28 05:53] LABS: Lymphocytes # 1.4 K/mcL (0.6-4.6); Monocytes # 0.5 K/mcL (0.0-1.3); Neutrophils # 20.9 K/mcL (1.6-8.9); Platelet Estimate Normal (Normal)
[2020-04-28] MEDS ORDERED: Sodium Bicarbonate 150 MEQ in D5% in Water 1,000 ML IVC SCH (06:00)
[2020-04-28] MEDS ORDERED: Insulin Human Regular 100 UNIT in 0.9 % Sodium Chloride 100 ML IVC SCH (07:15)
[2020-04-28] MEDS: MethylPREDNISolone 40 MG/ML VIAL IVP SCH ×3 (07:32→23:34)
[2020-04-28] MEDS: Piperacillin/Tazobactam 3.375 GM in 0.9 % Sodium Chloride Mini Bag 100 ML IVPB SCH ×2 (07:34→21:13)
[2020-04-28] MEDS: *HR* Dextrose 50 % in Water (Vial) 50 ML VIAL IVP PRN ×2 (08:03→10:43)
[2020-04-28 08:24] LABS: ABG Base Excess -20 mEq/L (-2 to 3); ABG HCO3 9 mEq/L (21-27); ABG Oxygen Saturation 73 % (95-98); ABG PCO2 35 mmHg (35-45); ABG PH 7.03 pH Units (7.32-7.45); ABG PO2 55 mmHg (85-104); ABG TCO2 10 mEq/L (20-26)
[2020-04-28] MEDS ORDERED: cefTRIAXone 1,000 MG in Water for inj. (sterile) 10 ML IVP SCH (09:00)
[2020-04-28] MEDS ORDERED: Nicotine 21 MG PATCH.TD24 TD SCH (09:00)
[2020-04-28 09:18] LABS: VBG HCO3 9 mEq/L (21-27); VBG PCO2 36 mmHg (41-51); VBG PO2 72 mmHg (25-50)
[2020-04-28] MEDS ORDERED: MethylPREDNISolone 40 MG/ML VIAL IVP STA (09:25)
[2020-04-28] MEDS ORDERED: MethylPREDNISolone 40 MG/ML VIAL ONE (09:27)
[2020-04-28 09:37] LABS: Calcium 6.8 mg/dL (8.6-10.3); Magnesium 2.4 mg/dL (1.6-2.6); Potassium 4.8 mEq/L (3.5-5.1)
[2020-04-28] MEDS ORDERED: Ringers Solution, Lactated 1,000 ML IVC SCH ×3 (10:00→13:40)
[2020-04-28] MEDS: Scopolamine Patch 1.5 MG PATCH.TD72 TD SCH (11:13)
[2020-04-28 13:50] LABS: Calcium 6.8 mg/dL (8.6-10.3); Magnesium 2.3 mg/dL (1.6-2.6); Phosphorous 4.2 mg/dL (2.7-4.5); Potassium 4.5 mEq/L (3.5-5.1)
[2020-04-28 14:21] LABS: ABG Base Excess -20 mEq/L (-2 to 3); ABG HCO3 10 mEq/L (21-27); ABG Oxygen Saturation 76 % (95-98); ABG PCO2 37 mmHg (35-45); ABG PH 7.03 pH Units (7.32-7.45); ABG PO2 58 mmHg (85-104); ABG TCO2 11 mEq/L (20-26)
[2020-04-28] MEDS ORDERED: Furosemide 20 MG/2 ML VIAL IVP ONE ×2 (14:47→18:00)
[2020-04-28] MEDS ORDERED: Sodium Bicarbonate 150 MEQ in 0.45 % Sodium Chloride 1,000 ML IVC SCH (18:00)
[2020-04-28 18:39] LABS: Calcium 6.8 mg/dL (8.6-10.3); Potassium 4.3 mEq/L (3.5-5.1)
[2020-04-28] MEDS: Azithromycin 500 MG in 0.9 % Sodium Chloride 250 ML IVPB SCH (20:20)
[2020-04-29] MEDS: Ipratropium/Albuterol Neb 3 ML IH SCH ×7 (00:10→23:16)
[2020-04-29 00:13] LABS: ABG Base Excess -21 mEq/L (-2 to 3); ABG HCO3 10 mEq/L (21-27); ABG Oxygen Saturation 62 % (95-98); ABG PCO2 41 mmHg (35-45); ABG PH 6.99 pH Units (7.32-7.45); ABG PO2 49 mmHg (85-104); ABG TCO2 11 mEq/L (20-26)
[2020-04-29 00:13] LABS: ABG Base Excess -19 mEq/L (-2 to 3); ABG HCO3 11 mEq/L (21-27); ABG Oxygen Saturation 89 % (95-98); ABG PCO2 47 mmHg (35-45); ABG PO2 86 mmHg (85-104); ABG TCO2 13 mEq/L (20-26); Blood Gas Modality ST; Blood Gas Pressure Support 6 cm H2O
[2020-04-29] MEDS: *HR* Dextrose 50 % in Water (Vial) 50 ML VIAL IVP PRN ×3 (00:16→15:50)
[2020-04-29 00:56] LABS: VBG HCO3 4 mEq/L (21-27); VBG PCO2 25 mmHg (41-51); VBG PH 6.85 pH Units (7.32-7.42); VBG PO2 236 mmHg (25-50)
[2020-04-29 01:01] LABS: Calcium 5.7 mg/dL (8.6-10.3); Magnesium 2.2 mg/dL (1.6-2.6); Phosphorous 5.9 mg/dL (2.7-4.5)
[2020-04-29] MEDS: Calcium Gluconate 1gm/50mL 1 GM/50 ML BAG IVPB SCH ×4 (01:19→06:52)
[2020-04-29] MEDS ORDERED: Sodium Bicarbonate 150 MEQ in D5% in Water 1,000 ML IVC SCH ×3 (01:45→09:00)
[2020-04-29 02:11] LABS: Creatine Kinase 63 Units/L (30-223)
[2020-04-29 02:12] LABS: Troponin I < 0.03 ng/mL (< 0.04)
[2020-04-29 02:15] LABS: Potassium 3.1 mEq/L (3.5-5.1)
[2020-04-29] MEDS ORDERED: Calcium Gluconate 1gm/50mL 1 GM/50 ML BAG IVPB ONE (02:17)
[2020-04-29] MEDS ORDERED: Sodium Bicarbonate 50 MEQ/50 ML VIAL IVP ONE (02:18)
[2020-04-29] MEDS ORDERED: Furosemide 40 MG/4 ML VIAL IVP ONE (02:20)
[2020-04-29] MEDS ORDERED: Calcium Gluconate 1gm/50mL 1 GM/50 ML BAG IVPB PRN (02:22)
[2020-04-29 02:44] LABS: ABG Base Excess -15 mEq/L (-2 to 3); ABG HCO3 12 mEq/L (21-27); ABG Oxygen Saturation 89 % (95-98); ABG PCO2 34 mmHg (35-45); ABG PH 7.17 pH Units (7.32-7.45); ABG PO2 71 mmHg (85-104); ABG TCO2 13 mEq/L (20-26); Blood Gas Modality ST; Blood Gas Pressure Support 6 cm H2O
[2020-04-29 02:48] LABS: Basophils % 0.2 %; Hematocrit 24.1 % (35.3-44.9); Hemoglobin 7.5 g/dL (11.5-15.4); Immature Granulocytes % 2.4 % (0-4); Lymphocytes # 0.6 K/mcL (0.6-4.6); Lymphocytes % 3.7 %; Mean Corpuscular HGB Conc 31.1 g/dL (31.6-35.5); Mean Corpuscular Hemoglobin 31.4 pg (28.0-33.3); Mean Platelet Volume 10.7 fL (9.4-12.4); Monocytes # 0.6 K/mcL (0.0-1.3); Monocytes % 3.2 %; Neutrophils # 15.8 K/mcL (1.6-8.9); Nucleated Red Blood Cells 0.2 /100 WBC (0); Platelet Count 236 K/mcL (140-400); Red Blood Count 2.39 M/mcL (3.82-4.97); Segmented Neutrophils % 90.5 %; White Blood Count 17.4 K/mcL (4.3-11.1)
[2020-04-29 02:51] LABS: Mean Corpuscular Volume 100.8 fL (83.0-100.0)
[2020-04-29 02:52] LABS: Amphetamine Screen,Urine Negative ng/mL (Cutoff=1000); Barbiturate Screen,Urine Negative ng/mL (Cutoff=200); Benzodiazepines Screen,Urine Negative ng/mL (Cutoff=200); Cannabinoid Screen,Urine Negative ng/mL (Cutoff = 50); Cocaine Screen,Urine Negative ng/mL (Cutoff= 300); Creatinine,Urine 26 mg/dL; Microalbum/Creatinine Ratio,Ur 550 mcg/mg (Less than 30); Microalbumin,Urine 143 mg/L; Opiate Screen,Urine Negative ng/mL (Cutoff=300); Phencyclidine Screen,Urine Negative ng/mL (Cutoff=25); Potassium,Urine 38.1 mEq/L; Protein/Creatinine Ratio,Urine 4.15 mg/mg (0.00-0.20); Sodium, Urine 72.6 mEq/L
[2020-04-29] MEDS: Insulin Human Regular 100 UNIT in 0.9 % Sodium Chloride 100 ML IVC SCH (04:33)
[2020-04-29 04:54] LABS: VBG HCO3 14 mEq/L (21-27); VBG PCO2 23 mmHg (41-51); VBG PH 7.38 pH Units (7.32-7.42); VBG PO2 202 mmHg (25-50)
[2020-04-29 05:12] LABS: Calcium 6.4 mg/dL (8.6-10.3); Potassium 3.4 mEq/L (3.5-5.1)
[2020-04-29] MEDS ORDERED: Potassium Chloride 40 MEQ, Lidocaine 1% 2 ML in 0.9 % Sodium Chloride 500 ML IVPB ONE (06:00)
[2020-04-29] MEDS: Nicotine 21 MG PATCH.TD24 TD SCH (08:20)
[2020-04-29] MEDS: Piperacillin/Tazobactam 3.375 GM in 0.9 % Sodium Chloride Mini Bag 100 ML IVPB SCH ×2 (08:21→21:32)
[2020-04-29] MEDS: MethylPREDNISolone 40 MG/ML VIAL IVP SCH ×3 (08:23→22:53)
[2020-04-29] MEDS ORDERED: Furosemide 20 MG/2 ML VIAL IVP ONE (09:01)
[2020-04-29 09:28] LABS: ABG Base Excess -6 mEq/L (-2 to 3); ABG HCO3 20 mEq/L (21-27); ABG Oxygen Saturation 99 % (95-98); ABG PCO2 41 mmHg (35-45); ABG PH 7.29 pH Units (7.32-7.45); ABG PO2 160 mmHg (85-104); ABG TCO2 21 mEq/L (20-26)
[2020-04-29 10:48] LABS: Calcium 6.7 mg/dL (8.6-10.3); Potassium 3.3 mEq/L (3.5-5.1)
[2020-04-29] MEDS: D5% in 0.45% NACL w KCl 20 MEQ/1,000 ML MLS IVC SCH (12:55)
[2020-04-29 14:26] LABS: Bilirubin,Urine Negative (Negative); Blood,Urine Trace (Negative); Clarity,Urine Clear (Clear); Color,Urine Colorless (Yellow); Glucose,Urine (UA) Normal (Normal); Hyaline Casts,Urine Few per lpf (None Seen); Ketones,Urine Negative (Negative); Leukocyte Esterase,Urine Negative (Negative); Mucus,Urine Few per lpf (None-Few); Nitrite,Urine Negative (Negative); PH,Urine 6.5 pH Units (5.0-8.0); Protein,Urine Trace mg/dL (Neg-Trace); RBC,Urine 0-3 per hpf (0-3); Urobilinogen,Urine Normal (Normal); WBC,Urine 0-3 per hpf (0-3)
[2020-04-29] MEDS ORDERED: Levothyroxine Sodium 100 MCG VIAL IVP ONE (14:48)
[2020-04-29 15:24] LABS: Calcium 7.2 mg/dL (8.6-10.3); Potassium 2.8 mEq/L (3.5-5.1)
[2020-04-29 15:42] LABS: Thyroid Stimulating Hormone 0.27 mcIU/mL (0.340-5.600)
[2020-04-29 16:07] LABS: Chloride,Urine 71 mEq/L
[2020-04-29] MEDS: *HR* Heparin 5,000 UNIT/ML VIAL SQ SCH (18:46)
[2020-04-29 18:51] LABS: Triiodothyronine (T3) Free 2.12 pg/mL (2.50-3.90)
[2020-04-29] MEDS: Insulin LISPRO 300 UNITS/3 ML VIAL SQ SCH ×2 (19:48→22:54)
[2020-04-29 20:03] LABS: Calcium 6.8 mg/dL (8.6-10.3); Potassium 3.2 mEq/L (3.5-5.1)
[2020-04-29] MEDS: Azithromycin 500 MG in 0.9 % Sodium Chloride 250 ML IVPB SCH (21:33)
[2020-04-30] MEDS ORDERED: Acetaminophen IV 1,000 MG/100 ML INFUS..BTL IVPB ONE (00:17)
[2020-04-30 01:09] LABS: BUN/Creatinine Ratio 58 (6-26); Blood Urea Nitrogen 61 mg/dL (8-23); Calcium 7.1 mg/dL (8.6-10.3); Carbon Dioxide 21 mEq/L (23-29); Chloride 114 mEq/L (98-107); Glucose 186 mg/dL (70-105); Osmolality,Calculated 330 (280-300); Potassium 2.8 mEq/L (3.5-5.1); Sodium 149 mEq/L (136-145); eGFR For African Americans > 60 (> 60); eGFR For Non-African Americans 53 (> 60)
[2020-04-30] MEDS: D5% in 0.45% NACL w KCl 20 MEQ/1,000 ML MLS IVC SCH (01:45)
[2020-04-30] MEDS ORDERED: Calcium Gluconate 1gm/50mL 1 GM/50 ML BAG IVPB ONE ×2 (02:50→03:32)
[2020-04-30] MEDS ORDERED: Potassium Chloride 40 MEQ, Lidocaine 1% 2 ML in 0.9 % Sodium Chloride 500 ML IVPB ONE ×2 (03:00→23:30)
[2020-04-30] MEDS: Ipratropium/Albuterol Neb 3 ML IH SCH ×6 (03:17→23:31)
[2020-04-30 03:28] LABS: VBG HCO3 22 mEq/L (21-27); VBG Ionized Calcium 0.86 mmol/L (1.15-1.35); VBG PCO2 32 mmHg (41-51); VBG PH 7.44 pH Units (7.32-7.42); VBG PO2 179 mmHg (25-50)
[2020-04-30] MEDS ORDERED: Magnesium Sulfate 1 GM/102 ML PIGGYBACK IVPB ONE (04:11)
[2020-04-30 04:13] LABS: Basophils % 0.2 %; Hematocrit 23.5 % (35.3-44.9); Immature Granulocytes % 1.6 % (0-4); Lymphocytes # 0.4 K/mcL (0.6-4.6); Lymphocytes % 3.2 %; Mean Corpuscular Hemoglobin 31.5 pg (28.0-33.3); Mean Corpuscular Volume 92.5 fL (83.0-100.0); Mean Platelet Volume 10.6 fL (9.4-12.4); Monocytes # 0.6 K/mcL (0.0-1.3); Monocytes % 4.5 %; Neutrophils # 12.6 K/mcL (1.6-8.9); Nucleated Red Blood Cells 0.1 /100 WBC (0); Platelet Count 260 K/mcL (140-400); Red Blood Count 2.54 M/mcL (3.82-4.97); Red Cell Distribution Width 16.7 % (11.5-14.5); Segmented Neutrophils % 90.5 %; White Blood Count 13.9 K/mcL (4.3-11.1)
[2020-04-30] MEDS: Insulin LISPRO 300 UNITS/3 ML VIAL SQ SCH ×3 (04:54→18:21)
[2020-04-30] MEDS: *HR* Heparin 5,000 UNIT/ML VIAL SQ SCH ×2 (04:59→16:22)
[2020-04-30] MEDS: Levothyroxine Sodium 100 MCG VIAL IVP SCH (07:50)
[2020-04-30] MEDS: MethylPREDNISolone 40 MG/ML VIAL IVP SCH ×2 (07:50→16:21)
[2020-04-30] MEDS: Nicotine 21 MG PATCH.TD24 TD SCH (07:50)
[2020-04-30] MEDS: Lactulose Oral Soln 20 GM/30 ML UDC RC SCH ×2 (07:51→20:36)
[2020-04-30] MEDS: Piperacillin/Tazobactam 3.375 GM in 0.9 % Sodium Chloride Mini Bag 100 ML IVPB SCH ×3 (07:52→16:22)
[2020-04-30] MEDS ORDERED: Morphine Sulfate 2 MG/ML SYRINGE IVP ONE ×2 (11:17→13:22)
[2020-04-30 11:53] LABS: Potassium 3.1 mEq/L (3.5-5.1); Sodium 148 mEq/L (136-145)
[2020-04-30 11:54] LABS: BUN/Creatinine Ratio 59 (6-26); Blood Urea Nitrogen 52 mg/dL (8-23); Calcium 7.7 mg/dL (8.6-10.3); Carbon Dioxide 19 mEq/L (23-29); Chloride 114 mEq/L (98-107); Glucose 328 mg/dL (70-105); Osmolality,Calculated 333 (280-300); eGFR For African Americans > 60 (> 60); eGFR For Non-African Americans > 60 (> 60)
[2020-04-30 11:57] LABS: ABG Base Excess -1 mEq/L (-2 to 3); ABG HCO3 23 mEq/L (21-27); ABG Oxygen Saturation 92 % (95-98); ABG PCO2 34 mmHg (35-45); ABG PH 7.44 pH Units (7.32-7.45); ABG PO2 61 mmHg (85-104); ABG TCO2 24 mEq/L (20-26)
[2020-04-30] MEDS: D5% in Water 1,000 ML IVC SCH (13:30)
[2020-04-30 17:39] LABS: BUN/Creatinine Ratio 64 (6-26); Blood Urea Nitrogen 49 mg/dL (8-23); Calcium 7.3 mg/dL (8.6-10.3); Carbon Dioxide 22 mEq/L (23-29); Chloride 118 mEq/L (98-107); Glucose 194 mg/dL (70-105); Osmolality,Calculated 328 (280-300); Potassium 3.1 mEq/L (3.5-5.1); Sodium 150 mEq/L (136-145); eGFR For African Americans > 60 (> 60); eGFR For Non-African Americans > 60 (> 60)
[2020-04-30] MEDS: Azithromycin 500 MG in 0.9 % Sodium Chloride 250 ML IVPB SCH (20:57)
[2020-04-30 23:02] LABS: BUN/Creatinine Ratio 59 (6-26); Blood Urea Nitrogen 51 mg/dL (8-23); Calcium 8.1 mg/dL (8.6-10.3); Carbon Dioxide 22 mEq/L (23-29); Chloride 116 mEq/L (98-107); Glucose 189 mg/dL (70-105); Osmolality,Calculated 333 (280-300); Potassium 2.8 mEq/L (3.5-5.1); Sodium 152 mEq/L (136-145); eGFR For African Americans > 60 (> 60); eGFR For Non-African Americans > 60 (> 60)
[2020-04-30 23:35] LABS: Magnesium 1.7 mg/dL (1.6-2.6); Phosphorous 1.8 mg/dL (2.7-4.5)
[2020-05-01] MEDS: Piperacillin/Tazobactam 3.375 GM in 0.9 % Sodium Chloride Mini Bag 100 ML IVPB SCH ×3 (00:26→16:06)
[2020-05-01] MEDS: MethylPREDNISolone 40 MG/ML VIAL IVP SCH ×3 (00:30→16:05)
[2020-05-01] MEDS: Insulin LISPRO 300 UNITS/3 ML VIAL SQ SCH ×4 (00:38→17:59)
[2020-05-01] MEDS ORDERED: Acetaminophen IV 1,000 MG/100 ML INFUS..BTL IVPB ONE (01:12)
[2020-05-01] MEDS ORDERED: Potassium Phosphate 44 MEQ in 0.9 % Sodium Chloride 250 ML IVPB ONE (01:30)
[2020-05-01] MEDS: Ipratropium/Albuterol Neb 3 ML IH SCH ×6 (03:39→23:38)
[2020-05-01 04:46] LABS: Basophils % 0.2 %; Eosinophils % 0.1 %; Immature Granulocytes % 0.8 % (0-4); Lymphocytes # 0.7 K/mcL (0.6-4.6); Lymphocytes % 5.8 %; Mean Corpuscular HGB Conc 33.3 g/dL (31.6-35.5); Mean Corpuscular Hemoglobin 31.5 pg (28.0-33.3); Mean Corpuscular Volume 94.5 fL (83.0-100.0); Mean Platelet Volume 10.1 fL (9.4-12.4); Monocytes # 0.8 K/mcL (0.0-1.3); Monocytes % 6.1 %; Neutrophils # 10.6 K/mcL (1.6-8.9); Nucleated Red Blood Cells 0.2 /100 WBC (0); Platelet Count 277 K/mcL (140-400); Red Blood Count 2.54 M/mcL (3.82-4.97); Red Cell Distribution Width 16.3 % (11.5-14.5); White Blood Count 12.2 K/mcL (4.3-11.1)
[2020-05-01 05:00] LABS: Alanine Aminotransferase 8 Units/L (7-52); Albumin 3.2 g/dL (3.5-5.7); Alkaline Phosphatase 74 Units/L (34-104); Aspartate Amino Transferase 14 Units/L (13-39); BUN/Creatinine Ratio 56 (6-26); Bilirubin,Total 0.6 mg/dL (0.3-1.0); Blood Urea Nitrogen 50 mg/dL (8-23); Calcium 8.1 mg/dL (8.6-10.3); Carbon Dioxide 21 mEq/L (23-29); Chloride 115 mEq/L (98-107); Globulin 3.1 g/dL (2.4-3.5); Glucose 260 mg/dL (70-105); Magnesium 1.7 mg/dL (1.6-2.6); Osmolality,Calculated 332 (280-300); Phosphorous 2.6 mg/dL (2.7-4.5); Potassium 3.3 mEq/L (3.5-5.1); Sodium 150 mEq/L (136-145); Total Protein 6.3 g/dL (6.4-8.9); eGFR For African Americans > 60 (> 60); eGFR For Non-African Americans > 60 (> 60)
[2020-05-01] MEDS: D5% in Water 1,000 ML IVC SCH ×2 (05:34→17:23)
[2020-05-01] MEDS: *HR* Heparin 5,000 UNIT/ML VIAL SQ SCH ×2 (05:46→17:22)
[2020-05-01] MEDS: Levothyroxine Sodium 100 MCG VIAL IVP SCH (07:46)
[2020-05-01] MEDS: Nicotine 21 MG PATCH.TD24 TD SCH (07:46)
[2020-05-01] MEDS ORDERED: Isovue-370 500 ML BOTTLE IVP ONE (08:50)
[2020-05-01] MEDS: Lactulose Oral Soln 20 GM/30 ML UDC RC SCH ×2 (09:08→21:23)
[2020-05-01] MEDS ORDERED: Isovue-370 500 ML BOTTLE PO ONE (09:58)
[2020-05-01] MEDS: Scopolamine Patch 1.5 MG PATCH.TD72 TD SCH (12:05)
[2020-05-01] MEDS ORDERED: Famotidine 20 MG TABLET PO PRN (13:03)
[2020-05-01] MEDS: Dexmedetomidine HCl 400 MCG/100 ML MLS IVC SCH (21:22)
[2020-05-01] MEDS: Azithromycin 500 MG in 0.9 % Sodium Chloride 250 ML IVPB SCH (21:23)
[2020-05-02] MEDS: MethylPREDNISolone 40 MG/ML VIAL IVP SCH ×3 (00:42→15:09)
[2020-05-02] MEDS: Insulin LISPRO 300 UNITS/3 ML VIAL SQ SCH ×6 (00:42→20:48)
[2020-05-02] MEDS: D5% in Water 1,000 ML IVC SCH ×3 (00:49→22:02)
[2020-05-02] MEDS: Piperacillin/Tazobactam 3.375 GM in 0.9 % Sodium Chloride Mini Bag 100 ML IVPB SCH ×3 (01:47→16:17)
[2020-05-02] MEDS: Ipratropium/Albuterol Neb 3 ML IH SCH ×6 (03:39→22:59)
[2020-05-02] MEDS: Dexmedetomidine HCl 400 MCG/100 ML MLS IVC SCH ×3 (03:51→15:50)
[2020-05-02] MEDS: *HR* Heparin 5,000 UNIT/ML VIAL SQ SCH (05:39)
[2020-05-02 06:41] LABS: Hematocrit 20.9 % (35.3-44.9); Hemoglobin 6.9 g/dL (11.5-15.4); Mean Corpuscular Hemoglobin 31.2 pg (28.0-33.3); Mean Corpuscular Volume 94.6 fL (83.0-100.0); Mean Platelet Volume 10.4 fL (9.4-12.4); Platelet Count 255 K/mcL (140-400); Red Blood Count 2.21 M/mcL (3.82-4.97); Red Cell Distribution Width 16.3 % (11.5-14.5); White Blood Count 11.8 K/mcL (4.3-11.1)
[2020-05-02 06:57] LABS: BUN/Creatinine Ratio 53 (6-26); Blood Urea Nitrogen 51 mg/dL (8-23); Calcium 8.2 mg/dL (8.6-10.3); Carbon Dioxide 24 mEq/L (23-29); Chloride 116 mEq/L (98-107); Glucose 249 mg/dL (70-105); Osmolality,Calculated 336 (280-300); Sodium 152 mEq/L (136-145); eGFR For African Americans > 60 (> 60); eGFR For Non-African Americans 59 (> 60)
[2020-05-02] MEDS: Venlafaxine XR (24 HR) 150 MG CAP.ER.24H PO SCH (07:07)
[2020-05-02] MEDS: hydroCHLOROthiazide 25 MG TABLET PO SCH (07:07)
[2020-05-02] MEDS: Lactulose Oral Soln 20 GM/30 ML UDC RC SCH ×2 (07:45→20:47)
[2020-05-02] MEDS: Levothyroxine Sodium 100 MCG VIAL IVP SCH (07:45)
[2020-05-02] MEDS ORDERED: 0.9 % Sodium Chloride 250 ML IVC SCH (07:45)
[2020-05-02] MEDS: Nicotine 21 MG PATCH.TD24 TD SCH (07:50)
[2020-05-02 08:22] LABS: Hematocrit 22.2 % (35.3-44.9); Hemoglobin 7.2 g/dL (11.5-15.4)
[2020-05-02 08:41] LABS: Magnesium 1.6 mg/dL (1.6-2.6); Phosphorous 3.4 mg/dL (2.7-4.5)
[2020-05-02] MEDS ORDERED: Potassium Chloride 40 MEQ, Lidocaine 1% 2 ML in 0.9 % Sodium Chloride 500 ML IVPB ONE (13:05)
[2020-05-02 13:45] LABS: Hematocrit 28.7 % (35.3-44.9)
[2020-05-02 13:48] LABS: Hemoglobin 9.1 g/dL (11.5-15.4)
[2020-05-02] MEDS: Pantoprazole 40 MG VIAL IVP SCH (16:16)
[2020-05-02 17:19] LABS: BUN/Creatinine Ratio 53 (6-26); Blood Urea Nitrogen 52 mg/dL (8-23); Calcium 8.1 mg/dL (8.6-10.3); Carbon Dioxide 22 mEq/L (23-29); Chloride 119 mEq/L (98-107); Glucose 190 mg/dL (70-105); Osmolality,Calculated 335 (280-300); Potassium 3.6 mEq/L (3.5-5.1); Sodium 153 mEq/L (136-145); eGFR For African Americans > 60 (> 60); eGFR For Non-African Americans 57 (> 60)
[2020-05-02 20:31] LABS: Hematocrit 23.5 % (35.3-44.9); Hemoglobin 7.6 g/dL (11.5-15.4)
[2020-05-02] MEDS: Azithromycin 500 MG in 0.9 % Sodium Chloride 250 ML IVPB SCH (20:48)
[2020-05-03] MEDS: Insulin LISPRO 300 UNITS/3 ML VIAL SQ SCH ×5 (03:57→17:21)
[2020-05-03] MEDS: Ipratropium/Albuterol Neb 3 ML IH SCH ×6 (03:59→23:35)
[2020-05-03] MEDS: Pantoprazole 40 MG VIAL IVP SCH ×2 (05:06→17:18)
[2020-05-03] MEDS: D5% in Water 1,000 ML IVC SCH ×3 (05:06→15:28)
[2020-05-03 06:09] LABS: Hematocrit 22.5 % (35.3-44.9); Hemoglobin 7.2 g/dL (11.5-15.4); Mean Corpuscular Hemoglobin 30.3 pg (28.0-33.3); Mean Corpuscular Volume 94.5 fL (83.0-100.0); Platelet Count 225 K/mcL (140-400); Red Blood Count 2.38 M/mcL (3.82-4.97); Red Cell Distribution Width 16.4 % (11.5-14.5); White Blood Count 9.6 K/mcL (4.3-11.1)
[2020-05-03 06:31] LABS: Magnesium 1.5 mg/dL (1.6-2.6); Phosphorous 3.2 mg/dL (2.7-4.5)
[2020-05-03 06:32] LABS: BUN/Creatinine Ratio 49 (6-26); Blood Urea Nitrogen 42 mg/dL (8-23); Carbon Dioxide 24 mEq/L (23-29); Chloride 113 mEq/L (98-107); Glucose 215 mg/dL (70-105); Osmolality,Calculated 321 (280-300); Potassium 2.8 mEq/L (3.5-5.1); Sodium 147 mEq/L (136-145); eGFR For African Americans > 60 (> 60); eGFR For Non-African Americans > 60 (> 60)
[2020-05-03] MEDS ORDERED: Potassium Chloride 40 MEQ, Lidocaine 1% 2 ML in 0.9 % Sodium Chloride 500 ML IVPB ONE ×2 (07:20→14:43)
[2020-05-03] MEDS: Venlafaxine XR (24 HR) 150 MG CAP.ER.24H PO SCH (08:17)
[2020-05-03] MEDS: hydroCHLOROthiazide 25 MG TABLET PO SCH (08:17)
[2020-05-03] MEDS ORDERED: *HR* FentaNYL (PF) 100 MCG/2 ML VIAL ONE (08:40)
[2020-05-03] MEDS ORDERED: *HR* Midazolam HCl 5 MG/5 ML VIAL IVP ONE ×2 (08:41→08:55)
[2020-05-03] MEDS ORDERED: *HR* FentaNYL (PF) 100 MCG/2 ML VIAL IVP ONE (08:55)
[2020-05-03] MEDS ORDERED: 0.9 % Sodium Chloride 1,000 ML IVC SCH ×3 (09:00→15:00)
[2020-05-03] MEDS: MethylPREDNISolone 40 MG/ML VIAL IVP SCH ×3 (09:28→17:18)
[2020-05-03] MEDS: Nicotine 21 MG PATCH.TD24 TD SCH (09:28)
[2020-05-03] MEDS: Levothyroxine Sodium 100 MCG VIAL IVP SCH (09:29)
[2020-05-03] MEDS ORDERED: Piperacillin/Tazobactam 3.375 GM in D5% in Water (Mini-Bag+) 100 ML IVPB SCH ×3 (09:30→17:00)
[2020-05-03] MEDS: Piperacillin/Tazobactam 3.375 GM in 0.9 % Sodium Chloride Mini Bag 100 ML IVPB SCH ×2 (09:31)
[2020-05-03] MEDS ORDERED: Permethrin Cream Rinse 60 ML LIQUID TP ONE (09:43)
[2020-05-03] MEDS: Dexmedetomidine HCl 400 MCG/100 ML MLS IVC SCH (12:47)
[2020-05-03] MEDS: Lactulose Oral Soln 20 GM/30 ML UDC PO SCH ×2 (12:47→20:06)
[2020-05-03 14:24] LABS: BUN/Creatinine Ratio 35 (6-26); Blood Urea Nitrogen 33 mg/dL (8-23); Calcium 7.6 mg/dL (8.6-10.3); Carbon Dioxide 19 mEq/L (23-29); Chloride 111 mEq/L (98-107); Potassium 3.1 mEq/L (3.5-5.1); Sodium 142 mEq/L (136-145); eGFR For African Americans > 60 (> 60); eGFR For Non-African Americans > 60 (> 60)
[2020-05-03 14:46] LABS: Glucose 502 mg/dL (70-105); Osmolality,Calculated 324 (280-300)
[2020-05-03] MEDS ORDERED: Insulin Human Regular 10 UNIT in 0.9 % Sodium Chloride 10 ML IV ONE (14:55)
[2020-05-03] MEDS: Lactulose Oral Soln 20 GM/30 ML UDC RC SCH (15:28)
[2020-05-03 17:29] LABS: BUN/Creatinine Ratio 44 (6-26); Blood Urea Nitrogen 42 mg/dL (8-23); Calcium 8.3 mg/dL (8.6-10.3); Carbon Dioxide 21 mEq/L (23-29); Chloride 111 mEq/L (98-107); Glucose 393 mg/dL (70-105); Osmolality,Calculated 325 (280-300); Potassium 3.3 mEq/L (3.5-5.1); Sodium 144 mEq/L (136-145); eGFR For African Americans > 60 (> 60); eGFR For Non-African Americans 59 (> 60)
[2020-05-03] MEDS: Insulin DETEMIR 100 UNIT/ML X5UNITS SQ SCH (20:06)
[2020-05-03] MEDS: Azithromycin 500 MG in D5% in Water 250 ML IVPB SCH (20:06)
[2020-05-03] MEDS ORDERED: Insulin LISPRO 300 UNITS/3 ML VIAL SQ SCH (21:00)
[2020-05-04] MEDS: Piperacillin/Tazobactam 3.375 GM in D5% in Water (Mini-Bag+) 100 ML IVPB SCH ×4 (00:07→23:51)
[2020-05-04] MEDS: MethylPREDNISolone 40 MG/ML VIAL IVP SCH ×4 (00:07→23:51)
[2020-05-04] MEDS: Ipratropium/Albuterol Neb 3 ML IH SCH ×5 (03:53→20:21)
[2020-05-04] MEDS: Pantoprazole 40 MG VIAL IVP SCH ×2 (04:59→16:08)
[2020-05-04 05:02] LABS: Hematocrit 20.2 % (35.3-44.9); Hemoglobin 6.6 g/dL (11.5-15.4); Mean Corpuscular HGB Conc 32.7 g/dL (31.6-35.5); Mean Corpuscular Volume 94.8 fL (83.0-100.0); Mean Platelet Volume 10.6 fL (9.4-12.4); Platelet Count 233 K/mcL (140-400); Red Blood Count 2.13 M/mcL (3.82-4.97); Red Cell Distribution Width 16.1 % (11.5-14.5); White Blood Count 14.1 K/mcL (4.3-11.1)
[2020-05-04 05:17] LABS: BUN/Creatinine Ratio 37 (6-26); Blood Urea Nitrogen 34 mg/dL (8-23); Calcium 7.7 mg/dL (8.6-10.3); Carbon Dioxide 22 mEq/L (23-29); Chloride 113 mEq/L (98-107); Glucose 174 mg/dL (70-105); Osmolality,Calculated 310 (280-300); Potassium 3.2 mEq/L (3.5-5.1); Sodium 144 mEq/L (136-145); eGFR For African Americans > 60 (> 60); eGFR For Non-African Americans > 60 (> 60)
[2020-05-04 05:18] LABS: Phosphorous 2.4 mg/dL (2.7-4.5)
[2020-05-04] MEDS ORDERED: 0.9 % Sodium Chloride 250 ML IVC SCH (07:15)
[2020-05-04] MEDS ORDERED: Potassium Phosphate 44 MEQ in 0.9 % Sodium Chloride 250 ML IVPB ONE (07:15)
[2020-05-04] MEDS: Lactulose Oral Soln 20 GM/30 ML UDC PO SCH ×2 (07:53→20:04)
[2020-05-04] MEDS: Venlafaxine XR (24 HR) 150 MG CAP.ER.24H PO SCH (07:53)
[2020-05-04] MEDS: lisinopriL 10 MG TABLET PO SCH (07:53)
[2020-05-04] MEDS: Insulin LISPRO 300 UNITS/3 ML VIAL SQ SCH ×5 (07:56→20:05)
[2020-05-04] MEDS: Nicotine 21 MG PATCH.TD24 TD SCH (07:58)
[2020-05-04 07:59] LABS: Hematocrit 22.4 % (35.3-44.9); Hemoglobin 7.3 g/dL (11.5-15.4)
[2020-05-04] MEDS ORDERED: hydroCHLOROthiazide 25 MG TABLET PO SCH (09:00)
[2020-05-04] MEDS ORDERED: 0.9 % Sodium Chloride 250 ML ONE (10:41)
[2020-05-04] MEDS: Scopolamine Patch 1.5 MG PATCH.TD72 TD SCH (11:42)
[2020-05-04 15:16] LABS: Hematocrit 24.7 % (35.3-44.9)
[2020-05-04] MEDS: Insulin DETEMIR 100 UNIT/ML X5UNITS SQ SCH (20:04)
[2020-05-04] MEDS: Azithromycin 500 MG in D5% in Water 250 ML IVPB SCH (20:04)
[2020-05-04 20:33] LABS: Hematocrit 24.5 % (35.3-44.9); Hemoglobin 7.9 g/dL (11.5-15.4)
[2020-05-05] MEDS: Ipratropium/Albuterol Neb 3 ML IH SCH ×7 (00:07→23:29)
[2020-05-05 04:09] LABS: Basophils % 0.3 %; Eosinophils # 0.1 K/mcL (0.0-0.6); Eosinophils % 0.3 %; Hematocrit 24.5 % (35.3-44.9); Hemoglobin 7.8 g/dL (11.5-15.4); Immature Granulocytes % 4.1 % (0-4); Lymphocytes # 1.3 K/mcL (0.6-4.6); Lymphocytes % 8.4 %; Mean Corpuscular HGB Conc 31.8 g/dL (31.6-35.5); Mean Corpuscular Hemoglobin 30.2 pg (28.0-33.3); Mean Platelet Volume 10.7 fL (9.4-12.4); Monocytes # 0.4 K/mcL (0.0-1.3); Monocytes % 2.7 %; Neutrophils # 13.4 K/mcL (1.6-8.9); Nucleated Red Blood Cells 0.2 /100 WBC (0); Platelet Count 225 K/mcL (140-400); Red Blood Count 2.58 M/mcL (3.82-4.97); Red Cell Distribution Width 15.4 % (11.5-14.5); Segmented Neutrophils % 84.2 %; White Blood Count 15.9 K/mcL (4.3-11.1)
[2020-05-05 04:28] LABS: BUN/Creatinine Ratio 25 (6-26); Blood Urea Nitrogen 22 mg/dL (8-23); Calcium 7.7 mg/dL (8.6-10.3); Carbon Dioxide 21 mEq/L (23-29); Chloride 110 mEq/L (98-107); Glucose 83 mg/dL (70-105); Magnesium 1.6 mg/dL (1.6-2.6); Osmolality,Calculated 296 (280-300); Potassium 3.1 mEq/L (3.5-5.1); Sodium 142 mEq/L (136-145); eGFR For African Americans > 60 (> 60); eGFR For Non-African Americans > 60 (> 60)
[2020-05-05] MEDS: *HR* OxyCODONE/APAP 10/325 TABLET PO PRN ×2 (05:31→20:08)
[2020-05-05] MEDS: Pantoprazole 40 MG VIAL IVP SCH ×2 (05:31→16:16)
[2020-05-05] MEDS ORDERED: Potassium Chloride 40 MEQ, Lidocaine 1% 2 ML in 0.9 % Sodium Chloride 500 ML IVPB ONE (07:22)
[2020-05-05] MEDS: Insulin LISPRO 300 UNITS/3 ML VIAL SQ SCH ×4 (07:44→20:08)
[2020-05-05] MEDS: lisinopriL 10 MG TABLET PO SCH (08:30)
[2020-05-05] MEDS: Venlafaxine XR (24 HR) 150 MG CAP.ER.24H PO SCH (08:30)
[2020-05-05] MEDS: amLODIPine 5 MG TABLET PO SCH (08:31)
[2020-05-05] MEDS: Lactulose Oral Soln 20 GM/30 ML UDC PO SCH ×2 (08:31→20:08)
[2020-05-05] MEDS: Piperacillin/Tazobactam 3.375 GM in D5% in Water (Mini-Bag+) 100 ML IVPB SCH ×3 (08:31→23:18)
[2020-05-05] MEDS: Nicotine 21 MG PATCH.TD24 TD SCH (08:32)
[2020-05-05] MEDS: Calcium Gluconate 1gm/50mL 1 GM/50 ML BAG IVPB SCH ×2 (14:28→15:29)
[2020-05-05 15:47] LABS: Bilirubin,Urine Negative (Negative); Blood,Urine Negative (Negative); Clarity,Urine Clear (Clear); Color,Urine Colorless (Yellow); Glucose,Urine (UA) Normal (Normal); Ketones,Urine Negative (Negative); Leukocyte Esterase,Urine Trace (Negative); Nitrite,Urine Negative (Negative); PH,Urine 6.5 pH Units (5.0-8.0); Protein,Urine 30 mg/dL (Neg-Trace); RBC,Urine 0-3 per hpf (0-3); Specific Gravity,Urine 1.014 (1.010-1.025); Squamous Epithelial Cell,Urine Few per hpf (None-Few); Urobilinogen,Urine Normal (Normal)
[2020-05-05] MEDS: Gabapentin 400 MG CAPSULE PO SCH (20:08)
[2020-05-05] MEDS: Insulin DETEMIR 100 UNIT/ML X5UNITS SQ SCH (20:08)
[2020-05-06] MEDS: Ipratropium/Albuterol Neb 3 ML IH SCH ×2 (03:44→07:23)
[2020-05-06 04:59] LABS: Hematocrit 27.7 % (35.3-44.9); Hemoglobin 8.8 g/dL (11.5-15.4); Mean Corpuscular HGB Conc 31.8 g/dL (31.6-35.5); Mean Corpuscular Hemoglobin 30.2 pg (28.0-33.3); Mean Corpuscular Volume 95.2 fL (83.0-100.0); Mean Platelet Volume 10.3 fL (9.4-12.4); Nucleated Red Blood Cells 0.2 /100 WBC (0); Platelet Count 276 K/mcL (140-400); Red Blood Count 2.91 M/mcL (3.82-4.97); Red Cell Distribution Width 15.3 % (11.5-14.5)
[2020-05-06 05:06] LABS: VBG Ionized Calcium 1.06 mmol/L (1.15-1.35)
[2020-05-06 05:16] LABS: BUN/Creatinine Ratio 21 (6-26); Blood Urea Nitrogen 20 mg/dL (8-23); Calcium 7.9 mg/dL (8.6-10.3); Carbon Dioxide 23 mEq/L (23-29); Chloride 112 mEq/L (98-107); Glucose 43 mg/dL (70-105); Osmolality,Calculated 294 (280-300); Potassium 3.3 mEq/L (3.5-5.1); Sodium 142 mEq/L (136-145); eGFR For African Americans > 60 (> 60); eGFR For Non-African Americans 59 (> 60)
[2020-05-06] MEDS: Pantoprazole 40 MG VIAL IVP SCH (05:32)
[2020-05-06 05:47] LABS: Anisocytosis 1+ (Not Present); Lymphocytes # 1.5 K/mcL (0.6-4.6); Neutrophils # 13.5 K/mcL (1.6-8.9); Platelet Estimate Normal (Normal); Toxic Granulation Present (Not Present)
[2020-05-06] MEDS ORDERED: Potassium Chloride 40 MEQ, Lidocaine 1% 2 ML in 0.9 % Sodium Chloride 500 ML IVPB ONE (07:09)
[2020-05-06] MEDS: Insulin LISPRO 300 UNITS/3 ML VIAL SQ SCH (07:46)
[2020-05-06] MEDS: Lactulose Oral Soln 20 GM/30 ML UDC PO SCH (08:04)
[2020-05-06] MEDS: lisinopriL 10 MG TABLET PO SCH (08:05)
[2020-05-06] MEDS: amLODIPine 5 MG TABLET PO SCH (08:05)
[2020-05-06] MEDS: Venlafaxine XR (24 HR) 150 MG CAP.ER.24H PO SCH (08:05)
[2020-05-06] MEDS: Nicotine 21 MG PATCH.TD24 TD SCH (08:05)
[2020-05-06] MEDS: Gabapentin 400 MG CAPSULE PO SCH (08:06)
[2020-05-06] MEDS: Calcium Gluconate 1gm/50mL 1 GM/50 ML BAG IVPB SCH ×2 (08:22→09:46)
[2020-05-06 10:53] VITALS: BP 109/59
== END 2020-05-06 11:46 | disposition home health service (06) | DRG 871 ==
LOC: EMEROOARM 20:19 → 2NNU 20:19 → SUATTDRO 04-28 00:03 → OBSVTOIN 04-28 00:03 → 2NNU 04-28 00:58 → 2ANU 05-03 14:47
PROVIDERS: ADMIT Internal Medicine; ATTEND Family Medicine